=== PATIENT | female | born 1945 | race Caucasian/White ===

== ENCOUNTER 2017-09-16 22:04 | Emergency (ER) | payer MEDICARE, SELFPAY ==
[2017-09-16 22:18] VITALS: BP 175/99; PULSE 86; RESP 18; TEMP 36.1; O2SAT 94; BMI 21.5
[2017-09-16 22:30] LABS: Bacteria Urine None Seen; RBC Urine None Seen (0-5/HPF)
[2017-09-16 23:03] LABS: Bilirubin Urine UA 1+ (NEGATIVE); WBC Urine 1-5/HPF (0-5/HPF)
--- NOTE | 2017-09-16 23:03 | PC.NURSE ---
2199: Pictures sent to HV of fox on face ears hand arms and neck. Pt still ventilating on her own. c/o pain and medicated with 0.5mg dilaudid per Dr Solorzano (please see trauma flow sheet for this documentation). Pt reports feeling improvement. IVF infusing at maintenance. Airway continues to be patent and 98% on 2L O2 2229: HV requesting additional pictures s/p wound debridement. Wounds debrided to best ability and additional pictures sent for HV consult. 2246: pt medicated with 0.5mg dilaudid as seen in APR. Pt blister'd hands and arms dressed with xeroform and bandage wrap per Dr Solorzano's instructions. Pt coughing and expectorating black soot sputum. Lungs assessed and sound clear to ausc. at this time. Pt allowed to swish and spit to expectorate soot more efficiently. NPO per HV until they are able to assess. Airway continues to remain patent at this time and pt is in good spirits and talkative.
[2017-09-16 23:04] LABS: Appearance Urine UA Clear; Color Urine UA ORANGE; Culture Indicated Urine Cult Not Indicated
[2017-09-16 23:06] LABS: Ictotest Urine Negative (Negative)
[2017-09-16 23:20] VITALS: BP 160/92; PULSE 71; RESP 18; TEMP 36.3; O2SAT 96
--- NOTE | 2017-09-16 23:42 | DI.RAD.S_ITS ---
PROCEDURE: XR ABDOMEN MIN 2V INDICATIONS: constipated TECHNIQUE: 2 views of the abdomen were acquired. COMPARISON: Outside Film, CT, CT ABDOMEN PELVIS WITH CONTRAST, 04/01/2017, 13:59. [facility], CR, ABDOMEN 1 VIEW, 07/29/2009, 13:11. [facility], , XR ACUTE ABDOMEN SERIES, 06/14/2017, 15:58. FINDINGS: Surgical changes and devices: There are post surgical changes in the lower lumbar spine. Bowel: No pneumoperitoneum. The bowel gas pattern is normal. Soft tissues: No masses; visualized solid organ contours appear normal in size. No suspicious abdominal calcifications. Bones: No suspicious bony abnormalities. IMPRESSION: Normal bowel gas pattern. Dictated by: Rene Mattson M.D. on 09/17/2017 at 8:05 Approved by: Rene Mattson M.D. on 09/17/2017 at 8:07
[2017-09-16 23:53] LABS: Add Manual Diff / Slide Review NO; Eosinophils Percent Auto 1.1 % (2-4); Hematocrit 40.1 % (36-46); Hemoglobin 13.1 g/dL (12.0-16.0); Lymphocytes Percent Auto 25.5 % (25-40); Mean Corpuscular HGB Conc 32.7 % (30-36); Mean Corpuscular Volume 94.8 fL (80-100); Monocytes Percent Auto 6.6 % (3-14); Neutrophils Absolute Auto 4400 /uL (3000-5900); Neutrophils Percent Auto 65.8 % (50-75); Platelet Count 233 X10^3/uL (150-400); Red Blood Cell Count 4.23 X10^6/uL (4.0-5.2); Red Cell Distribution Width 14.2 % (11.6-14.8); White Blood Cell Count 6.6 X10^3/uL (4.5-11.0)
[2017-09-16 23:57] LABS: Alanine Aminotransferase 15 IU/L (9-52); Albumin 3.9 g/dL (3.5-5.0); Albumin Globulin Ratio 1.2 (1.0-2.8); Alkaline Phosphatase 37 U/L (38-126); Aspartate Aminotransferase 30 IU/L (14-36); BUN Creatinine Ratio 28.9 (6-22); Bilirubin Total 0.5 mg/dL (0.2-1.3); Blood Urea Nitrogen 26 mg/dL (7-17); Calcium 9.1 mg/dL (8.4-10.2); Carbon Dioxide 30 mmol/L (22-32); Chloride 104 mmol/L (98-107); Estimated Glomerular Filt Rate > 60.0 mL/min (>60); Globulin 3.3 g/dL (1.7-4.1); Glucose 97 mg/dL (80-110); HEMOLYSIS < 15 (0-50); Lipase 38 U/L (23-300); Potassium 4.1 mmol/L (3.4-5.1); Sodium 140 mmol/L (137-145); Total Protein 7.2 g/dL (6.3-8.2)
--- NOTE | 2017-09-17 00:24 | ED_ITS ---
HPI - Abdominal Pain General Chief Complaint: Abdominal Pain Stated Complaint: BLADDER PAIN BOWEL OBSTRUCTION Time Seen by Provider: 09/16/17 23:16 Source: patient Mode of arrival: ambulatory Limitations: no limitations History of Present Illness HPI narrative: Patient is a 71-year-old female who presents with abdominal pain and rectal pain. She is chronically on pain medications for back. Which she had a bowel movement 5 days ago but nothing since. She has pain in the rectum. She has had pain in the rectum ongoing for some time. Tonight she says it is worse. She feels like she does need to have a bowel movement. No nausea or vomiting. No fevers. She actually was supposed to have a colonoscopy today but she said she felt too bad and was unable to come over to have a colonoscopy. She is now here in the emergency department for evaluation. Related Data Home Medications Medication Instructions Recorded Confirmed fentanyl 1 patch TOPICAL EVERY OTHER DAY #0 03/01/17 gabapentin [Neurontin] 600 mg PO TID #0 03/01/17 belladonna alkaloids-opium 1 supp IL Q8HP PRN #0 04/07/17 cephalexin 500 mg PO TID #0 04/07/17 morphine 15 mg PO Q6HP PRN #0 04/07/17 oxycodone 10 mg PO Q3HP PRN #0 04/07/17 Previous Rx's Medication Instructions Recorded dicyclomine 10 mg PO Q6HP PRN #60 cap 03/05/17 polyethylene glycol 3350 17 gm PO HS #30 dose 03/05/17 sennosides [senna] 2 tab PO BID #30 03/05/17 warfarin [Coumadin] 5 mg PO HS #30 tab 03/05/17 phenazopyridine [Pyridium] 200 mg PO TID #10 tab 04/20/17 Allergies Allergy/AdvReac Type Severity Reaction Status Date / Time No Known Allergies Allergy Uncoded 05/25/17 13:02 Review of Systems Review of Systems GENERAL: Denies chills, fatigue, malaise, fever, sweats, travel HEENT: Denies sinus pain, ear pain, sore throat, difficulty swallowing, neck pain RESPIRATORY: Denies dyspnea, cough, wheezing, hemoptysis, sputum. CARDIOVASCULAR: Denies chest pain, palpitations, orthopnea, edema GASTROINTESTINAL: See HPI : Denies dysuria, frequency, incontinence, hematuria, urinary retention, flank pain. MUSCULOSKELETAL: Denies weakness, joint pain, or bony pain SKIN: No rash, no erythema, no pruritus NEUROLOGIC: Denies weakness, dizziness, headache, numbness, change in speech, confusion PSYCHIATRIC: No concerning psychosocial issues. 12 point review of systems is negative except for those stated above and HPI [facility] Medical History History of hysterectomy (Acute) Surgical History History of lumbar laminectomy (Acute) Social History Smoking Status: Current every day smoker Exam Initial Vital Signs Initial Vital Signs: Vital Signs Temperature 97 F L 09/16/17 22:18 Pulse Rate 86 09/16/17 22:18 Respiratory Rate 18 09/16/17 22:18 Blood Pressure 175/99 H 09/16/17 22:18 Pulse Oximetry 94 09/16/17 22:18 GENERAL: Well-appearing, well-nourished and in no acute distress. HEENT: Head atraumatic,EOMI, pupils reactive, face symmetric, moist mucous membranes CARDIOVASCULAR: Regular rate and rhythm without murmurs, rubs or gallops. RESPIRATORY: Breath sounds equal bilaterally, no wheezes rales or rhonchi. ABDOMEN: Soft mild lower abdominal tenderness without guarding or rebound no distension normal bowel sounds no masses or pulsations EXTREMITIES: Normal range of motion, no clubbing or edema. Neurovascularly intact NEUROLOGICAL: Alert and oriented x4.Normal gait and speech. Cranial nerves II through XII grossly intact. SKIN: Warm, dry, no laceration, no petechiae, no rashes or lesions. Course Orders Ordered: ED Orders 09/16/17 22:16 Ictotest Urine Stat UA Complete [Urinalysis and Microscopic] Stat 09/16/17 23:00 Complete Blood Count AUTO DIFF Stat Comprehensive Metabolic Panel Stat Lipase Stat 09/16/17 23:42 XR abdomen min 2V Stat 09/17/17 02:20 CT abdomen pelvis w con Stat Discontinued Medications Ketorolac Tromethamine (Toradol) 30 mg IV NOW ONE Stop: 09/17/17 02:54 Last Admin: 09/17/17 03:06 Dose: 30 mg Mineral Oil (Mineral Oil Enema) 1 each IL NOW ONE Stop: 09/16/17 23:43 Last Admin: 09/17/17 00:49 Dose: 1 each Morphine Sulfate (Morphine Sulfate) 4 mg IV NOW ONE Stop: 08/04/18 00:22 Last Admin: 09/17/17 00:26 Dose: 4 mg Sodium Biphosphate/Sodium Phosphate (Fleet Enema) 1 each IL NOW ONE Stop: 09/17/17 01:49 Last Admin: 09/17/17 02:10 Dose: 1 each Vital Signs - 8 hr 09/16/17 22:18 09/16/17 23:20 09/17/17 02:08 Temperature 97 F L 97.3 F L Pulse Rate 86 71 80 Respiratory Rate 18 18 18 Blood Pressure 175/99 H Blood Pressure [Left Arm] 160/92 H 159/88 H Pulse Oximetry 94 96 09/17/17 03:25 Temperature 98 F Pulse Rate 88 Respiratory Rate 18 Blood Pressure 150/90 H Blood Pressure [Left Arm] Pulse Oximetry 98 MDM - Abdominal Pain Lab Data Attestation: I reviewed the patient's lab results. Result diagrams: 09/16/17 23:00 09/16/17 23:00 Lab Results 09/16/17 09/16/17 09/16/17 Range/Units 22:16 22:16 23:00 WBC 6.6 (4.5-11.0) X10^3/uL RBC 4.23 (4.0-5.2) X10^6/uL Hgb 13.1 (12.0-16.0) g/dL Hct 40.1 (36-46) % MCV 94.8 (80-100) fL MCH 31.0 (26-34) PG MCHC 32.7 (30-36) % RDW 14.2 (11.6-14.8) % Plt Count 233 (150-400) X10^3/uL Neut % (Auto) 65.8 (50-75) % Lymph % (Auto) 25.5 (25-40) % [place] % (Auto) 6.6 (3-14) % Eos % (Auto) 1.1 L (2-4) % Baso % (Auto) 1.0 (0-2) % Neut # (Auto) 4400 (9503-3991) /uL Sodium (137-145) mmol/L Potassium (3.4-5.1) mmol/L Chloride (98-107) mmol/L Carbon Dioxide (22-32) mmol/L BUN (7-17) mg/dL Creatinine (0.52-1.04) mg/dL Estimated GFR (>60) mL/min BUN/Creatinine Ratio (6-22) Glucose (80-110) mg/dL Calcium (8.4-10.2) mg/dL Total Bilirubin (0.2-1.3) mg/dL AST (14-36) IU/L ALT (9-52) IU/L Alkaline Phosphatase (38-126) U/L Total Protein (6.3-8.2) g/dL Albumin (3.5-5.0) g/dL Globulin (1.7-4.1) g/dL Albumin/Globulin Ratio (1.0-2.8) Lipase (23-300) U/L Urine Color [place] Urine Appearance Clear Urine pH TNP Ur Specific [place] TNP Urine Protein TNP Urine Glucose (UA) TNP Urine Ketones TNP Urine Occult Blood TNP Urine Nitrate TNP Urine Bilirubin 1+ H (NEGATIVE) Urine Ictotest Negative (Negative) Urine Urobilinogen TNP Ur Leukocyte Esterase TNP Urine RBC None seen (0-5/HPF) Urine WBC 1-5/hpf (0-5/HPF) Urine Bacteria None seen (None) Ur Culture Indicated? Cult not indicated Micro UA Comment . 09/16/17 Range/Units 23:00 WBC (4.5-11.0) X10^3/uL RBC (4.0-5.2) X10^6/uL Hgb (12.0-16.0) g/dL Hct (36-46) % MCV (80-100) fL MCH (26-34) PG MCHC (30-36) % RDW (11.6-14.8) % Plt Count (150-400) X10^3/uL Neut % (Auto) (50-75) % Lymph % (Auto) (25-40) % [place] % (Auto) (3-14) % Eos % (Auto) (2-4) % Baso % (Auto) (0-2) % Neut # (Auto) (8987-8643) /uL Sodium 140 (137-145) mmol/L Potassium 4.1 (3.4-5.1) mmol/L Chloride 104 (98-107) mmol/L Carbon Dioxide 30 (22-32) mmol/L BUN 26 H (7-17) mg/dL Creatinine 0.90 (0.52-1.04) mg/dL Estimated GFR > 60.0 (>60) mL/min BUN/Creatinine Ratio 28.9 H (6-22) Glucose 97 (80-110) mg/dL Calcium 9.1 (8.4-10.2) mg/dL Total Bilirubin 0.5 (0.2-1.3) mg/dL AST 30 (14-36) IU/L ALT 15 (9-52) IU/L Alkaline Phosphatase 37 L (38-126) U/L Total Protein 7.2 (6.3-8.2) g/dL Albumin 3.9 (3.5-5.0) g/dL Globulin 3.3 (1.7-4.1) g/dL Albumin/Globulin Ratio 1.2 (1.0-2.8) Lipase 38 (23-300) U/L Urine Color Urine Appearance Urine pH Ur Specific [place] Urine Protein Urine Glucose (UA) Urine Ketones Urine Occult Blood Urine Nitrate Urine Bilirubin (NEGATIVE) Urine Ictotest (Negative) Urine Urobilinogen Ur Leukocyte Esterase Urine RBC (0-5/HPF) Urine WBC (0-5/HPF) Urine Bacteria (None) Ur Culture Indicated? 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 No obstruction. No fluid collection and perineum no free air no free fluid no lymph nodes. Abdominal x-ray: Attestation: I personally reviewed and interpreted this imaging study as follows: My impression: Increased stool. no free air no air fluid collections MDM Narrative Medical decision making narrative: Patient's x-ray had increased stool and she had pain in her rectum clinically constipated without a bowel movement in 5 days and on chronic opiate medication. She was given 2 enemas which she was unable to hold and for any longer than 5 min. She did not have a bowel movement with the enemas and was having increasing rectal pain. CT confirms rectal inflammation. This is likely part of why she was having a colonoscopy today. Rectal pain has been ongoing. It was slightly worse today. Toradol does seem to help. She is afebrile no leukocytosis appears nontoxic she has been ambulatory to the restroom many times. Discharge Plan Departure Patient Disposition: Home, Self-Care Clinical Impression: Inflammation of the rectum Discharge Date/Time: 09/17/17 03:37 Interventions: ED Discharge Assessment Last Done: 09/17/17 03:25 Instructions: Inflammatory Bowel Disease Activity Restrictions/Additional Instructions: *You have been diagnosed with rectal inflammation *What to do: You will need a colonoscopy and likely a biopsy so call surgery to reschedule. All narcotics can cause constipation be sure your are on a bowel regimen *Continue to take medications as directed -recommend [id number] Anusol (hemorrhoid) suppositories to help with local inflammation he will need to hold suppository in for 30 min or more *Follow up with your primary care provider in 2-3 days *Return to ER if you should have increasing abdominal pain vomiting, or any new , worsening or concerning symptoms Prescriptions: No Action fentanyl 100 MCG/HR patch 72 hour 1 patch Topical EVERY OTHER DAY Qty: 0 RF: 0 gabapentin [Neurontin] 600 MG tablet 600 mg PO TID Qty: 0 RF: 0 sennosides [senna] 8.6 MG tablet 2 tab PO BID Qty: 30 RF: 0 polyethylene glycol 3350 17 GM powder in packet 17 gm PO HS Qty: 30 RF: 0 warfarin [Coumadin] 5 MG tablet 5 mg PO HS Qty: 30 RF: 0 dicyclomine 10 MG capsule 10 mg PO Q6HP PRNQty: 60 RF: 0 belladonna alkaloids-opium 16.2 MG/60 MG suppository 1 supp IL Q8HP PRNQty: 0 RF: 0 cephalexin 500 MG capsule 500 mg PO TID Qty: 0 RF: 0 morphine 15 MG tablet 15 mg PO Q6HP PRNQty: 0 RF: 0 oxycodone 10 MG tablet 10 mg PO Q3HP PRNQty: 0 RF: 0 phenazopyridine [Pyridium] 200 MG tablet 200 mg PO TID Qty: 10 RF: 0 Referrals: Zackary Tellez MD [Physician] - Chucky Velazquez MD [Primary Care Provider] -
[2017-09-17] MEDS: MORPHINE 5 MG/ML INJ 4 MG IV (00:26)
[2017-09-17] MEDS: MINERAL OIL 1 EACH ENEMA PR (00:49)
[2017-09-17 02:08] VITALS: BP 159/88; PULSE 80; RESP 18
[2017-09-17] MEDS: FLEETS ENEMA 1 EACH PR (02:10)
--- NOTE | 2017-09-17 02:20 | DI.CT.S_ITS ---
PROCEDURE: CT ABDOMEN PELVIS W CON INDICATIONS: lower abdominal pain TECHNIQUE: After the administration of intravenous contrast, 5 mm thick sections acquired from the diaphragm to the symphysis. 5 mm coronal and sagittal reformats were acquired. For radiation dose reduction, the following was used: automated exposure control, adjustment of mA and/or kV according to patient size. COMPARISON: [facility], MR, ABDOMEN W/O CONTRAST, 08/06/2009, 17:08. [facility], CT, ABDOMEN WITH CONTRAST, 07/29/2010, 10:58. Outside Film, US, US ABDOMEN LIMITED, 08/04/2009, 11:06. Outside Film, CT, CT ABDOMEN PELVIS WITH CONTRAST, 04/01/2017, 13:59. [facility], CT, ABDOMEN/PELVIS WITH CONTRAST, 03/03/2017, 6:46. [facility], CT, PE STUDY (CTA CHEST), 04/07/2017, 13:19. FINDINGS: Image quality: Excellent. ABDOMEN: Lung bases: Bibasilar atelectasis. Lung bases are clear. Heart size is normal. Solid organs: Liver is normal in size and enhancement. Gallbladder is normal without gallstones. Biliary system is dilated. There is intrahepatic biliary dilation. Common bile duct measures up to 10 mm. No common bile duct stones. Pancreas enhances normally. Spleen is normal in size and enhancement. No adrenal nodules. Kidneys demonstrate normal size and enhancement, without hydronephrosis. Peritoneum and bowel: Descending and sigmoid colon are significant and demonstrate increased mucosal enhancement suggesting colitis. Bowel loops demonstrate normal caliber. No free fluid or air. Nodes and vessels: No retroperitoneal or mesenteric adenopathy by size criteria. Aorta and inferior vena cava are normal in size. Miscellaneous: No ventral hernias. PELVIS: Genitourinary: Bladder wall thickness is normal. Miscellaneous: No inguinal hernias or adenopathy. Bones: No suspicious bony lesions. No vertebral body compression fractures. IMPRESSION: 1. Colonic wall thickening involving the descending and sigmoid colon with increased mucosal enhancement consistent with colitis. Differential diagnoses include inflammatory bowel disease versus infectious etiology. 2. There is intrahepatic and intrahepatic biliary dilation of uncertain etiology. The finding has been present on multiple prior CT and MRI examinations and appears minimally changed. No gallstones or common bile duct stones. No significant discrepancy with the cook night radiology preliminary report. Dictated by: Rene Mattson M.D. on 09/17/2017 at 7:35 Approved by: Rene Mattson M.D. on 09/17/2017 at 7:45
[2017-09-17] MEDS: KETOROLAC 60 MG/2 ML VIAL 30 MG IV (03:06)
[2017-09-17 03:25] VITALS: BP 150/90; PULSE 88; RESP 18; TEMP 36.6; O2SAT 98
== END 2017-09-17 03:37 | disposition home or self-care (01) ==
PROVIDERS: Emergency Provider Emergency Medicine; Family Provider Family Medicine; PCP Family Medicine
DX: K62.89 Other specified diseases of anus and rectum (principal)
CPT/HCPCS: 36591; 74019; 74177; 80053; 81001; 83690; 85025; 96374; 96375; 99283; 99285; J1885; J2270; Q9967

== ENCOUNTER 2018-01-17 10:35 | Day surgery (SDC) | payer MEDICARE, SELFPAY ==
[2018-01-17] VITALS (7 sets, daily range): BP systolic 117–161; BP diastolic 70–93; PULSE 58–92; RESP 9–19; TEMP 36–36.2; O2SAT 92–94; BMI 49.4
[2018-01-17] MEDS: SODIUM CHLORIDE 0.9% 1,000 ML 200 ML IV (11:14)
--- NOTE | 2018-01-17 11:31 | PM.PREOP ---
Pre-operative Note Interval Note Pre-op Check: Yes History & Physical Reviewed by Physician and Yes Exam Performed Changes: No ASA Class (for procedural sedation): II
[2018-01-17] MEDS: MIDAZOLAM 5 MG/5 ML VIAL IV (12:18)
[2018-01-17] MEDS: fentaNYL 250 MCG/5 ML INJ IV (12:19)
--- NOTE | 2018-01-17 12:47 | P.OP.ENDO_ITS ---
Operative Date/Time/Diagnoses Date of procedure: 01/17/18 Time of procedure: 12:42 Pre-op diagnosis: Constipation rectal pain Post-op diagnosis: same (Occasional diverticulosis. Elongated tortuous colon.) Procedure & Clinicians Study performed: Colonoscopy Same procedure as scheduled: Yes Indications: Change in bowel habits Surgeon: Zackary Tellez Procedure Notes SCOAP/Timeout: Performed Procedure in detail: The patient was placed in the left lateral decubitus position and underwent IV sedation directed by the surgeon consisting of fentanyl and Versed. Digital exam was unremarkable. The scope was inserted and advanced through the rectum into the sigmoid, descending, transverse, and ascending colon. Progress was slow and difficult. The patient was repositioned , had pressure applied and a stiffener inserted. Ultimately we made our way around what appeared to be the hepatic flexure and reach the region of the cecum identified by palpation of the abdominal wall. Unfortunately there was stool in it which I could not irrigate away. Site did not get a good examination of the cecum. The scope was gradually brought out. No Polyps were found . The scope ultimately was retroflexed in the rectum. The appearance was normal.. The scope was removed and the patient tolerated the procedure well Given how difficult it was to do a bowel prep for this patient, it is unlikely she would tolerate a barium enema to evaluate her cecum. Scope withdrawal time: Uncertain Sedation minutes: 26 Findings: diverticulosis and other findings (Elongated tortuous colon) Plan for aftercare: Probably does not need a repeat colonoscopy for screening purposes due to her age. Follow up: as needed Disposition: PACU
--- NOTE | 2018-01-17 13:24 | SUR.PHASEI ---
sleeping, arouses easily, asked questions about outcome of procedure, voiced disappointment in not finding cause of pain. Sip water given, returned to sleep. Did not maintain O2 sat on RA. VSS, Preparing to transfer to [facility].
--- NOTE | 2018-01-17 13:34 | SUR.PHASEII ---
TO [facility], bed down and locked, call light within reach . Report given to Jenifer Jones RN
== END 2018-01-17 13:45 | disposition home or self-care (01) ==
PROVIDERS: PCP Family Medicine; Visit Provider Specialist
PROC: 0DJD8ZZ Inspection of Lower Intestinal Tract, Via Natural or Artificial Opening Endoscopic (ICD-10-PCS; CPT 45378; principal; 2018-01-17 11:45)
DX: K59.00 Constipation, unspecified (principal); K62.89 Other specified diseases of anus and rectum; K57.30 Diverticulosis of large intestine without perforation or abscess without bleeding; F17.210 Nicotine dependence, cigarettes, uncomplicated; Q43.8 Other specified congenital malformations of intestine
CPT/HCPCS: 45378; 99152; 99153; J2250; J3010

== ENCOUNTER 2018-03-13 17:58 | Emergency (ER) | payer MEDICARE, SELFPAY ==
[2018-03-13] VITALS (11 sets, daily range): BP systolic 128–155; BP diastolic 70–106; PULSE 82–97; RESP 14–21; TEMP 36.6; O2SAT 90–98
--- NOTE | 2018-03-13 | DI.RAD.S_ITS ---
PROCEDURE: XR SHOULDER RT MIN 2V INDICATIONS: POST REDUCTION TECHNIQUE: 2 views of the shoulder were acquired. COMPARISON: [facility], CR, XR SHOULDER RT MIN 2V, 03/13/2018, 18:24. FINDINGS: Bones: Previous inferior subluxation/borderline dislocation demonstrates improved alignment. There has been mild interval diastases of comminuted fracture fragments compared to prior exam. Very minimal angulation at the humeral head is now present. Soft tissues: No suspicious soft tissue calcifications. IMPRESSION: Improved anatomic alignment with slight humeral head angulation and diastases of fracture fragments. Dictated by: Laura Valle M.D. on 03/13/2018 at 20:16 Approved by: Laura Valle M.D. on 03/13/2018 at 20:17
--- NOTE | 2018-03-13 18:20 | DI.RAD.S_ITS ---
PROCEDURE: XR SHOULDER RT MIN 2V INDICATIONS: fall poss dislocation TECHNIQUE: 2 views of the shoulder were acquired. COMPARISON: [facility], , CHEST 2 VIEW, 04/19/2017, 20:15. FINDINGS: Bones: There is a comminuted minimally displaced humeral head fracture extending to the neck. There is slight inferior subluxation without gross dislocation. Severe glenohumeral narrowing. Soft tissues: No suspicious soft tissue calcifications. IMPRESSION: Comminuted humeral head and neck fracture as above with intra-subluxation. Dictated by: Laura Valle M.D. on 03/13/2018 at 18:46 Approved by: Laura Valle M.D. on 03/13/2018 at 18:46
[2018-03-13] MEDS: PROPOFOL 200 MG/20 ML VIAL 100 MG IV (19:50)
--- NOTE | 2018-03-13 20:21 | ED_ITS ---
HPI - Extremity Injury (Upper) General Chief Complaint: Extremity Injury, Upper Stated Complaint: DISLOCATION OF RT SHOULDER Time Seen by Provider: 03/13/18 18:00 Source: patient and family Mode of arrival: ambulatory Limitations: no limitations History of Present Illness HPI narrative: 72F daily smoker with history of lobectomy and former PE presents with R shoulder pain from PCP office on [facility]. She fell last night and injured her R shoulder. She had Xray noting dislocation in the office and patient was given Demerol and Phenergan and attempt to reduce was unsuccessful. 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 She denies numbness or tingling. She denies other injury. She's got worsening pain with ROM and improvement with rest. MD complaint: injury to: right Onset (ago): day(s) Other injuries: none Handedness: right Place: home Severity: moderate Relieving factors: immobilization Exacerbating factors: movement of extremity Context: direct blow Associated symptoms: denies other symptoms Related Data Home Medications Medication Instructions Recorded Confirmed fentanyl 1 patch TOPICAL EVERY OTHER DAY #0 03/01/17 01/17/18 gabapentin [Neurontin] 600 mg PO TID #0 03/01/17 01/17/18 Previous Rx's Medication Instructions Recorded hydrocodone-acetaminophen 1 tab PO Q4-6H PRN #20 tab 03/13/18 Allergies Allergy/AdvReac Type Severity Reaction Status Date / Time morphine AdvReac Difficulty Verified 01/17/18 11:13 Breathing Review of Systems Constitutional Denies chills, Denies fever(s), Denies lethargy and Denies weakness Eyes Denies change in vision, Denies eye discharge, Denies irritation and Denies loss of vision ENT Ears, Nose, Mouth, and Throat: Denies change in voice, Denies neck pain and Denies sore throat Cardiovascular Denies chest pain, Denies irregular heart rhythm, Denies lightheadedness, Denies palpitations, Denies dyspnea, Denies dyspnea on exertion and Denies orthopnea Respiratory Denies cough, Denies dyspnea, Denies dyspnea on exertion and Denies wheezing Gastrointestinal Gastrointestinal: Denies abdominal pain, Denies change in bowel habits, Denies diarrhea, Denies nausea and Denies vomiting Genitourinary Denies hematuria, Denies flank pain, Denies urinary incontinence and Denies urinary urgency Musculoskeletal Reports joint swelling, Reports limited range of motion and Denies neck pain Integumentary/Breasts Denies pruritus, Denies erythema, Denies rash and Denies wounds Neurologic Denies confusion, Denies loss of vision and Denies weakness Psychiatric Denies anxiety, Denies confusion, Denies depression, Denies homicidal ideation and Denies suicidal ideation Endocrine Denies palpitations Hematologic/Lymphatic Denies easy bruising Allergic/Immunologic Denies wheezing [facility] Medical History History of hysterectomy (Acute) Surgical History History of lumbar laminectomy (Acute) Social History household members: none Smoking Status: Current every day smoker Exam Narrative Exam Narrative: GEN: AOx3 and in mild distress EYES: Pupils are equal, round, and reactive to light and accommodation. Extraoccular muscles are intact bilaterally. There is no subconjunctival hemorrhage or exudate. CHEST: Lungs are clear to auscultation bilaterally and free of wheezes, rales, or rhonchi. Heart rate is regular rhythm, there are no murmurs, clicks, rubs, or gallops. There is no chest wall tenderness. ABD: Abdomen is soft and nontender. There is no guarding or rebound. Bowel sounds are normal in all 4 quadrants. There is no mass or organomegaly. EXT: Pain, swelling, ecchymosis R shoulder SKIN: Warm, pink, and dry. No erythema or rash Initial Vital Signs Initial Vital Signs: Vital Signs Temperature 97.8 F 03/13/18 18:17 Pulse Rate 97 H 03/13/18 18:17 Respiratory Rate 14 03/13/18 18:17 Blood Pressure 154/86 H 03/13/18 18:17 Pulse Oximetry 98 03/13/18 18:17 Procedures Orthopedic Joint Reduction Joint #1: Time Out Performed: Yes Side: right Joint Reduction Location: shoulder Analgesia: procedural sedation Shoulder Technique Used (if applicable): traction/counter-traction and external rotation Technique used: traction/counter-traction Post-reduction neuro exam: intact Post-reduction vascular: intact Post Reduction X-Ray Obtained: Yes Post Reduction X-Ray Results: reduced Splint Applied: Yes Orthopedic Splinting/Casting Injury #1: Side: right Upper Extremity Injury Location: shoulder Upper Extremity Immobilizer: sling/shoulder immobilizer Procedural Sedation Patient Age: Patient is 5yrs or older Indication: fracture/dislocation reduction ASA Class: III Mallampati Airway Classification: Class II Preparation: clinical lab clerk applied, pulse oximeter, capnometry used, supplemental O2 applied, suction/airway equipment at bedside and IV secured IV Propofol dose (mg): 100 ED Sedation Level: Moderate (Concious) Patient Tolerated Procedure: Well Complications: hypoxia Course Orders Ordered: Discontinued Medications Hydrocodone Bitart/Acetaminophen (Vicodin Prepack) 1 bottle MISC SEEINSTR ONE Stop: 03/13/18 21:04 Last Admin: 03/13/18 21:28 Dose: 1 bottle Gabapentin (Neurontin) 600 mg PO NOW ONE Stop: 03/13/18 21:11 Last Admin: 03/13/18 21:28 Dose: 600 mg Propofol (Diprivan) 100 mg IV NOW ONE Stop: 03/13/18 20:41 Last Admin: 03/13/18 19:50 Dose: 100 mg Reevaluation(s) Reevaluation #1: Patient requires low dose oxygen at home and will not have access tonight. Her resting pulse ox is between 87 and 89 room air. Patient demanded to leave, stating she would be completely fine over the course of the night without her oxygen. Attempts were made to further discuss quickly sat down, patient has full capacity to make decisions and leaves in the care 2 family members Reevaluation #2: Patient was urged for well over 1 hr. She is alert and oriented, demonstrating full capacity. She is speaking clearly, without slurring and able to get around at her baseline Consultations Consultation #1: call to orthopedics (Dr. Franks) whom is able to view images and shares opinion that she is reduced. Recommends sling and pain meds with follow up. Vital Signs - 8 hr 03/13/18 18:17 03/13/18 18:24 03/13/18 19:30 Temperature 97.8 F Pulse Rate 97 H 84 Pulse Rate [Right Radial] 95 H Respiratory Rate 14 18 Blood Pressure 154/86 H Blood Pressure [Left Arm] Pulse Oximetry 98 03/13/18 19:49 03/13/18 19:55 03/13/18 20:00 Temperature Pulse Rate 82 84 84 Pulse Rate [Right Radial] Respiratory Rate 16 16 18 Blood Pressure Blood Pressure [Left Arm] 146/93 H 143/106 H 128/70 Pulse Oximetry 98 92 97 03/13/18 20:10 03/13/18 20:21 03/13/18 20:31 Temperature Pulse Rate 88 88 84 Pulse Rate [Right Radial] Respiratory Rate 18 17 16 Blood Pressure Blood Pressure [Left Arm] 155/84 H 132/78 146/78 H Pulse Oximetry 90 L 91 92 03/13/18 20:49 Temperature Pulse Rate 85 Pulse Rate [Right Radial] Respiratory Rate 16 Blood Pressure Blood Pressure [Left Arm] 152/78 H Pulse Oximetry 93 MDM - Extremity Injury (Upper) MDM Narrative Medical decision making narrative: Multiple etiologies for patient's symptoms considered including: [Comminuted proximal humerus fracture, chronic hypoxia] Patient's symptoms improved or duration of stay with above-stated therapies. Findings and discharge diagnosis discussed with patient/family followed by verbalization of understanding Return precautions discussed with patient/family whom verbalize understanding. Discharge Plan Departure Patient Disposition: Home Clinical Impression: Fracture of proximal end of humerus Discharge Date/Time: 03/13/18 21:54 Interventions: ED Discharge Assessment Last Done: 03/13/18 21:54 Instructions: DI for Shoulder Fracture Activity Restrictions/Additional Instructions: *You have been diagnosed with [ proximal humerus fracture] *What to do: *Take medications as directed *Follow up with your primary care provider in 2-3 days, call for an appointment. Let them know you were seen in the Emergency Department and that we ask that you be seen in follow up *Return to ER if you should have any new, worsening or concerning symptoms , such as [ ] Prescriptions: New hydrocodone-acetaminophen 5-325 mg tablet 1 tab PO Q4-6H PRN (Reason: pain) Qty: 20 RF: 0 No Action fentanyl 100 MCG/HR patch 72 hour 1 patch Topical EVERY OTHER DAY Qty: 0 RF: 0 gabapentin [Neurontin] 600 MG tablet 600 mg PO TID Qty: 0 RF: 0 Referrals: Yordan Franks MD [Physician] - Chucky Velazquez MD [Primary Care Provider] -
--- NOTE | 2018-03-13 20:23 | PC.NURSE ---
Procedural Sedation note 40 mg Propofol given IVP by Dr Gonzalez at 1949, with additional doses of 30mg given at 1952 and 30 mg at 1954 to achieve apropriate sedation. Right arm reduction attempted by provider, pt's ventilations were not adequate and Sp02 dropped to 85%. RT at head of bed assisting respirations with BVM; sats improved to 97%. At 1957 pt was breathing independently and maintaining SpO2 at preprocedural levels: 97% on 3 liters O2 via NC. Portable chest XR done at bedside at 2003; pt's Sp02 dropped to 88% after lying flat for procedure. Pt awake and alert, able to cough and deep breathe on command. Dr Gonzalez aware. O2 increased to 4liters via NC, pt now resting, Vital signs stable. Sling applied to right arm. Pt tolerated procedure well.
[2018-03-13] MEDS: GABAPENTIN 600 MG TABLET PO (21:28)
[2018-03-13] MEDS: HYDROCODONE/ACET 5/325 PREPACK 1 BOTTLE MISC (21:28)
== END 2018-03-13 21:54 | disposition home or self-care (01) ==
PROVIDERS: Emergency Provider Emergency Medicine; PCP Family Medicine
DX: S42.201A Unspecified fracture of upper end of right humerus, initial encounter for closed fracture (principal); S43.004A Unspecified dislocation of right shoulder joint, initial encounter
CPT/HCPCS: 23650; 29240; 73030; 94770; 99152; 99284; 99285; J2704

== ENCOUNTER 2018-06-15 14:11 | Inpatient (IN) | payer MEDICARE, SELFPAY ==
[2018-06-15] VITALS (10 sets, daily range): BP systolic 148–182; BP diastolic 85–101; PULSE 87–96; RESP 11–20; TEMP 36.8–36.9; O2SAT 94–98; BMI 20.1
--- NOTE | 2018-06-15 14:53 | DI.RAD.S_ITS ---
PROCEDURE: XR CHEST 1V INDICATIONS: confusion TECHNIQUE: One view of the chest was acquired. COMPARISON: [facility], , CHEST 2 VIEW, 04/19/2017, 20:15. FINDINGS: Surgical changes and devices: None. Lungs and pleura: Lungs are clear. No pleural effusions or pneumothorax. Mediastinum: Mediastinal contours appear normal. Heart size is normal. Bones and chest wall: No suspicious bony lesions. Overlying soft tissues appear unremarkable. IMPRESSION: No acute process. Dictated by: Norma Aviles M.D. on 06/15/2018 at 15:26 Approved by: Norma Aviles M.D. on 06/15/2018 at 15:27
[2018-06-15] MEDS: HYDROMORPHONE 1 MG INJ 0.5 MG IV ×2 (15:33→17:12)
[2018-06-15] MEDS: SODIUM CHLORIDE 0.9% 1,000 ML 200 ML IV (15:33)
--- NOTE | 2018-06-15 15:39 | ED.NEUROSD ---
HPI - Neuro Symptoms/Deficit General Chief Complaint: Neuro Symptoms/Deficit Stated Complaint: Alt. Mental Status Time Seen by Provider: 06/15/18 14:22 Source: patient, family and EMS Mode of arrival: EMS Limitations: altered mental status History of Present Illness HPI Narrative: Patient is a 72-year-old female who presents with altered mental status started about 8 hours today. She comes from [facility] with EMS today. They are very familiar with her she has a definite decrease in mental status. She has had history of UTI sepsis and pulmonary embolisms. She is with her brother at bedside stating that she has been moaning and in pain from a bed sore for about the last week. She was put on methadone over the weekend to help with her pain however it decreased her mental status significantly so he adopted by Tuesday it has been 4 day as she really has not changed much. No fever. Overall weakness and no focal deficits. She is able to answer some questions. Onset (ago): hour(s) (8) Related Data Home Medications Medication Instructions Recorded Confirmed fentanyl 1 patch TOPICAL EVERY OTHER DAY #0 03/01/17 06/15/18 gabapentin [Neurontin] 600 mg PO TID #0 03/01/17 06/15/18 Allergies Allergy/AdvReac Type Severity Reaction Status Date / Time morphine AdvReac Difficulty Verified 01/17/18 11:13 Breathing Review of Systems Review of Systems ROS Unobtainable: All systems reviewed & are unremarkable except as noted in HPI and below Constitutional Denies headache(s), Reports lethargy and Reports weakness Eyes Denies change in vision, Denies eye discharge, Denies irritation and Denies loss of vision ENT Ears, Nose, Mouth, and Throat: Denies change in voice, Denies headache(s), Denies neck pain and Denies sore throat Cardiovascular Denies chest pain, Denies irregular heart rhythm, Denies lightheadedness, Denies palpitations, Denies dyspnea, Denies dyspnea on exertion and Denies orthopnea Respiratory Denies cough, Denies dyspnea, Denies dyspnea on exertion and Denies wheezing Gastrointestinal Gastrointestinal: Denies abdominal pain, Denies change in bowel habits, Denies diarrhea, Denies nausea and Denies vomiting Musculoskeletal Denies neck pain Integumentary/Breasts Reports as per HPI Neurologic Denies abnormal speech, Denies headache(s), Denies loss of vision and Reports weakness Endocrine Denies palpitations Allergic/Immunologic Denies wheezing [facility] Medical History Pulmonary embolism (Acute) History of hysterectomy (Acute) Surgical History History of lumbar laminectomy (Acute) Social History household members: none Smoking Status: Current every day smoker Social History household members: none Smoking Status: Current every day smoker Exam Initial Vital Signs Initial Vital Signs: Vital Signs Temperature 98.3 F 06/15/18 14:27 Pulse Rate 93 H 06/15/18 14:27 Respiratory Rate 20 06/15/18 14:27 Blood Pressure 171/101 H 06/15/18 14:27 Pulse Oximetry 95 06/15/18 14:27 GENERAL: Alert female moaning able to follow some commands answers some questions HEENT: Head atraumatic,EOMI, pupils reactive, face symmetric, neck is supple CARDIOVASCULAR: Regular rate and rhythm without murmurs, rubs or gallops. RESPIRATORY: Breath sounds equal bilaterally, no wheezes rales or rhonchi. ABDOMEN: Soft, diffuse tenderness no localization EXTREMITIES: Normal range of motion, no clubbing or edema. Neurovascularly intact NEUROLOGICAL: Alert and oriented x3. 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 Moving toes. SKIN: Right buttock sacral pressure ulcer, no gross discharge Scores GCS Mike coma scale eye opening: Spontaneous [place] coma scale verbal response: Confused [place] coma scale motor response: Localising [place] coma scale total score: 13 Course Orders Ordered: ED Orders 06/15/18 14:53 XR chest 1V Stat 06/15/18 15:26 Complete Blood Count AUTO DIFF Stat Comprehensive Metabolic Panel Stat Lactate (Lactic Acid) Stat Partial Thromboplastin Time Stat Procalcitonin Stat Prothrombin Time INR Stat 06/15/18 15:34 Blood Culture Stat 06/15/18 16:30 Urinalysis and Microscopic Stat Urine Culture Stat 06/15/18 17:02 CT head/brain wo con Stat 06/15/18 17:49 CT abdomen pelvis w con Stat Sodium Chloride (Normal Saline 0.9%) 1,000 mls @ 200 mls/hr IV CONT [place] Last Infusion: 06/15/18 17:53 Dose: 0 mls/hr Admin: 06/15/18 15:33 Dose: 200 mls/hr Discontinued Medications Hydromorphone HCl (Dilaudid) 0.5 mg IV NOW ONE Stop: 06/15/18 15:27 Last Admin: 06/15/18 15:33 Dose: 0.5 mg Hydromorphone HCl (Dilaudid) 0.5 mg IV NOW ONE Stop: 06/15/18 17:03 Last Admin: 06/15/18 17:12 Dose: 0.5 mg Hydromorphone HCl (Dilaudid) 0.5 mg IV NOW ONE Stop: 06/15/18 17:03 Last Admin: 06/15/18 18:07 Dose: Not Given Consultations Consultation #1: Dr. Schroeder, updated on patient's symptoms test results. At this time no real source of pain but patient is currently not at her baseline. She recommends patient have abdominal CT, to help find source of pain. Time: 17:55 Vital Signs - 8 hr 06/15/18 14:27 06/15/18 15:00 06/15/18 15:30 Temperature 98.3 F Pulse Rate 93 H 90 90 Respiratory Rate 20 14 15 Blood Pressure 171/101 H Blood Pressure [Right Arm] 148/88 H 165/86 H Pulse Oximetry 95 97 98 06/15/18 16:00 06/15/18 16:30 06/15/18 17:00 Temperature Pulse Rate 94 H 87 88 Respiratory Rate 16 14 14 Blood Pressure Blood Pressure [Right Arm] 169/92 H 165/90 H 169/85 H Pulse Oximetry 98 96 06/15/18 17:30 06/15/18 18:30 Temperature Pulse Rate 87 90 Respiratory Rate 12 13 Blood Pressure Blood Pressure [Right Arm] 162/89 H 164/87 H Pulse Oximetry 94 94 MDM - Neuro Symptoms/Deficit Lab Data Attestation: I reviewed the patient's lab results. Result diagrams: 06/15/18 15:26 06/15/18 15:26 Lab Results 06/15/18 06/15/18 06/15/18 Range/Units 15:26 15:26 15:26 WBC 5.6 (4.5-11.0) X10^3/uL RBC 3.65 L (4.0-5.2) X10^6/uL Hgb 11.5 L (12.0-16.0) g/dL Hct 35.2 L (36-46) % MCV 96.2 (80-100) fL MCH 31.4 (26-34) PG MCHC 32.7 (30-36) % RDW 15.4 H (11.6-14.8) % Plt Count 178 (150-400) X10^3/uL Neut % (Auto) 69.8 (50-75) % Lymph % (Auto) 18.3 L (25-40) % [place] % (Auto) 8.8 (3-14) % Eos % (Auto) 2.3 (2-4) % Baso % (Auto) 0.8 (0-2) % Neut # (Auto) 3900 (3638-6000) /uL Lymph # (Auto) 1000 L (7653-0304) /uL [place] # (Auto) 500 (0-900) /uL Eos # (Auto) 100 (0-450) /uL Baso # (Auto) 0 (0-100) /uL PT 12.6 (10.1-12.7) SECONDS INR 1.1 (0.9-1.3) APTT 27 (26.4-36.2) SECONDS Sodium (137-145) mmol/L Potassium (3.4-5.1) mmol/L Chloride (98-107) mmol/L Carbon Dioxide (22-32) mmol/L BUN (7-17) mg/dL Creatinine (0.52-1.04) mg/dL Estimated GFR (>60) mL/min BUN/Creatinine Ratio (6-22) Glucose (80-110) mg/dL Lactate (0.7-2.1) mmol/L Calcium (8.4-10.2) mg/dL Total Bilirubin (0.2-1.3) mg/dL AST (14-36) IU/L ALT (9-52) IU/L Alkaline Phosphatase (38-126) U/L Total Protein (6.3-8.2) g/dL Albumin (3.5-5.0) g/dL Globulin (1.7-4.1) g/dL Albumin/Globulin Ratio (1.0-2.8) Lipase (23-300) U/L Procalcitonin < 0.05 (<0.5) ng/mL Urine Color Urine Appearance Urine pH (4.5-8.0) Ur Specific [place] (1.000-1.035) Urine Protein (Negative) Urine Glucose (UA) (Negative) g/dL Urine Ketones (NEGATIVE) Urine Occult Blood (Negative) Urine Nitrate (Negative) Urine Bilirubin (NEGATIVE) Urine Urobilinogen (0.2) E.U./dL Ur Leukocyte Esterase (NEGATIVE) Urine RBC (0-5/HPF) Urine WBC (0-5/HPF) Urine Bacteria (None) Ur Culture Indicated? 06/15/18 06/15/18 06/15/18 Range/Units 15:26 15:26 16:30 WBC (4.5-11.0) X10^3/uL RBC (4.0-5.2) X10^6/uL Hgb (12.0-16.0) g/dL Hct (36-46) % MCV (80-100) fL MCH (26-34) PG MCHC (30-36) % RDW (11.6-14.8) % Plt Count (150-400) X10^3/uL Neut % (Auto) (50-75) % Lymph % (Auto) (25-40) % [place] % (Auto) (3-14) % Eos % (Auto) (2-4) % Baso % (Auto) (0-2) % Neut # (Auto) (3345-5390) /uL Lymph # (Auto) (8289-9562) /uL [place] # (Auto) (0-900) /uL Eos # (Auto) (0-450) /uL Baso # (Auto) (0-100) /uL PT (10.1-12.7) SECONDS INR (0.9-1.3) APTT (26.4-36.2) SECONDS Sodium 140 (137-145) mmol/L Potassium 4.4 (3.4-5.1) mmol/L Chloride 103 (98-107) mmol/L Carbon Dioxide 28 (22-32) mmol/L BUN 31 H (7-17) mg/dL Creatinine 0.70 (0.52-1.04) mg/dL Estimated GFR > 60.0 (>60) mL/min BUN/Creatinine Ratio 44.3 H (6-22) Glucose 95 (80-110) mg/dL Lactate 0.8 (0.7-2.1) mmol/L Calcium 9.2 (8.4-10.2) mg/dL Total Bilirubin 0.7 (0.2-1.3) mg/dL AST 17 (14-36) IU/L ALT 10 (9-52) IU/L Alkaline Phosphatase 49 (38-126) U/L Total Protein 7.6 (6.3-8.2) g/dL Albumin 4.2 (3.5-5.0) g/dL Globulin 3.4 (1.7-4.1) g/dL Albumin/Globulin Ratio 1.2 (1.0-2.8) Lipase (23-300) U/L Procalcitonin (<0.5) ng/mL Urine Color [place] Urine Appearance Clear Urine pH 5.5 (4.5-8.0) Ur Specific [place] 1.020 (1.000-1.035) Urine Protein Negative (Negative) Urine Glucose (UA) Negative (Negative) g/dL Urine Ketones Trace H (NEGATIVE) Urine Occult Blood 1+ H (Negative) Urine Nitrate Negative (Negative) Urine Bilirubin Negative (NEGATIVE) Urine Urobilinogen 0.2 (0.2) E.U./dL Ur Leukocyte Esterase Negative (NEGATIVE) Urine RBC 0-1/hpf (0-5/HPF) Urine WBC 0-1/hpf (0-5/HPF) Urine Bacteria Few (2-10) H (None) Ur Culture Indicated? Specimen cultured 06/15/18 Range/Units Unknown WBC (4.5-11.0) X10^3/uL RBC (4.0-5.2) X10^6/uL Hgb (12.0-16.0) g/dL Hct (36-46) % MCV (80-100) fL MCH (26-34) PG MCHC (30-36) % RDW (11.6-14.8) % Plt Count (150-400) X10^3/uL Neut % (Auto) (50-75) % Lymph % (Auto) (25-40) % [place] % (Auto) (3-14) % Eos % (Auto) (2-4) % Baso % (Auto) (0-2) % Neut # (Auto) (7169-9281) /uL Lymph # (Auto) (3603-0458) /uL [place] # (Auto) (0-900) /uL Eos # (Auto) (0-450) /uL Baso # (Auto) (0-100) /uL PT (10.1-12.7) SECONDS INR (0.9-1.3) APTT (26.4-36.2) SECONDS Sodium (137-145) mmol/L Potassium (3.4-5.1) mmol/L Chloride (98-107) mmol/L Carbon Dioxide (22-32) mmol/L BUN (7-17) mg/dL Creatinine (0.52-1.04) mg/dL Estimated GFR (>60) mL/min BUN/Creatinine Ratio (6-22) Glucose (80-110) mg/dL Lactate (0.7-2.1) mmol/L Calcium (8.4-10.2) mg/dL Total Bilirubin (0.2-1.3) mg/dL AST (14-36) IU/L ALT (9-52) IU/L Alkaline Phosphatase (38-126) U/L Total Protein (6.3-8.2) g/dL Albumin (3.5-5.0) g/dL Globulin (1.7-4.1) g/dL Albumin/Globulin Ratio (1.0-2.8) Lipase 40 (23-300) U/L Procalcitonin (<0.5) ng/mL Urine Color Urine Appearance Urine pH (4.5-8.0) Ur Specific [place] (1.000-1.035) Urine Protein (Negative) Urine Glucose (UA) (Negative) g/dL Urine Ketones (NEGATIVE) Urine Occult Blood (Negative) Urine Nitrate (Negative) Urine Bilirubin (NEGATIVE) Urine Urobilinogen (0.2) E.U./dL Ur Leukocyte Esterase (NEGATIVE) Urine RBC (0-5/HPF) Urine WBC (0-5/HPF) Urine Bacteria (None) Ur Culture Indicated? Imaging Data Chest x-ray: Radiologist's impression: PROCEDURE: XR CHEST 1V INDICATIONS: confusion TECHNIQUE: One view of the chest was acquired. COMPARISON: [facility], CR, CHEST 2 VIEW, 04/19/2017, 20:15. FINDINGS: Surgical changes and devices: None. Lungs and pleura: Lungs are clear. No pleural effusions or pneumothorax. Mediastinum: Mediastinal contours appear normal. Heart size is normal. Bones and chest wall: No suspicious bony lesions. Overlying soft tissues appear unremarkable. IMPRESSION: No acute process. Dictated by: Norma Aviles M.D. on 06/15/2018 at 15:26 CT scan - head: Radiologist's impression: PROCEDURE: CT HEAD/BRAIN WO CON INDICATIONS: decreased mental status TECHNIQUE: Noncontrast 4.5 mm thick angled axial sections acquired from the foramen magnum to the vertex, with coronal and sagittal reformats. For radiation dose reduction, the following was used: automated exposure control, adjustment of mA and/or kV according to patient size. COMPARISON: None. FINDINGS: Image quality: Excellent. CSF spaces: Basal cisterns are patent. No extra-axial fluid collections. The ventricles are symmetric in size and shape. Brain: No intracranial bleeds or masses. There is cerebral volume loss for age, with resultant ventricular and sulcal prominence. There are periventricular and deep white matter chronic small vessel ischemic changes. There is intracranial internal carotid artery atherosclerosis. Skull and face: Calvarium and visualized facial bones appear intact, without suspicious lesions. Sinuses: Visualized sinuses and mastoids are clear. IMPRESSION: No acute intracranial process Dictated by: Silas Brennan M.D. on 06/15/2018 at 17:37 CT scan - abdomen: Radiologist's impression: PROCEDURE: CT ABDOMEN PELVIS W CON INDICATIONS: abdominal pain TECHNIQUE: After the administration of intravenous contrast, 5 mm thick sections acquired from the diaphragm to the symphysis. 5 mm coronal and sagittal reformats were acquired. For radiation dose reduction, the following was used: automated exposure control, adjustment of mA and/or kV according to patient size. COMPARISON: [facility], CT, CT ABDOMEN PELVIS W CON, 09/17/2017, 2:22. FINDINGS: Image quality: Excellent. ABDOMEN: Lung bases: Bibasilar dependent atelectasis/scarring. Heart size is normal. Solid organs: Liver is normal in size and there is a unchanged presumed hepatic cyst in the right lobe. Possible gallbladder wall thickening although age indeterminate finding. No pericholecystic fluid is seen. No radiopaque gallstones identified. There is mild intrahepatic biliary prominence was unchanged to slightly decreased. The extrahepatic biliary system is non dilated. Pancreas enhances normally. Spleen is normal in size and enhancement. No adrenal nodules. Kidneys demonstrate normal size and enhancement, without hydronephrosis. Simple appearing right renal cyst. Presumed left renal cysts which are too small to characterize definitively. Peritoneum and bowel: Bowel loops demonstrate normal wall thickness and caliber. No free fluid or air. Appendix is not clearly identified however no suspicious pericecal inflammatory changes are identified Nodes and vessels: No retroperitoneal or mesenteric adenopathy by size criteria. Aorta and inferior vena cava are normal in size. Miscellaneous: No ventral hernias. PELVIS: Genitourinary: Bladder wall thickness is normal. Miscellaneous: No inguinal hernias or adenopathy. Bones: No suspicious bony lesions. Posterior spinal fixation hardware. Diffuse spondylosis No vertebral body compression fractures. IMPRESSION: Possible gallbladder wall thickening however mild and technically age-indeterminate. Recommend clinical correlation with LFTs. This could be further assessed with dedicated ultrasound if high clinical suspicion . Elsewhere, no acute process. Hepatic and renal cysts. Dictated by: Silas Brennan M.D. on 06/15/2018 at 18:46 MDM Narrative Medical decision making narrative: Patient has no right upper quadrant pain specifically normal LFTs normal bilirubin normal lipase. She again is in pain she is unable to verbalize where her pain is. Again her brother at bedside since this is not normal. 2 weeks ago she was able to do her daily living activities now not able to. At this time needs to be at least placed in observation for pain control and metabolic encephalopathy. Justine accepts Discharge Plan Departure Patient Disposition: Admitted as Observation Clinical Impression: Acute metabolic encephalopathy Interventions: ED Discharge Assessment Last Done: 06/15/18 19:23
--- NOTE | 2018-06-15 15:44 | ED_ITS ---
HPI - Neuro Symptoms/Deficit General Chief Complaint: Neuro Symptoms/Deficit Stated Complaint: Alt. Mental Status Time Seen by Provider: 06/15/18 14:22 Source: patient, family and EMS Mode of arrival: EMS Limitations: altered mental status History of Present Illness HPI Narrative: Patient is a 72-year-old female who presents with altered mental status started about 8 hours today. She comes from [facility] with EMS today. They are very familiar with her she has a definite decrease in mental status. She has had history of UTI sepsis and pulmonary embolisms. She is with her brother at bedside stating that she has been moaning and in pain from a bed sore for about the last week. She was put on methadone over the weekend to help with her pain however it decreased her mental status significantly so he adopted by Tuesday it has been 4 day as she really has not changed much. No fever. Overall weakness and no focal deficits. She is able to answer some questions. Onset (ago): hour(s) (8) Related Data Home Medications Medication Instructions Recorded Confirmed fentanyl 1 patch TOPICAL EVERY OTHER DAY #0 03/01/17 06/15/18 gabapentin [Neurontin] 600 mg PO TID #0 03/01/17 06/15/18 Allergies Allergy/AdvReac Type Severity Reaction Status Date / Time morphine AdvReac Difficulty Verified 01/17/18 11:13 Breathing Review of Systems Review of Systems ROS Unobtainable: All systems reviewed & are unremarkable except as noted in HPI and below Constitutional Denies headache(s), Reports lethargy and Reports weakness Eyes Denies change in vision, Denies eye discharge, Denies irritation and Denies loss of vision ENT Ears, Nose, Mouth, and Throat: Denies change in voice, Denies headache(s), Denies neck pain and Denies sore throat Cardiovascular Denies chest pain, Denies irregular heart rhythm, Denies lightheadedness, Denies palpitations, Denies dyspnea, Denies dyspnea on exertion and Denies orthopnea Respiratory Denies cough, Denies dyspnea, Denies dyspnea on exertion and Denies wheezing Gastrointestinal Gastrointestinal: Denies abdominal pain, Denies change in bowel habits, Denies diarrhea, Denies nausea and Denies vomiting Musculoskeletal Denies neck pain Integumentary/Breasts Reports as per HPI Neurologic Denies abnormal speech, Denies headache(s), Denies loss of vision and Reports weakness Endocrine Denies palpitations Allergic/Immunologic Denies wheezing [facility] Medical History Pulmonary embolism (Acute) History of hysterectomy (Acute) Surgical History History of lumbar laminectomy (Acute) Social History household members: none Smoking Status: Current every day smoker Social History household members: none Smoking Status: Current every day smoker Exam Initial Vital Signs Initial Vital Signs: Vital Signs Temperature 98.3 F 06/15/18 14:27 Pulse Rate 93 H 06/15/18 14:27 Respiratory Rate 20 06/15/18 14:27 Blood Pressure 171/101 H 06/15/18 14:27 Pulse Oximetry 95 06/15/18 14:27 GENERAL: Alert female moaning able to follow some commands answers some questions HEENT: Head atraumatic,EOMI, pupils reactive, face symmetric, neck is supple CARDIOVASCULAR: Regular rate and rhythm without murmurs, rubs or gallops. RESPIRATORY: Breath sounds equal bilaterally, no wheezes rales or rhonchi. ABDOMEN: Soft, diffuse tenderness no localization EXTREMITIES: Normal range of motion, no clubbing or edema. Neurovascularly intact NEUROLOGICAL: Alert and oriented x3. 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 Moving toes. SKIN: Right buttock sacral pressure ulcer, no gross discharge Scores GCS Mike coma scale eye opening: Spontaneous [place] coma scale verbal response: Confused [place] coma scale motor response: Localising [place] coma scale total score: 13 Course Orders Ordered: ED Orders 06/15/18 14:53 XR chest 1V Stat 06/15/18 15:26 Complete Blood Count AUTO DIFF Stat Comprehensive Metabolic Panel Stat Lactate (Lactic Acid) Stat Partial Thromboplastin Time Stat Procalcitonin Stat Prothrombin Time INR Stat 06/15/18 15:34 Blood Culture Stat 06/15/18 16:30 Urinalysis and Microscopic Stat Urine Culture Stat 06/15/18 17:02 CT head/brain wo con Stat 06/15/18 17:49 CT abdomen pelvis w con Stat Sodium Chloride (Normal Saline 0.9%) 1,000 mls @ 200 mls/hr IV CONT [place] Last Infusion: 06/15/18 17:53 Dose: 0 mls/hr Admin: 06/15/18 15:33 Dose: 200 mls/hr Discontinued Medications Hydromorphone HCl (Dilaudid) 0.5 mg IV NOW ONE Stop: 06/15/18 15:27 Last Admin: 06/15/18 15:33 Dose: 0.5 mg Hydromorphone HCl (Dilaudid) 0.5 mg IV NOW ONE Stop: 06/15/18 17:03 Last Admin: 06/15/18 17:12 Dose: 0.5 mg Hydromorphone HCl (Dilaudid) 0.5 mg IV NOW ONE Stop: 06/15/18 17:03 Last Admin: 06/15/18 18:07 Dose: Not Given Consultations Consultation #1: Dr. Schroeder, updated on patient's symptoms test results. At this time no real source of pain but patient is currently not at her baseline. She recommends patient have abdominal CT, to help find source of pain. Time: 17:55 Vital Signs - 8 hr 06/15/18 14:27 06/15/18 15:00 06/15/18 15:30 Temperature 98.3 F Pulse Rate 93 H 90 90 Respiratory Rate 20 14 15 Blood Pressure 171/101 H Blood Pressure [Right Arm] 148/88 H 165/86 H Pulse Oximetry 95 97 98 06/15/18 16:00 06/15/18 16:30 06/15/18 17:00 Temperature Pulse Rate 94 H 87 88 Respiratory Rate 16 14 14 Blood Pressure Blood Pressure [Right Arm] 169/92 H 165/90 H 169/85 H Pulse Oximetry 98 96 06/15/18 17:30 06/15/18 18:30 Temperature Pulse Rate 87 90 Respiratory Rate 12 13 Blood Pressure Blood Pressure [Right Arm] 162/89 H 164/87 H Pulse Oximetry 94 94 MDM - Neuro Symptoms/Deficit Lab Data Attestation: I reviewed the patient's lab results. Result diagrams: 06/15/18 15:26 06/15/18 15:26 Lab Results 06/15/18 06/15/18 06/15/18 Range/Units 15:26 15:26 15:26 WBC 5.6 (4.5-11.0) X10^3/uL RBC 3.65 L (4.0-5.2) X10^6/uL Hgb 11.5 L (12.0-16.0) g/dL Hct 35.2 L (36-46) % MCV 96.2 (80-100) fL MCH 31.4 (26-34) PG MCHC 32.7 (30-36) % RDW 15.4 H (11.6-14.8) % Plt Count 178 (150-400) X10^3/uL Neut % (Auto) 69.8 (50-75) % Lymph % (Auto) 18.3 L (25-40) % [place] % (Auto) 8.8 (3-14) % Eos % (Auto) 2.3 (2-4) % Baso % (Auto) 0.8 (0-2) % Neut # (Auto) 3900 (0022-8556) /uL Lymph # (Auto) 1000 L (2613-4194) /uL [place] # (Auto) 500 (0-900) /uL Eos # (Auto) 100 (0-450) /uL Baso # (Auto) 0 (0-100) /uL PT 12.6 (10.1-12.7) SECONDS INR 1.1 (0.9-1.3) APTT 27 (26.4-36.2) SECONDS Sodium (137-145) mmol/L Potassium (3.4-5.1) mmol/L Chloride (98-107) mmol/L Carbon Dioxide (22-32) mmol/L BUN (7-17) mg/dL Creatinine (0.52-1.04) mg/dL Estimated GFR (>60) mL/min BUN/Creatinine Ratio (6-22) Glucose (80-110) mg/dL Lactate (0.7-2.1) mmol/L Calcium (8.4-10.2) mg/dL Total Bilirubin (0.2-1.3) mg/dL AST (14-36) IU/L ALT (9-52) IU/L Alkaline Phosphatase (38-126) U/L Total Protein (6.3-8.2) g/dL Albumin (3.5-5.0) g/dL Globulin (1.7-4.1) g/dL Albumin/Globulin Ratio (1.0-2.8) Lipase (23-300) U/L Procalcitonin < 0.05 (<0.5) ng/mL Urine Color Urine Appearance Urine pH (4.5-8.0) Ur Specific [place] (1.000-1.035) Urine Protein (Negative) Urine Glucose (UA) (Negative) g/dL Urine Ketones (NEGATIVE) Urine Occult Blood (Negative) Urine Nitrate (Negative) Urine Bilirubin (NEGATIVE) Urine Urobilinogen (0.2) E.U./dL Ur Leukocyte Esterase (NEGATIVE) Urine RBC (0-5/HPF) Urine WBC (0-5/HPF) Urine Bacteria (None) Ur Culture Indicated? 06/15/18 06/15/18 06/15/18 Range/Units 15:26 15:26 16:30 WBC (4.5-11.0) X10^3/uL RBC (4.0-5.2) X10^6/uL Hgb (12.0-16.0) g/dL Hct (36-46) % MCV (80-100) fL MCH (26-34) PG MCHC (30-36) % RDW (11.6-14.8) % Plt Count (150-400) X10^3/uL Neut % (Auto) (50-75) % Lymph % (Auto) (25-40) % [place] % (Auto) (3-14) % Eos % (Auto) (2-4) % Baso % (Auto) (0-2) % Neut # (Auto) (5746-7505) /uL Lymph # (Auto) (4635-1069) /uL Blaine # (Auto) (0-900) /uL Eos # (Auto) (0-450) /uL Baso # (Auto) (0-100) /uL PT (10.1-12.7) SECONDS INR (0.9-1.3) APTT (26.4-36.2) SECONDS Sodium 140 (137-145) mmol/L Potassium 4.4 (3.4-5.1) mmol/L Chloride 103 (98-107) mmol/L Carbon Dioxide 28 (22-32) mmol/L BUN 31 H (7-17) mg/dL Creatinine 0.70 (0.52-1.04) mg/dL Estimated GFR > 60.0 (>60) mL/min BUN/Creatinine Ratio 44.3 H (6-22) Glucose 95 (80-110) mg/dL Lactate 0.8 (0.7-2.1) mmol/L Calcium 9.2 (8.4-10.2) mg/dL Total Bilirubin 0.7 (0.2-1.3) mg/dL AST 17 (14-36) IU/L ALT 10 (9-52) IU/L Alkaline Phosphatase 49 (38-126) U/L Total Protein 7.6 (6.3-8.2) g/dL Albumin 4.2 (3.5-5.0) g/dL Globulin 3.4 (1.7-4.1) g/dL Albumin/Globulin Ratio 1.2 (1.0-2.8) Lipase (23-300) U/L Procalcitonin (<0.5) ng/mL Urine Color [place] Urine Appearance Clear Urine pH 5.5 (4.5-8.0) Ur Specific [place] 1.020 (1.000-1.035) Urine Protein Negative (Negative) Urine Glucose (UA) Negative (Negative) g/dL Urine Ketones Trace H (NEGATIVE) Urine Occult Blood 1+ H (Negative) Urine Nitrate Negative (Negative) Urine Bilirubin Negative (NEGATIVE) Urine Urobilinogen 0.2 (0.2) E.U./dL Ur Leukocyte Esterase Negative (NEGATIVE) Urine RBC 0-1/hpf (0-5/HPF) Urine WBC 0-1/hpf (0-5/HPF) Urine Bacteria Few (2-10) H (None) Ur Culture Indicated? Specimen cultured 06/15/18 Range/Units Unknown WBC (4.5-11.0) X10^3/uL RBC (4.0-5.2) X10^6/uL Hgb (12.0-16.0) g/dL Hct (36-46) % MCV (80-100) fL MCH (26-34) PG MCHC (30-36) % RDW (11.6-14.8) % Plt Count (150-400) X10^3/uL Neut % (Auto) (50-75) % Lymph % (Auto) (25-40) % [place] % (Auto) (3-14) % Eos % (Auto) (2-4) % Baso % (Auto) (0-2) % Neut # (Auto) (1054-8116) /uL Lymph # (Auto) (6530-0807) /uL [place] # (Auto) (0-900) /uL Eos # (Auto) (0-450) /uL Baso # (Auto) (0-100) /uL PT (10.1-12.7) SECONDS INR (0.9-1.3) APTT (26.4-36.2) SECONDS Sodium (137-145) mmol/L Potassium (3.4-5.1) mmol/L Chloride (98-107) mmol/L Carbon Dioxide (22-32) mmol/L BUN (7-17) mg/dL Creatinine (0.52-1.04) mg/dL Estimated GFR (>60) mL/min BUN/Creatinine Ratio (6-22) Glucose (80-110) mg/dL Lactate (0.7-2.1) mmol/L Calcium (8.4-10.2) mg/dL Total Bilirubin (0.2-1.3) mg/dL AST (14-36) IU/L ALT (9-52) IU/L Alkaline Phosphatase (38-126) U/L Total Protein (6.3-8.2) g/dL Albumin (3.5-5.0) g/dL Globulin (1.7-4.1) g/dL Albumin/Globulin Ratio (1.0-2.8) Lipase 40 (23-300) U/L Procalcitonin (<0.5) ng/mL Urine Color Urine Appearance Urine pH (4.5-8.0) Ur Specific [place] (1.000-1.035) Urine Protein (Negative) Urine Glucose (UA) (Negative) g/dL Urine Ketones (NEGATIVE) Urine Occult Blood (Negative) Urine Nitrate (Negative) Urine Bilirubin (NEGATIVE) Urine Urobilinogen (0.2) E.U./dL Ur Leukocyte Esterase (NEGATIVE) Urine RBC (0-5/HPF) Urine WBC (0-5/HPF) Urine Bacteria (None) Ur Culture Indicated? Imaging Data Chest x-ray: Radiologist's impression: PROCEDURE: XR CHEST 1V INDICATIONS: confusion TECHNIQUE: One view of the chest was acquired. COMPARISON: [facility], CR, CHEST 2 VIEW, 04/19/2017, 20:15. FINDINGS: Surgical changes and devices: None. Lungs and pleura: Lungs are clear. No pleural effusions or pneumothorax. Mediastinum: Mediastinal contours appear normal. Heart size is normal. Bones and chest wall: No suspicious bony lesions. Overlying soft tissues appear unremarkable. IMPRESSION: No acute process. Dictated by: Norma Aviles M.D. on 06/15/2018 at 15:26 CT scan - head: Radiologist's impression: PROCEDURE: CT HEAD/BRAIN WO CON INDICATIONS: decreased mental status TECHNIQUE: Noncontrast 4.5 mm thick angled axial sections acquired from the foramen magnum to the vertex, with coronal and sagittal reformats. For radiation dose reduction, the following was used: automated exposure control, adjustment of mA and/or kV according to patient size. COMPARISON: None. FINDINGS: Image quality: Excellent. CSF spaces: Basal cisterns are patent. No extra-axial fluid collections. The ventricles are symmetric in size and shape. Brain: No intracranial bleeds or masses. There is cerebral volume loss for age, with resultant ventricular and sulcal prominence. There are periventricular and deep white matter chronic small vessel ischemic changes. There is intracranial internal carotid artery atherosclerosis. Skull and face: Calvarium and visualized facial bones appear intact, without suspicious lesions. Sinuses: Visualized sinuses and mastoids are clear. IMPRESSION: No acute intracranial process Dictated by: Silas Brennan M.D. on 06/15/2018 at 17:37 CT scan - abdomen: Radiologist's impression: PROCEDURE: CT ABDOMEN PELVIS W CON INDICATIONS: abdominal pain TECHNIQUE: After the administration of intravenous contrast, 5 mm thick sections acquired from the diaphragm to the symphysis. 5 mm coronal and sagittal reformats were acquired. For radiation dose reduction, the following was used: automated exposure control, adjustment of mA and/or kV according to patient size. COMPARISON: [facility], CT, CT ABDOMEN PELVIS W CON, 09/17/2017, 2:22. FINDINGS: Image quality: Excellent. ABDOMEN: Lung bases: Bibasilar dependent atelectasis/scarring. Heart size is normal. Solid organs: Liver is normal in size and there is a unchanged presumed hepatic cyst in the right lobe. Possible gallbladder wall thickening although age indeterminate finding. No pericholecystic fluid is seen. No radiopaque gallstones identified. There is mild intrahepatic biliary prominence was unchanged to slightly decreased. The extrahepatic biliary system is non dilated. Pancreas enhances normally. Spleen is normal in size and enhancement. No adrenal nodules. Kidneys demonstrate normal size and enhancement, without hydronephrosis. Simple appearing right renal cyst. Presumed left renal cysts which are too small to characterize definitively. Peritoneum and bowel: Bowel loops demonstrate normal wall thickness and caliber. No free fluid or air. Appendix is not clearly identified however no suspicious pericecal inflammatory changes are identified Nodes and vessels: No retroperitoneal or mesenteric adenopathy by size criteria. Aorta and inferior vena cava are normal in size. Miscellaneous: No ventral hernias. PELVIS: Genitourinary: Bladder wall thickness is normal. Miscellaneous: No inguinal hernias or adenopathy. Bones: No suspicious bony lesions. Posterior spinal fixation hardware. Diffuse spondylosis No vertebral body compression fractures. IMPRESSION: Possible gallbladder wall thickening however mild and technically age- indeterminate. Recommend clinical correlation with LFTs. This could be further assessed with dedicated ultrasound if high clinical suspicion . Elsewhere, no acute process. Hepatic and renal cysts. Dictated by: Silas Brennan M.D. on 06/15/2018 at 18:46 MDM Narrative Medical decision making narrative: Patient has no right upper quadrant pain specifically normal LFTs normal bilirubin normal lipase. She again is in pain she is unable to verbalize where her pain is. Again her brother at bedside since this is not normal. 2 weeks ago she was able to do her daily living activities now not able to. At this time needs to be at least placed in observation for pain control and metabolic encephalopathy. Justine accepts Discharge Plan Departure Patient Disposition: Admitted as Observation Clinical Impression: Acute metabolic encephalopathy Interventions: ED Discharge Assessment Last Done: 06/15/18 19:23
[2018-06-15 15:45] LABS: Add Manual Diff / Slide Review NO; Basophils Absolute Auto 0 /uL (0-100); Basophils Percent Auto 0.8 % (0-2); Eosinophils Absolute Auto 100 /uL (0-450); Eosinophils Percent Auto 2.3 % (2-4); Hematocrit 35.2 % (36-46); Hemoglobin 11.5 g/dL (12.0-16.0); Lymphocytes Absolute Auto 1000 /uL (1100-4500); Lymphocytes Percent Auto 18.3 % (25-40); Mean Corpuscular HGB Conc 32.7 % (30-36); Mean Corpuscular Hemoglobin 31.4 PG (26-34); Mean Corpuscular Volume 96.2 fL (80-100); Monocytes Absolute Auto 500 /uL (0-900); Monocytes Percent Auto 8.8 % (3-14); Neutrophils Absolute Auto 3900 /uL (1500-7000); Neutrophils Percent Auto 69.8 % (50-75); Platelet Count 178 X10^3/uL (150-400); Red Blood Cell Count 3.65 X10^6/uL (4.0-5.2); Red Cell Distribution Width 15.4 % (11.6-14.8); White Blood Cell Count 5.6 X10^3/uL (4.5-11.0)
[2018-06-15 15:49] LABS: INR 1.1 (0.9-1.3); Prothrombin Time 12.6 SECONDS (10.1-12.7)
[2018-06-15 15:52] LABS: PTT Partial Thromboplastin Tim 27 SECONDS (26.4-36.2)
[2018-06-15 15:58] LABS: Alanine Aminotransferase 10 IU/L (9-52); Albumin 4.2 g/dL (3.5-5.0); Albumin Globulin Ratio 1.2 (1.0-2.8); Alkaline Phosphatase 49 U/L (38-126); Aspartate Aminotransferase 17 IU/L (14-36); BUN Creatinine Ratio 44.3 (6-22); Bilirubin Total 0.7 mg/dL (0.2-1.3); Blood Urea Nitrogen 31 mg/dL (7-17); Calcium 9.2 mg/dL (8.4-10.2); Carbon Dioxide 28 mmol/L (22-32); Chloride 103 mmol/L (98-107); Estimated Glomerular Filt Rate > 60.0 mL/min (>60); Globulin 3.4 g/dL (1.7-4.1); Glucose 95 mg/dL (80-110); HEMOLYSIS < 15 (0-50); Lactate (Lactic Acid) 0.8 mmol/L (0.7-2.1); Potassium 4.4 mmol/L (3.4-5.1); Sodium 140 mmol/L (137-145); Total Protein 7.6 g/dL (6.3-8.2)
[2018-06-15 16:12] LABS: Lipase 40 U/L (23-300)
[2018-06-15 16:15] LABS: Procalcitonin < 0.05 ng/mL (<0.5)
[2018-06-15 16:35] LABS: Appearance Urine UA CLEAR; Bilirubin Urine UA NEGATIVE (NEGATIVE); Color Urine UA ORANGE; Glucose Urine UA NEGATIVE (Negative); Ketones Urine UA TRACE (NEGATIVE); Leukocyte Esterase Urine UA NEGATIVE (NEGATIVE); Nitrite Urine UA NEGATIVE (Negative); Occult Blood Urine UA 1+ (Negative); Protein Urine UA NEGATIVE (Negative); Urobilinogen Urine UA 0.2 E.U./dL (0.2); pH Urine UA 5.5 (4.5-8.0)
--- NOTE | 2018-06-15 17:02 | DI.CT.S_ITS ---
PROCEDURE: CT HEAD/BRAIN WO CON INDICATIONS: decreased mental status TECHNIQUE: Noncontrast 4.5 mm thick angled axial sections acquired from the foramen magnum to the vertex, with coronal and sagittal reformats. For radiation dose reduction, the following was used: automated exposure control, adjustment of mA and/or kV according to patient size. COMPARISON: None. FINDINGS: Image quality: Excellent. CSF spaces: Basal cisterns are patent. No extra-axial fluid collections. The ventricles are symmetric in size and shape. Brain: No intracranial bleeds or masses. There is cerebral volume loss for age, with resultant ventricular and sulcal prominence. There are periventricular and deep white matter chronic small vessel ischemic changes. There is intracranial internal carotid artery atherosclerosis. Skull and face: Calvarium and visualized facial bones appear intact, without suspicious lesions. Sinuses: Visualized sinuses and mastoids are clear. IMPRESSION: No acute intracranial process Dictated by: Silas Brennan M.D. on 06/15/2018 at 17:37 Approved by: Silas Brennan M.D. on 06/15/2018 at 17:39
[2018-06-15 17:23] LABS: Bacteria Urine Few (2-10); RBC Urine 0-1/HPF (0-5/HPF); WBC Urine 0-1/HPF (0-5/HPF)
[2018-06-15 17:24] LABS: Culture Indicated Urine Specimen Cultured
--- NOTE | 2018-06-15 17:49 | DI.CT.S_ITS ---
PROCEDURE: CT ABDOMEN PELVIS W CON INDICATIONS: abdominal pain TECHNIQUE: After the administration of intravenous contrast, 5 mm thick sections acquired from the diaphragm to the symphysis. 5 mm coronal and sagittal reformats were acquired. For radiation dose reduction, the following was used: automated exposure control, adjustment of mA and/or kV according to patient size. COMPARISON: [facility], CT, CT ABDOMEN PELVIS W CON, 09/17/2017, 2:22. FINDINGS: Image quality: Excellent. ABDOMEN: Lung bases: Bibasilar dependent atelectasis/scarring. Heart size is normal. Solid organs: Liver is normal in size and there is a unchanged presumed hepatic cyst in the right lobe. Possible gallbladder wall thickening although age indeterminate finding. No pericholecystic fluid is seen. No radiopaque gallstones identified. There is mild intrahepatic biliary prominence was unchanged to slightly decreased. The extrahepatic biliary system is non dilated. Pancreas enhances normally. Spleen is normal in size and enhancement. No adrenal nodules. Kidneys demonstrate normal size and enhancement, without hydronephrosis. Simple appearing right renal cyst. Presumed left renal cysts which are too small to characterize definitively. Peritoneum and bowel: Bowel loops demonstrate normal wall thickness and caliber. No free fluid or air. Appendix is not clearly identified however no suspicious pericecal inflammatory changes are identified Nodes and vessels: No retroperitoneal or mesenteric adenopathy by size criteria. Aorta and inferior vena cava are normal in size. Miscellaneous: No ventral hernias. PELVIS: Genitourinary: Bladder wall thickness is normal. Miscellaneous: No inguinal hernias or adenopathy. Bones: No suspicious bony lesions. Posterior spinal fixation hardware. Diffuse spondylosis No vertebral body compression fractures. IMPRESSION: Possible gallbladder wall thickening however mild and technically age-indeterminate. Recommend clinical correlation with LFTs. This could be further assessed with dedicated ultrasound if high clinical suspicion . Elsewhere, no acute process. Hepatic and renal cysts. Dictated by: Silas Brennan M.D. on 06/15/2018 at 18:46 Approved by: Silas Brennan M.D. on 06/15/2018 at 18:50
[2018-06-15] MEDS: HYDROMORPHONE 0.5 MG INJ IV (19:58)
[2018-06-15] MEDS: BISACODYL 10 MG SUPP PR (22:45)
[2018-06-15] MEDS: SODIUM CHLORIDE 0.9% 1,000 ML 100 ML IV (22:45)
--- NOTE | 2018-06-15 22:52 | PM.HP.1 ---
History of Present Illness Date Patient Seen: 06/15/18 Time Patient Seen: 21:21 Chief complaint: Alt. Mental Status Narrative: HPI is obtained via direct interview of the patient and her brother Bill, as well as review of contents of the medical record. At time of evaluation patient is NOT at her baseline mentation. Patient's brother is also an unreliable historian. The patient is a 72-year-old female who was brought via EMS from [facility] for altered mental status. Patient's PMH is not entirely clear, specific details outlined below. ER triage notes onset of symptoms 8 hours prior to ED presentation (i.e. 6:30 am on 06/15/2018, respectively). However, patient's brother reports onset of symptoms on 06/10/2018. Patient's brother communicates specifically that the patient has been struggling with rectal pain for at least 1-2 months, progressively worsening. For the past week there has been alteration in patient's mentation. She is described as confused and less alert. Speech impairment is noted. Patient is not noted to exhibit features of psychosis, such as agitation, irritability, delirium, or hallucinations. According to patient's brother change in patient's cognitive state is of abrupt onset, initially noted on 06/10/2018. They appear to have manifested shortly after patient started to take methadone. At some point, the patient herself, noted to the brother that she has experienced similar symptoms with prior, trial of methadone. The patient herself is not able to comment on her current or prior symptoms specifically related to methadone use. However, recently she has been experiencing nausea and abdominal pain. the patient states that she has been vomiting, however brother does not endorse the symptom. Appetite has been decreased. Reports unintentional weight loss of 35 lb in the past 6 months. Patient reports presence of pain, but is unable to localize the pain. Describes pain is severe and burning. At times reports presence of pain in the abdominal cavity and other times in the rectal vault. Presented with an unstageable pressure ulcer vs. developing abscess / cellulitis. Newly developed over the past week. There is a degree of induration, edema, and erythema (right buttock). Patient denies rectal pain or bleeding with defecation. Denies melena and hematochezia. Denies abdominal distention. No new rash or bruises. Patient is known to have chronic, opioid induced constipation. However, she herself does not feel the constipation. Unable to recall last BM. However, can go as long as a week without a BM. Denies dysuria, urinary frequency, and hematuria. Denies joint pain. A notation of diverticulosis noted on prior imaging; however, patient and family do not endorse a history of diverticulitis or any other inflammatory bowel disease. Patient has had a weight loss of at least 35 lb in the past 6 months. No prior history of malignancy. However, family history is significant for malignancy in multiple siblings, prostate cancer (brother), uterine cancer (sister) and pancreatic cancer. There is a family history of inflammatory bowel disease, diverticulitis (mother). complete, s/p GI distress. Patient was diagnosed with pulmonary embolism, treated w/ coumadin, now no longer on anticoagulation. PMH: chronic lumbar pain (2/2 a fall related injury), opioid dependence, chronic constipation, pulmonary embolism w/ prior warfaring anticoagulation, and chronic respiratory failure w/ hypoxia and O2 dependence (seince 01/2018), chronic liver cyst, PSH: appendectomy, laminectomy, left iliac bone graft harvesting (10/2009), sphincterotomy (10/2009) Patient History Medical History Pulmonary embolism (Acute) Right shoulder injury (Acute) History of hysterectomy (Acute) Surgical History History of lumbar laminectomy (Acute) Social History household members: none Smoking Status: Current every day smoker alcohol intake: never Family & Social History Social History: household members none Prior Living Arrangements House Safety & Behavioral: Feels Safe in Current Yes Environment Been Physically Hurt or No Threatened By a Person Suicidal Ideation Description None Suicide Plan Description No Plan Tobacco & Substance use: Tobacco type cigarettes Smoking Status Current every day smoker alcohol intake never Substance Use Type does not use Meds Home Medications Medication Instructions Recorded Confirmed Type fentanyl 1 patch TOPICAL EVERY OTHER DAY #0 03/01/17 06/15/18 History gabapentin [Neurontin] 600 mg PO TID #0 03/01/17 06/15/18 History Allergies Allergy/AdvReac Type Severity Reaction Status Date / Time morphine AdvReac Difficulty Verified 01/17/18 11:13 Breathing Review of Systems Review of Systems All systems reviewed & are unremarkable except as noted in HPI and below Exam Vital Signs (past 8 hours): - 06/15/18 15:00 06/15/18 15:30 06/15/18 16:00 Temperature Pulse Rate 90 90 94 H Respiratory Rate 14 15 16 Blood Pressure Blood Pressure [Right Arm] 148/88 H 165/86 H 169/92 H Pulse Oximetry 97 98 98 06/15/18 16:30 06/15/18 17:00 06/15/18 17:30 Temperature Pulse Rate 87 88 87 Respiratory Rate 14 14 12 Blood Pressure Blood Pressure [Right Arm] 165/90 H 169/85 H 162/89 H Pulse Oximetry 96 94 06/15/18 18:30 06/15/18 20:08 06/15/18 20:50 Temperature 98.4 F Pulse Rate 90 96 H 93 H Respiratory Rate 13 11 L 18 Blood Pressure 168/95 H Blood Pressure [Right Arm] 164/87 H 182/97 H Pulse Oximetry 94 95 94 Oxygen Delivery Method Room Air Oxygen Flow Rate 2 Narrative Exam Narrative: Patient is seen at bedside. Her brother is present. Overall appearance is of a frail elderly woman. Patient is somnolent. Periods on intermittent confusion. She is oriented to self only and place. She is aware that she is not in her own home, however unable to describe where she is at. There is a degree of forgetfulness and poor short-term recall of history and symptoms. Overall she is an unreliable historian. Attention span is impaired. Difficulty understanding complex questions. There appears to be impairment in regard to info processing content processing. She is able to follow simple commands. NIHSS 7. No overt dysarthia, but has repetitive speech and inattention. Head is normocephalic and atraumatic. Gaze is conjugate. Appears to have minor deficit in tracking. Pupils equal and reactive. No scleral icterus External ears and nose normal. Mucous membranes are dry with fissuring of the tongue. There appears to be no edema of the tongue. Neck with intact rotation. Patient notes discomfort with palpation of the anterior aspect, at the left cervical node line. Extremely hypersensitive, no overt lymphadenopathy noted; however, unable to properly complete the palpation of the lymph nodes due to discomfort. On supplemental oxygen. No acute respiratory distress. No dyspnea or tachypnea at rest. No palpable chest tenderness. S1-S2, distant tones Unilateral edema Abdomen is scaphoid, non-distended, bowel sounds present and hyperactive, LLQ and LUQ tenderness. no rigidity, guarding, or rebound tenderness No suprapubic discomfort. Kee catheter is present in to dependent drainage, b/l CVA tenderness (left > R) Patient appears to have a degree of hypersensitivity to touch. There is not specific joint pain. Generalized weakness. No overt bruising, but does have a pressure ulcer on buttock --> potentially an abscess Objective Labs Result Diagrams: 06/15/18 15:26 06/15/18 15:26 Labs: Laboratory Results - last 24 hr 06/15/18 06/15/18 06/15/18 15: 15: 15:26 WBC 5.6 RBC 3.65 L Hgb 11.5 L Hct 35.2 L MCV 96.2 MCH 31.4 MCHC 32.7 RDW 15.4 H Plt Count 178 Neut % (Auto) 69.8 Lymph % (Auto) 18.3 L [place] % (Auto) 8.8 Eos % (Auto) 2.3 Baso % (Auto) 0.8 Neut # (Auto) 3900 Lymph # (Auto) 1000 L [place] # (Auto) 500 Eos # (Auto) 100 Baso # (Auto) 0 PT 12.6 INR 1.1 APTT 27 Sodium Potassium Chloride Carbon Dioxide BUN Creatinine Estimated GFR BUN/Creatinine Ratio Glucose Lactate Calcium Total Bilirubin AST ALT Alkaline Phosphatase Total Protein Albumin Globulin Albumin/Globulin Ratio Lipase Procalcitonin < 0.05 Urine Color Urine Appearance Urine pH Ur Specific [place] Urine Protein Urine Glucose (UA) Urine Ketones Urine Occult Blood Urine Nitrate Urine Bilirubin Urine Urobilinogen Ur Leukocyte Esterase Urine RBC Urine WBC Urine Bacteria Ur Culture Indicated? 06/15/18 06/15/18 06/15/18 15: 15:26 16:30 WBC RBC Hgb Hct MCV MCH MCHC RDW Plt Count Neut % (Auto) Lymph % (Auto) [place] % (Auto) Eos % (Auto) Baso % (Auto) Neut # (Auto) Lymph # (Auto) [place] # (Auto) Eos # (Auto) Baso # (Auto) PT INR APTT Sodium 140 Potassium 4.4 Chloride 103 Carbon Dioxide 28 BUN 31 H Creatinine 0.70 Estimated GFR > 60.0 BUN/Creatinine Ratio 44.3 H Glucose 95 Lactate 0.8 Calcium 9.2 Total Bilirubin 0.7 AST 17 ALT 10 Alkaline Phosphatase 49 Total Protein 7.6 Albumin 4.2 Globulin 3.4 Albumin/Globulin Ratio 1.2 Lipase Procalcitonin Urine Color [place] Urine Appearance Clear Urine pH 5.5 Ur Specific [place] 1.020 Urine Protein Negative Urine Glucose (UA) Negative Urine Ketones Trace H Urine Occult Blood 1+ H Urine Nitrate Negative Urine Bilirubin Negative Urine Urobilinogen 0.2 Ur Leukocyte Esterase Negative Urine RBC 0-1/hpf Urine WBC 0-1/hpf Urine Bacteria Few (2-10) H Ur Culture Indicated? Specimen cultured 06/15/18 Unknown WBC RBC Hgb Hct MCV MCH MCHC RDW Plt Count Neut % (Auto) Lymph % (Auto) [place] % (Auto) Eos % (Auto) Baso % (Auto) Neut # (Auto) Lymph # (Auto) [place] # (Auto) Eos # (Auto) Baso # (Auto) PT INR APTT Sodium Potassium Chloride Carbon Dioxide BUN Creatinine Estimated GFR BUN/Creatinine Ratio Glucose Lactate Calcium Total Bilirubin AST ALT Alkaline Phosphatase Total Protein Albumin Globulin Albumin/Globulin Ratio Lipase 40 Procalcitonin Urine Color Urine Appearance Urine pH Ur Specific [place] Urine Protein Urine Glucose (UA) Urine Ketones Urine Occult Blood Urine Nitrate Urine Bilirubin Urine Urobilinogen Ur Leukocyte Esterase Urine RBC Urine WBC Urine Bacteria Ur Culture Indicated? Assessment & Plan Assessment & Plan narrative: Patient is being admitted for acute metabolic encephalopathy and abdominal discomfort Acute metabolic encephalopathy Reason for the metabolic encephalopathy is not entirely clear DDx: dehydration vs infection vs medication vs CVA - neuro checks q4h - blood cx and urine cx pending, on empiric therapy UA with potential for underlying UTI, patient is asymptomatic. No overt presentation of sepsis. Recently taken methadone, however number of days ago, would expect to improve No overt symptoms of opioid withdrawal In the past 6 months has been diagnosed with a bilateral PE, at present time not on Coumadin, there is concern for potential CVA. Appears to may have had ports urines with Coumadin therapy NIHSS 7 (LOC 1, month / age (2), partial gaze palsy (1), ataxia in one limb (1), mild-moderate aphasia (1) - CT of Head unremarkable for an acute intracranial process - Neuro checks every 4 hours - MR Stroke in am. She is outside of the therapeutic window for an intervention Abdominal pain, acute on chronic, present on admission, active Ongoing abdominal pain... Recently treated for UTI x3 since february and diverticulitis in april. Family history significant for pancreatic, uterine, and prostate cancer. Weight loss of at least 35 lb in the past 6 months DDx to consider biliary spasm, interstitial cystitis /bladder pain syndrome, rectal malignancy, inflammatory bowel disease, biliary dyskinesia - STAT RUQ Abd U/S - Patient would benefit from an outpatient GI evaluation. Consider a HIDA scan - Patient would benefit from an outpatient urology and / or nephrology evaluation - Tobacco cessation highly encouraged Current everyday smoker, chronic, present on admission, active - Nicotine patch - Smoking cessation education History of pulmonary embolism, currently not on anticoagulation Patient's brother states that the anticoagulation was discontinued, would need to verify - Records from PCP Chucky Velazquez Normocytic anemia, Hgb 11.5, chronic, present on admission, stable No active signs/symptoms of acute blood loss Code status discussed with patient and her brother. Patient does not have a formal health directive. Wishes to be a full code. Designated DPOA is her brother Bill. Home medications reviewed and reconciled accordingly. Quality VTE Deep Vein Thrombosis/Pulmonary Embolism Present on Admission: No
[2018-06-15 23:42] LABS: Amylase 49 U/L (30-110)
[2018-06-15 23:54] LABS: C-Reactive Protein Quant 2.6 mg/dL (<1.0)
[2018-06-16] VITALS (12 sets, daily range): BP systolic 140–179; BP diastolic 78–99; PULSE 78–85; RESP 14–16; TEMP 36.6–37.1; O2SAT 92–98; BMI 19.4
--- NOTE | 2018-06-16 | DI.MRI.S_ITS ---
PROCEDURE: MR ABDOME PELVIS [facility] INDICATIONS: unexplained abdominal pain TECHNIQUE: Coronal HASTE, axial 2D FLASH in- and [id number]; axial breath-hold T2 FSE; dynamic axial VIBE during IV gadolinium administration; postgadolinium coronal VIBE or 2D FLASH with fat saturation from the hepatic dome to the iliac crests. COMPARISON: [facility], CT, CT ABDOMEN PELVIS W CON, 09/17/2017, 2:22. [facility], US, US ABDOMEN LIMITED, 06/16/2018, 9:11. [facility], CT, CT ABDOMEN PELVIS W CON, 06/15/2018, 18:21. FINDINGS: Image quality: There is motion artifact and magnetic susceptibility artifact associated with patient's surgical hardware in the lower lumbar spine. Lung bases: There is mild dependent atelectasis bilaterally. Heart is within normal size limits. Solid organs: There are small cysts within the liver measuring up to 2.1 cm adjacent to the gallbladder fossa. There is a small peripheral region of linear hypervascular enhancement in the lateral right hepatic lobe which demonstrates isointense signal on the portal venous and delayed phases. The findings are compatible with a small region of transient hepatic intensity difference due to vascular shunting. The spleen is normal in size. The pancreas appears within normal limits without pancreatic duct dilatation. No peripancreatic fat stranding, edema, or fluid collections. No adrenal nodules. Kidneys demonstrate no hydronephrosis. There are bilateral renal cysts. No gallstones are demonstrated in the gallbladder. No gallbladder wall thickening or pericholecystic fluid. There is mild biliary duct dilatation, with the common duct measuring up to approximately 1.1 cm. A small filling defect is demonstrated in the distal common bile duct at the ampulla. Nodes and vessels: No mesenteric or retroperitoneal lymphadenopathy by size criteria. The aorta is normal in caliber. Bowel and peritoneum: There is mild segmental wall thickening and enhancement of the distal sigmoid colon and rectum. Associated air-fluid levels are demonstrated in the rectum or colon. The remainder of the small and large bowel demonstrate normal caliber and wall thickness. Pelvis: There is a Kee catheter within a partially distended urinary bladder. Intraluminal gas within the bladder is demonstrated likely related to catheter placement. Bones and soft tissues: Postsurgical changes are demonstrated status post posterior fixation in the lower lumbar spine at L4-S1. No definite suspicious osseous lesions. IMPRESSION: 1. Mild biliary ductal dilatation with a small filling defect in the distal common bile duct at the ampulla. The findings likely represent small gallstones versus a possible small mass lesion. Further evaluation may be obtained with ERCP if clinically indicated. 2. Mild segmental wall thickening and enhancement of the distal sigmoid colon and rectum consistent with a nonspecific colitis, likely infectious or inflammatory. 3. Kee catheter within a partially distended urinary bladder. 4. Small region of hypervascular enhancement in the lateral right hepatic lobe compatible with a transient hepatic intensity difference secondary to vascular shunting. Dictated by: Yordan Sanches M.D. on 06/16/2018 at 11:24 Approved by: Yordan Sanches M.D. on 06/16/2018 at 12:11
--- NOTE | 2018-06-16 | DI.US.S_ITS ---
PROCEDURE: US ABDOMEN LIMITED INDICATIONS: EMPHASIS GALLBLADDER WALL THICKNESS, HISTORY BILE DUCT STENT. Previous CT from earlier on the same date demonstrate questionable gallbladder wall thickening of the dilated ducts. TECHNIQUE: Real-time focused scanning was performed of the abdomen, with image documentation. COMPARISON: [facility], CT, CT ABDOMEN PELVIS W CON, 06/15/2018, 18:21. FINDINGS: Liver has a normal echo pattern. Corresponding to abnormality on CT is a 2.2 cm cyst in the right lobe of the liver. The common bile duct is dilated, measuring 1.1 cm, tapering to 0.7 cm at the level of the common hepatic duct. No gallbladder wall thickening. No stones. Small gallbladder wall polyp. IMPRESSION: 1. Bile ducts are dilated as described above. 2. Unremarkable gallbladder. Dictated by: Marcel Raymundo M.D. on 06/16/2018 at 10:14 Approved by: Marcel Raymundo M.D. on 06/16/2018 at 10:19
--- NOTE | 2018-06-16 05:25 | PC.NURSE ---
Pt continues to be confused and unable to make needs known. Brother was able to determine that patient needed to have a BM and pt was successful using a bedpan, large, soft, normal. Pt was then able to sleep. She struggled to answer yes or no questions. VSS, hypertensive at times. NSR on telemetry.
[2018-06-16] MEDS: KETOROLAC 30 MG/ML VIAL IV (08:30)
[2018-06-16] MEDS: SODIUM CHLORIDE 0.9% 1,000 ML 100 ML IV ×3 (08:56→21:25)
[2018-06-16] MEDS: PHENAZOPYRIDINE 100 MG TABLET 200 MG PO ×3 (08:57→21:03)
[2018-06-16 09:00] LABS: Add Manual Diff / Slide Review NO; Basophils Absolute Auto 100 /uL (0-100); Basophils Percent Auto 1.3 % (0-2); Eosinophils Absolute Auto 200 /uL (0-450); Eosinophils Percent Auto 3.3 % (2-4); Hematocrit 34.1 % (36-46); Hemoglobin 11.1 g/dL (12.0-16.0); Lymphocytes Absolute Auto 1200 /uL (1100-4500); Lymphocytes Percent Auto 24.3 % (25-40); Mean Corpuscular HGB Conc 32.5 % (30-36); Mean Corpuscular Hemoglobin 31.5 PG (26-34); Mean Corpuscular Volume 96.7 fL (80-100); Monocytes Absolute Auto 400 /uL (0-900); Monocytes Percent Auto 8.9 % (3-14); Neutrophils Absolute Auto 3100 /uL (1500-7000); Neutrophils Percent Auto 62.2 % (50-75); Platelet Count 174 X10^3/uL (150-400); Red Blood Cell Count 3.53 X10^6/uL (4.0-5.2); Red Cell Distribution Width 15.3 % (11.6-14.8)
[2018-06-16 09:05] LABS: BUN Creatinine Ratio 31.4 (6-22); Blood Urea Nitrogen 22 mg/dL (7-17); Calcium 8.7 mg/dL (8.4-10.2); Carbon Dioxide 28 mmol/L (22-32); Chloride 103 mmol/L (98-107); Estimated Glomerular Filt Rate > 60.0 mL/min (>60); Glucose 87 mg/dL (80-110); HEMOLYSIS < 15 (0-50); Potassium 4.1 mmol/L (3.4-5.1); Sodium 140 mmol/L (137-145)
--- NOTE | 2018-06-16 10:55 | CM.DANOTE ---
Discharge Planning/Care Management DCP: assessment: case received, EMR reviewed. Discussed case in Team Rounds with Dr. Schroeder. Went to room and spoke with pt's brother Anson Caputo: [phone]. (pt was out of room for for testing). Introduced self and role. Anson was dozing in chair but was able to have a brief conversation with him. Pt is a 72 year old female who admitted last night to care of the hospitalist team. Payer: Medicare PCP: Dr. Velazquez Admission status: confirmed INPT: UR RN Yordan Pt does live alone on [address]. Her brother is speaking as a family practice physician assistant. He says no one has POA, his is not the only sibling. He says pt's son Valentin Artis is on his way to the hospital now (from out of state? is unclear at this point). OF NOTE: Family at this point are focused on a diagnosis and ? of treatment plan. Will need to discuss d/c issues at a more appropriate time. Dr. Schroeder noted in rounds that the source of pt's ongoing pain is unclear. MRI of abdomen and Pelvis as well as Head are in process. Pt has hx chronic pain: on fentanyl patch for many years, per Dr. Schroeder and with recent addition of Methadone. hx chronic opioid induced constipation Pt is also on Gabapentin. Pt is a daily smoker. Will be following. CM Discharge Assessment Start: 06/16/18 10:54 Freq: Status: Active Protocol: Document 06/16/18 10:54 ITV (Rec: 06/16/18 10:55 ITV [id number]) Discharge Planning Assessment Advance Directives? No History Provided By Family Member Medical Record Has Patient been admitted in last 30 No days? Prior Living Arrangements House Household Members none Whiteboard Updated in Patient Room with Yes name and ext. # of Advice Line Rn Review Status In Process Next Review Type Continued Stay Review
--- NOTE | 2018-06-16 11:29 | P.PN_ITS ---
Subjective Date Patient Seen: 06/16/18 Time Patient Seen: 11:28 Interval history: Follow-up on acute encephalopathy with abdominal pain. Patient seen at bedside. She is moaning and lying still. She continues to complain of abdominal pain which she states is 7/10 severity, generalized, and dull. When I palpate patient all over, she notes the most pain in all 4 quadrants of the abdomen, as well as right lower extremity. She is only oriented to herself and her birthday. Patient's brother is at bedside who gave me a brief run down of the story. Per brother, patient has been having abdominal pain on and off for a few years now. She has been worked up extensively for the reason, yet no specific etiology has been recognized. Patient had colonoscopy in January 2018, however due to poor bowel prep, the scope was unable to be passed through sigmoid colon. Off what was seen, there were no acute abnormalities on colonoscopy. Patient was to follow up with [facility] on June 12, 2018. However, June 09 2018 patient developed severe pain all over again. Her brother called the paramedics, who on arrival, told the patient to try to better control her pain and follow up with the [facility] on the . Patient then took 2 extra methadone doses on top of her already fentanyl patch on June 09. Her pain has improved, however patient became somnolent and minimally responsive over the course of the day and into June 10. No methadone has been given since. Patient mentation slightly improved initially however pain also came back and gradually worsened up until this admission. However during this time patient became increasingly altered. She stopped eating, she stopped getting out of bed, she kept moaning and refused to talk. Because of all this, her brother brought her to emergency department for further evaluation. Exam Vital Signs (past 8 hours): - 06/16/18 04:56 06/16/18 08:30 Temperature 98.6 F 98.3 F Pulse Rate 78 80 Respiratory Rate 16 16 Blood Pressure 147/92 H 140/78 Pulse Oximetry 97 94 Oxygen Delivery Method Nasal Cannula Oxygen Flow Rate 2 Narrative Exam Narrative: General. Mild distress, AAO x1. Moaning. Minimal correspondence as patient does not want to talk. HEENT: PERRLA bilaterally, moist mucous membranes Neck: Supple, no LAD or JVD CV: Regular rate rhythm, no murmurs or gallops Respiratory: CTA bilaterally, no wheezes or crackles appreciated next line GI: Tenderness to palpation in all 4 quadrants, with mild guarding. Positive bowel sounds in all 4 quadrants. No organomegaly observed Extremities: Tenderness to palpation in right lower extremity in the willard region. No edema observed Musculoskeletal: Seems to move all extremities bilaterally Neuro: No focal deficits observed however patient is AO x1 Psych: Patient is tearful and moaning. Unable to make her own decisions at this time Objective Labs Result Diagrams: 06/16/18 08:26 06/16/18 08:26 Labs: Laboratory Results - last 24 hr 06/15/18 06/15/18 06/15/18 15:26 15:26 15:26 WBC 5.6 RBC 3.65 L Hgb 11.5 L Hct 35.2 L MCV 96.2 MCH 31.4 MCHC 32.7 RDW 15.4 H Plt Count 178 Neut % (Auto) 69.8 Lymph % (Auto) 18.3 L [place] % (Auto) 8.8 Eos % (Auto) 2.3 Baso % (Auto) 0.8 Neut # (Auto) 3900 Lymph # (Auto) 1000 L [place] # (Auto) 500 Eos # (Auto) 100 Baso # (Auto) 0 PT 12.6 INR 1.1 APTT 27 Sodium Potassium Chloride Carbon Dioxide BUN Creatinine Estimated GFR BUN/Creatinine Ratio Glucose Lactate Calcium Total Bilirubin AST ALT Alkaline Phosphatase C-Reactive Protein Total Protein Albumin Globulin Albumin/Globulin Ratio Amylase Lipase Procalcitonin < 0.05 Urine Color Urine Appearance Urine pH Ur Specific [place] Urine Protein Urine Glucose (UA) Urine Ketones Urine Occult Blood Urine Nitrate Urine Bilirubin Urine Urobilinogen Ur Leukocyte Esterase Urine RBC Urine WBC Urine Bacteria Ur Culture Indicated? 06/15/18 06/15/18 06/15/18 15:26 15:26 15:26 WBC RBC Hgb Hct MCV MCH MCHC RDW Plt Count Neut % (Auto) Lymph % (Auto) [place] % (Auto) Eos % (Auto) Baso % (Auto) Neut # (Auto) Lymph # (Auto) [place] # (Auto) Eos # (Auto) Baso # (Auto) PT INR APTT Sodium 140 Potassium 4.4 Chloride 103 Carbon Dioxide 28 BUN 31 H Creatinine 0.70 Estimated GFR > 60.0 BUN/Creatinine Ratio 44.3 H Glucose 95 Lactate 0.8 Calcium 9.2 Total Bilirubin 0.7 AST 17 ALT 10 Alkaline Phosphatase 49 C-Reactive Protein Total Protein 7.6 Albumin 4.2 Globulin 3.4 Albumin/Globulin Ratio 1.2 Amylase 49 Lipase Procalcitonin Urine Color Urine Appearance Urine pH Ur Specific [place] Urine Protein Urine Glucose (UA) Urine Ketones Urine Occult Blood Urine Nitrate Urine Bilirubin Urine Urobilinogen Ur Leukocyte Esterase Urine RBC Urine WBC Urine Bacteria Ur Culture Indicated? 06/15/18 06/15/18 06/15/18 15:26 16:30 Unknown WBC RBC Hgb Hct MCV MCH MCHC RDW Plt Count Neut % (Auto) Lymph % (Auto) [place] % (Auto) Eos % (Auto) Baso % (Auto) Neut # (Auto) Lymph # (Auto) [place] # (Auto) Eos # (Auto) Baso # (Auto) PT INR APTT Sodium Potassium Chloride Carbon Dioxide BUN Creatinine Estimated GFR BUN/Creatinine Ratio Glucose Lactate Calcium Total Bilirubin AST ALT Alkaline Phosphatase C-Reactive Protein 2.6 H Total Protein Albumin Globulin Albumin/Globulin Ratio Amylase Lipase 40 Procalcitonin Urine Color Price Urine Appearance Clear Urine pH 5.5 Ur Specific [place] 1.020 Urine Protein Negative Urine Glucose (UA) Negative Urine Ketones Trace H Urine Occult Blood 1+ H Urine Nitrate Negative Urine Bilirubin Negative Urine Urobilinogen 0.2 Ur Leukocyte Esterase Negative Urine RBC 0-1/hpf Urine WBC 0-1/hpf Urine Bacteria Few (2-10) H Ur Culture Indicated? Specimen cultured 06/16/18 06/16/18 08:26 08:26 WBC 5.0 RBC 3.53 L Hgb 11.1 L Hct 34.1 L MCV 96.7 MCH 31.5 MCHC 32.5 RDW 15.3 H Plt Count 174 Neut % (Auto) 62.2 Lymph % (Auto) 24.3 L [place] % (Auto) 8.9 Eos % (Auto) 3.3 Baso % (Auto) 1.3 Neut # (Auto) 3100 Lymph # (Auto) 1200 [place] # (Auto) 400 Eos # (Auto) 200 Baso # (Auto) 100 PT INR APTT Sodium 140 Potassium 4.1 Chloride 103 Carbon Dioxide 28 BUN 22 H Creatinine 0.70 Estimated GFR > 60.0 BUN/Creatinine Ratio 31.4 H Glucose 87 Lactate Calcium 8.7 Total Bilirubin AST ALT Alkaline Phosphatase C-Reactive Protein Total Protein Albumin Globulin Albumin/Globulin Ratio Amylase Lipase Procalcitonin Urine Color Urine Appearance Urine pH Ur Specific [place] Urine Protein Urine Glucose (UA) Urine Ketones Urine Occult Blood Urine Nitrate Urine Bilirubin Urine Urobilinogen Ur Leukocyte Esterase Urine RBC Urine WBC Urine Bacteria Ur Culture Indicated? Assessment & Plan Assessment & Plan narrative: 72-year-old female with past medical history of PE status post treatment completion, lumbar laminectomy on current fentanyl patches for 20 years, and recurrent abdominal pain of unclear etiology/constipation presented to emergency department with altered mental status and abdominal pain. Admitted for further workup. 1. Acute encephalopathy, active -uncertain of etiology at this time, however possibly narcotic induced (given fentanyl and methadone administration) -patient is hemodynamically stable with no metabolic abnormalities on labs -CT head and neck was negative for any acute -MRI head ordered to rule out CVA -neuro checks q.4 hours 2. Abdominal pain, acute on chronic, present on admission, active -unclear etiology at this time -lab work is negative for pancreatitis or any biliary/hepatic source -patient is hemodynamically stable with no signs of acute infection -there is a history of colonoscopy in the past, however bowel prep was poor therefore not much was visualized -will get MRI abdomen pelvis with sacrum to rule out any tumors, abscesses, or other abnormalities that could suggest patient's pain -surgical consult for possible repeat colonoscopy if appropriate -resume fentanyl patch as it was taken off yesterday by patient's brother -pending right upper quadrant ultrasound 3. Chronic back pain, present on admission, active -status post laminectomy -resume fentanyl patch and home gabapentin for neuropathic residual extremity pain 4. Tobacco dependence -resume nicotine patch 5. History of PE -per family, patient completed anticoagulation therapy 6. Normocytic anemia, present on admission, stable -continue to monitor H&H Dispo: Working out the causes of abdominal pain with MRI and ultrasound. Working up acute encephalopathy with MRI of brain. Quality VTE Deep Vein Thrombosis/Pulmonary Embolism Present on Admission: No
[2018-06-16] MEDS: ENOXAPARIN 40 MG/0.4 ML SYRINGE SUBCUT (12:54)
--- NOTE | 2018-06-16 14:39 | PC.NURSE ---
Zeny started the morning only able to moan and say I don't want to live, Nooooo, and Please. She was pale and diaphoretic, restless, and not able to follow commands. Toradol given for pain. She was then able to quiet down and sleep. Post MRI and US, new Fentanyl patch placed. Zeny will now wake to verbal stim and answer simple questions. She is still only oriented to name. Her brother, Anson, has been supportive at the bedside. NPO. IV infusing. Bed alarm turned on. Awaiting surgical consult. Zeny has been turned Q 2 hr. as she has non-stagable decubs antoinette upper gluteal fold. Barrier cream applied. Photo documentation complete.
[2018-06-16] MEDS: GABAPENTIN 600 MG TABLET PO ×2 (16:07→21:03)
[2018-06-16] MEDS: DOCUSATE 100 MG CAPSULE PO (21:03)
[2018-06-16] MEDS: SENNOSIDES 8.6 MG TABLET PO (21:06)
--- NOTE | 2018-06-16 21:11 | P.CONS_ITS ---
History of Present Illness Date Patient Seen: 06/16/18 Time Patient Seen: 21:00 Chief complaint: Alt. Mental Status Reason for consult: abdominal complaints Narrative: The patient is a woman who was admitted with mental status changes. Evaluation of that is underway. I was asked to see her because of abdominal complaints. The patient really cannot give me an adequate history. When asked if she has abdominal pain she says she feels just fine. When asked again she says she hurts terribly and when asked where she points to her left upper abdomen. she she is unable to tell me any details about her pain or anything else for that matter. There is also question raised about rectal pain. she can't tell me any details of this either. She is not sure how she is long she has had added a what its source might be. [facility] Medical History Pulmonary embolism (Acute) Right shoulder injury (Acute) History of hysterectomy (Acute) Surgical History History of lumbar laminectomy (Acute) Social History household members: none Smoking Status: Current every day smoker alcohol intake: never Social History household members: none Smoking Status: Current every day smoker alcohol intake: never Meds Home Medications Medication Instructions Recorded Confirmed Type fentanyl 1 patch TOPICAL EVERY OTHER DAY #0 03/01/17 06/15/18 History gabapentin [Neurontin] 600 mg PO TID #0 03/01/17 06/15/18 History Allergies Allergy/AdvReac Type Severity Reaction Status Date / Time morphine AdvReac Difficulty Verified 01/17/18 11:13 Breathing Review of Systems Review of Systems unobtainable due to mental status Exam Vital Signs (past 8 hours): - 06/16/18 14:00 06/16/18 16:00 06/16/18 16:09 Temperature 97.9 F 98.7 F Pulse Rate 85 80 Respiratory Rate 14 15 Blood Pressure 145/83 H 146/89 H Pulse Oximetry 94 92 95 06/16/18 20:00 06/16/18 20:19 Temperature 98.7 F Pulse Rate 84 Respiratory Rate 16 Blood Pressure 165/97 H Pulse Oximetry 93 94 Oxygen Delivery Method Room Air Oxygen Flow Rate 2 Narrative Exam Narrative: Two much upper respiratory system nor oil is from humming when asked to take a deep breath to evaluate her lungs. Heart regular rate and rhythm. abdomen is scaphoid and with distraction is soft nontender without mass. There is no guarding. There are no hernias. She has very little palpable abdominal wall. on examination of her rectum she appears to be draining pus through skin wounds on both buttock cheeks. I do not appreciate any induration at the anus or anal verge area. Objective Labs Result Diagrams: 06/16/18 08:26 06/16/18 08:26 Labs: Laboratory Results - last 24 hr 06/15/18 06/15/18 06/16/18 15:26 15:26 08:26 WBC 5.0 RBC 3.53 L Hgb 11.1 L Hct 34.1 L MCV 96.7 MCH 31.5 MCHC 32.5 RDW 15.3 H Plt Count 174 Neut % (Auto) 62.2 Lymph % (Auto) 24.3 L [place] % (Auto) 8.9 Eos % (Auto) 3.3 Baso % (Auto) 1.3 Neut # (Auto) 3100 Lymph # (Auto) 1200 [place] # (Auto) 400 Eos # (Auto) 200 Baso # (Auto) 100 Sodium Potassium Chloride Carbon Dioxide BUN Creatinine Estimated GFR BUN/Creatinine Ratio Glucose Calcium C-Reactive Protein 2.6 H Amylase 49 06/16/18 08:26 WBC RBC Hgb Hct MCV MCH MCHC RDW Plt Count Neut % (Auto) Lymph % (Auto) [place] % (Auto) Eos % (Auto) Baso % (Auto) Neut # (Auto) Lymph # (Auto) [place] # (Auto) Eos # (Auto) Baso # (Auto) Sodium 140 Potassium 4.1 Chloride 103 Carbon Dioxide 28 BUN 22 H Creatinine 0.70 Estimated GFR > 60.0 BUN/Creatinine Ratio 31.4 H Glucose 87 Calcium 8.7 C-Reactive Protein Amylase Assessment & Plan Assessment & Plan narrative: I reviewed numerous x-ray studies including CT MRI and ultrasound. She appears to have a dilated common bile duct and may have small stones the or tumor in the distal duct. however some more of the report mentions that she has had a stent which is a bit unusual. There are no stones in her gallbladder and no wall thickening. Ultrasound shows an enlarged biliary ductal system but no other abnormalities. there is suggested in on MRI of the abdomen that there may be inflammation at the rectosigmoid junction. I believe she has buttock abscesses. Recommend that I take her to the OR in the morning. I can do a flex sig to evaluate her rectosigmoid for colitis as thought to be present on MRI. I can drain any buttock abscesses or evaluated for any other perirectal pathology. as to her biliary tree at this time she would be high risk of any evaluation of it. she has a normal white blood cell count differential and normal liver function tests. This makes findings of a possible stone in her distal duct unlikely to be of clinical significance at this time. We will plan to take her to the OR to do with her buttock and colon issues in the morning. As an aside, the patient did have a recent colonoscopy that reached just above the cecum in the right abdomen. Other than diverticulosis there were no apparent significant findings.
--- NOTE | 2018-06-16 22:42 | PC.NURSE ---
PATIENT SHAWN.ENEMA WELL UNDERSTANDS SHE NEEDS TO STAY ON LEFT SIDE TO ALLOW TO WORK. ALARM ON.IV FLUIDS INFUSING.SNOW IS PATENT
[2018-06-16] MEDS: FLEETS ENEMA 1 EACH PR (22:45)
[2018-06-17] VITALS (22 sets, daily range): BP systolic 119–173; BP diastolic 72–103; PULSE 71–86; RESP 10–22; TEMP 36.6–37.4; O2SAT 91–97
--- NOTE | 2018-06-17 02:35 | PC.NURSE ---
Notified provider of patient's last two BPs: 06/16/18 2300 = 179/99 and 06/17/18 0230 = 173/94.
[2018-06-17] MEDS: HYDRALAZINE 20 MG/ML VIAL 10 MG IV (03:01)
[2018-06-17] MEDS: KETOROLAC 15 MG/ML VIAL IV (04:38)
--- NOTE | 2018-06-17 05:53 | PC.NURSE ---
Pt BP responded to 10 mg IVP hydralazine; 160/90 and was given 15 mg IVP ketorolac for restlessness and distress, calling out, and appearing to be in pain, with good results.
[2018-06-17] MEDS: SODIUM CHLORIDE 0.9% 1,000 ML 100 ML IV (07:05)
[2018-06-17 07:42] LABS: Add Manual Diff / Slide Review NO; Basophils Absolute Auto 100 /uL (0-100); Basophils Percent Auto 1.3 % (0-2); Eosinophils Absolute Auto 200 /uL (0-450); Hematocrit 33.7 % (36-46); Hemoglobin 10.9 g/dL (12.0-16.0); Lymphocytes Absolute Auto 1300 /uL (1100-4500); Lymphocytes Percent Auto 23.3 % (25-40); Mean Corpuscular HGB Conc 32.3 % (30-36); Mean Corpuscular Hemoglobin 31.1 PG (26-34); Mean Corpuscular Volume 96.1 fL (80-100); Monocytes Absolute Auto 400 /uL (0-900); Monocytes Percent Auto 6.7 % (3-14); Neutrophils Absolute Auto 3600 /uL (1500-7000); Neutrophils Percent Auto 65.7 % (50-75); Platelet Count 153 X10^3/uL (150-400); Red Blood Cell Count 3.51 X10^6/uL (4.0-5.2); Red Cell Distribution Width 15.5 % (11.6-14.8); White Blood Cell Count 5.6 X10^3/uL (4.5-11.0)
--- NOTE | 2018-06-17 07:53 | PM.PN.1 ---
Subjective Date Patient Seen: 06/17/18 Time Patient Seen: 07:53 Interval history: Follow-up on acute encephalopathy and abdominal pain Patient seen at bedside. She continues use to moan. However, when I asked her if she is in pain, she states no, she feels fine. When I palpated her abdomen patient does not flinch or guard. No acute overnight events. Patient remains AAO x1, oriented to only herself in birthday. Dr. Tellez has seen the patient yesterday and he decided to take patient to OR for flex sig and exploration of possible buttock abscess. Exam Vital Signs (past 8 hours): - 06/17/18 00:06 06/17/18 02:29 06/17/18 03:36 Temperature 98.4 F Pulse Rate 75 Respiratory Rate 16 Blood Pressure 173/94 H 161/90 H Pulse Oximetry 94 95 06/17/18 04:00 06/17/18 04:16 Temperature Pulse Rate 72 Respiratory Rate Blood Pressure 160/90 H Pulse Oximetry 93 Oxygen Delivery Method Room Air Oxygen Flow Rate 2 Narrative Exam Narrative: General. No acute distress but Moaning. Minimal correspondence HEENT: PERRLA bilaterally, moist mucous membranes Neck: Supple, no LAD or JVD CV: Regular rate rhythm, no murmurs or gallops Respiratory: CTA bilaterally, no wheezes or crackles appreciated next line GI: Positive bowel sounds in all 4 quadrants, nontender, nondistended. No organomegaly observed. No guarding observed today Extremities: Tenderness to palpation in right lower extremity in the willard region. No edema observed Musculoskeletal: Seems to move all extremities bilaterally Neuro: No focal deficits observed however patient is AO x1 Psych: Patient is moaning. Unable to make her own decisions at this time Objective Labs Result Diagrams: 06/17/18 07:16 06/16/18 08:26 Labs: Laboratory Results - last 24 hr 06/16/18 06/16/18 06/17/18 08:26 08:26 07:16 WBC 5.0 5.6 RBC 3.53 L 3.51 L Hgb 11.1 L 10.9 L Hct 34.1 L 33.7 L MCV 96.7 96.1 MCH 31.5 31.1 MCHC 32.5 32.3 RDW 15.3 H 15.5 H Plt Count 174 153 Neut % (Auto) 62.2 65.7 Lymph % (Auto) 24.3 L 23.3 L [place] % (Auto) 8.9 6.7 Eos % (Auto) 3.3 3.0 Baso % (Auto) 1.3 1.3 Neut # (Auto) 3100 3600 Lymph # (Auto) 1200 1300 [place] # (Auto) 400 400 Eos # (Auto) 200 200 Baso # (Auto) 100 100 Sodium 140 Potassium 4.1 Chloride 103 Carbon Dioxide 28 BUN 22 H Creatinine 0.70 Estimated GFR > 60.0 BUN/Creatinine Ratio 31.4 H Glucose 87 Calcium 8.7 Assessment & Plan Assessment & Plan narrative: 72-year-old female with past medical history of PE status post treatment completion, lumbar laminectomy on current fentanyl patches for 20 years, and recurrent abdominal pain of unclear etiology/constipation presented to emergency department with altered mental status and abdominal pain. Admitted for further workup. 1. Acute encephalopathy, active -uncertain of etiology at this time, however possibly narcotic induced (given fentanyl and methadone administration) -patient is hemodynamically stable with no metabolic abnormalities on labs -CT head and neck was negative for any acute -MRI head to rule out CVA is still pending as unable to be done yesterday -neuro checks q.4 hours 2. Abdominal pain, acute on chronic, present on admission, active -unclear etiology at this time -lab work is negative for pancreatitis or any biliary/hepatic source -patient is hemodynamically stable with no signs of acute infection -there is a history of colonoscopy in the past, however bowel prep was poor therefore not much was visualized -MRI abd/pelvis concerning for inflammation around sigmoid colon, and CBD dilation. Also question of buttock abcess -US GB/Liver showed dilated CBD and common hepatic duct, as well as R lobe cyst in liver -surgery consulted, will take patient to OR today for flex sig and possible drainage of abscesses if present. No plans to further explore CBD at this time as patient is currently high risk -continue fentanyl patch home regimen 3. Chronic back pain, present on admission, active -status post laminectomy -continue fentanyl patch and home regimen gabapentin for neuropathic residual extremity pain 4. Tobacco dependence -continue nicotine patch 5. History of PE -Diagnosed Feb 2017 -per family, patient completed anticoagulation therapy 6. Normocytic anemia, present on admission, stable -continue to monitor H&H Dispo: Pending OR for further diagnostics of abd pain etiology Quality VTE Deep Vein Thrombosis/Pulmonary Embolism Present on Admission: No
[2018-06-17 07:58] LABS: BUN Creatinine Ratio 36.7 (6-22); Blood Urea Nitrogen 22 mg/dL (7-17); Calcium 8.4 mg/dL (8.4-10.2); Carbon Dioxide 24 mmol/L (22-32); Chloride 104 mmol/L (98-107); Estimated Glomerular Filt Rate > 60.0 mL/min (>60); Glucose 70 mg/dL (80-110); HEMOLYSIS < 15 (0-50); Potassium 3.7 mmol/L (3.4-5.1); Sodium 139 mmol/L (137-145)
--- NOTE | 2018-06-17 09:08 | SUR.OPER ---
Lateral on padded pt. bed, head on pillow, gel axillary roll in place, bottom leg bent with gel pad under knee to foot, upper leg straight and supported with pillows. Upper arm supported by pillows and secured over bottom arm to padded arm board. Safety belt at hip, tape over blanket lower legs.
[2018-06-17] MEDS: LACTATED RINGERS 1,000 ML 42 ML IV (09:35)
--- NOTE | 2018-06-17 09:41 | PM.PREOP ---
Pre-operative Note Interval Note History & Physical reviewed/Exam performed by Physician: Yes Changes to H&P: No
[2018-06-17] MEDS: BUPIVACAINE 0.5% (PF) VIAL 30 ML INJ (09:55)
[2018-06-17] MEDS: fentaNYL 100 MCG/2 ML INJ 50 MCG IV (10:15)
--- NOTE | 2018-06-17 10:21 | PM.OP.1 ---
Operative Date/Time/Diagnoses Date of procedure: 06/17/18 Time of procedure: 10:10 Pre-op diagnosis: Abnormal CT scan with possible colitis of the rectosigmoid and pressure sore on the buttock present at admission with possible abscess. Rule out perirectal abscess Post-op diagnosis: other (No colitis found. No abscess found. appears to be a pure decubitus ulcer) Procedure & Clinicians Procedure: Flexible sigmoidoscopy to 60 cm. Opening of indurated area of the buttock. Same procedure as scheduled: Yes Indications: Abnormal CT scan. Abnormal findings on physical exam. Surgeon: Zackary Tellez Click Yes if Unassisted: Yes Anesthesia Type: MAC +/- Operative Notes Findings: No evidence of perirectal abscess. No evidence of abscess in the area of the pressure sores. No evidence of inflammation of the colon. If anything the mucosa was a bit pale. Closure Type: not applicable Specimen(s): none sent Estimated Blood Loss (mL): 5 Procedure in detail: The patient was placed in left lateral decubitus position on her bed. digital exam of the rectum was remarkable for external hemorrhoidal tags. There were no palpable masses. No induration. It was clear that the sores on her buttock were no where near her anus. I could feel nothing that suggested the presence of a perirectal abscess. The scope was inserted and passed to a depth of 60 cm. This to should be well beyond the rectosigmoid junction by at least 35 cm. The mucosa was somewhat pale. There was absolutely no inflammation. Diverticulosis was seen in the sigmoid colon. No other lesions were seen. The scope was gradually brought out. There was no inflammation in the rectum. The scope was removed. The patient was then prepped and draped in the will fashion her bed in the left lateral decubitus position. the area of possible fluctuance in the midst of what appeared to be a pressure ulcer was incised and probed with a hemostat. There was no abscess. Because of bleeding TWO 4 0 chromic simple sutures were placed to stop it. the area was gently wiped Telfa applied and gauze applied over that. She was taken recovery room in essentially the same condition that she arrived in the OR. Complications: none Condition: stable Disposition: PACU
[2018-06-17] MEDS: ONDANSETRON 4 MG/2 ML INJ IV (10:25)
--- NOTE | 2018-06-17 11:16 | SUR.PHASEI ---
Pt placed on nasal cannula 02 on arrival to PACU, oriented to self and place. Medicated for pain with fentanyl and order obtained from Dr Tellez for ondansetron for nausea. Pain and nausea resolved with treatment. Report called and pt brought back to room and left in stable condition under Eda's care. Telfa dressing remained c/d/i.
--- NOTE | 2018-06-17 13:00 | DI.MRI.S_ITS ---
PROCEDURE: MR STROKE Pre- and post-contrast brain MRI, non-contrast brain MR angiogram, pre- and postcontrast neck MR angiogram INDICATIONS: MS change, confusion TECHNIQUE: Brain: Noncontrast axial T1 spin echo, axial T2 fast spin echo, sagittal and axial FLAIR, coronal T2 fast spin echo, axial gradient echo, axial diffusion and ADC through the brain. After the administration of contrast, axial 3D VIBE of the cranial vasculature and brain. Brain MRA: Non-contrast 3-D time of flight MR angiogram, with multiple axmusav-pyoasrgno-iuewwimdgr (MIP) reformats performed. Neck MRA: Axial and sagittal TruFISP through the neck. Coronal dynamic MR angiogram during administration of contrast in the arterial and venous phases, with 3-dimenstional pyxhxxv-nvcnlpapo-rzzrcgzfgb (MIP) reformats constructed from subtraction images. COMPARISON: None. FINDINGS: Image quality: Excellent. BRAIN: CSF spaces: Ventricles are normal in size and shape. Basal cisterns are patent. No extra-axial fluid collections. Brain: No intracranial bleeds or mass effects. Oneill-white matter interface is normal. Diffusion weighted images show no acute ischemic insults. A few scattered T2/flair hyperintensities in the bilateral periventricular white matter without associated diffusion restriction abnormalities or enhancement compatible with sequela of chronic small vessel ischemic disease. Brainstem appears normal. Normal intravascular flow voids are present. No abnormal intracranial enhancement. Skull and face: Calvarial marrow signal is normal. Orbits appear normal. Sinuses: Sinuses and mastoids are clear. BRAIN MR ANGIOGRAM: Anterior circulation: Intracranial internal carotid arteries are normal in size and enhancement. The flow within the paired anterior cerebral arteries is normal and symmetric. The flow within the middle cerebral arteries is normal and symmetric. The anterior communicating artery is seen. No stenoses, occlusions, or aneurysms. Posterior circulation: The visualized portions of the vertebral arteries demonstrate normal caliber, and join to form a normal appearing basilar artery. The flow within the posterior cerebral arteries is normal and symmetric. No stenoses, occlusions, or aneurysms. NECK MR ANGIOGRAM: Carotids: Great vessels demonstrate a conventional anatomy as they arise from the aortic arch. The origins of the common carotid arteries appear patent. The calibers and courses of both common carotid arteries are normal. The bifurcation regions appear normal bilaterally. The internal carotid arteries demonstrate normal course and caliber. Posterior circulation: The origins of the vertebral arteries appear patent. More superior portions of both vertebral arteries demonstrate normal course and caliber, and join to form a normal appearing basilar artery. Miscellaneous: Subclavian arteries appear patent. Pre-contrast images through the neck show no soft tissue abnormalities. IMPRESSION: BRAIN MRI: Negative brain MRI for acute ischemic infarction. BRAIN MR ANGIOGRAM: Negative MR angiogram of the intracranial arterial vasculature. NECK MR ANGIOGRAM: Negative MR angiogram of the neck. Dictated by: Servando Avilez M.D. on 06/18/2018 at 9:47 Approved by: Servando Avilez M.D. on 06/18/2018 at 9:48
[2018-06-17] MEDS: PHENAZOPYRIDINE 100 MG TABLET 200 MG PO ×2 (15:51→21:25)
[2018-06-17] MEDS: GABAPENTIN 600 MG TABLET PO ×2 (15:51→21:25)
[2018-06-17] MEDS: DEXTROSE 5%-0.9% NS 1,000 ML 120 ML IV (16:00)
[2018-06-17] MEDS: MAG HYDROX/ALUM/SIMETH 30 ML UDC PO (18:46)
[2018-06-17] MEDS: SENNOSIDES 8.6 MG TABLET PO (21:25)
[2018-06-17] MEDS: DOCUSATE 100 MG CAPSULE PO (21:25)
[2018-06-17] MEDS: HALOPERIDOL 5 MG/ML VIAL 1 MG IV (22:15)
[2018-06-17] MEDS: BISACODYL 10 MG SUPP PR (22:16)
--- NOTE | 2018-06-17 22:21 | PC.NURSE ---
2200- Patient appears in distress with motion and with taking po. Patient has nausea and dry heaves when taking po or turning. Patient will hyperventalate but can be talked through breathing slower and calming down. Patient is labile but attempts to cooperate as much as she can
[2018-06-18] VITALS (11 sets, daily range): BP systolic 132–168; BP diastolic 72–90; PULSE 71–88; RESP 11–20; TEMP 36.3–37.3; O2SAT 91–97
[2018-06-18] MEDS: DEXTROSE 5%-0.9% NS 1,000 ML 120 ML IV (00:12)
--- NOTE | 2018-06-18 06:30 | PC.NURSE ---
Pt knew her son and brother and that she lives on [address] and her brother lives 2 miles away. She knew it was the month of June but said the year was 4. She was able to sleep and she ate two jello cups and 1/2 clear Ensure. Dressing on buttocks wound is C/D/I.
[2018-06-18] MEDS: ENOXAPARIN 40 MG/0.4 ML SYRINGE SUBCUT (10:07)
[2018-06-18] MEDS: GABAPENTIN 600 MG TABLET PO ×3 (10:07→20:14)
[2018-06-18] MEDS: PHENAZOPYRIDINE 100 MG TABLET 200 MG PO (10:07)
[2018-06-18] MEDS: SENNOSIDES 8.6 MG TABLET PO ×2 (10:07→20:14)
[2018-06-18] MEDS: DOCUSATE 100 MG CAPSULE PO ×2 (10:07→20:14)
--- NOTE | 2018-06-18 12:01 | PT.IIE ---
Current Diagnoses Metabolic encephalopathy (06/15/18) Surgery Performed Operation Date: 06/17/18 08:45 Actual Procedures p WOUND EXPLORATION BUTTOCKS - Zackary Tellez MD s Colonoscopy Flexible Sigmoidoscopy - Zackary Tellez MD Surgical History (Last Reviewed 06/16/18 @ 21:07 by Zackary Tellez MD) History of lumbar laminectomy (Acute) Medical History (Last Reviewed 06/16/18 @ 21:07 by Zackary Tellez MD) Pulmonary embolism (Acute) Right shoulder injury (Acute) History of hysterectomy (Acute) Physical Therapy Inpatient Evaluation/Re-Eval M1 PT/OT-IP Prior Functional Status Start: 06/18/18 13:06 Freq: NEEDED Status: Active Protocol: Document 06/18/18 12:01 [facility] (Rec: 06/18/18 13:18 [facility] [id number]) Medical Review Prior Functional Status Medical History Reviewed Yes Mobility and Gait mod. indep. gait without an AD , does have a cane using in L hand Activities of Daily Living and IADL's indep. I/ADLs including driving; cares for multiple animals at home indep. Social History Household Members none Living Arrangements House Number of Floors (Floors) One Floor Number of Stairs To Enter/Railing? no steps to enter/exit Home Environment Standard Height Toilet Home Equipment Straight Cane Additional Social History Comment Pt with onset of abdominal pain and confusion starting , c/o weakness and fatigue. Brain MRI was negative for acute findings. Sigmoidoscopy found diverticulosis. She was buttock ulcer reportedly likely due to immobility. M2 PT-IP Current Condition Start: 06/18/18 13:06 Freq: NEEDED Status: Active Protocol: Document 06/18/18 12:01 [facility] (Rec: 06/18/18 13:18 [facility] [id number]) Physical Therapy Current Condition Current Condition Evaluation Date 06/18/18 Treatment Diagnosis AMS, abdominal pain, impaired activity tolerance Precautions Other Precautions waffle cusion d/t buttock sore M3 PT-IP Subjective Start: 06/18/18 13:06 Freq: NEEDED Status: Active Protocol: Document 06/18/18 12:01 [facility] (Rec: 06/18/18 13:18 [facility] [email or web address]) Subjective Physical Therapy Visit Type Type Initial Evaluation Visit Start Time 12:01 Visit Stop Time 12:28 Total Visit Minutes 27 Number of WATERSHED PROGRAM MANAGER Visits 0 Physical Therapy Visit Comments Patient Comments pt states that she does feel weak, denies pain Patient Goals wants to get stronger Therapy Pain Assessment Pain Present Pain Present Denied Pain M4 PT-IP Mobility and Gait Start: 06/18/18 13:06 Freq: NEEDED Status: Active Protocol: Document 06/18/18 12:01 [facility] (Rec: 06/18/18 13:18 [facility] [id number]) PT-Transfer Assessment Sit to and From Stand Sit to and from Stand Contact Guard Assistance Equipment Transfer Assistive Device Gait Belt Front Wheeled Walker Transfers Transfer Destination Chair Transfer Technique Stand Step Pivot Transfer Ability Level of Assist Contact Guard Assistance Gait Assessment Gait Gait Assistance Required: Contact Guard Assist Minimum Assistance Distance (Feet) 75 Assistive Devices Assistive Device Gait Belt Front Wheeled Walker Gait Deviations General Gait Pattern Ataxic Decreased Feet Clearance Narrow Based Gait Factors Limiting Gait Function Factors Limiting Gait Function Decreased Activity Tolerance Decreased Strength Poor Balance Comments Gait Comments 75 ft with FWW and CGA, 50 ft with no AD and Min A with loss of balance x2 and ataxic gait PT-Balance Assessment Sitting Balance and Reactions Static Sitting Balance Ability Good Dynamic Sitting Balance Ability Good Standing Balance and Reactions Static Standing Balance Ability Fair Dynamic Standing Balance Ability Poor Device Used FWW Balance Tests Single Limb Standing uanble Tandem Standing 3 sec R posterior, 5 sec L posterior Comments Other Balance Tests/Deviations/Treatment feet together, eyes closed 5 : sec with posterior loss of balance M5 PT-IP Objective Assessments Start: 06/18/18 13:06 Freq: NEEDED Status: Active Protocol: Document 06/18/18 12:01 [facility] (Rec: 06/18/18 13:18 [facility] [id number]) Strength Lower Extremity Strength Assessment Bilaterally Impaired Hip flexion 4/5 B Knee flexion 4/5 R and 5/5 L, extension 4/5 B Ankle DF 5/5 B Coordination Assessment Assessment Heel on Fernandez Test Normal Performance Sensation Assessment Sensation Gross Sensation WNL Muscle Tone Muscle Tone WNL Yes M6 PT-IP Treatment Start: 06/18/18 13:06 Freq: NEEDED Status: Active Protocol: Document 06/18/18 12:01 [facility] (Rec: 06/18/18 13:18 [facility] [id number]) Physical Therapy Treatment Education Education Provided Safety M7 PT-IP Assessment and Plan Start: 06/18/18 13:06 Freq: NEEDED Status: Active Protocol: Document 06/18/18 12:01 [facility] (Rec: 06/18/18 13:18 [facility] [id number]) PT Summary Assessment and Plan Potential Rehabilitation Potential Good Status of Condition at Evaluation Evolving Summary Impairments Strength Balance Gait Activity Tolerance Assessment Summary Pt able to ambulate using a FWW x75 ft with CGA, but had loss of balance x2 with gait without an assistive device. She is at risk for falls, and demonstrates bilateral LE weakness and impaired static standing balance. Pt is not safe to return home independently at this time, as she requires physical assistance to maintain her balance with gait. Pt would greatly benefit from SNF rehabilitation to progress her overall activity tolerance, strength, balance, and to promote a safe d/c and progression toward independence with functional mobility. Goals Bed Mobility Goal Independent Transfer Goal Independent Gait Goal Standby Assistance Gait Distance 200 Days to Meet Goals 5 Frequency of Treatment Frequency Of Treatment Once a Day Treatment Plan Physical Therapy Treatment Plan Bed Mobility Training Transfer Training Gait Training Therapeutic Exercise Balance Retraining Discharge Planning Neuromuscular Re-ed Other Recommendations and Next Treatment progress gait, standing Focus balance Recommendations To Nursing Amount of Assist Needed 1 Person Assist Discharge Recommendations PT Discharge Recommendations SNF Rehab
--- NOTE | 2018-06-18 12:51 | CM.DPC ---
Addendum entered by Kristi Hartley LPN 06/18/18 16:17: Met with pt and Valentin again when he returned to hospital about 1530. Valentin confirms that he and Heather toured [facility] and including the rehab room and are fine with this plan. Pt confirms she is glad this is settled. Again again all assured that it will be up to the physician as to when pt is ready for d/c but [facility] will hold a place for her Tuesday 5/6 and >. Confirmed same with Deidra/[facility]. DCP team will be following tomorrow. Introduced developmental services worker Xochitl to both and she met with them accordingly. See her note. P: [facility] when stable for same. Due to lateness of hour PASRR is not completed. Addendum entered by Kristi Hartley LPN 06/18/18 13:37: Met again with pt to provide the [facility] brochure. She said Valentin has not yet returned. He was going to go to lunch with pt's sister in law: Heather Clancy who lives in [place]: [phone]. She reports that she and Heather are very close and that Heather was to her brother for 25 years until he 2 years ago of cancer. He was at [facility] during part of his illness. She states that Valentin is here from [place] and she is grateful to have his help at this time. She says she is eager to hear if all is going to be set up for [facility]. Original Note: DCP: continued: Met briefly with pt and her son Valentin Bunt: [phone] before team rounds. Valentin reports he is very interested in getting his mother set up for rehab before she returns home. He is most concerned re the ulcers on her buttocks as well has giving his mother time to regain her strength and functional mobility. Dr. Tellez did take pt to surgery yesterday and his op note has specifics re findings. Agreed to come back after rounds for a more in depth discussion and with hope that more would be known from Dr. Peña, taking over as hospitalist today. Discussed case in Team Rounds and Dr. Peña stated that pt would likely be ready for d/c today but that she needed to see pt first. Asked about PT/OT orders and she agreed to same. Met about noon with Valentin and his mother shortly after Dr. Peña met with them. (her note is not yet available.) Pt had just completed a session with PT Maximus. Maximus discussed the recommendation for snf rehab from a therapy standpoint and also noted that the PT session only shows part of the need. OT is needed/no OT available here this Tuesday but pt would certainly need both therapies at the snf level. Pt and Valentin with multiple questions re the rehab process. Went over the financial considerations as well as the SNF Medicare guidelines and typical processes. SNF list: discussed Pt does say she has visited [facility] in past as her brother, now , was there. Valentin agreed to go over and tour. (confirmed with Deidra that she will have beds Tuesday> and can meet with Valentin this afternoon.) Asked about a backup snf: at this point both are hopeful that [facility] will accept pt and that all will be well on the tour. Valentin with update this dc inventory planner when he returns. Encouraged pt and Valentin to consider a plan for more support at home or in a lesser care facility going forward but at this point they are both focused on rehab process. P: at this point: [facility]....pending results of tour....PASRR: needed. OF NOTE: CM social welfare clerk Xochitl says that Dr. Peña has asked her to consult on case. She plans to check in this afternoon with pt and Valentin and follow accordingly. Will await her input.
--- NOTE | 2018-06-18 14:50 | CM.SWNOTE ---
Addendum entered by JUDITH Field 06/18/18 16:00: ADD: SW met bedside with pt and son and explained role and provided the listed resources from below and [facility] Resource Guidebook and discussed in-home support after d/c from [facility] including [facility] team to help set up any needed resources prior to return home like HH. Pt was aware of some of the [facility] resources already and stated she had just set up home delivered meals from [facility] and had an appointment she had to cancel from [facility] for an assessment to determine help needed around the home like housekeeping and yard work. Discussed the need for planning now for future needs and being aware of resources like in-home caregivers for when the need arises. Pt and son confirm that pt has a lot of support from family and friends on the [place]. Pt and son very appreciative and no further SW needs identified. Pt seems to have insight and awareness in her need to function more independently but also with supportive services in place as things will only get medically harder to bounce back from as she gets older. SW updated RN d/c kit planner who will continue working on the d/c plan of [facility] when medically stable. BF Original Note: Per MD, pt and son could possibly benefit from a SW Consult since pt's son seems somewhat overwhelmed and pt herself is fairly adamant that she can remain Independent in her home safely without any assist. Per RN d/c kit planner, pt and son agreeable to SNF rehab at d/c prior to return home to [facility] alone. Son has been following through on touring [facility] and making himself available for d/c coordination. SW attempted to meet bedside to further discuss any SW needs or termite renewal inspector care resources but pt sleeping soundly and son not bedside as he is going across the street to [facility] and then to late lunch. Plan: SW to follow for possible SW Consult to determine if pt and son identify any further SW needs prior to d/c to SNF. SW printed off [facility] Resources for Seniors on [facility] including in-home support through the [facility], [facility], and [facility] for additional assist with Junior Web Developer Care Planning. JUDITH Field
--- NOTE | 2018-06-18 17:21 | PM.PN.1 ---
Subjective Date Patient Seen: 06/18/18 Interval history: Zeny Artis is a 72-year-old female with a past medical history significant for PE status post treatment completion, lumbar laminectomy currently on fentanyl patches for 20 years, and recurrent abdominal pain of unclear etiology but probably secondary to opiate induced constipation who presented to emergency department with altered mental status and abdominal pain. Patient is resting in bedside chair comfortably. Her son is present at bedside. She reports she feels much better today. Her confusion has resolved. She is very fixated on her fentanyl patch and has asked staff several times if it has been placed. Discussed opiate use and opiate induced constipation and gastroparesis in detail. Implemented a bowel regimen today. Recommended in future that her opiate dose be slightly increased rather than time interval changed per medication guidelines. Also discussed MR stroke protocol which did not demonstrate any acute intracranial abnormalities or stroke. Patient currently denies headache, chest pain, shortness of breath, abdominal pain, nausea, vomiting, fever, chills, dysuria, diarrhea or constipation. She reports she has a bowel movement daily. She reports she is voiding and eliminating without difficulty. She is up ambulating with assistance. Exam Vital Signs (past 8 hours): - 06/18/18 10:00 06/18/18 12:41 06/18/18 16:00 Temperature 99.1 F Pulse Rate 86 88 Respiratory Rate 11 L 18 Blood Pressure 149/90 H 168/86 H Pulse Oximetry 92 97 93 Oxygen Delivery Method Room Air Oxygen Flow Rate 0 Narrative Exam Narrative: General: Elderly thin female sitting in bedside chair and in no acute distress, appears chronically ill, appropriately interactive. HEENT: Normocephalic, atraumatic. External ears without defect. Pupils equal, round, and reactive to light. Anicteric sclerae, moist conjunctivae, and no lid lag. Oropharynx free of erythema and cobble stoning with moist mucosa. Neck: Supple with full range of motion. No lymphadenopathy or thyromegaly. Cardiovascular: Regular rate and rhythm without murmurs, rubs, or gallops appreciated. Pulmonary: Clear to auscultation bilaterally without crackles, wheezes, or rhonchi. Normal respiratory effort with no use of accessory muscles. Abdomen: Soft, bowel sounds present, nontender, nondistended. No hepatosplenomegaly or masses appreciated. Extremities: No clubbing, cyanosis, or edema. Genitourinary: Buttock with U shape superficial skin breakdown that appear to be pressure induced. Skin: Normal temperature, turgor, and texture; no rash, ulcers, or subcutaneous nodules appreciated. Neurological: Cranial nerves grossly intact. Psychiatric: Depressed mood and flat affect. Alert and oriented to person, place, and time. Objective Labs Result Diagrams: 06/17/18 07:16 06/17/18 07:16 Assessment & Plan Assessment & Plan narrative: Zeny Artis is a 72-year-old female with a past medical history significant for PE status post treatment completion, lumbar laminectomy currently on fentanyl patches for 20 years, and recurrent abdominal pain of unclear etiology but probably secondary to opiate induced constipation who presented to emergency department with altered mental status and abdominal pain. 1. Acute metabolic encephalopathy, present on admission. Resolved. -Etiology unclear but likely secondary to opiates (given concomitant fentanyl and methadone administration). -Patient is hemodynamically stable with no metabolic abnormalities. -CT head and neck was negative for any acute intracranial abnormalities. -MRI stroke ruled out CVA. No significant stenoses or intracranial abnormalities. -Continue to reorient often. 2. Abdominal pain, acute on chronic, present on admission. Resolved. -Etiology unclear. Possibly secondary to gastroparesis from opiate induced constipation (given fentanyl and methadone administration with chronic constipation). -Pancreatitis ruled out. -Patient is hemodynamically stable with no signs of acute infection. -History of colonoscopy in the past but bowel prep was poor, therefore, not much was visualized. -CT abdomen and pelvis with contrast demonstrated possible gallbladder wall thickening. Also of note patient has significant stool burden. -MRI abdomen and pelvis with contrast concerning for inflammation around sigmoid colon and CBD dilation with questionable buttock abscess. -US liver demonstrated dilated CBD and common hepatic duct, as well as, right lobe liver cyst. -Consulted general surgery who performed a flex sigmoidoscopy which did not demonstrate any rectosigmoid abscesses or abnormalities other than slightly pale appearing colonic mucosa. No plans to further explore CBD at this time as patient is currently high surgical risk. Will order HIDA scan for tomorrow and the patient shoudl consider an ERCP outpatient to further delineate biliary anatomy per surgeries recs. -Continue fentanyl patch 100 mcg at regular every 3 day dosing. If patient develops tolerance may need to go up on her dose rather than decrease the time interval or switch to a different analgesic all together. -Implemented bowel regimen with MiraLax 17 g daily, Colace 100 mg twice daily and senna 8.6 twice daily. 3. Chronic pressure ulcerations of buttock, present on admission. Stable. -Patient is aware of skin breakdown which is chronic but she is unable to turn frequently due to back pain. -Ordered offloading cushion and reiterated importance of turning as much as tolerated. Continue foam dressings. -Ordered wound care consult, pending. 4. Chronic back pain, present on admission. Stable. -Patient is status post laminectomy in remote past. -Continue fentanyl patch and gabapentin for chronic back pain and residual neuropathic extremity pain, respectively. 5. Tobacco dependence, chronic, present on admission. Stable. -Continue nicotine patch as needed for nicotine withdrawal. 6. History of PE. -Diagnosed Feb 2017. Per family, patient completed anticoagulation therapy. 7. Normocytic anemia, unclear acuity but appears acute, present on admission. Stable. -No overt signs of bleeding and H&H stable. Continue to monitor H&H. Disposition: Patient likely to discharge in 1-2 days to [facility] for rehabilitation and gluteal pressure ulcerations. Quality VTE Deep Vein Thrombosis/Pulmonary Embolism Present on Admission: No
[2018-06-18] MEDS: POLYETHYLENE GLYCOL 3350 17 GM POWD.PACK PO (20:14)
[2018-06-19] VITALS: O2SAT 95
[2018-06-19 04:00] VITALS: O2SAT 94
--- NOTE | 2018-06-19 05:32 | PC.NURSE ---
Pt is A and O x 4, ambulates to BR, is continent. +BTs, LBM 06/16/18. LS clear, HR reg S1, S2. Son Valentin rooming in.
[2018-06-19 06:00] VITALS: BP 144/82; PULSE 69; RESP 16; TEMP 36.3; O2SAT 92
[2018-06-19 07:30] VITALS: BP 149/99; PULSE 79; RESP 15; TEMP 36.8; O2SAT 94
--- NOTE | 2018-06-19 09:11 | DIET.PN ---
Started PO diet yesterday. Adding Ensure BID per nutrition intervention plan. Will f/u to check acceptance
[2018-06-19 09:20] VITALS: O2SAT 94
[2018-06-19] MEDS: ENOXAPARIN 40 MG/0.4 ML SYRINGE SUBCUT (09:28)
[2018-06-19] MEDS: POLYETHYLENE GLYCOL 3350 17 GM POWD.PACK PO (09:28)
[2018-06-19] MEDS: GABAPENTIN 600 MG TABLET PO (09:28)
[2018-06-19] MEDS: DOCUSATE 100 MG CAPSULE PO (09:28)
[2018-06-19] MEDS: SENNOSIDES 8.6 MG TABLET 17.2 MG PO (09:29)
--- NOTE | 2018-06-19 10:34 | PT.IPTN ---
Current Diagnoses Metabolic encephalopathy (06/15/18) Surgery Performed Operation Date: 06/17/18 08:45 Actual Procedures p WOUND EXPLORATION BUTTOCKS - Zackary Tellez MD s Colonoscopy Flexible Sigmoidoscopy - Zackary Tellez MD Physical Therapy Treatment Note Notes Pt is discharging to SNF [facility], acute PT will sign off.
--- NOTE | 2018-06-19 10:47 | PM.DS.1 ---
History of Present Illness Date Patient Seen: 06/15/18 Chief complaint: Alt. Mental Status Narrative: Written by Ricky TALBOT: HPI is obtained via direct interview of the patient and her brother Anson, as well as review of contents of the medical record. At time of evaluation patient is NOT at her baseline mentation. Patient's brother is also an unreliable historian. The patient is a 72-year-old female who was brought via EMS from [facility] for altered mental status. Patient's PMH is not entirely clear, specific details outlined below. ER triage notes onset of symptoms 8 hours prior to ED presentation (i.e. 6:30 am on 06/15/2018, respectively). However, patient's brother reports onset of symptoms on 06/10/2018. Patient's brother communicates specifically that the patient has been struggling with rectal pain for at least 1-2 months, progressively worsening. For the past week there has been alteration in patient's mentation. She is described as confused and less alert. Speech impairment is noted. Patient is not noted to exhibit features of psychosis, such as agitation, irritability, delirium, or hallucinations. According to patient's brother change in patient's cognitive state is of abrupt onset, initially noted on 06/10/2018. They appear to have manifested shortly after patient started to take methadone. At some point, the patient herself, noted to the brother that she has experienced similar symptoms with prior, trial of methadone. The patient herself is not able to comment on her current or prior symptoms specifically related to methadone use. However, recently she has been experiencing nausea and abdominal pain. the patient states that she has been vomiting, however brother does not endorse the symptom. Appetite has been decreased. Reports unintentional weight loss of 35 lb in the past 6 months. Patient reports presence of pain, but is unable to localize the pain. Describes pain is severe and burning. At times reports presence of pain in the abdominal cavity and other times in the rectal vault. Presented with an unstageable pressure ulcer vs. developing abscess / cellulitis. Newly developed over the past week. There is a degree of induration, edema, and erythema (right buttock). Patient denies rectal pain or bleeding with defecation. Denies melena and hematochezia. Denies abdominal distention. No new rash or bruises. Patient is known to have chronic, opioid induced constipation. However, she herself does not feel the constipation. Unable to recall last BM. However, can go as long as a week without a BM. Denies dysuria, urinary frequency, and hematuria. Denies joint pain. A notation of diverticulosis noted on prior imaging; however, patient and family do not endorse a history of diverticulitis or any other inflammatory bowel disease. Patient has had a weight loss of at least 35 lb in the past 6 months. No prior history of malignancy. However, family history is significant for malignancy in multiple siblings, prostate cancer (brother), uterine cancer (sister) and pancreatic cancer. There is a family history of inflammatory bowel disease, diverticulitis (mother). complete, s/p GI distress. Patient was diagnosed with pulmonary embolism, treated w/ coumadin, now no longer on anticoagulation. PMH: chronic lumbar pain (2/2 a fall related injury), opioid dependence, chronic constipation, pulmonary embolism w/ prior warfaring anticoagulation, and chronic respiratory failure w/ hypoxia and O2 dependence (ince 01/2018), chronic liver cyst, PSH: appendectomy, laminectomy, left iliac bone graft harvesting (10/2009), sphincterotomy (10/2009) Discharge Providers Date of admission: 06/15/18 19:37 Discharge Date: 06/19/18 Primary care physician: Chucky Velazquez MD Consults: 06/15/18 20:46 Consult to Dietitian, Adult Routine Comment: Reason For Exam: decreased nutrition and wt loss 06/18/18 09:57 Consult to Wound Care Routine Comment: Consulting Provider: [facility] 06/18/18 09:58 Consult to Air Support Control Officer Routine Comment: [facility] living arrangements 06/18/18 10:14 Consult to Occupational Therapy Evaluate & Treat Comment: Physician Instructions: Evaluate and treat Consult to Physical Therapy Evaluate & Treat Comment: Physician Instructions: Evaluate and Treat Discharge provider: Jael Peña DO Summary Discharge Diagnosis: 1. Abdominal pain, acute on chronic, present on admission. Resolved. 2. Acute metabolic encephalopathy, present on admission. Resolved. 3. Chronic pressure ulcerations of buttock, present on admission. Stable. 4. Chronic back pain, present on admission. Stable. 5. Tobacco dependence, chronic, present on admission. Stable. 6. History of PE. 7. Normocytic anemia, unclear acuity but appears acute, present on admission. Stable. Hospital Course: Zeny Artis is a 72-year-old female with a past medical history significant for PE status post treatment completion, lumbar laminectomy currently on fentanyl patches for 20 years, and recurrent abdominal pain of unclear etiology but probably secondary to opiate induced constipation who presented to emergency department with altered mental status and abdominal pain. 1. Abdominal pain, acute on chronic, present on admission. Resolved. -Etiology unclear. Possibly secondary to gastroparesis from opiate induced constipation (given fentanyl and methadone administration with chronic constipation). -Pancreatitis ruled out. -Patient is hemodynamically stable with no signs of acute infection. -History of colonoscopy in the past but bowel prep was poor, therefore, not much was visualized. -CT abdomen and pelvis with contrast demonstrated possible gallbladder wall thickening. Also of note patient has significant stool burden. -MRI abdomen and pelvis with contrast concerning for inflammation around sigmoid colon and CBD dilation with questionable buttock abscess. -US liver demonstrated dilated CBD and common hepatic duct, as well as, right lobe liver cyst. -Consulted general surgery, Dr. Tellez, who performed a flex sigmoidoscopy which did not demonstrate any rectosigmoid abscesses or abnormalities other than slightly pale appearing colonic mucosa. No plans to further explore CBD at this time as patient is currently high surgical risk. Surgery recommends GI consult outpatient for ERCP and HIDA scan to further delineate biliary anatomy and gallbladder function. HIDA not performed inpatient due to scheduling conflict. -Continued fentanyl patch 100 mcg every 3 days per dosing guidelines (previously prescribed as every 2 days). If patient develops tolerance she may need to go up on her fentanyl dose rather than decrease the time interval or switch to a different analgesic all together. Do NOT recommend methadone in addition or used as means to titrate off. -Implemented bowel regimen with MiraLax 17 g daily, Colace 100 mg twice daily and senna 17.2 mg daily as needed for constipation. 2. Acute metabolic encephalopathy, present on admission. Resolved. -Etiology unclear but likely secondary to opiates (given concomitant fentanyl and methadone administration). -Patient is hemodynamically stable with no metabolic abnormalities. -CT head and neck was negative for any acute intracranial abnormalities. -MRI stroke ruled out CVA. No significant stenoses or intracranial abnormalities. -Continued to reorient often. 3. Chronic pressure ulcerations of buttock, present on admission. Stable. -Patient is aware of skin breakdown which is chronic but she is unable to turn frequently due to back pain. Appears to be stage I to II decubitus pressure ulcerations in U shape on buttocks. -Continued offloading cushion and reiterated importance of turning as much as tolerated. Continue foam dressings. -Ordered wound care consult but not obtained due as it was ordered on the weekend and not here. 4. Chronic back pain, present on admission. Stable. -Patient is status post laminectomy in remote past. -Continued fentanyl patch 100 mcg every 3 days (previously every 2 days) and gabapentin 600 mg three times daily for chronic back pain and residual neuropathic extremity pain, respectively. 5. Tobacco dependence, chronic, present on admission. Stable. -Continued nicotine patch as needed for nicotine withdrawal. 6. History of PE. -Diagnosed Feb 2017. Per family, patient completed anticoagulation therapy. 7. Normocytic anemia, unclear acuity but appears acute, present on admission. Stable. -No overt signs of bleeding and H&H stable. Continued to monitor H&H. Status at Discharge Functional status at discharge: uses cane/walker Overall status at discharge: patient is progressing back to baseline Exam Vital Signs (past 8 hours): - 06/19/18 04:00 06/19/18 06:00 06/19/18 07:30 Temperature 97.4 F L 98.2 F Pulse Rate 69 79 Respiratory Rate 16 15 Blood Pressure 144/82 H 149/99 H Pulse Oximetry 94 92 94 06/19/18 09:20 Temperature Pulse Rate Respiratory Rate Blood Pressure Pulse Oximetry 94 Oxygen Delivery Method Room Air Oxygen Flow Rate 0 Narrative Exam Narrative: General: Elderly thin female sitting at bedside and in no acute distress, appears chronically ill, appropriately interactive. HEENT: Normocephalic, atraumatic. External ears without defect. Pupils equal, round, and reactive to light. Anicteric sclerae, moist conjunctivae, and no lid lag. Neck: Supple with full range of motion. No lymphadenopathy or thyromegaly. Cardiovascular: Regular rate and rhythm without murmurs, rubs, or gallops appreciated. Pulmonary: Clear to auscultation bilaterally without crackles, wheezes, or rhonchi. Normal respiratory effort with no use of accessory muscles. Abdomen: Soft, bowel sounds present, non-tender, non-distended. No hepatosplenomegaly or masses appreciated. Extremities: No clubbing, cyanosis, or edema. Genitourinary: Buttock with U shape superficial skin breakdown that appear to be pressure induced stage I in some areas and stage II in other. Skin: Normal temperature, turgor, and texture; no rash, ulcers, or subcutaneous nodules appreciated. Neurological: Cranial nerves grossly intact. Psychiatric: Tangential thinking. Depressed mood and flat affect. Alert and oriented to person, place, and time. Forgeful likely due to narcotics. Objective Labs Result Diagrams: 06/17/18 07:16 06/17/18 07:16 Discharge Plan Discharge Plan Patient Disposition: SNF Transfer to: [facility] Under care of provider: Dr. Ibrahim Transportation: Facility vehicle I certify the postop hospital residential care is medically necessary on a continuing basis for any conditions for which he/ she received care during this hospitalization.: Yes The receiving facility has agreed to accept transfer and provide medical treatment.: Yes Discharge Med Rec/Prescriptions Prescriptions: New sennosides [senna] 8.6 mg Tablet 17.2 mg PO DAILY PRN (Reason: Constipation) Qty: 30 RF: 0 polyethylene glycol 3350 17 gram Powder In Packet 17 gm PO DAILY Qty: 30 RF: 0 bisacodyl 10 mg Suppository 10 mg WI DAILY PRN (Reason: Constipation) Qty: 30 RF: 0 nicotine 21 mg/24 hr Patch 24 Hour 21 mg topical DAILY Qty: 30 RF: 0 docusate sodium 100 mg Capsule 100 mg PO BID Qty: 60 RF: 0 Continued gabapentin [Neurontin] 600 MG tablet 600 mg PO TID Qty: 0 RF: 0 Changed fentanyl 100 MCG/HR patch 72 hour 1 patch Topical Q3D Qty: 0 RF: 0 Follow up/Referrals: Chucky Velazquez MD [Primary Care Provider] - Discharge Health Status Multidrug resistant organism: No MDRO Precautions: [place] Provider Discharge Instructions Diet: Diet as Tolerated, Low-fat, Low-sodium and Low-cholesterol Activity: Activity as tolerated with FWW and PT/OT Skin/Wound/Dressing Care Other wound treatment: Keep good perineal care with buttocks dry. Offload buttocks with waffle pillow and apply foam dressing as needed to pressure ulcerations. [facility] Rehab type: Physical therapy and Occupational therapy Discharge Data Primary Care Provider: Chucky Velazquez Attending Provider: Ricky Amaya Admit Date/Time: 06/15/18 19:37 Quality VTE Deep Vein Thrombosis/Pulmonary Embolism Present on Admission: No
--- NOTE | 2018-06-19 10:52 | OT.IP.EVAL ---
Current Diagnoses Metabolic encephalopathy (06/15/18) Surgery Performed Operation Date: 06/17/18 08:45 Actual Procedures p WOUND EXPLORATION BUTTOCKS - Zackary Tellez MD s Colonoscopy Flexible Sigmoidoscopy - Zackary Tellez MD Past Medical History (Last Reviewed 06/16/18 @ 21:07 by Zackary Tellez MD) Pulmonary embolism (Acute) Right shoulder injury (Acute) History of hysterectomy (Acute) Surgical History (Last Reviewed 06/16/18 @ 21:07 by Zackary Tellez MD) History of lumbar laminectomy (Acute) Occupational Therapy Inpatient Evaluation/Re-Eval M1 PT/OT-IP Prior Functional Status Start: 06/18/18 13:06 Freq: NEEDED Status: Active Protocol: Document 06/19/18 10:30 [facility] (Rec: 06/19/18 10:52 [facility] [id number]) Medical Review Prior Functional Status Medical History Reviewed Yes Mobility and Gait mod. indep. gait without an AD , does have a cane using in L hand Activities of Daily Living and IADL's indep. I/ADLs including driving; cares for multiple animals at home indep. Pt states independent for medications and finances as well. Social History Household Members none Living Arrangements House Number of Floors (Floors) One Floor Number of Stairs To Enter/Railing? no steps to enter/exit Home Environment Standard Height Toilet Home Equipment Straight Cane Additional Social History Comment Pt with onset of abdominal pain and confusion starting , c/o weakness and fatigue. Brain MRI was negative for acute findings. Sigmoidoscopy found diverticulosis. She was buttock ulcer reportedly likely due to immobility. Pt states takes bathes at home. M2 OT-IP Current Condition Start: 06/19/18 10:29 Freq: Status: Active Protocol: Document 06/19/18 10:30 [facility] (Rec: 06/19/18 10:52 [facility] [id number]) Occupational Therapy Current Condition Current Condition Evaluation Date 06/19/18 Treatment Diagnosis Altered Mental status, gluteal pressure ulceration Diagnosis Onset Date 06/15/18 M3 OT- IP Subjective and Pain Start: 06/19/18 10:29 Freq: Status: Active Protocol: Document 06/19/18 10:30 [facility] (Rec: 06/19/18 10:52 [facility] [id number]) OT- Subjective Occupational Therapy Visit Type Type Initial Evaluation Visit Start Time 09:45 Visit Stop Time 10:25 Total Visit Minutes 40 Occupational Therapy Visit Comments Patient Comments Pt requesting to shower prior to going to skilled rehab. OT Pain Assessment Pain When Pain Assessed At Rest Pain Present Pain Present Denied Pain M4 OT- IP ADL's Start: 06/19/18 10:29 Freq: Status: Active Protocol: Document 06/19/18 10:30 [facility] (Rec: 06/19/18 10:52 [facility] [id number]) OT ADL-Dressing General Eval Lower Body Dressing Ability Minimal Assistance Areas Needing Assistance Socks Comments OT Dressing Comments Initailly pt able to stand while holding to grab bars or BSSC to take off socks and brief. Pt needing to sit to delvin brief and needing assist to help with left socks. Educated to delvin left LE first as weaker than left at this time. OT ADL-Toileting General Evaluation Toileting Ability Standby Assistance OT ADL-Bathing Bathing Type Bathing Type Shower General Evaluation Bathing Ability Standby Assistance Devices Bathing Equipment Shower Chair with Arms Comments OT Bathing Comments Pt ableto stand for most of shower and use of grab bar to assist for balance, SBA for safety. M5 OT- IP IADL's Start: 06/19/18 10:29 Freq: Status: Active Protocol: Document 06/19/18 10:30 [facility] (Rec: 06/19/18 10:52 [facility] [id number]) OT-Instrumental Activities of Daily Living Home Safety Awareness Ability to Problem Solve Emergency Able to Problem Solve Situations Home Safety Comments Pt slow to answer home safety questions, but able to do with 95% accuracy. Money Management Money Management Comments Pt having diffculty with math calculations and at this time would benefit from assist. M6 OT- IP Functional Cognition Start: 06/19/18 10:29 Freq: Status: Active Protocol: Document 06/19/18 10:30 [facility] (Rec: 06/19/18 10:52 [facility] [id number]) Cognitive Factors Limiting Selfcare Function Cognitive Ability Level of Alertness Alert Patient Orientation Name Place Situation Attention Span Ability Capable of Focused Attention Capable of Sustained Attention Ability to Follow Commands Able to Follow One Step Commands Safety Awareness Underestimates Need for Assistance Problem Solving Ability Needs Assist to Identify Solutions Cognitive Comments Cognitive Assessment Comments Pt needing concrete commands, and needing increased time to follow directions, increased time to answer questions. When having pt identify body parts for light touch, pt needing time to recall body part. Pt not able to figure out how to turn on the shower or how the soap comes out of the dispenser. Pt however feels very stressed at this time and feel like that is affecting her ability to think at this time. Pt is a bit impulsive. OT- Vision and Hearing OT- Hearing Assessment OT- Hearing Assessment WFL M7 OT- IP Mobility and Balance Start: 06/19/18 10:29 Freq: Status: Active Protocol: Document 06/19/18 10:30 [facility] (Rec: 06/19/18 10:52 [facility] [id number]) OT- Bed Mobility Assessment Supine to Sit Supine to Sit Assist Independent Sit to Supine Sit to Supine Assist Independent OT-Transfer Assessment Sit to and From Stand Sit to and from Stand Standby Assistance Transfers Transfer Ability Standby Assistance Technique Transfer Destination Bed Shower Stall Toilet Transfer Technique Stand Step Pivot Devices Transfer Assistive Devices None Front Wheeled Walker Comments Mobility Comments Pt not using FWW and mainly just carrying it, therefore assessed to see pt's safety without device. Pt is SBA without a device. OT- Gait Assessment Comments Gait Ability Comments Pt able to move with in the room with SBA and no device at this time. OT- Balance Assessment Sitting Balance and Reactions Static Sitting Balance Ability Normal Dynamic Sitting Balance Ability Normal Standing Balance and Reactions Static Standing Balance Ability Good Dynamic Standing Balance Ability Fair M8 OT- IP Objective Assessments Start: 06/19/18 10:29 Freq: Status: Active Protocol: Document 06/19/18 10:30 [facility] (Rec: 06/19/18 10:52 [facility] [id number]) OT Gross Range of Motion Upper Extremity Range of Motion Assessment Right Impaired ROM Impairments LUE 0-60 shoulder flexion, WFL from elbow to distal. RUE 0-100 shoulder flexion, WFL for elbow to distal. OT Strength Comments Strength Comments LUE 4-/5 to 4/5 RUE 4/5 M9 OT- IP Assessment and Plan Start: 06/19/18 10:29 Freq: Status: Active Protocol: Document 06/19/18 10:30 [facility] (Rec: 06/19/18 10:52 [facility] [id number]) OT Summary Assessment and Plan Potential Rehabilitation Potential Good Analytic Complexity at Evaluation Low Summary OT Impairments Range of Motion Strength Balance Functional Cognition Functional Mobility Dressing Toileting Bathing Toilet Transfers Shower Transfers Progress Towards Goals Progressing Toward Goals Assessment Summary Pt low complexity and main barriers are decreased functional cognition, dynamic balance, endurance, and needing increased time to answer questions, needing assist for problem solving . Pt will benefit form skilled rehab as not at baseline as prior completely independent. Goals Dressing Goal Independent Toileting Goal Independent Bathing Goal Independent Toilet Transfer Goal Independent Shower Transfer Goal Independent Patient/Caregiver Education Goal Demonstrate Energy Conservation and Pacing Days to Meet Goals 5 Frequency of Treatment Frequency Of Treatment Once a Day Treatment Plan OT Treatment Plan ADL Training Functional Cognition Training Functional Mobility Patient/Family Education Discharge Planning Discharge Recommendations OT Discharge Recommendations SNF Rehab Home Equipment Needs defer to SNF
--- NOTE | 2018-06-19 13:02 | PC.NURSE ---
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 D/c instructions provided to RN at [facility] (debbie). son and brother present for transfer. Pt states she had all belonings with her and family took over to [facility].
== END 2018-06-19 11:00 | DRG 92 ==
LOC: ED 19:21 → AC 06-16 08:59
PROVIDERS: Internal Medicine; Specialist; Admitting Provider Nurse Practitioner Gerontology; Emergency Provider Emergency Medicine; PCP Family Medicine; Visit Provider Nurse Practitioner Gerontology
PROC: 0H98XZZ Drainage of Buttock Skin, External Approach (ICD-10-PCS; principal; 2018-06-17 08:45)
PROC: 0DJD8ZZ Inspection of Lower Intestinal Tract, Via Natural or Artificial Opening Endoscopic (ICD-10-PCS; CPT 45378; 2018-06-17 08:45)
DX: G92 Toxic encephalopathy (principal); J96.10 Chronic respiratory failure, unspecified whether with hypoxia or hypercapnia; F11.20 Opioid dependence, uncomplicated; K59.03 Drug induced constipation; K31.84 Gastroparesis; L89.320 Pressure ulcer of left buttock, unstageable; L89.310 Pressure ulcer of right buttock, unstageable; Z99.81 Dependence on supplemental oxygen; T40.4X5A Adverse effect of other synthetic narcotics, initial encounter; T40.3X5A Adverse effect of methadone, initial encounter; G89.29 Other chronic pain; F17.210 Nicotine dependence, cigarettes, uncomplicated; R10.9 Unspecified abdominal pain; Z86.711 Personal history of pulmonary embolism
CPT/HCPCS: 36415; 51701; 51798; 70450; 70548; 70553; 71045; 72197; 74177; 76705; 80048; 80053; 81001; 82150; 83605; 83690; 84145; 85025; 85610; 85730; 86140; 87040; 87086; 94762; 96361; 96374; 96376; 97162; 97165; 97535; 99284; 99285; 99291; 99406; A9579; J0360; J1170; J1630; J1650; J1885; J2405; J2704; J3010

== ENCOUNTER 2018-07-07 21:57 | Emergency (ER) | payer MEDICARE, SELFPAY ==
[2018-06-15 20:11] VITALS: BMI 20.1
[2018-07-07 22:23] VITALS: BP 105/68; PULSE 94; RESP 16; TEMP 37.2; O2SAT 94; BMI 18.6
[2018-07-08] MEDS: DOXYCYCLINE HYCLATE 100 MG TABLET PO (00:29)
[2018-07-08 00:45] VITALS: BP 110/66; BP 116/68; PULSE 89; RESP 16; TEMP 37.3; O2SAT 96
--- NOTE | 2018-07-08 02:24 | ED_ITS ---
HPI - Skin/Abscess/Foreign Bdy General Chief complaint: Skin/Abscess/Foreign Body Stated complaint: WOUNDS BUTTOCKS AREA Time Seen by Provider: 07/07/18 22:35 Source: patient and family Mode of arrival: ambulatory Limitations: no limitations History of Present Illness HPI narrative: 72-year-old female with history of opioid dependence, chronic constipation, pulmonary embolism and chronic respiratory failure presents with her daughter and a chief complaint of a painful decubitus ulcer. She has been under the care of wound care for these known decubitus ulcers, patient was recently admitted into the hospital for altered mental status and was referred to wound care on disposition. She states they are healing quite nicely but she has new, worsening pain for the decubitus ulcer overlying her coccyx. MD complaint: lesion Onset (ago): week(s) Tetanus up to date: yes Location: buttocks Severity: mild Quality: burning and aching Pain Consistency: constant Relieving factors: none Exacerbating factors: movement Context: none Associated symptoms: denies other symptoms Treatments prior to arrival: bandages Related Data Home Medications Medication Instructions Recorded Confirmed gabapentin [Neurontin] 600 mg PO TID #0 03/01/17 06/15/18 Previous Rx's Medication Instructions Recorded bisacodyl 10 mg [place] DAILY PRN #30 ea 06/19/18 docusate sodium 100 mg PO BID #60 cap 06/19/18 fentanyl 1 patch TOPICAL Q3D #0 ea 06/19/18 nicotine 21 mg TOPICAL DAILY #30 ea 06/19/18 polyethylene glycol 3350 17 gm PO DAILY #30 ea 06/19/18 sennosides [senna] 17.2 mg PO DAILY PRN #30 tab 06/19/18 doxycycline monohydrate 100 mg PO BID 10 Days #20 cap 07/08/18 Allergies Allergy/AdvReac Type Severity Reaction Status Date / Time morphine AdvReac Difficulty Verified 01/17/18 11:13 Breathing Review of Systems Constitutional Denies chills, Denies fever(s), Denies lethargy and Denies weakness Eyes Denies change in vision, Denies eye discharge, Denies irritation and Denies loss of vision ENT Ears, Nose, Mouth, and Throat: Denies change in voice, Denies neck pain and Denies sore throat Cardiovascular Denies chest pain, Denies irregular heart rhythm, Denies lightheadedness, Denies palpitations, Denies dyspnea, Denies dyspnea on exertion and Denies orthopnea Respiratory Denies cough, Denies dyspnea, Denies dyspnea on exertion and Denies wheezing Gastrointestinal Gastrointestinal: Denies abdominal pain, Denies change in bowel habits, Denies diarrhea, Denies nausea and Denies vomiting Genitourinary Denies hematuria, Denies flank pain, Denies urinary incontinence and Denies urinary urgency Musculoskeletal Denies neck pain Integumentary/Breasts Denies pruritus, Reports erythema, Denies rash, Reports skin pain and Reports wounds Neurologic Denies confusion, Denies loss of vision and Denies weakness Psychiatric Denies anxiety, Denies confusion, Denies depression, Denies homicidal ideation and Denies suicidal ideation Endocrine Denies palpitations Hematologic/Lymphatic Denies easy bruising Allergic/Immunologic Denies wheezing [facility] Medical History History of hysterectomy (Acute) Pulmonary embolism (Acute) Right shoulder injury (Acute) Surgical History History of lumbar laminectomy (Acute) Social History household members: none Smoking Status: Current every day smoker alcohol intake: never Social History household members: none Smoking Status: Current every day smoker alcohol intake: never Exam Narrative Exam Narrative: GEN: AOx3 and in mild distress EYES: Pupils are equal, round, and reactive to light and accommodation. Extraoccular muscles are intact bilaterally. There is no subconjunctival hemorrhage or exudate. CHEST: Lungs are clear to auscultation bilaterally and free of wheezes, rales, or rhonchi. Heart rate is regular rhythm, there are no murmurs, clicks, rubs, or gallops. There is no chest wall tenderness. ABD: Abdomen is soft and nontender. There is no guarding or rebound. Bowel sounds are normal in all 4 quadrants. There is no mass or organomegaly. EXT: Full painless ROM of all extremities with no loss of sensation or strength. SKIN: Multiple decubitus ulcers on buttocks noted, majority are stage I and healing very well, however a small stage II overlying her coccyx as a small amount of clear drainage. There is no surrounding induration or fluctuance. Wound culture obtained Initial Vital Signs Initial Vital Signs: Vital Signs Temperature 99 F 07/07/18 22:23 Pulse Rate 94 H 07/07/18 22:23 Respiratory Rate 16 07/07/18 22:23 Blood Pressure 105/68 07/07/18 22:23 Pulse Oximetry 94 07/07/18 22:23 Course Orders Ordered: Discontinued Medications Doxycycline Hyclate (Vibramycin) 100 mg PO NOW ONE Stop: 07/08/18 00:21 Last Admin: 07/08/18 00:29 Dose: 100 mg Vital Signs - 8 hr 07/07/18 22:23 07/08/18 00:45 Temperature 99 F 99.1 F Pulse Rate 94 H 89 Respiratory Rate 16 16 Blood Pressure 105/68 116/68 Blood Pressure [Right Arm] 110/66 Pulse Oximetry 94 96 Discharge Plan Departure Patient Disposition: Home Clinical Impression: Decubitus skin ulcer Qualifiers: Pressure injury location: buttock Pressure injury stage: stage 2 Laterality: unspecified laterality Qualified Code(s): L89.302 - Pressure ulcer of unspecified buttock, stage 2 Discharge Date/Time: 07/08/18 00:45 Interventions: ED Discharge Assessment Last Done: 07/08/18 00:45 Instructions: DI for Pressure Sores Activity Restrictions/Additional Instructions: *You have been diagnosed with [decubitus ulcers possible early infection] *What to do: *Take medications as directed *Follow up with wound Care on July 11 as previously planned. Let them know you were seen in the Emergency Department and that we ask that you be seen in follow up *Return to ER if you should have any new, worsening or concerning symptoms Prescriptions: New doxycycline monohydrate 100 mg capsule 100 mg PO BID 10 Days Qty: 20 RF: 0 No Action gabapentin [Neurontin] 600 MG tablet 600 mg PO TID Qty: 0 RF: 0 sennosides [senna] 8.6 mg Tablet 17.2 mg PO DAILY PRN (Reason: Constipation) Qty: 30 RF: 0 polyethylene glycol 3350 17 gram Powder In Packet 17 gm PO DAILY Qty: 30 RF: 0 bisacodyl 10 mg Suppository 10 mg [place] DAILY PRN (Reason: Constipation) Qty: 30 RF: 0 nicotine 21 mg/24 hr Patch 24 Hour 21 mg topical DAILY Qty: 30 RF: 0 docusate sodium 100 mg Capsule 100 mg PO BID Qty: 60 RF: 0 fentanyl 100 MCG/HR patch 72 hour 1 patch Topical Q3D Qty: 0 RF: 0 Referrals: Chucky Velazquez MD [Primary Care Provider] -
== END 2018-07-08 00:45 | disposition home or self-care (01) ==
PROVIDERS: Emergency Provider Emergency Medicine; PCP Family Medicine
DX: L89.302 Pressure ulcer of unspecified buttock, stage 2 (principal)
CPT/HCPCS: 99283

== ENCOUNTER 2018-07-09 18:39 | Emergency (ER) | payer MEDICARE, SELFPAY ==
[2018-06-15 20:11] VITALS: BMI 20.1
[2018-07-09 18:51] VITALS: BP 150/102; PULSE 87; RESP 16; TEMP 37; O2SAT 93
--- NOTE | 2018-07-09 19:01 | DI.CT.S_ITS ---
PROCEDURE: CT ABDOMEN PELVIS W CON INDICATIONS: severe lower abdomen, pelvic, rectal pain TECHNIQUE: After the administration of intravenous contrast, 5 mm thick sections acquired from the diaphragm to the symphysis. 5 mm coronal and sagittal reformats were acquired. For radiation dose reduction, the following was used: automated exposure control, adjustment of mA and/or kV according to patient size. COMPARISON: [facility], CT, CT ABDOMEN PELVIS W CON, 06/15/2018, 18:21. FINDINGS: Image quality: Excellent. ABDOMEN: Lung bases: Mild dependent bibasilar scarring. Heart size is normal. Solid organs: Liver is normal in size. 14 mm enhancing focus within the right hepatic lobe inferolaterally. Gallbladder is within normal limits. Biliary system is non dilated. Pancreas enhances normally. Spleen is normal in size and enhancement. No adrenal nodules. Kidneys demonstrate normal size and enhancement, without hydronephrosis. Peritoneum and bowel: Bowel loops demonstrate normal wall thickness and caliber. There is moderate diffuse colonic stool. Appendix is not seen. No evidence of appendicitis. No free fluid or air. Nodes and vessels: No retroperitoneal or mesenteric adenopathy by size criteria. Aorta and inferior vena cava are normal in size. Miscellaneous: No ventral hernias. PELVIS: Genitourinary: Bladder wall thickness is normal. Miscellaneous: No inguinal hernias or adenopathy. Bones: No suspicious bony lesions. Lumbosacral fusion has been performed. No vertebral body compression fractures. IMPRESSION: 1. No acute process. 2. Moderate diffuse colonic stool. 3. Appendix not seen. No evidence of appendicitis. 4. Enhancing focus within the right hepatic lobe, possibly indicating a hemangioma. This could be further assessed with nonemergent outpatient liver protocol MRI, if clinically indicated. Dictated by: Norma Aviles M.D. on 07/09/2018 at 20:23 Approved by: Norma Aviles M.D. on 07/09/2018 at 20:26
[2018-07-09 19:18] LABS: Add Manual Diff / Slide Review NO; Basophils Absolute Auto 100 /uL (0-100); Basophils Percent Auto 1.1 % (0-2); Eosinophils Absolute Auto 300 /uL (0-450); Eosinophils Percent Auto 4.2 % (2-4); Hematocrit 35.1 % (36-46); Hemoglobin 11.3 g/dL (12.0-16.0); Lymphocytes Absolute Auto 1400 /uL (1100-4500); Lymphocytes Percent Auto 22.6 % (25-40); Mean Corpuscular HGB Conc 32.3 % (30-36); Mean Corpuscular Hemoglobin 31.8 PG (26-34); Mean Corpuscular Volume 98.4 fL (80-100); Monocytes Absolute Auto 400 /uL (0-900); Neutrophils Absolute Auto 4200 /uL (1500-7000); Neutrophils Percent Auto 66.1 % (50-75); Platelet Count 191 X10^3/uL (150-400); Red Blood Cell Count 3.57 X10^6/uL (4.0-5.2); Red Cell Distribution Width 18.5 % (11.6-14.8); White Blood Cell Count 6.4 X10^3/uL (4.5-11.0)
[2018-07-09] MEDS: SODIUM CHLORIDE 0.9% 1,000 ML 1000 ML IV (19:22)
[2018-07-09] MEDS: KETOROLAC 60 MG/2 ML VIAL 15 MG IV (19:22)
[2018-07-09] MEDS: HYDROMORPHONE 1 MG INJ 0.5 MG IV ×2 (19:22→21:47)
[2018-07-09 19:29] LABS: BUN Creatinine Ratio 38.6 (6-22); Blood Urea Nitrogen 27 mg/dL (7-17); Calcium 9.4 mg/dL (8.4-10.2); Carbon Dioxide 27 mmol/L (22-32); Chloride 106 mmol/L (98-107); Estimated Glomerular Filt Rate > 60.0 mL/min (>60); Glucose 85 mg/dL (80-110); HEMOLYSIS < 15 (0-50); Lactate (Lactic Acid) 0.7 mmol/L (0.7-2.1); Potassium 4.3 mmol/L (3.4-5.1); Sodium 139 mmol/L (137-145)
[2018-07-09 19:42] VITALS: BP 134/86; PULSE 78; O2SAT 90
[2018-07-09 19:45] LABS: Procalcitonin 0.24 ng/mL (<0.5)
--- NOTE | 2018-07-09 19:48 | ED.WOUNDLAC ---
HPI - Wound/Laceration General Chief Complaint: Wound/Laceration Stated Complaint: pain while sitting down Time Seen by Provider: 07/09/18 18:44 Source: patient and family Mode of arrival: ambulatory Limitations: no limitations History of Present Illness HPI narrative: 72-year-old female with known decubitus ulcers returns with family for evaluation of ongoing sacral in rectal discomfort. She states she feels better with lying on her side and has intense pain when lying flat or standing. She denies any fever, chills nor nausea or vomiting. She was seen a few days ago and had her decubitus ulcers evaluated and was recently started on doxycycline. She has stage I on bilateral buttocks and a stage II overlying her coccyx which is very small and had some clear drainage which was obtained and sent for culture. She denies nausea, vomiting or abdominal pain. She is using Tylenol, Motrin and occasional fentanyl patch to control her pain which is not working at this point time. She was evaluated by the medics on [facility] and sent here for evaluation She states her pain is worse when upright. Onset (ago): day(s) 1. Place: home Patient tetanus UTD: Yes Associated symptoms: pain Treatments prior to arrival: NSAIDS Related Data Home Medications Medication Instructions Recorded Confirmed gabapentin [Neurontin] 600 mg PO TID #0 03/01/17 06/15/18 Previous Rx's Medication Instructions Recorded bisacodyl 10 mg [place] DAILY PRN #30 ea 06/19/18 docusate sodium 100 mg PO BID #60 cap 06/19/18 fentanyl 1 patch TOPICAL Q3D #0 ea 06/19/18 nicotine 21 mg TOPICAL DAILY #30 ea 06/19/18 polyethylene glycol 3350 17 gm PO DAILY #30 ea 06/19/18 sennosides [senna] 17.2 mg PO DAILY PRN #30 tab 06/19/18 doxycycline monohydrate 100 mg PO BID 10 Days #20 cap 07/08/18 hydrocodone-acetaminophen 1 tab PO Q4-6H PRN #10 tab 07/09/18 Allergies Allergy/AdvReac Type Severity Reaction Status Date / Time morphine AdvReac Difficulty Verified 01/17/18 11:13 Breathing Review of Systems Constitutional Denies chills, Denies fever(s), Denies lethargy and Denies weakness Eyes Denies change in vision, Denies eye discharge, Denies irritation and Denies loss of vision ENT Ears, Nose, Mouth, and Throat: Denies change in voice, Denies neck pain and Denies sore throat Cardiovascular Denies chest pain, Denies irregular heart rhythm, Denies lightheadedness, Denies palpitations, Denies dyspnea, Denies dyspnea on exertion and Denies orthopnea Respiratory Denies cough, Denies dyspnea, Denies dyspnea on exertion and Denies wheezing Gastrointestinal Gastrointestinal: Denies abdominal pain, Denies change in bowel habits, Denies diarrhea, Denies nausea and Denies vomiting Genitourinary Denies hematuria, Denies flank pain, Denies urinary incontinence and Denies urinary urgency Musculoskeletal Reports back pain and Denies neck pain Integumentary/Breasts Denies pruritus, Denies erythema, Denies rash, Reports skin pain, Reports skin swelling, Reports sores and Denies wounds Neurologic Denies confusion, Denies loss of vision and Denies weakness Psychiatric Denies anxiety, Denies confusion, Denies depression, Denies homicidal ideation and Denies suicidal ideation Endocrine Denies palpitations Hematologic/Lymphatic Denies easy bruising Allergic/Immunologic Denies wheezing [facility] Medical History History of hysterectomy (Acute) Pulmonary embolism (Acute) Right shoulder injury (Acute) Surgical History History of lumbar laminectomy (Acute) Social History household members: none Smoking Status: Current every day smoker alcohol intake: never Social History household members: none Smoking Status: Current every day smoker alcohol intake: never Exam Narrative Exam Narrative: GENERAL: 72F appears stated age, obviously uncomfortable, HEAD: Atraumatic. Normocephalic. No temporal or scalp tenderness. EYES: Pupils equal round and reactive. Extraocular motions intact. No scleral icterus. No injection or drainage. ENT: Nose without bleeding, purulent drainage or septal hematoma. Throat without erythema, tonsillar hypertrophy or exudate. Uvula midline. Airway patent. NECK: Trachea midline. No JVD or lymphadenopathy. Supple, nontender, no meningeal signs. CARDIOVASCULAR: Regular rate and rhythm without murmurs, gallops, or rubs. RESPIRATORY: Clear to auscultation. Breath sounds equal bilaterally. No wheezes, rales, or rhonchi. GASTROINTESTINAL: Abdomen soft, non-tender, nondistended. No hepato-splenomegaly, or palpable masses. No guarding. EXTREMITIES: No clubbing, cyanosis, or edema. No joint tenderness, effusion, or edema noted. BACK: Coccygeal decubitis ulcer, stage 2. Minimal surrounding erythema, tender to palp. Minimal clear drainage. NEURO: AOx3. SKIN: Stage 1 decubs on B/L buttocks. Stage 2 with minimal drainage overlying coccyx. Initial Vital Signs Initial Vital Signs: Vital Signs Temperature 98.6 F 07/09/18 18:51 Pulse Rate 87 07/09/18 18:51 Respiratory Rate 16 07/09/18 18:51 Blood Pressure 150/102 H 07/09/18 18:51 Pulse Oximetry 93 07/09/18 18:51 Course Orders Ordered: ED Orders 07/09/18 19:01 CT abdomen pelvis w con Stat 07/09/18 19:07 Basic Metabolic Panel Stat Complete Blood Count AUTO DIFF Stat Lactate (Lactic Acid) Stat Procalcitonin Stat 07/09/18 19:20 Blood Culture Stat Discontinued Medications Hydrocodone Bitart/Acetaminophen (Vicodin Prepack) 1 bottle MISC SEEINSTR ONE Stop: 07/09/18 21:12 Last Admin: 07/09/18 21:47 Dose: 1 bottle Gabapentin (Neurontin) 600 mg PO NOW ONE Stop: 07/09/18 21:34 Last Admin: 07/09/18 21:48 Dose: 600 mg Hydromorphone HCl (Dilaudid) 0.5 mg IV NOW ONE Stop: 07/09/18 19:18 Last Admin: 07/09/18 19:22 Dose: 0.5 mg Hydromorphone HCl (Dilaudid) 0.5 mg IV NOW ONE Stop: 07/09/18 21:12 Last Admin: 07/09/18 21:47 Dose: 0.5 mg Sodium Chloride (Normal Saline 0.9%) 1,000 mls @ 1,000 mls/hr IV BOLUS ONE Stop: 07/09/18 19:57 Last Infusion: 07/09/18 20:52 Dose: 0 mls/hr Admin: 07/09/18 19:22 Dose: 1,000 mls/hr Ketorolac Tromethamine (Toradol) 15 mg IV NOW ONE Stop: 07/09/18 19:18 Last Admin: 07/09/18 19:22 Dose: 15 mg Vital Signs - 8 hr 07/09/18 18:51 07/09/18 19:42 07/09/18 20:58 Temperature 98.6 F 99.0 F Pulse Rate 87 78 75 Respiratory Rate 16 16 Blood Pressure 150/102 H Blood Pressure [Left Arm] 134/86 144/77 H Pulse Oximetry 93 90 L 94 07/09/18 21:59 Temperature 97.9 F Pulse Rate 79 Respiratory Rate 16 Blood Pressure 165/97 H Blood Pressure [Left Arm] Pulse Oximetry 93 MDM - Wound/Laceration Lab Data Result diagrams: 07/09/18 19:07 07/09/18 19:07 Lab Results 07/09/18 07/09/18 07/09/18 Range/Units 19:07 19:07 19:07 WBC 6.4 (4.5-11.0) X10^3/uL RBC 3.57 L (4.0-5.2) X10^6/uL Hgb 11.3 L (12.0-16.0) g/dL Hct 35.1 L (36-46) % MCV 98.4 (80-100) fL MCH 31.8 (26-34) PG MCHC 32.3 (30-36) % RDW 18.5 H (11.6-14.8) % Plt Count 191 (150-400) X10^3/uL Neut % (Auto) 66.1 (50-75) % Lymph % (Auto) 22.6 L (25-40) % Hendricks % (Auto) 6.0 (3-14) % Eos % (Auto) 4.2 H (2-4) % Baso % (Auto) 1.1 (0-2) % Neut # (Auto) 4200 (5859-6093) /uL Lymph # (Auto) 1400 (5133-9413) /uL Hendricks # (Auto) 400 (0-900) /uL Eos # (Auto) 300 (0-450) /uL Baso # (Auto) 100 (0-100) /uL Sodium 139 (137-145) mmol/L Potassium 4.3 (3.4-5.1) mmol/L Chloride 106 (98-107) mmol/L Carbon Dioxide 27 (22-32) mmol/L BUN 27 H (7-17) mg/dL Creatinine 0.70 (0.52-1.04) mg/dL Estimated GFR > 60.0 (>60) mL/min BUN/Creatinine Ratio 38.6 H (6-22) Glucose 85 (80-110) mg/dL Lactate (0.7-2.1) mmol/L Calcium 9.4 (8.4-10.2) mg/dL Procalcitonin 0.24 (<0.5) ng/mL 07/09/18 Range/Units 19:07 WBC (4.5-11.0) X10^3/uL RBC (4.0-5.2) X10^6/uL Hgb (12.0-16.0) g/dL Hct (36-46) % MCV (80-100) fL MCH (26-34) PG MCHC (30-36) % RDW (11.6-14.8) % Plt Count (150-400) X10^3/uL Neut % (Auto) (50-75) % Lymph % (Auto) (25-40) % Hendricks % (Auto) (3-14) % Eos % (Auto) (2-4) % Baso % (Auto) (0-2) % Neut # (Auto) (7751-8125) /uL Lymph # (Auto) (7976-5843) /uL Hendricks # (Auto) (0-900) /uL Eos # (Auto) (0-450) /uL Baso # (Auto) (0-100) /uL Sodium (137-145) mmol/L Potassium (3.4-5.1) mmol/L Chloride (98-107) mmol/L Carbon Dioxide (22-32) mmol/L BUN (7-17) mg/dL Creatinine (0.52-1.04) mg/dL Estimated GFR (>60) mL/min BUN/Creatinine Ratio (6-22) Glucose (80-110) mg/dL Lactate 0.7 (0.7-2.1) mmol/L Calcium (8.4-10.2) mg/dL Procalcitonin (<0.5) ng/mL MDM Narrative Medical decision making narrative: 72F with known decubitus ulcers returns complaining of worsening coccyx pain. She denies systemic symptoms. She is ambulatory in the department. She states her fentanyl patches are not helping the pain, that they are for back pain only and that she needs something else. She has very reassuring labs, exam, and imaging. Patient is ambulatory without assistance in the department. No abscess or suggestion of serious underlying pathology which would require immediate intervention. She and her sister are nervous to be discharged because she didn't sleep last night. They are here from the [facility] and did not bring other medications or anything to get them through the night. The sister is nervous about her own medications. Discharge Plan Departure Patient Disposition: Home Clinical Impression: Decubital ulcer Qualifiers: Pressure injury location: buttock Pressure injury stage: stage 2 Laterality: unspecified laterality Qualified Code(s): L89.302 - Pressure ulcer of unspecified buttock, stage 2 Discharge Date/Time: 07/09/18 21:59 Interventions: ED Discharge Assessment Last Done: 07/09/18 21:59 Instructions: DI for Pressure Sores Activity Restrictions/Additional Instructions: *You have been diagnosed with [ decubitis ulcer with increased pain, likely early infection ] *What to do: *Take medications as directed *Follow up withwound care on Tuesday as planned *Return to ER if you should have any new, worsening or concerning symptoms Prescriptions: New hydrocodone-acetaminophen 5-325 mg tablet 1 tab PO Q4-6H PRN (Reason: pain) Qty: 10 RF: 0 No Action gabapentin [Neurontin] 600 MG tablet 600 mg PO TID Qty: 0 RF: 0 doxycycline monohydrate 100 mg capsule 100 mg PO BID 10 Days Qty: 20 RF: 0 sennosides [senna] 8.6 mg Tablet 17.2 mg PO DAILY PRN (Reason: Constipation) Qty: 30 RF: 0 polyethylene glycol 3350 17 gram Powder In Packet 17 gm PO DAILY Qty: 30 RF: 0 bisacodyl 10 mg Suppository 10 mg [place] DAILY PRN (Reason: Constipation) Qty: 30 RF: 0 nicotine 21 mg/24 hr Patch 24 Hour 21 mg topical DAILY Qty: 30 RF: 0 docusate sodium 100 mg Capsule 100 mg PO BID Qty: 60 RF: 0 fentanyl 100 MCG/HR patch 72 hour 1 patch Topical Q3D Qty: 0 RF: 0 Referrals: Chucky Velazquez MD [Primary Care Provider] -
--- NOTE | 2018-07-09 19:52 | ED_ITS ---
HPI - Wound/Laceration General Chief Complaint: Wound/Laceration Stated Complaint: pain while sitting down Time Seen by Provider: 07/09/18 18:44 Source: patient and family Mode of arrival: ambulatory Limitations: no limitations History of Present Illness HPI narrative: 72-year-old female with known decubitus ulcers returns with family for evaluation of ongoing sacral in rectal discomfort. She states she feels better with lying on her side and has intense pain when lying flat or standing. She denies any fever, chills nor nausea or vomiting. She was seen a few days ago and had her decubitus ulcers evaluated and was recently started on doxycycline. She has stage I on bilateral buttocks and a stage II overlying her coccyx which is very small and had some clear drainage which was obtained and sent for culture. She denies nausea, vomiting or abdominal pain. She is using Tylenol, Motrin and occasional fentanyl patch to control her pain which is not working at this point time. She was evaluated by the medics on [facility] and sent here for evaluation She states her pain is worse when upright. Onset (ago): day(s) 1. Place: home Patient tetanus UTD: Yes Associated symptoms: pain Treatments prior to arrival: NSAIDS Related Data Home Medications Medication Instructions Recorded Confirmed gabapentin [Neurontin] 600 mg PO TID #0 03/01/17 06/15/18 Previous Rx's Medication Instructions Recorded bisacodyl 10 mg TX DAILY PRN #30 ea 06/19/18 docusate sodium 100 mg PO BID #60 cap 06/19/18 fentanyl 1 patch TOPICAL Q3D #0 ea 06/19/18 nicotine 21 mg TOPICAL DAILY #30 ea 06/19/18 polyethylene glycol 3350 17 gm PO DAILY #30 ea 06/19/18 sennosides [senna] 17.2 mg PO DAILY PRN #30 tab 06/19/18 doxycycline monohydrate 100 mg PO BID 10 Days #20 cap 07/08/18 hydrocodone-acetaminophen 1 tab PO Q4-6H PRN #10 tab 07/09/18 Allergies Allergy/AdvReac Type Severity Reaction Status Date / Time morphine AdvReac Difficulty Verified 01/17/18 11:13 Breathing Review of Systems Constitutional Denies chills, Denies fever(s), Denies lethargy and Denies weakness Eyes Denies change in vision, Denies eye discharge, Denies irritation and Denies loss of vision ENT Ears, Nose, Mouth, and Throat: Denies change in voice, Denies neck pain and Denies sore throat Cardiovascular Denies chest pain, Denies irregular heart rhythm, Denies lightheadedness, Denies palpitations, Denies dyspnea, Denies dyspnea on exertion and Denies orthopnea Respiratory Denies cough, Denies dyspnea, Denies dyspnea on exertion and Denies wheezing Gastrointestinal Gastrointestinal: Denies abdominal pain, Denies change in bowel habits, Denies diarrhea, Denies nausea and Denies vomiting Genitourinary Denies hematuria, Denies flank pain, Denies urinary incontinence and Denies urinary urgency Musculoskeletal Reports back pain and Denies neck pain Integumentary/Breasts Denies pruritus, Denies erythema, Denies rash, Reports skin pain, Reports skin swelling, Reports sores and Denies wounds Neurologic Denies confusion, Denies loss of vision and Denies weakness Psychiatric Denies anxiety, Denies confusion, Denies depression, Denies homicidal ideation and Denies suicidal ideation Endocrine Denies palpitations Hematologic/Lymphatic Denies easy bruising Allergic/Immunologic Denies wheezing [facility] Medical History History of hysterectomy (Acute) Pulmonary embolism (Acute) Right shoulder injury (Acute) Surgical History History of lumbar laminectomy (Acute) Social History household members: none Smoking Status: Current every day smoker alcohol intake: never Social History household members: none Smoking Status: Current every day smoker alcohol intake: never Exam Narrative Exam Narrative: GENERAL: 72F appears stated age, obviously uncomfortable, HEAD: Atraumatic. Normocephalic. No temporal or scalp tenderness. EYES: Pupils equal round and reactive. Extraocular motions intact. No scleral icterus. No injection or drainage. ENT: Nose without bleeding, purulent drainage or septal hematoma. Throat without erythema, tonsillar hypertrophy or exudate. Uvula midline. Airway patent. NECK: Trachea midline. No JVD or lymphadenopathy. Supple, nontender, no meningeal signs. CARDIOVASCULAR: Regular rate and rhythm without murmurs, gallops, or rubs. RESPIRATORY: Clear to auscultation. Breath sounds equal bilaterally. No wheezes, rales, or rhonchi. GASTROINTESTINAL: Abdomen soft, non-tender, nondistended. No hepato- splenomegaly, or palpable masses. No guarding. EXTREMITIES: No clubbing, cyanosis, or edema. No joint tenderness, effusion, or edema noted. BACK: Coccygeal decubitis ulcer, stage 2. Minimal surrounding erythema, tender to palp. Minimal clear drainage. NEURO: AOx3. SKIN: Stage 1 decubs on B/L buttocks. Stage 2 with minimal drainage overlying coccyx. Initial Vital Signs Initial Vital Signs: Vital Signs Temperature 98.6 F 07/09/18 18:51 Pulse Rate 87 07/09/18 18:51 Respiratory Rate 16 07/09/18 18:51 Blood Pressure 150/102 H 07/09/18 18:51 Pulse Oximetry 93 07/09/18 18:51 Course Orders Ordered: ED Orders 07/09/18 19:01 CT abdomen pelvis w con Stat 07/09/18 19:07 Basic Metabolic Panel Stat Complete Blood Count AUTO DIFF Stat Lactate (Lactic Acid) Stat Procalcitonin Stat 07/09/18 19:20 Blood Culture Stat Discontinued Medications Hydrocodone Bitart/Acetaminophen (Vicodin Prepack) 1 bottle MISC SEEINSTR ONE Stop: 07/09/18 21:12 Last Admin: 07/09/18 21:47 Dose: 1 bottle Gabapentin (Neurontin) 600 mg PO NOW ONE Stop: 07/09/18 21:34 Last Admin: 07/09/18 21:48 Dose: 600 mg Hydromorphone HCl (Dilaudid) 0.5 mg IV NOW ONE Stop: 07/09/18 19:18 Last Admin: 07/09/18 19:22 Dose: 0.5 mg Hydromorphone HCl (Dilaudid) 0.5 mg IV NOW ONE Stop: 07/09/18 21:12 Last Admin: 07/09/18 21:47 Dose: 0.5 mg Sodium Chloride (Normal Saline 0.9%) 1,000 mls @ 1,000 mls/hr IV BOLUS ONE Stop: 07/09/18 19:57 Last Infusion: 07/09/18 20:52 Dose: 0 mls/hr Admin: 07/09/18 19:22 Dose: 1,000 mls/hr Ketorolac Tromethamine (Toradol) 15 mg IV NOW ONE Stop: 07/09/18 19:18 Last Admin: 07/09/18 19:22 Dose: 15 mg Vital Signs - 8 hr 07/09/18 18:51 07/09/18 19:42 07/09/18 20:58 Temperature 98.6 F 99.0 F Pulse Rate 87 78 75 Respiratory Rate 16 16 Blood Pressure 150/102 H Blood Pressure [Left Arm] 134/86 144/77 H Pulse Oximetry 93 90 L 94 07/09/18 21:59 Temperature 97.9 F Pulse Rate 79 Respiratory Rate 16 Blood Pressure 165/97 H Blood Pressure [Left Arm] Pulse Oximetry 93 MDM - Wound/Laceration Lab Data Result diagrams: 07/09/18 19:07 07/09/18 19:07 Lab Results 07/09/18 07/09/18 07/09/18 Range/Units 19:07 19:07 19:07 WBC 6.4 (4.5-11.0) X10^3/uL RBC 3.57 L (4.0-5.2) X10^6/uL Hgb 11.3 L (12.0-16.0) g/dL Hct 35.1 L (36-46) % MCV 98.4 (80-100) fL MCH 31.8 (26-34) PG MCHC 32.3 (30-36) % RDW 18.5 H (11.6-14.8) % Plt Count 191 (150-400) X10^3/uL Neut % (Auto) 66.1 (50-75) % Lymph % (Auto) 22.6 L (25-40) % [place] % (Auto) 6.0 (3-14) % Eos % (Auto) 4.2 H (2-4) % Baso % (Auto) 1.1 (0-2) % Neut # (Auto) 4200 (1810-8259) /uL Lymph # (Auto) 1400 (6172-9388) /uL [place] # (Auto) 400 (0-900) /uL Eos # (Auto) 300 (0-450) /uL Baso # (Auto) 100 (0-100) /uL Sodium 139 (137-145) mmol/L Potassium 4.3 (3.4-5.1) mmol/L Chloride 106 (98-107) mmol/L Carbon Dioxide 27 (22-32) mmol/L BUN 27 H (7-17) mg/dL Creatinine 0.70 (0.52-1.04) mg/dL Estimated GFR > 60.0 (>60) mL/min BUN/Creatinine Ratio 38.6 H (6-22) Glucose 85 (80-110) mg/dL Lactate (0.7-2.1) mmol/L Calcium 9.4 (8.4-10.2) mg/dL Procalcitonin 0.24 (<0.5) ng/mL 07/09/18 Range/Units 19:07 WBC (4.5-11.0) X10^3/uL RBC (4.0-5.2) X10^6/uL Hgb (12.0-16.0) g/dL Hct (36-46) % MCV (80-100) fL MCH (26-34) PG MCHC (30-36) % RDW (11.6-14.8) % Plt Count (150-400) X10^3/uL Neut % (Auto) (50-75) % Lymph % (Auto) (25-40) % [place] % (Auto) (3-14) % Eos % (Auto) (2-4) % Baso % (Auto) (0-2) % Neut # (Auto) (7835-7699) /uL Lymph # (Auto) (2935-8614) /uL [place] # (Auto) (0-900) /uL Eos # (Auto) (0-450) /uL Baso # (Auto) (0-100) /uL Sodium (137-145) mmol/L Potassium (3.4-5.1) mmol/L Chloride (98-107) mmol/L Carbon Dioxide (22-32) mmol/L BUN (7-17) mg/dL Creatinine (0.52-1.04) mg/dL Estimated GFR (>60) mL/min BUN/Creatinine Ratio (6-22) Glucose (80-110) mg/dL Lactate 0.7 (0.7-2.1) mmol/L Calcium (8.4-10.2) mg/dL Procalcitonin (<0.5) ng/mL MDM Narrative Medical decision making narrative: 72F with known decubitus ulcers returns complaining of worsening coccyx pain. She denies systemic symptoms. She is ambulatory in the department. She states her fentanyl patches are not helping the pain, that they are for back pain only and that she needs something else. She has very reassuring labs, exam, and imaging. Patient is ambulatory without assistance in the department. No abscess or suggestion of serious underlying pathology which would require immediate intervention. She and her sister are nervous to be discharged because she didn't sleep last night. They are here from the [facility] and did not bring other medications or anything to get them through the night. The sister is nervous about her own medications. Discharge Plan Departure Patient Disposition: Home Clinical Impression: Decubital ulcer Qualifiers: Pressure injury location: buttock Pressure injury stage: stage 2 Laterality: unspecified laterality Qualified Code(s): L89.302 - Pressure ulcer of unspecified buttock, stage 2 Discharge Date/Time: 07/09/18 21:59 Interventions: ED Discharge Assessment Last Done: 07/09/18 21:59 Instructions: DI for Pressure Sores Activity Restrictions/Additional Instructions: *You have been diagnosed with [ decubitis ulcer with increased pain, likely early infection ] *What to do: *Take medications as directed *Follow up withwound care on Tuesday as planned *Return to ER if you should have any new, worsening or concerning symptoms Prescriptions: New hydrocodone-acetaminophen 5-325 mg tablet 1 tab PO Q4-6H PRN (Reason: pain) Qty: 10 RF: 0 No Action gabapentin [Neurontin] 600 MG tablet 600 mg PO TID Qty: 0 RF: 0 doxycycline monohydrate 100 mg capsule 100 mg PO BID 10 Days Qty: 20 RF: 0 sennosides [senna] 8.6 mg Tablet 17.2 mg PO DAILY PRN (Reason: Constipation) Qty: 30 RF: 0 polyethylene glycol 3350 17 gram Powder In Packet 17 gm PO DAILY Qty: 30 RF: 0 bisacodyl 10 mg Suppository 10 mg TX DAILY PRN (Reason: Constipation) Qty: 30 RF: 0 nicotine 21 mg/24 hr Patch 24 Hour 21 mg topical DAILY Qty: 30 RF: 0 docusate sodium 100 mg Capsule 100 mg PO BID Qty: 60 RF: 0 fentanyl 100 MCG/HR patch 72 hour 1 patch Topical Q3D Qty: 0 RF: 0 Referrals: Chucky Velazquez MD [Primary Care Provider] -
[2018-07-09 20:58] VITALS: BP 144/77; PULSE 75; RESP 16; TEMP 37.2; O2SAT 94
[2018-07-09] MEDS: HYDROCODONE/ACET 5/325 PREPACK 1 BOTTLE MISC (21:47)
[2018-07-09] MEDS: GABAPENTIN 600 MG TABLET PO (21:48)
[2018-07-09 21:59] VITALS: BP 165/97; PULSE 79; RESP 16; TEMP 36.6; O2SAT 93
== END 2018-07-09 21:59 | disposition home or self-care (01) ==
PROVIDERS: Emergency Provider Emergency Medicine; PCP Family Medicine
DX: L89.322 Pressure ulcer of left buttock, stage 2 (principal); L89.312 Pressure ulcer of right buttock, stage 2
CPT/HCPCS: 36415; 36591; 74177; 80048; 83605; 84145; 85025; 87040; 96361; 96374; 96375; 96376; 99283; 99284; J1170; J1885; Q9967

== ENCOUNTER → 2018-07-11 14:58 | Outpatient (CLI) | payer MEDICARE, SELFPAY ==
[2018-06-15 20:11] VITALS: BMI 20.1
== END ==
PROVIDERS: PCP Family Medicine; Visit Provider Family Medicine
DX: L89.323 Pressure ulcer of left buttock, stage 3 (principal); R63.4 Abnormal weight loss
CPT/HCPCS: 11042; 87070; 87075; 87077; 87186; 87205; 99203; 99212

== ENCOUNTER → 2018-07-25 13:20 | Outpatient (CLI) | payer MEDICARE, SELFPAY ==
[2018-06-15 20:11] VITALS: BMI 20.1
== END ==
LOC: WC 13:21
PROVIDERS: PCP Family Medicine; Visit Provider Family Medicine
DX: L89.323 Pressure ulcer of left buttock, stage 3 (principal); R63.4 Abnormal weight loss; K62.89 Other specified diseases of anus and rectum
CPT/HCPCS: 97597

== ENCOUNTER 2018-08-14 11:15 | Inpatient (IN) | payer MEDICARE, SELFPAY ==
[2018-06-15 20:11] VITALS: BMI 20.1
[2018-08-14] VITALS (32 sets, daily range): BP systolic 73–128; BP diastolic 46–105; PULSE 77–125; RESP 9–19; TEMP 36.5–37.3; O2SAT 86–98; BMI 19.8
--- NOTE | 2018-08-14 11:33 | PC.NURSE ---
Pt is a smoker, arrived today with sister in law for shortness of breath and also c/o blacking out all the time. Found 2-100mcg Fentanyl patches on pt's body after sister in law told us that she just got 4 from the pharmacy and 2 were missing already. pt somnolent and drowsy, answers to her name and will follow commands but doesn't know time or place. Has been cooperative. Oxygen 86% on room air when arrived. up to 93% on 4LNC.
[2018-08-14] MEDS: SODIUM CHLORIDE 0.9% 1,000 ML 1000 ML IV ×3 (12:18→16:18)
--- NOTE | 2018-08-14 12:27 | ED_ITS ---
HPI - SOB/Dyspnea General Chief Complaint: Shortness of Breath/Dyspnea Stated Complaint: Difficulty breathing,not able to stand Time Seen by Provider: 08/14/18 11:35 Source: patient and family Mode of arrival: ambulatory Limitations: no limitations History of Present Illness Patient comes to the emergency department from [facility] after being found by family to be using too many of her fentanyl patches. Patient is supposed to be wearing 1 patch of the time, but has been wearing to. Family has been trying to ration the patches, but whenever patient is put back in charge of her medications, she begins over using the fentanyl. Family states that she has been taking falls recently and hitting her head. Patient does not drink alc ohol, but does smoke. Patient denies current pain. No nausea or vomiting. She states she feels tired. No chest pain or shortness of breath. Patient is not known to have a diagnosis of COPD, though she does note that she has been smoking since she was 19 years old. Family states they are concerned about the patient's well-being at home. Related Data Home Medications Medication Instructions Recorded Confirmed gabapentin [Neurontin] 600 mg PO TID #0 03/01/17 08/14/18 hyoscyamine sulfate 0.125 mg PO Q6H PRN 08/14/18 08/14/18 lidocaine [Lidoderm] 1 patch TOPICAL DAILY 08/14/18 08/14/18 Previous Rx's Medication Instructions Recorded bisacodyl 10 mg [place] DAILY PRN #30 ea 06/19/18 docusate sodium 100 mg PO BID #60 cap 06/19/18 fentanyl 1 patch TOPICAL Q3D #0 ea 06/19/18 nicotine 21 mg TOPICAL DAILY #30 ea 06/19/18 polyethylene glycol 3350 17 gm PO DAILY #30 ea 06/19/18 sennosides [senna] 17.2 mg PO DAILY PRN #30 tab 06/19/18 Allergies Allergy/AdvReac Type Severity Reaction Status Date / Time oxybutynin Allergy Severe Difficulty Verified 08/14/18 13:40 Breathing acetaminophen [From [place]] Allergy Unknown Verified 08/14/18 13:40 hydrocodone [From [place]] Allergy Unknown Verified 08/14/18 13:40 hydromorphone Allergy Difficulty Verified 08/14/18 13:41 Breathing meloxicam AdvReac Intermediate Nausea Verified 08/14/18 13:40 tramadol AdvReac Intermediate Vomiting Verified 08/14/18 13:40 fentanyl [From [facility]ages[facility]] AdvReac Mild Rash Verified 08/14/18 13:40 ciprofloxacin [From Cipro] AdvReac Unknown Verified 08/14/18 13:40 morphine AdvReac Fainting Verified 08/14/18 13:40 Review of Systems Review of Systems ROS Unobtainable: All systems reviewed & are unremarkable except as noted in HPI and below Constitutional Denies chills, Denies fever(s), Denies lethargy and Denies weakness Eyes Denies change in vision, Denies eye discharge, Denies irritation and Denies loss of vision ENT Ears, Nose, Mouth, and Throat: Denies change in voice, Denies neck pain and Denies sore throat Cardiovascular Denies chest pain, Denies irregular heart rhythm, Denies lightheadedness, Denies palpitations, Denies dyspnea, Denies dyspnea on exertion and Denies orthopnea Respiratory Denies cough, Denies dyspnea, Denies dyspnea on exertion and Denies wheezing Gastrointestinal Gastrointestinal: Denies abdominal pain, Denies change in bowel habits, Denies diarrhea, Denies nausea and Denies vomiting Genitourinary Denies hematuria, Denies flank pain, Denies urinary incontinence and Denies urinary urgency Musculoskeletal Denies neck pain Integumentary/Breasts Denies pruritus, Denies erythema, Denies rash and Denies wounds Neurologic Denies confusion, Denies loss of vision and Denies weakness Psychiatric Denies anxiety, Denies confusion, Denies depression, Denies homicidal ideation and Denies suicidal ideation Endocrine Denies palpitations Hematologic/Lymphatic Denies easy bruising Allergic/Immunologic Denies wheezing [facility] Medical History History of hysterectomy (Acute) Pulmonary embolism (Acute) Right shoulder injury (Acute) Surgical History History of lumbar laminectomy (Acute) Social History household members: none Smoking Status: Current every day smoker alcohol intake: never Social History household members: none Smoking Status: Current every day smoker alcohol intake: never Exam Initial Vital Signs Initial Vital Signs: Vital Signs Temperature 98.0 F 08/14/18 11:20 Pulse Rate 125 H 08/14/18 11:20 Respiratory Rate 15 08/14/18 11:20 Blood Pressure 128/71 08/14/18 11:20 Pulse Oximetry 86 L 08/14/18 11:20 Const General: cooperative and well developed Nutritional Appearance: well nourished Orientation: awake, confused and other (Patient is drowsy and altered. She is agitated.) [facility] Head: normocephalic and atraumatic Ears: external ears normal and TM's normal bilaterally Nose: external nose normal and No nasal discharge Face and sinus: sinuses nontender, face symmetric, no sinus tenderness and No dry mucous membranes Mouth: oral mucosae normal and moist mucous membranes Teeth and gingiva: dentition normal Throat: tonsils normal and uvula midline Eyes General: appearance normal, both eyes and all related structures Eyelids: eyelids normal Conjunctivae: conjunctivae normal Sclera: sclerae normal Pupils: PERRL EOM: EOM intact bilaterally Neck Neck: normal visual inspection, trachea midline, No lymphadenopathy, No midline deformity and No JVD Lymphatic: No lymphedema Chest Chest: normal inspection of the chest Resp Effort & Inspection: normal respiratory effort, able to speak in complete sentences, no respiratory distress and no use of accessory muscles Auscultation: clear to auscultation bilaterally, no rales, no rhonchi and no wheezes Cardio Rate: regular rate Rhythm: regular rhythm Heart Sounds: no click, no gallops, no murmurs and no rubs Pulses: normal peripheral pulses GI Inspection: non-distended Palpation: soft, no hepatosplenomegaly, No guarding, No pulsatile mass and No tender Auscultation: normal bowel sounds Back/Spine/Pelvis Back: No CVA tenderness Cervical Spine: cervical ROM normal and No pain with cervical ROM Thoracic/Lumbar Spine: thoracic and lumbar spine normal to inspection Skin General: no rashes or lesions noted, No jaundice and No petechiae Other: Skin is pale. Neuro General: awake and no focal motor deficits Cranial Nerves: CN's II-XI intact bilaterally Cognition: abnormal cognition (Patient is drowsy and mumbling.) Speech: speech normal Extrem General: full ROM, no clubbing, cyanosis or edema, no pedal edema and no calf tenderness Psych Appearance: well kempt Mental Status: mental status grossly normal Attitude: cooperative Thought Content: normal and suicidality Judgment: judgment good Course Course Narrative: Patient was evaluated upon arrival in the emergency department by myself. Her fentanyl patches were removed, and she was worked up for her altered mental status, the most likely reason for this was her overuse of her opioids. Patient was found to be quite anemic, with hemoglobin of 6.7. She was started on blood transfusions for this after receiving 3 L of IV fluids, and repeat H&H showed a hemoglobin of 6.8. Patient's head CT was unremarkable. The patient was found to have a normal lactate, but was noted to be mildly hypotensive in the emergency department with a systolic blood pressure in the 90s. Patient did have several readings in the 70s and 80s systolic, before drifting back up to the 90s. I had spoke with Dr. Peña, who agreed to admit the patient to her service, but with the hypotension, I did re-contact Dr. Peña to discuss this patient going to the intensive care unit instead of the floor. At her suggestion the patient was given a dose of Narcan, which did actually bring the patient's blood pressure up into the 1 teens. The plan was still made for the patient go to the intensive care unit. Orders Ordered: Discontinued Medications Acetaminophen (Tylenol) 650 mg PO Q6HR PRN PRN Reason: As Needed for Fever/Mild Pain Dextrose (D50w) 25 gm IV NOW ONE Stop: 08/15/18 05:26 Last Admin: 08/15/18 06:45 Dose: 25 gm Gabapentin (Neurontin) 600 mg PO TID [facility] Last Admin: 08/14/18 22:00 Dose: Not Given Sodium Chloride (Normal Saline 0.9%) 1,000 mls @ 1,000 mls/hr IV BOLUS ONE Stop: 08/14/18 13:11 Last Infusion: 08/14/18 13:28 Dose: 0 mls/hr Admin: 08/14/18 12:18 Dose: 1,000 mls/hr Sodium Chloride (Normal Saline 0.9%) 1,000 mls @ 1,000 mls/hr IV BOLUS ONE Stop: 08/14/18 14:27 Last Infusion: 08/14/18 14:24 Dose: 0 mls/hr Admin: 08/14/18 13:29 Dose: 1,000 mls/hr Sodium Chloride (Normal Saline 0.9%) 1,000 mls @ 1,000 mls/hr IV BOLUS ONE Stop: 08/14/18 17:09 Last Infusion: 08/14/18 17:08 Dose: 0 mls/hr Admin: 08/14/18 16:18 Dose: 1,000 mls/hr Dopamine HCl/Dextrose (Dopamine 400 Mg-D5w 250 Ml) 400 mg in 250 mls @ 11.306 mls/hr IV TITRATE [place]; Protocol Last Admin: 08/14/18 20:14 Dose: Not Given Sodium Chloride (Normal Saline 0.9%) 1,000 mls @ 100 mls/hr IV BOLUS ONE Stop: 08/15/18 04:18 Last Infusion: 08/14/18 21:39 Dose: 0 mls/hr Admin: 08/14/18 20:32 Dose: 100 mls/hr Sodium Chloride (Normal Saline 0.9%) 1,000 mls @ 250 mls/hr IV CONT [place] Last Admin: 08/15/18 10:26 Dose: 150 mls/hr Infusion: 08/15/18 10:26 Dose: 250 mls/hr Admin: 08/15/18 06:48 Dose: 250 mls/hr Infusion: 08/15/18 06:23 Dose: 250 mls/hr Admin: 08/15/18 02:23 Dose: 250 mls/hr Infusion: 08/15/18 02:23 Dose: 100 mls/hr Admin: 08/14/18 21:40 Dose: 100 mls/hr Calcium Gluconate 9.3 meq/ (Sodium Chloride) 70 mls @ 140 mls/hr IV NOW ONE Stop: 08/15/18 05:21 Last Infusion: 08/15/18 06:55 Dose: 140 mls/hr Admin: 08/15/18 05:56 Dose: 140 mls/hr Influenza Virus Vaccine (Flu Vaccine) 0.5 ml IM .ONCE ONE Stop: 08/15/18 09:01 Last Admin: 08/15/18 09:25 Dose: Not Given Insulin Human Regular (Humulin R) 10 unit IV NOW ONE Stop: 08/15/18 05:26 Last Admin: 08/15/18 06:45 Dose: 10 unit Lidocaine (Lidoderm) 1 each TOP DAILY [place] Last Admin: 08/15/18 09:25 Dose: Not Given Lidocaine (Lidoderm (Remove Patch)) 1 each TOP BEDTIME [place] Naloxone HCl (Narcan) 0.4 mg IV NOW ONE Stop: 08/14/18 18:24 Last Admin: 08/14/18 18:30 Dose: 0.4 mg Naloxone HCl (Narcan) 2 mg IV NOW ONE Stop: 08/14/18 18:25 Last Admin: 08/14/18 18:30 Dose: Not Given Nicotine (Nicoderm) 14 mg TOP DAILY [place] Last Admin: 08/15/18 09:25 Dose: Not Given Admin: 08/14/18 21:57 Dose: Not Given Stored In Pharmacy 0 each PO . [facility] Pantoprazole Sodium (Protonix) 40 mg IV BID [facility] Vital Signs - 8 hr 08/14/18 11:20 08/14/18 11:30 08/14/18 12:00 Temperature 98.0 F 98.0 F Pulse Rate 125 H 122 H 114 H Respiratory Rate 15 11 L 9 L Blood Pressure 128/71 Blood Pressure [Right Arm] 128/64 91/53 L Pulse Oximetry 86 L 92 94 MDM - SOB/Dyspnea Medical Records Attestation: I reviewed the patient's medical records. Lab Data Attestation: I reviewed the patient's lab results. Result diagrams: 08/15/18 07:44 08/15/18 07:44 Lab Results 08/14/18 08/14/18 08/14/18 Range/Units 07:28 07:28 07:28 WBC (4.5-11.0) X10^3/uL RBC (4.0-5.2) X10^6/uL Hgb (12.0-16.0) g/dL Hct (36-46) % MCV (80-100) fL MCH (26-34) PG MCHC (30-36) % RDW (11.6-14.8) % Plt Count (150-400) X10^3/uL Neut % (Auto) (50-75) % Lymph % (Auto) (25-40) % Woodruff % (Auto) (3-14) % Eos % (Auto) (2-4) % Baso % (Auto) (0-2) % Neut # (Auto) (5840-6730) /uL Lymph # (Auto) (4101-6727) /uL Woodruff # (Auto) (0-900) /uL Eos # (Auto) (0-450) /uL Baso # (Auto) (0-100) /uL RBC Morphology Polychromasia Hypochromasia Anisocytosis Macrocytosis PT (10.1-12.7) SECONDS INR (0.9-1.3) ABG pH (7.35-7.45) ABG pCO2 (35-45) mmHg ABG pO2 (80-100) mmHg ABG HCO3 (22-26) mmol/L ABG Total CO2 (21-31) mmol/L ABG O2 Saturation (95-100) % ABG Base Excess (-2-2) mmol/L FiO2 Sodium (137-145) mmol/L Potassium (3.4-5.1) mmol/L Chloride (98-107) mmol/L Carbon Dioxide (22-32) mmol/L BUN (7-17) mg/dL Creatinine (0.52-1.04) mg/dL Estimated GFR (>60) mL/min BUN/Creatinine Ratio (6-22) Glucose (80-110) mg/dL Lactate (0.7-2.1) mmol/L Calcium (8.4-10.2) mg/dL Magnesium (1.6-2.3) mg/dL Total Bilirubin (0.2-1.3) mg/dL Conjugated Bilirubin (0.0-0.3) md/dL Unconjugated Bilirubin (0.0-1.1) mg/dL AST (14-36) IU/L ALT (9-52) IU/L Alkaline Phosphatase (38-126) U/L Ammonia (9-30) umol/L Lactate Dehydrogenase (313-618) U/L Total Creatine Kinase (30-135) U/L CK-MB (CK-2) CK-MB (CK-2) Rel Index Troponin I (0.01-0.034) ng/mL B-Natriuretic Peptide (<100) Total Protein (6.3-8.2) g/dL Albumin (3.5-5.0) g/dL Globulin (1.7-4.1) g/dL Albumin/Globulin Ratio (1.0-2.8) Amylase (30-110) U/L Lipase (23-300) U/L Urine Color Urine Appearance Urine pH (4.5-8.0) Ur Specific Eldred Urine Protein Urine Glucose (UA) (Negative) g/dL Urine Ketones (NEGATIVE) Urine Occult Blood Urine Nitrate Urine Bilirubin Urine Ictotest (Negative) Urine Urobilinogen Ur Leukocyte Esterase Urine RBC (0-5/HPF) Urine WBC (0-5/HPF) Ur Squamous Epith Cells (0-5/HPF) Amorphous Sediment Urine Bacteria (None) Ur Culture Indicated? Micro UA Comment Ur Random Sodium 40 (30-90) mmol/L Ur Random Potassium 35.3 mmol/L Ur Random Calcium Urine Creatinine 102.2 mg/dL Nasal Screen MRSA (PCR) (Negative) Salicylates (<20) mg/dL Urine Opiates Screen (Negative) Ur Oxycodone Screen (Negative) Urine Methadone Screen (Negative) Acetaminophen (10-30) ug/mL Ur Barbiturates Screen (Negative) U Tricyclic Antidepress (Negative) Ur Phencyclidine Scrn (Negative) Ur Amphetamines Screen (Negative) U Methamphetamines Scrn (Negative) Ur MDMA Scrn (Ecstasy) (Negative) U Benzodiazepines Scrn (Negative) Urine Cocaine Screen (Negative) U Marijuana (THC) Screen Ethyl Alcohol mg/dL Blood Type Antibody Screen Crossmatch 08/14/18 08/14/18 08/14/18 Range/Units 07:28 11:39 11:39 WBC 10.8 (4.5-11.0) X10^3/uL RBC 1.87 L (4.0-5.2) X10^6/uL Hgb 6.7 L* (12.0-16.0) g/dL Hct 21.8 L (36-46) % MCV 116.4 H (80-100) fL MCH 35.5 H (26-34) PG MCHC 30.5 (30-36) % RDW 20.4 H (11.6-14.8) % Plt Count 232 (150-400) X10^3/uL Neut % (Auto) 78.2 H (50-75) % Lymph % (Auto) 13.8 L (25-40) % Woodruff % (Auto) 5.7 (3-14) % Eos % (Auto) 1.4 L (2-4) % Baso % (Auto) 0.9 (0-2) % Neut # (Auto) 8400 H (5332-6089) /uL Lymph # (Auto) 1500 (9452-0218) /uL Woodruff # (Auto) 600 (0-900) /uL Eos # (Auto) 200 (0-450) /uL Baso # (Auto) 100 (0-100) /uL RBC Morphology See below Polychromasia 2+ H Hypochromasia 1+ H Anisocytosis 2+ H Macrocytosis PT (10.1-12.7) SECONDS INR (0.9-1.3) ABG pH (7.35-7.45) ABG pCO2 (35-45) mmHg ABG pO2 (80-100) mmHg ABG HCO3 (22-26) mmol/L ABG Total CO2 (21-31) mmol/L ABG O2 Saturation (95-100) % ABG Base Excess (-2-2) mmol/L FiO2 Sodium 139 (137-145) mmol/L Potassium 5.2 H (3.4-5.1) mmol/L Chloride 109 H (98-107) mmol/L Carbon Dioxide 20 L (22-32) mmol/L BUN 44 H (7-17) mg/dL Creatinine 2.00 H (0.52-1.04) mg/dL Estimated GFR 24.6 L (>60) mL/min BUN/Creatinine Ratio 22.0 (6-22) Glucose 133 H (80-110) mg/dL Lactate (0.7-2.1) mmol/L Calcium 8.8 (8.4-10.2) mg/dL Magnesium (1.6-2.3) mg/dL Total Bilirubin 1.7 H (0.2-1.3) mg/dL Conjugated Bilirubin (0.0-0.3) md/dL Unconjugated Bilirubin (0.0-1.1) mg/dL AST 34 (14-36) IU/L ALT 13 (9-52) IU/L Alkaline Phosphatase 47 (38-126) U/L Ammonia (9-30) umol/L Lactate Dehydrogenase (313-618) U/L Total Creatine Kinase (30-135) U/L CK-MB (CK-2) CK-MB (CK-2) Rel Index Troponin I (0.01-0.034) ng/mL B-Natriuretic Peptide (<100) Total Protein 7.4 (6.3-8.2) g/dL Albumin 4.1 (3.5-5.0) g/dL Globulin 3.3 (1.7-4.1) g/dL Albumin/Globulin Ratio 1.2 (1.0-2.8) Amylase 98 (30-110) U/L Lipase 93 (23-300) U/L Urine Color Urine Appearance Urine pH (4.5-8.0) Ur Specific Eldred Urine Protein Urine Glucose (UA) (Negative) g/dL Urine Ketones (NEGATIVE) Urine Occult Blood Urine Nitrate Urine Bilirubin Urine Ictotest (Negative) Urine Urobilinogen Ur Leukocyte Esterase Urine RBC (0-5/HPF) Urine WBC (0-5/HPF) Ur Squamous Epith Cells (0-5/HPF) Amorphous Sediment Urine Bacteria (None) Ur Culture Indicated? Micro UA Comment Ur Random Sodium (30-90) mmol/L Ur Random Potassium mmol/L Ur Random Calcium 1.3 Urine Creatinine mg/dL Nasal Screen MRSA (PCR) (Negative) Salicylates (<20) mg/dL Urine Opiates Screen (Negative) Ur Oxycodone Screen (Negative) Urine Methadone Screen (Negative) Acetaminophen (10-30) ug/mL Ur Barbiturates Screen (Negative) U Tricyclic Antidepress (Negative) Ur Phencyclidine Scrn (Negative) Ur Amphetamines Screen (Negative) U Methamphetamines Scrn (Negative) Ur MDMA Scrn (Ecstasy) (Negative) U Benzodiazepines Scrn (Negative) Urine Cocaine Screen (Negative) U Marijuana (THC) Screen Ethyl Alcohol mg/dL Blood Type Antibody Screen Crossmatch 08/14/18 08/14/18 08/14/18 Range/Units 11:39 11:39 11:39 WBC (4.5-11.0) X10^3/uL RBC (4.0-5.2) X10^6/uL Hgb (12.0-16.0) g/dL Hct (36-46) % MCV (80-100) fL MCH (26-34) PG MCHC (30-36) % RDW (11.6-14.8) % Plt Count (150-400) X10^3/uL Neut % (Auto) (50-75) % Lymph % (Auto) (25-40) % Woodruff % (Auto) (3-14) % Eos % (Auto) (2-4) % Baso % (Auto) (0-2) % Neut # (Auto) (8906-6388) /uL Lymph # (Auto) (4327-3731) /uL Woodruff # (Auto) (0-900) /uL Eos # (Auto) (0-450) /uL Baso # (Auto) (0-100) /uL RBC Morphology Polychromasia Hypochromasia Anisocytosis Macrocytosis PT 12.4 (10.1-12.7) SECONDS INR 1.1 (0.9-1.3) ABG pH (7.35-7.45) ABG pCO2 (35-45) mmHg ABG pO2 (80-100) mmHg ABG HCO3 (22-26) mmol/L ABG Total CO2 (21-31) mmol/L ABG O2 Saturation (95-100) % ABG Base Excess (-2-2) mmol/L FiO2 Sodium (137-145) mmol/L Potassium (3.4-5.1) mmol/L Chloride (98-107) mmol/L Carbon Dioxide (22-32) mmol/L BUN (7-17) mg/dL Creatinine (0.52-1.04) mg/dL Estimated GFR (>60) mL/min BUN/Creatinine Ratio (6-22) Glucose (80-110) mg/dL Lactate (0.7-2.1) mmol/L Calcium (8.4-10.2) mg/dL Magnesium (1.6-2.3) mg/dL Total Bilirubin (0.2-1.3) mg/dL Conjugated Bilirubin (0.0-0.3) md/dL Unconjugated Bilirubin (0.0-1.1) mg/dL AST (14-36) IU/L ALT (9-52) IU/L Alkaline Phosphatase (38-126) U/L Ammonia (9-30) umol/L Lactate Dehydrogenase (313-618) U/L Total Creatine Kinase 53 (30-135) U/L CK-MB (CK-2) TNP CK-MB (CK-2) Rel Index TNP Troponin I < 0.012 (0.01-0.034) ng/mL B-Natriuretic Peptide (<100) Total Protein (6.3-8.2) g/dL Albumin (3.5-5.0) g/dL Globulin (1.7-4.1) g/dL Albumin/Globulin Ratio (1.0-2.8) Amylase (30-110) U/L Lipase (23-300) U/L Urine Color Urine Appearance Urine pH (4.5-8.0) Ur Specific Eldred Urine Protein Urine Glucose (UA) (Negative) g/dL Urine Ketones (NEGATIVE) Urine Occult Blood Urine Nitrate Urine Bilirubin Urine Ictotest (Negative) Urine Urobilinogen Ur Leukocyte Esterase Urine RBC (0-5/HPF) Urine WBC (0-5/HPF) Ur Squamous Epith Cells (0-5/HPF) Amorphous Sediment Urine Bacteria (None) Ur Culture Indicated? Micro UA Comment Ur Random Sodium (30-90) mmol/L Ur Random Potassium mmol/L Ur Random Calcium Urine Creatinine mg/dL Nasal Screen MRSA (PCR) (Negative) Salicylates (<20) mg/dL Urine Opiates Screen (Negative) Ur Oxycodone Screen (Negative) Urine Methadone Screen (Negative) Acetaminophen (10-30) ug/mL Ur Barbiturates Screen (Negative) U Tricyclic Antidepress (Negative) Ur Phencyclidine Scrn (Negative) Ur Amphetamines Screen (Negative) U Methamphetamines Scrn (Negative) Ur MDMA Scrn (Ecstasy) (Negative) U Benzodiazepines Scrn (Negative) Urine Cocaine Screen (Negative) U Marijuana (THC) Screen Ethyl Alcohol mg/dL Blood Type B Positive Antibody Screen Negative Crossmatch See Detail 08/14/18 08/14/18 08/14/18 Range/Units 11:39 11:39 12:50 WBC (4.5-11.0) X10^3/uL RBC (4.0-5.2) X10^6/uL Hgb (12.0-16.0) g/dL Hct (36-46) % MCV (80-100) fL MCH (26-34) PG MCHC (30-36) % RDW (11.6-14.8) % Plt Count (150-400) X10^3/uL Neut % (Auto) (50-75) % Lymph % (Auto) (25-40) % Woodruff % (Auto) (3-14) % Eos % (Auto) (2-4) % Baso % (Auto) (0-2) % Neut # (Auto) (1763-9652) /uL Lymph # (Auto) (9490-0480) /uL Woodruff # (Auto) (0-900) /uL Eos # (Auto) (0-450) /uL Baso # (Auto) (0-100) /uL RBC Morphology Polychromasia Hypochromasia Anisocytosis Macrocytosis PT (10.1-12.7) SECONDS INR (0.9-1.3) ABG pH (7.35-7.45) ABG pCO2 (35-45) mmHg ABG pO2 (80-100) mmHg ABG HCO3 (22-26) mmol/L ABG Total CO2 (21-31) mmol/L ABG O2 Saturation (95-100) % ABG Base Excess (-2-2) mmol/L FiO2 Sodium (137-145) mmol/L Potassium (3.4-5.1) mmol/L Chloride (98-107) mmol/L Carbon Dioxide (22-32) mmol/L BUN (7-17) mg/dL Creatinine (0.52-1.04) mg/dL Estimated GFR (>60) mL/min BUN/Creatinine Ratio (6-22) Glucose (80-110) mg/dL Lactate 0.9 (0.7-2.1) mmol/L Calcium (8.4-10.2) mg/dL Magnesium (1.6-2.3) mg/dL Total Bilirubin (0.2-1.3) mg/dL Conjugated Bilirubin (0.0-0.3) md/dL Unconjugated Bilirubin (0.0-1.1) mg/dL AST (14-36) IU/L ALT (9-52) IU/L Alkaline Phosphatase (38-126) U/L Ammonia (9-30) umol/L Lactate Dehydrogenase (313-618) U/L Total Creatine Kinase (30-135) U/L CK-MB (CK-2) CK-MB (CK-2) Rel Index Troponin I (0.01-0.034) ng/mL B-Natriuretic Peptide 108 H (<100) Total Protein (6.3-8.2) g/dL Albumin (3.5-5.0) g/dL Globulin (1.7-4.1) g/dL Albumin/Globulin Ratio (1.0-2.8) Amylase (30-110) U/L Lipase (23-300) U/L Urine Color Urine Appearance Urine pH (4.5-8.0) Ur Specific Eldred Urine Protein Urine Glucose (UA) (Negative) g/dL Urine Ketones (NEGATIVE) Urine Occult Blood Urine Nitrate Urine Bilirubin Urine Ictotest (Negative) Urine Urobilinogen Ur Leukocyte Esterase Urine RBC (0-5/HPF) Urine WBC (0-5/HPF) Ur Squamous Epith Cells (0-5/HPF) Amorphous Sediment Urine Bacteria (None) Ur Culture Indicated? Micro UA Comment Ur Random Sodium (30-90) mmol/L Ur Random Potassium mmol/L Ur Random Calcium Urine Creatinine mg/dL Nasal Screen MRSA (PCR) (Negative) Salicylates < 1.0 (<20) mg/dL Urine Opiates Screen (Negative) Ur Oxycodone Screen (Negative) Urine Methadone Screen (Negative) Acetaminophen < 10 L (10-30) ug/mL Ur Barbiturates Screen (Negative) U Tricyclic Antidepress (Negative) Ur Phencyclidine Scrn (Negative) Ur Amphetamines Screen (Negative) U Methamphetamines Scrn (Negative) Ur MDMA Scrn (Ecstasy) (Negative) U Benzodiazepines Scrn (Negative) Urine Cocaine Screen (Negative) U Marijuana (THC) Screen Ethyl Alcohol < 10 mg/dL Blood Type Antibody Screen Crossmatch 08/14/18 08/14/18 08/14/18 Range/Units 12:50 13:10 14:41 WBC (4.5-11.0) X10^3/uL RBC (4.0-5.2) X10^6/uL Hgb (12.0-16.0) g/dL Hct (36-46) % MCV (80-100) fL MCH (26-34) PG MCHC (30-36) % RDW (11.6-14.8) % Plt Count (150-400) X10^3/uL Neut % (Auto) (50-75) % Lymph % (Auto) (25-40) % Woodruff % (Auto) (3-14) % Eos % (Auto) (2-4) % Baso % (Auto) (0-2) % Neut # (Auto) (7605-1528) /uL Lymph # (Auto) (3152-4554) /uL Woodruff # (Auto) (0-900) /uL Eos # (Auto) (0-450) /uL Baso # (Auto) (0-100) /uL RBC Morphology Polychromasia Hypochromasia Anisocytosis Macrocytosis PT (10.1-12.7) SECONDS INR (0.9-1.3) ABG pH (7.35-7.45) ABG pCO2 (35-45) mmHg ABG pO2 (80-100) mmHg ABG HCO3 (22-26) mmol/L ABG Total CO2 (21-31) mmol/L ABG O2 Saturation (95-100) % ABG Base Excess (-2-2) mmol/L FiO2 Sodium (137-145) mmol/L Potassium (3.4-5.1) mmol/L Chloride (98-107) mmol/L Carbon Dioxide (22-32) mmol/L BUN (7-17) mg/dL Creatinine (0.52-1.04) mg/dL Estimated GFR (>60) mL/min BUN/Creatinine Ratio (6-22) Glucose (80-110) mg/dL Lactate (0.7-2.1) mmol/L Calcium (8.4-10.2) mg/dL Magnesium (1.6-2.3) mg/dL Total Bilirubin (0.2-1.3) mg/dL Conjugated Bilirubin (0.0-0.3) md/dL Unconjugated Bilirubin (0.0-1.1) mg/dL AST (14-36) IU/L ALT (9-52) IU/L Alkaline Phosphatase (38-126) U/L Ammonia < 9.0 L (9-30) umol/L Lactate Dehydrogenase (313-618) U/L Total Creatine Kinase (30-135) U/L CK-MB (CK-2) CK-MB (CK-2) Rel Index Troponin I (0.01-0.034) ng/mL B-Natriuretic Peptide (<100) Total Protein (6.3-8.2) g/dL Albumin (3.5-5.0) g/dL Globulin (1.7-4.1) g/dL Albumin/Globulin Ratio (1.0-2.8) Amylase (30-110) U/L Lipase (23-300) U/L Urine Color Hemlock Urine Appearance Cloudy Urine pH (4.5-8.0) Ur Specific Eldred Not Reportable Urine Protein Not Reportable Urine Glucose (UA) Negative (Negative) g/dL Urine Ketones Negative (NEGATIVE) Urine Occult Blood Not Reportable Urine Nitrate Not Reportable Urine Bilirubin Not Reportable Urine Ictotest (Negative) Urine Urobilinogen Not Reportable Ur Leukocyte Esterase Not Reportable Urine RBC None seen (0-5/HPF) Urine WBC None seen (0-5/HPF) Ur Squamous Epith Cells 1-5 /hpf (0-5/HPF) Amorphous Sediment 3+ Urine Bacteria Few (2-10) H (None) Ur Culture Indicated? Cult not indicated Micro UA Comment Ur Random Sodium (30-90) mmol/L Ur Random Potassium mmol/L Ur Random Calcium Urine Creatinine mg/dL Nasal Screen MRSA (PCR) (Negative) Salicylates (<20) mg/dL Urine Opiates Screen Negative (Negative) Ur Oxycodone Screen Negative (Negative) Urine Methadone Screen Negative (Negative) Acetaminophen (10-30) ug/mL Ur Barbiturates Screen Negative (Negative) U Tricyclic Antidepress Negative (Negative) Ur Phencyclidine Scrn Negative (Negative) Ur Amphetamines Screen Negative (Negative) U Methamphetamines Scrn Negative (Negative) Ur MDMA Scrn (Ecstasy) Negative (Negative) U Benzodiazepines Scrn Negative (Negative) Urine Cocaine Screen Negative (Negative) U Marijuana (THC) Screen TNP Ethyl Alcohol mg/dL Blood Type Antibody Screen Crossmatch 08/14/18 08/14/18 08/14/18 Range/Units 15:36 18:17 18:17 WBC (4.5-11.0) X10^3/uL RBC (4.0-5.2) X10^6/uL Hgb 6.8 L* (12.0-16.0) g/dL Hct 21.8 L (36-46) % MCV (80-100) fL MCH (26-34) PG MCHC (30-36) % RDW (11.6-14.8) % Plt Count (150-400) X10^3/uL Neut % (Auto) (50-75) % Lymph % (Auto) (25-40) % Woodruff % (Auto) (3-14) % Eos % (Auto) (2-4) % Baso % (Auto) (0-2) % Neut # (Auto) (1588-5205) /uL Lymph # (Auto) (5802-5715) /uL Woodruff # (Auto) (0-900) /uL Eos # (Auto) (0-450) /uL Baso # (Auto) (0-100) /uL RBC Morphology Polychromasia Hypochromasia Anisocytosis Macrocytosis PT (10.1-12.7) SECONDS INR (0.9-1.3) ABG pH 7.28 L* (7.35-7.45) ABG pCO2 43.7 (35-45) mmHg ABG pO2 121 H (80-100) mmHg ABG HCO3 20 L (22-26) mmol/L ABG Total CO2 22 (21-31) mmol/L ABG O2 Saturation 98 (95-100) % ABG Base Excess -6.0 L (-2-2) mmol/L FiO2 0.32 Sodium 139 (137-145) mmol/L Potassium 5.1 (3.4-5.1) mmol/L Chloride 115 H (98-107) mmol/L Carbon Dioxide 20 L (22-32) mmol/L BUN 42 H (7-17) mg/dL Creatinine 2.00 H (0.52-1.04) mg/dL Estimated GFR 24.6 L (>60) mL/min BUN/Creatinine Ratio 21.0 (6-22) Glucose 87 (80-110) mg/dL Lactate (0.7-2.1) mmol/L Calcium 7.2 L (8.4-10.2) mg/dL Magnesium (1.6-2.3) mg/dL Total Bilirubin (0.2-1.3) mg/dL Conjugated Bilirubin (0.0-0.3) md/dL Unconjugated Bilirubin (0.0-1.1) mg/dL AST (14-36) IU/L ALT (9-52) IU/L Alkaline Phosphatase (38-126) U/L Ammonia (9-30) umol/L Lactate Dehydrogenase (313-618) U/L Total Creatine Kinase (30-135) U/L CK-MB (CK-2) CK-MB (CK-2) Rel Index Troponin I < 0.012 (0.01-0.034) ng/mL B-Natriuretic Peptide (<100) Total Protein (6.3-8.2) g/dL Albumin (3.5-5.0) g/dL Globulin (1.7-4.1) g/dL Albumin/Globulin Ratio (1.0-2.8) Amylase (30-110) U/L Lipase (23-300) U/L Urine Color Urine Appearance Urine pH (4.5-8.0) Ur Specific Eldred Urine Protein Urine Glucose (UA) (Negative) g/dL Urine Ketones (NEGATIVE) Urine Occult Blood Urine Nitrate Urine Bilirubin Urine Ictotest (Negative) Urine Urobilinogen Ur Leukocyte Esterase Urine RBC (0-5/HPF) Urine WBC (0-5/HPF) Ur Squamous Epith Cells (0-5/HPF) Amorphous Sediment Urine Bacteria (None) Ur Culture Indicated? Micro UA Comment Ur Random Sodium (30-90) mmol/L Ur Random Potassium mmol/L Ur Random Calcium Urine Creatinine mg/dL Nasal Screen MRSA (PCR) (Negative) Salicylates (<20) mg/dL Urine Opiates Screen (Negative) Ur Oxycodone Screen (Negative) Urine Methadone Screen (Negative) Acetaminophen (10-30) ug/mL Ur Barbiturates Screen (Negative) U Tricyclic Antidepress (Negative) Ur Phencyclidine Scrn (Negative) Ur Amphetamines Screen (Negative) U Methamphetamines Scrn (Negative) Ur MDMA Scrn (Ecstasy) (Negative) U Benzodiazepines Scrn (Negative) Urine Cocaine Screen (Negative) U Marijuana (THC) Screen Ethyl Alcohol mg/dL Blood Type Antibody Screen Crossmatch 08/14/18 08/14/18 08/14/18 Range/Units 20:05 21:00 21:00 WBC (4.5-11.0) X10^3/uL RBC (4.0-5.2) X10^6/uL Hgb (12.0-16.0) g/dL Hct (36-46) % MCV (80-100) fL MCH (26-34) PG MCHC (30-36) % RDW (11.6-14.8) % Plt Count (150-400) X10^3/uL Neut % (Auto) (50-75) % Lymph % (Auto) (25-40) % Woodruff % (Auto) (3-14) % Eos % (Auto) (2-4) % Baso % (Auto) (0-2) % Neut # (Auto) (0536-7969) /uL Lymph # (Auto) (9505-7007) /uL Woodruff # (Auto) (0-900) /uL Eos # (Auto) (0-450) /uL Baso # (Auto) (0-100) /uL RBC Morphology Polychromasia Hypochromasia Anisocytosis Macrocytosis PT (10.1-12.7) SECONDS INR (0.9-1.3) ABG pH (7.35-7.45) ABG pCO2 (35-45) mmHg ABG pO2 (80-100) mmHg ABG HCO3 (22-26) mmol/L ABG Total CO2 (21-31) mmol/L ABG O2 Saturation (95-100) % ABG Base Excess (-2-2) mmol/L FiO2 Sodium (137-145) mmol/L Potassium (3.4-5.1) mmol/L Chloride (98-107) mmol/L Carbon Dioxide (22-32) mmol/L BUN (7-17) mg/dL Creatinine (0.52-1.04) mg/dL Estimated GFR (>60) mL/min BUN/Creatinine Ratio (6-22) Glucose (80-110) mg/dL Lactate (0.7-2.1) mmol/L Calcium (8.4-10.2) mg/dL Magnesium (1.6-2.3) mg/dL Total Bilirubin (0.2-1.3) mg/dL Conjugated Bilirubin (0.0-0.3) md/dL Unconjugated Bilirubin (0.0-1.1) mg/dL AST (14-36) IU/L ALT (9-52) IU/L Alkaline Phosphatase (38-126) U/L Ammonia (9-30) umol/L Lactate Dehydrogenase (313-618) U/L Total Creatine Kinase (30-135) U/L CK-MB (CK-2) CK-MB (CK-2) Rel Index Troponin I (0.01-0.034) ng/mL B-Natriuretic Peptide (<100) Total Protein (6.3-8.2) g/dL Albumin (3.5-5.0) g/dL Globulin (1.7-4.1) g/dL Albumin/Globulin Ratio (1.0-2.8) Amylase (30-110) U/L Lipase (23-300) U/L Urine Color Hemlock Urine Appearance Sl cloudy Urine pH TNP (4.5-8.0) Ur Specific Eldred TNP Urine Protein TNP Urine Glucose (UA) TNP (Negative) g/dL Urine Ketones TNP (NEGATIVE) Urine Occult Blood TNP Urine Nitrate TNP Urine Bilirubin TNP Urine Ictotest Positive H (Negative) Urine Urobilinogen TNP Ur Leukocyte Esterase TNP Urine RBC 0-1/hpf (0-5/HPF) Urine WBC 5-10/hpf H (0-5/HPF) Ur Squamous Epith Cells 0-1 /hpf (0-5/HPF) Amorphous Sediment Urine Bacteria Occasional (0-1) (None) Ur Culture Indicated? Specimen cultured Micro UA Comment Note: Ur Random Sodium (30-90) mmol/L Ur Random Potassium mmol/L Ur Random Calcium Urine Creatinine mg/dL Nasal Screen MRSA (PCR) Negative for mrsa (Negative) Salicylates (<20) mg/dL Urine Opiates Screen (Negative) Ur Oxycodone Screen (Negative) Urine Methadone Screen (Negative) Acetaminophen (10-30) ug/mL Ur Barbiturates Screen (Negative) U Tricyclic Antidepress (Negative) Ur Phencyclidine Scrn (Negative) Ur Amphetamines Screen (Negative) U Methamphetamines Scrn (Negative) Ur MDMA Scrn (Ecstasy) (Negative) U Benzodiazepines Scrn (Negative) Urine Cocaine Screen (Negative) U Marijuana (THC) Screen Ethyl Alcohol mg/dL Blood Type Antibody Screen Crossmatch 08/14/18 08/14/18 08/14/18 Range/Units 21:24 21:24 21:24 WBC (4.5-11.0) X10^3/uL RBC (4.0-5.2) X10^6/uL Hgb 8.0 L (12.0-16.0) g/dL Hct (36-46) % MCV (80-100) fL MCH (26-34) PG MCHC (30-36) % RDW (11.6-14.8) % Plt Count (150-400) X10^3/uL Neut % (Auto) (50-75) % Lymph % (Auto) (25-40) % Woodruff % (Auto) (3-14) % Eos % (Auto) (2-4) % Baso % (Auto) (0-2) % Neut # (Auto) (4088-1560) /uL Lymph # (Auto) (3132-1124) /uL Woodruff # (Auto) (0-900) /uL Eos # (Auto) (0-450) /uL Baso # (Auto) (0-100) /uL RBC Morphology Polychromasia Hypochromasia Anisocytosis Macrocytosis PT (10.1-12.7) SECONDS INR (0.9-1.3) ABG pH (7.35-7.45) ABG pCO2 (35-45) mmHg ABG pO2 (80-100) mmHg ABG HCO3 (22-26) mmol/L ABG Total CO2 (21-31) mmol/L ABG O2 Saturation (95-100) % ABG Base Excess (-2-2) mmol/L FiO2 Sodium 140 (137-145) mmol/L Potassium 5.1 (3.4-5.1) mmol/L Chloride 115 H (98-107) mmol/L Carbon Dioxide 17 L (22-32) mmol/L BUN 43 H (7-17) mg/dL Creatinine 2.20 H (0.52-1.04) mg/dL Estimated GFR 22.0 L (>60) mL/min BUN/Creatinine Ratio 19.5 (6-22) Glucose 93 (80-110) mg/dL Lactate (0.7-2.1) mmol/L Calcium 7.7 L (8.4-10.2) mg/dL Magnesium 1.7 (1.6-2.3) mg/dL Total Bilirubin (0.2-1.3) mg/dL Conjugated Bilirubin (0.0-0.3) md/dL Unconjugated Bilirubin (0.0-1.1) mg/dL AST (14-36) IU/L ALT (9-52) IU/L Alkaline Phosphatase (38-126) U/L Ammonia (9-30) umol/L Lactate Dehydrogenase (313-618) U/L Total Creatine Kinase (30-135) U/L CK-MB (CK-2) CK-MB (CK-2) Rel Index Troponin I (0.01-0.034) ng/mL B-Natriuretic Peptide (<100) Total Protein (6.3-8.2) g/dL Albumin (3.5-5.0) g/dL Globulin (1.7-4.1) g/dL Albumin/Globulin Ratio (1.0-2.8) Amylase (30-110) U/L Lipase (23-300) U/L Urine Color Urine Appearance Urine pH (4.5-8.0) Ur Specific Eldred Urine Protein Urine Glucose (UA) (Negative) g/dL Urine Ketones (NEGATIVE) Urine Occult Blood Urine Nitrate Urine Bilirubin Urine Ictotest (Negative) Urine Urobilinogen Ur Leukocyte Esterase Urine RBC (0-5/HPF) Urine WBC (0-5/HPF) Ur Squamous Epith Cells (0-5/HPF) Amorphous Sediment Urine Bacteria (None) Ur Culture Indicated? Micro UA Comment Ur Random Sodium (30-90) mmol/L Ur Random Potassium mmol/L Ur Random Calcium Urine Creatinine mg/dL Nasal Screen MRSA (PCR) (Negative) Salicylates (<20) mg/dL Urine Opiates Screen (Negative) Ur Oxycodone Screen (Negative) Urine Methadone Screen (Negative) Acetaminophen (10-30) ug/mL Ur Barbiturates Screen (Negative) U Tricyclic Antidepress (Negative) Ur Phencyclidine Scrn (Negative) Ur Amphetamines Screen (Negative) U Methamphetamines Scrn (Negative) Ur MDMA Scrn (Ecstasy) (Negative) U Benzodiazepines Scrn (Negative) Urine Cocaine Screen (Negative) U Marijuana (THC) Screen Ethyl Alcohol mg/dL Blood Type Antibody Screen Crossmatch 08/15/18 08/15/18 08/15/18 Range/Units 02:52 02:52 02:52 WBC 8.4 (4.5-11.0) X10^3/uL RBC 2.36 L (4.0-5.2) X10^6/uL Hgb 7.5 L (12.0-16.0) g/dL Hct 24.0 L (36-46) % MCV 101.9 H D (80-100) fL MCH 31.8 (26-34) PG MCHC 31.2 (30-36) % RDW 29.5 H (11.6-14.8) % Plt Count 164 (150-400) X10^3/uL Neut % (Auto) 73.4 (50-75) % Lymph % (Auto) 17.2 L (25-40) % Woodruff % (Auto) 6.6 (3-14) % Eos % (Auto) 1.8 L (2-4) % Baso % (Auto) 1.0 (0-2) % Neut # (Auto) 6200 (7891-0639) /uL Lymph # (Auto) 1400 (8457-1131) /uL Woodruff # (Auto) 600 (0-900) /uL Eos # (Auto) 200 (0-450) /uL Baso # (Auto) 100 (0-100) /uL RBC Morphology See below Polychromasia Hypochromasia Anisocytosis 3+ H Macrocytosis 2+ H PT (10.1-12.7) SECONDS INR (0.9-1.3) ABG pH (7.35-7.45) ABG pCO2 (35-45) mmHg ABG pO2 (80-100) mmHg ABG HCO3 (22-26) mmol/L ABG Total CO2 (21-31) mmol/L ABG O2 Saturation (95-100) % ABG Base Excess (-2-2) mmol/L FiO2 Sodium 139 (137-145) mmol/L Potassium 5.5 H (3.4-5.1) mmol/L Chloride 117 H (98-107) mmol/L Carbon Dioxide 18 L (22-32) mmol/L BUN 45 H (7-17) mg/dL Creatinine 2.50 H (0.52-1.04) mg/dL Estimated GFR 19.0 L (>60) mL/min BUN/Creatinine Ratio 18.0 (6-22) Glucose 88 (80-110) mg/dL Lactate (0.7-2.1) mmol/L Calcium 7.4 L (8.4-10.2) mg/dL Magnesium (1.6-2.3) mg/dL Total Bilirubin 1.1 (0.2-1.3) mg/dL Conjugated Bilirubin 0.1 (0.0-0.3) md/dL Unconjugated Bilirubin 1.5 H (0.0-1.1) mg/dL AST 22 (14-36) IU/L ALT 17 (9-52) IU/L Alkaline Phosphatase 27 L (38-126) U/L Ammonia (9-30) umol/L Lactate Dehydrogenase (313-618) U/L Total Creatine Kinase (30-135) U/L CK-MB (CK-2) CK-MB (CK-2) Rel Index Troponin I (0.01-0.034) ng/mL B-Natriuretic Peptide (<100) Total Protein 5.5 L (6.3-8.2) g/dL Albumin 2.8 L (3.5-5.0) g/dL Globulin 2.7 (1.7-4.1) g/dL Albumin/Globulin Ratio 1.0 (1.0-2.8) Amylase (30-110) U/L Lipase (23-300) U/L Urine Color Urine Appearance Urine pH (4.5-8.0) Ur Specific Eldred Urine Protein Urine Glucose (UA) (Negative) g/dL Urine Ketones (NEGATIVE) Urine Occult Blood Urine Nitrate Urine Bilirubin Urine Ictotest (Negative) Urine Urobilinogen Ur Leukocyte Esterase Urine RBC (0-5/HPF) Urine WBC (0-5/HPF) Ur Squamous Epith Cells (0-5/HPF) Amorphous Sediment Urine Bacteria (None) Ur Culture Indicated? Micro UA Comment Ur Random Sodium (30-90) mmol/L Ur Random Potassium mmol/L Ur Random Calcium Urine Creatinine mg/dL Nasal Screen MRSA (PCR) (Negative) Salicylates (<20) mg/dL Urine Opiates Screen (Negative) Ur Oxycodone Screen (Negative) Urine Methadone Screen (Negative) Acetaminophen (10-30) ug/mL Ur Barbiturates Screen (Negative) U Tricyclic Antidepress (Negative) Ur Phencyclidine Scrn (Negative) Ur Amphetamines Screen (Negative) U Methamphetamines Scrn (Negative) Ur MDMA Scrn (Ecstasy) (Negative) U Benzodiazepines Scrn (Negative) Urine Cocaine Screen (Negative) U Marijuana (THC) Screen Ethyl Alcohol mg/dL Blood Type Antibody Screen Crossmatch 08/15/18 08/15/18 08/15/18 Range/Units 04:39 07:44 07:44 WBC 8.5 (4.5-11.0) X10^3/uL RBC 2.34 L (4.0-5.2) X10^6/uL Hgb 7.6 L (12.0-16.0) g/dL Hct 24.1 L (36-46) % MCV 102.6 H (80-100) fL MCH 32.3 (26-34) PG MCHC 31.4 (30-36) % RDW 29.2 H (11.6-14.8) % Plt Count 163 (150-400) X10^3/uL Neut % (Auto) 70.7 (50-75) % Lymph % (Auto) 19.0 L (25-40) % Woodruff % (Auto) 7.4 (3-14) % Eos % (Auto) 2.1 (2-4) % Baso % (Auto) 0.8 (0-2) % Neut # (Auto) 6000 (9520-9902) /uL Lymph # (Auto) 1600 (5173-2896) /uL Woodruff # (Auto) 600 (0-900) /uL Eos # (Auto) 200 (0-450) /uL Baso # (Auto) 100 (0-100) /uL RBC Morphology See below Polychromasia 1+ H Hypochromasia Anisocytosis 3+ H Macrocytosis 1+ H PT (10.1-12.7) SECONDS INR (0.9-1.3) ABG pH 7.23 L* (7.35-7.45) ABG pCO2 41.6 (35-45) mmHg ABG pO2 155 H (80-100) mmHg ABG HCO3 17 L (22-26) mmol/L ABG Total CO2 19 L (21-31) mmol/L ABG O2 Saturation 99 (95-100) % ABG Base Excess -10.0 L (-2-2) mmol/L FiO2 36 Sodium 140 (137-145) mmol/L Potassium 5.0 (3.4-5.1) mmol/L Chloride 117 H (98-107) mmol/L Carbon Dioxide 17 L (22-32) mmol/L BUN 46 H (7-17) mg/dL Creatinine 2.70 H (0.52-1.04) mg/dL Estimated GFR 17.4 L (>60) mL/min BUN/Creatinine Ratio 17.0 (6-22) Glucose 128 H (80-110) mg/dL Lactate (0.7-2.1) mmol/L Calcium 8.1 L (8.4-10.2) mg/dL Magnesium (1.6-2.3) mg/dL Total Bilirubin (0.2-1.3) mg/dL Conjugated Bilirubin (0.0-0.3) md/dL Unconjugated Bilirubin (0.0-1.1) mg/dL AST (14-36) IU/L ALT (9-52) IU/L Alkaline Phosphatase (38-126) U/L Ammonia (9-30) umol/L Lactate Dehydrogenase (313-618) U/L Total Creatine Kinase (30-135) U/L CK-MB (CK-2) CK-MB (CK-2) Rel Index Troponin I (0.01-0.034) ng/mL B-Natriuretic Peptide (<100) Total Protein (6.3-8.2) g/dL Albumin (3.5-5.0) g/dL Globulin (1.7-4.1) g/dL Albumin/Globulin Ratio (1.0-2.8) Amylase (30-110) U/L Lipase (23-300) U/L Urine Color Urine Appearance Urine pH (4.5-8.0) Ur Specific Eldred Urine Protein Urine Glucose (UA) (Negative) g/dL Urine Ketones (NEGATIVE) Urine Occult Blood Urine Nitrate Urine Bilirubin Urine Ictotest (Negative) Urine Urobilinogen Ur Leukocyte Esterase Urine RBC (0-5/HPF) Urine WBC (0-5/HPF) Ur Squamous Epith Cells (0-5/HPF) Amorphous Sediment Urine Bacteria (None) Ur Culture Indicated? Micro UA Comment Ur Random Sodium (30-90) mmol/L Ur Random Potassium mmol/L Ur Random Calcium Urine Creatinine mg/dL Nasal Screen MRSA (PCR) (Negative) Salicylates (<20) mg/dL Urine Opiates Screen (Negative) Ur Oxycodone Screen (Negative) Urine Methadone Screen (Negative) Acetaminophen (10-30) ug/mL Ur Barbiturates Screen (Negative) U Tricyclic Antidepress (Negative) Ur Phencyclidine Scrn (Negative) Ur Amphetamines Screen (Negative) U Methamphetamines Scrn (Negative) Ur MDMA Scrn (Ecstasy) (Negative) U Benzodiazepines Scrn (Negative) Urine Cocaine Screen (Negative) U Marijuana (THC) Screen Ethyl Alcohol mg/dL Blood Type Antibody Screen Crossmatch 08/15/18 Range/Units 07:44 WBC (4.5-11.0) X10^3/uL RBC (4.0-5.2) X10^6/uL Hgb (12.0-16.0) g/dL Hct (36-46) % MCV (80-100) fL MCH (26-34) PG MCHC (30-36) % RDW (11.6-14.8) % Plt Count (150-400) X10^3/uL Neut % (Auto) (50-75) % Lymph % (Auto) (25-40) % Woodruff % (Auto) (3-14) % Eos % (Auto) (2-4) % Baso % (Auto) (0-2) % Neut # (Auto) (6888-9523) /uL Lymph # (Auto) (9726-6951) /uL Woodruff # (Auto) (0-900) /uL Eos # (Auto) (0-450) /uL Baso # (Auto) (0-100) /uL RBC Morphology Polychromasia Hypochromasia Anisocytosis Macrocytosis PT (10.1-12.7) SECONDS INR (0.9-1.3) ABG pH (7.35-7.45) ABG pCO2 (35-45) mmHg ABG pO2 (80-100) mmHg ABG HCO3 (22-26) mmol/L ABG Total CO2 (21-31) mmol/L ABG O2 Saturation (95-100) % ABG Base Excess (-2-2) mmol/L FiO2 Sodium (137-145) mmol/L Potassium (3.4-5.1) mmol/L Chloride (98-107) mmol/L Carbon Dioxide (22-32) mmol/L BUN (7-17) mg/dL Creatinine (0.52-1.04) mg/dL Estimated GFR (>60) mL/min BUN/Creatinine Ratio (6-22) Glucose (80-110) mg/dL Lactate (0.7-2.1) mmol/L Calcium (8.4-10.2) mg/dL Magnesium (1.6-2.3) mg/dL Total Bilirubin (0.2-1.3) mg/dL Conjugated Bilirubin (0.0-0.3) md/dL Unconjugated Bilirubin (0.0-1.1) mg/dL AST (14-36) IU/L ALT (9-52) IU/L Alkaline Phosphatase (38-126) U/L Ammonia (9-30) umol/L Lactate Dehydrogenase 637 H (313-618) U/L Total Creatine Kinase (30-135) U/L CK-MB (CK-2) CK-MB (CK-2) Rel Index Troponin I (0.01-0.034) ng/mL B-Natriuretic Peptide (<100) Total Protein (6.3-8.2) g/dL Albumin (3.5-5.0) g/dL Globulin (1.7-4.1) g/dL Albumin/Globulin Ratio (1.0-2.8) Amylase (30-110) U/L Lipase (23-300) U/L Urine Color Urine Appearance Urine pH (4.5-8.0) Ur Specific Eldred Urine Protein Urine Glucose (UA) (Negative) g/dL Urine Ketones (NEGATIVE) Urine Occult Blood Urine Nitrate Urine Bilirubin Urine Ictotest (Negative) Urine Urobilinogen Ur Leukocyte Esterase Urine RBC (0-5/HPF) Urine WBC (0-5/HPF) Ur Squamous Epith Cells (0-5/HPF) Amorphous Sediment Urine Bacteria (None) Ur Culture Indicated? Micro UA Comment Ur Random Sodium (30-90) mmol/L Ur Random Potassium mmol/L Ur Random Calcium Urine Creatinine mg/dL Nasal Screen MRSA (PCR) (Negative) Salicylates (<20) mg/dL Urine Opiates Screen (Negative) Ur Oxycodone Screen (Negative) Urine Methadone Screen (Negative) Acetaminophen (10-30) ug/mL Ur Barbiturates Screen (Negative) U Tricyclic Antidepress (Negative) Ur Phencyclidine Scrn (Negative) Ur Amphetamines Screen (Negative) U Methamphetamines Scrn (Negative) Ur MDMA Scrn (Ecstasy) (Negative) U Benzodiazepines Scrn (Negative) Urine Cocaine Screen (Negative) U Marijuana (THC) Screen Ethyl Alcohol mg/dL Blood Type Antibody Screen Crossmatch Point of Care Testing Stool Occult Blood Negative Imaging Data CT scan - head: Radiologist's impression: PROCEDURE: CT HEAD/BRAIN WO CON INDICATIONS: head injury TECHNIQUE: Noncontrast 4.5 mm thick angled axial sections acquired from the foramen magnum to the vertex, with coronal and sagittal reformats. For radiation dose reduction, the following was used: automated exposure control, adjustment of mA and/or kV according to patient size. COMPARISON: [facility], CT, CT HEAD/BRAIN WO CON, 06/15/2018, 17:13. FINDINGS: Image quality: Diagnostic. CSF spaces: Basal cisterns are patent. No extra-axial fluid collections. Ventricles are normal in size and shape. Brain: No midline shift. No intracranial masses or hemorrhage. Oneill-white mat ter interface is normal. Skull and face: Calvarium and visualized facial bones are intact, without suspicious lesions. Sinuses: Visualized sinuses and mastoids are clear. IMPRESSION: Negative CT. No acute intracranial hemorrhage. Dictated by: Toy Gracia M.D. on 08/14/2018 at 11:43 Approved by: Toy Gracia M.D. on 08/14/2018 at 11:45 Chest x-ray: Radiologist's impression: PROCEDURE: XR CHEST 1V INDICATIONS: short of breath TECHNIQUE: One view of the chest was acquired. COMPARISON: [facility], CR, XR CHEST 1V, 06/15/2018, 15:11. FINDINGS: Surgical changes and devices: None. Lungs and pleura: Lungs are clear. No pleural effusions or pneumothorax. Mediastinum: Mediastinal contours appear normal. Heart size is normal. Bones and chest wall: No suspicious bony lesions. Overlying soft tissues appear unremarkable. IMPRESSION: No evidence acute pulmonary process. Dictated by: Marcel Raymundo M.D. on 08/14/2018 at 15:28 Approved by: Marcel Raymundo M.D. on 08/14/2018 at 15:29 ECG Data Attestation: I personally reviewed and interpreted this ECG as follows: (See below) Interpretation: Twelve lead EKG performed August 14, 2018 at 1:37 p.m., as follows: Regular ventricular rhythm with a rate of 133 beats per minute [place] interval is 197 millisecond QRS duration 84 millisecond QTC interval [address] T wave changes Occasional ectopy Interpretation: Sinus tachycardia with occasional PVCs; no signs of acute ischemia; abnormal EKG as interpreted by ED MD. Critical Care Time Critical Care Time: Yes Total Critical Care Time: 60 Attestation: Critical care time was necessary, due to high probability of imminent decline and . Critical care time is exclusive of separately billable procedures. Critical care time included: Interviewing and examining the patient, ordering and reviewing laboratory studies, ordering and reviewing imaging studies, evaluating cardiac output, [evaluating oxygen saturation], discussion with consultants, discussion with family, re-examining the patient, and documentation. Discharge Plan Departure Patient Disposition: Admitted As Inpatient Clinical Impression: Anemia, Acute metabolic encephalopathy Discharge Date/Time: 08/14/18 20:00 Interventions: ED Discharge Assessment Last Done: 08/14/18 19:55 Admit Date/Time: 08/14/18 17:24 Admit Provider: Jael Peña
[2018-08-14 12:39] LABS: Add Manual Diff / Slide Review NO; Basophils Absolute Auto 100 /uL (0-100); Basophils Percent Auto 0.9 % (0-2); Eosinophils Absolute Auto 200 /uL (0-450); Eosinophils Percent Auto 1.4 % (2-4); Hematocrit 21.8 % (36-46); Lymphocytes Absolute Auto 1500 /uL (1100-4500); Lymphocytes Percent Auto 13.8 % (25-40); Mean Corpuscular HGB Conc 30.5 % (30-36); Mean Corpuscular Hemoglobin 35.5 PG (26-34); Mean Corpuscular Volume 116.4 fL (80-100); Monocytes Absolute Auto 600 /uL (0-900); Monocytes Percent Auto 5.7 % (3-14); Neutrophils Absolute Auto 8400 /uL (1500-7000); Neutrophils Percent Auto 78.2 % (50-75); Platelet Count 232 X10^3/uL (150-400); Red Blood Cell Count 1.87 X10^6/uL (4.0-5.2); Red Cell Distribution Width 20.4 % (11.6-14.8); White Blood Cell Count 10.8 X10^3/uL (4.5-11.0)
--- NOTE | 2018-08-14 12:40 | DI.CT.S_ITS ---
PROCEDURE: CT HEAD/BRAIN WO CON INDICATIONS: head injury TECHNIQUE: Noncontrast 4.5 mm thick angled axial sections acquired from the foramen magnum to the vertex, with coronal and sagittal reformats. For radiation dose reduction, the following was used: automated exposure control, adjustment of mA and/or kV according to patient size. COMPARISON: [facility], CT, CT HEAD/BRAIN WO CON, 06/15/2018, 17:13. FINDINGS: Image quality: Diagnostic. CSF spaces: Basal cisterns are patent. No extra-axial fluid collections. Ventricles are normal in size and shape. Brain: No midline shift. No intracranial masses or hemorrhage. Oneill-white matter interface is normal. Skull and face: Calvarium and visualized facial bones are intact, without suspicious lesions. Sinuses: Visualized sinuses and mastoids are clear. IMPRESSION: Negative CT. No acute intracranial hemorrhage. Dictated by: Toy Gracia M.D. on 08/14/2018 at 11:43 Approved by: Toy Gracia M.D. on 08/14/2018 at 11:45
[2018-08-14 12:42] LABS: Hemoglobin 6.7 g/dL (12.0-16.0)
[2018-08-14 12:44] LABS: Alanine Aminotransferase 13 IU/L (9-52); Albumin 4.1 g/dL (3.5-5.0); Albumin Globulin Ratio 1.2 (1.0-2.8); Alkaline Phosphatase 47 U/L (38-126); Amylase 98 U/L (30-110); Aspartate Aminotransferase 34 IU/L (14-36); Bilirubin Total 1.7 mg/dL (0.2-1.3); Blood Urea Nitrogen 44 mg/dL (7-17); Calcium 8.8 mg/dL (8.4-10.2); Carbon Dioxide 20 mmol/L (22-32); Chloride 109 mmol/L (98-107); Estimated Glomerular Filt Rate 24.6 mL/min (>60); Globulin 3.3 g/dL (1.7-4.1); Glucose 133 mg/dL (80-110); HEMOLYSIS < 15 (0-50); Lipase 93 U/L (23-300); Potassium 5.2 mmol/L (3.4-5.1); Sodium 139 mmol/L (137-145); Total Protein 7.4 g/dL (6.3-8.2)
[2018-08-14 12:53] LABS: INR 1.1 (0.9-1.3); Prothrombin Time 12.4 SECONDS (10.1-12.7)
[2018-08-14 13:05] LABS: Polychromasia 2+
[2018-08-14 13:06] LABS: Anisocytosis 2+
[2018-08-14 13:07] LABS: Hypochromasia 1+
[2018-08-14 13:25] LABS: RBC Urine None Seen (0-5/HPF); WBC Urine None Seen (0-5/HPF)
[2018-08-14 13:42] LABS: Lactate (Lactic Acid) 0.9 mmol/L (0.7-2.1)
[2018-08-14 13:42] LABS: Appearance Urine UA CLOUDY; Color Urine UA Orange
[2018-08-14 13:43] LABS: Amorphous Sediment Urine 3+; Bacteria Urine Few (2-10); Culture Indicated Urine Cult Not Indicated; Glucose Urine UA NEGATIVE (Negative); Ketones Urine UA NEGATIVE (NEGATIVE); Squamous Epithelial Cell Urine 1-5 /HPF (0-5/HPF)
[2018-08-14 13:52] LABS: Ammonia (NH3) < 9.0 umol/L (9-30)
[2018-08-14 13:54] LABS: Acetaminophen < 10 ug/mL (10-30); Creatine Kinase 53 U/L (30-135); Ethanol (ETOH) < 10 mg/dL; Salicylate < 1.0 mg/dL (<20)
[2018-08-14 14:06] LABS: Troponin I < 0.012 ng/mL (0.01-0.034)
[2018-08-14 14:09] LABS: B Type Natriuretic Peptide 108 (<100)
--- NOTE | 2018-08-14 14:37 | PC.NURSE ---
Blood Transfusion, as pt was unable to consent I called sister in Law May and she reports Zeny would not object to a blood transfusion. Pt has been sleeping and denies complaints. Stable on 4LO2 NC. Stable so far with removal of Fentanyl patches off.
--- NOTE | 2018-08-14 14:59 | DI.RAD.S_ITS ---
PROCEDURE: XR CHEST 1V INDICATIONS: short of breath TECHNIQUE: One view of the chest was acquired. COMPARISON: [facility], CR, XR CHEST 1V, 06/15/2018, 15:11. FINDINGS: Surgical changes and devices: None. Lungs and pleura: Lungs are clear. No pleural effusions or pneumothorax. Mediastinum: Mediastinal contours appear normal. Heart size is normal. Bones and chest wall: No suspicious bony lesions. Overlying soft tissues appear unremarkable. IMPRESSION: No evidence acute pulmonary process. Dictated by: Marcel Raymundo M.D. on 08/14/2018 at 15:28 Approved by: Marcel Raymundo M.D. on 08/14/2018 at 15:29
[2018-08-14 15:08] LABS: Urine Amphetamines Negative (Negative); Urine Barbiturates Negative (Negative); Urine Benzodiazepines Negative (Negative); Urine Cocaine Negative (Negative); Urine MDMA Negative (Negative); Urine Methadone Negative (Negative); Urine Methamphetamines Negative (Negative); Urine Morphine/Opi cutoff 2000 Negative (Negative); Urine Oxycodone Negative (Negative); Urine Phencyclidine Negative (Negative); Urine Tricyclic Antidepressant Negative (Negative)
[2018-08-14 16:10] LABS: PCO2 ABG 43.7 mmHg (35-45); PO2 ABG 121 mmHg (80-100); pH ABG 7.28 (7.35-7.45)
[2018-08-14 16:11] LABS: HCO3 ABG 20 mmol/L (22-26); Oxygen Saturation ABG 98 % (95-100); TCO2 ABG 22 mmol/L (21-31)
[2018-08-14 16:12] LABS: Fractionated Inspired Oxygen 0.32
--- NOTE | 2018-08-14 17:48 | PC.NURSE ---
Pt with heartrate changes, asked for a repeat ECG, looks like atrial fibrillation, let Dr. Zavala know. Pt asked to get up to have a bowel movement. She was unable to go but her mentation is clearer now. She knows where she is and is more conversant. Still sleepy but responding appropriately.
[2018-08-14] MEDS: NALOXONE 0.4 MG/ML VIAL IV (18:30)
[2018-08-14 18:37] LABS: Blood Urea Nitrogen 42 mg/dL (7-17); Calcium 7.2 mg/dL (8.4-10.2); Carbon Dioxide 20 mmol/L (22-32); Chloride 115 mmol/L (98-107); Estimated Glomerular Filt Rate 24.6 mL/min (>60); Glucose 87 mg/dL (80-110); HEMOLYSIS < 15 (0-50); Potassium 5.1 mmol/L (3.4-5.1); Sodium 139 mmol/L (137-145)
[2018-08-14 18:38] LABS: Hematocrit 21.8 % (36-46); Hemoglobin 6.8 g/dL (12.0-16.0)
[2018-08-14 18:49] LABS: Troponin I < 0.012 ng/mL (0.01-0.034)
--- NOTE | 2018-08-14 19:05 | PC.NURSE ---
Called Report to Elodia WYMAN in ICU and gave report on patient. Someone will call us when pt is ready to be transferred.
--- NOTE | 2018-08-14 20:14 | PC.NURSE ---
Addendum entered by Carolina Garner R.N. 08/14/18 21:50: 2150 - Home medications given to coordinator to be locked up, including 2x fentanyl patches. Original Note: 2004 - Patient admitted to room 101. Brought over on stretcher by nursing staff. Transferred to bed using slider board. Alert and responsive with pleasant affect. Denies pain or discomfort at this time. Able to move all extremities. Oriented patient to room and call light, call light within reach and bed alarm on.
--- NOTE | 2018-08-14 20:21 | P.HP_ITS ---
History of Present Illness Date Patient Seen: 08/14/18 Time Patient Seen: 20:21 Chief complaint: Difficulty breathing,not able to stand Narrative: HPI is obtained via direct interview with the patient. Patient is a fair historian. It is questionable if she is a reliable historian. The patient is a 72 year old female who presented to the ED who is being brought into the ED via wheelchair by her [id number] out of concern for altered mental status. Associated symptoms include difficulty breathing. There is a concern that patient may have overmedicated self with fentanyl patches. She is supposed to be wearing one (100 mcg patch); however, was found to be wearing two patches. At time of triage (08/14/2018 @ 1120) T 98.0F BP 128/71 mmHg HR 125 RR 15 SpO2 86% on room air. GCS 15. Presenting labs WBC 10.8 Hgb 6.7 (repeat 6.8) Plt 232 Lactate 0.9 Ammonia < 9.0 Na 139 K 5.2 Cl 109 Ca 8.8 Alb 4.1 Glu 133 CO2 20 BUN 44 Cr 2.0 GFR 24.6 BUN/Cr 22 T. Bili 1.7 AST 34 ALT 13 Alk Phos 47 CK 53 Amylase 93 Lipase 93 Trop < 0.012 BNP 108 Tylenol, Salicylate, and Alcohol levels are NEGATIVE Initial lab work revealed anemia and GORDON. In the ED patient was noted to be hypotensive; however, BP improved w/ a dose of narcan. Patient herself reports chronic O2 dependence at 4L. Recalls falling few days ago. Unable to recall if she has had multiple falls. Unable to comment or recall if events were preceded by dizziness or lightheadedness; however, does note feeling dizzy and lightheaded with position change. Denies head injury, loss of consciousness, or syncopal events. States this has been going on for a month. Reports generalized weakness. Reports having diarrhea for the past 3 days, loose stools (not watery). Notes 4 episodes daily. At baseline known to have constipation. Denies fever and chills. Denies melena, hematochezia, hemoptysis, hematmesis and hematuria. Reports having chronic back pain and multiple back surgeries. Describes back pain as severe, sharp and non- radiating. In addition, notes suffering from a severe UTI in the past month for which she has been taking OTC AZO (day). Reports presence of pelvic discomfor t. Admits to taking Tylenol Extra Strength (2 tabs) daily. Reports unintentional weight loss of 20 lbs over the past 45 days. Admits to smoking 1/2 pack per day or less. Denies EtOH, marijuana and recreational drug use. Denies use of ASA or other NSAIDs. In the ED received 2 units of PRBCs. Also received a dose of Narcan, is being reported that she appeared lethargic and hypotensive. She did respond to the Narcan with a more wakeful state and improved BP is. Patient History Medical History History of hysterectomy (Acute) Pulmonary embolism (Acute) Right shoulder injury (Acute) Surgical History History of lumbar laminectomy (Acute) Social History household members: none Smoking Status: Current every day smoker alcohol intake: never Family & Social History Social History: household members none Safety & Behavioral: Feels Safe in Current Yes Environment Been Physically Hurt or No Threatened By a Person Tobacco & Substance use: Tobacco type cigarettes Smoking Status Current every day smoker alcohol intake never alcohol intake frequency 0-2 drinks per day Substance Use Type does not use Meds Home Medications Medication Instructions Recorded Confirmed Type gabapentin [Neurontin] 600 mg PO TID #0 03/01/17 08/14/18 History bisacodyl 10 mg MN DAILY PRN #30 ea 06/19/18 08/14/18 Rx docusate sodium 100 mg PO BID #60 cap 06/19/18 08/14/18 Rx fentanyl 1 patch TOPICAL Q3D #0 ea 06/19/18 08/14/18 Rx nicotine 21 mg TOPICAL DAILY #30 ea 06/19/18 08/14/18 Rx polyethylene glycol 3350 17 gm PO DAILY #30 ea 06/19/18 08/14/18 Rx sennosides [senna] 17.2 mg PO DAILY PRN #30 tab 06/19/18 08/14/18 Rx ciprofloxacin HCl [Cipro] 500 mg PO BID 08/14/18 08/14/18 History hyoscyamine sulfate 0.125 mg PO Q6H PRN 08/14/18 08/14/18 History lidocaine [Lidoderm] 1 patch TOPICAL DAILY 08/14/18 08/14/18 History Allergies Allergy/AdvReac Type Severity Reaction Status Date / Time oxybutynin Allergy Severe Difficulty Verified 08/14/18 13:40 Breathing acetaminophen [From [place]] Allergy Unknown Verified 08/14/18 13:40 hydrocodone [From [place]] Allergy Unknown Verified 08/14/18 13:40 hydromorphone Allergy Difficulty Verified 08/14/18 13:41 Breathing meloxicam AdvReac Intermediate Nausea Verified 08/14/18 13:40 tramadol AdvReac Intermediate Vomiting Verified 08/14/18 13:40 fentanyl [From Duragesic] AdvReac Mild Rash Verified 08/14/18 13:40 ciprofloxacin [From Cipro] AdvReac Unknown Verified 08/14/18 13:40 morphine AdvReac Fainting Verified 08/14/18 13:40 Review of Systems Review of Systems All systems reviewed & are unremarkable except as noted in HPI and below Exam Vital Signs (past 8 hours): - 08/14/18 12:44 08/14/18 13:00 08/14/18 13:05 Temperature Pulse Rate 110 H 114 H 113 H Respiratory Rate 11 L 10 L 10 L Blood Pressure Blood Pressure [Right Arm] 104/62 96/65 96/65 Pulse Oximetry 94 92 93 08/14/18 13:30 08/14/18 14:09 08/14/18 14:25 Temperature 97.7 F 97.9 F Pulse Rate 83 110 H 117 H Respiratory Rate 13 16 11 L Blood Pressure 89/74 L 95/53 L Blood Pressure [Right Arm] 94/46 L Pulse Oximetry 92 08/14/18 15:00 08/14/18 15:40 08/14/18 16:30 Temperature Pulse Rate 104 H 106 H 85 Respiratory Rate 17 13 15 Blood Pressure Blood Pressure [Right Arm] 88/53 L 127/105 H 85/50 L Pulse Oximetry 94 94 92 08/14/18 16:31 08/14/18 16:45 08/14/18 16:49 Temperature 98.0 F 98.1 F Pulse Rate 88 85 88 Respiratory Rate 12 13 14 Blood Pressure 85/50 L 98/52 L Blood Pressure [Right Arm] 98/52 L Pulse Oximetry 93 08/14/18 17:06 08/14/18 17:30 08/14/18 17:35 Temperature 98.0 F Pulse Rate 110 H 95 H 103 H Respiratory Rate 17 19 19 Blood Pressure 91/59 L Blood Pressure [Right Arm] 73/46 L 107/59 L Pulse Oximetry 92 95 08/14/18 18:00 08/14/18 18:05 08/14/18 18:15 Temperature Pulse Rate 77 83 101 H Respiratory Rate 12 13 14 Blood Pressure Blood Pressure [Right Arm] 82/49 L 78/50 L 95/59 L Pulse Oximetry 95 95 95 08/14/18 18:20 08/14/18 18:33 08/14/18 19:26 Temperature 99.1 F Pulse Rate 101 H 112 H 94 H Respiratory Rate 14 18 15 Blood Pressure 127/63 Blood Pressure [Right Arm] 95/57 L 116/68 Pulse Oximetry 95 96 08/14/18 19:43 08/14/18 19:45 Temperature 98.7 F 98.7 F Pulse Rate 86 86 Respiratory Rate 13 15 Blood Pressure 113/68 Blood Pressure [Right Arm] 113/68 Pulse Oximetry 98 Oxygen Delivery Method Room Air Oxygen Flow Rate 4 Narrative Exam Narrative: Constitutional: NAD Neurologic: Somnolent. Easily arousable. oriented to person, place, year. Not really sure why she is in the hospital. No focal neurological deficits. No facial asymmetry or unilateral weakness. Head: NC, AT Eyes: Pupils equal and reactive, EOMI, no scleral icterus Ears: external ears normal, no otorrhea Nose: external nose normal, no rhinorrhea or epistaxis Throat: DRY MM, oropharynx w/o exudate Neck: no masses, lymphadenopathy, or JVD Chest / Respiratory: equal chest rise, unlabored respiratory effort, no dyspnea or tachypnea, diminished Tenderness over chest, at site of abrasion Heart / CV: S1S2 Abdomen / GI: round, NT, ND, + BS, no organomegaly : Suprapubic tenderness; Kee catheter present draining orange contents Peripheral / Vascular: warm to touch, DP and PT pulses palpable, no edema Right foot with marked bruising and tenderness Musc: full ROM of upper and lower extremities, generalized weakness of upper and lower extremities Skin: Abrasions, and areas of ecchymoses over chest and right lower extremity, dry skin Objective Labs Result Diagrams: 08/15/18 02:52 08/15/18 02:52 Labs: Laboratory Results - last 24 hr 08/14/18 08/14/18 08/14/18 11:39 11:39 11:39 WBC 10.8 RBC 1.87 L Hgb 6.7 L* Hct 21.8 L MCV 116.4 H MCH 35.5 H MCHC 30.5 RDW 20.4 H Plt Count 232 Neut % (Auto) 78.2 H Lymph % (Auto) 13.8 L [place] % (Auto) 5.7 Eos % (Auto) 1.4 L Baso % (Auto) 0.9 Neut # (Auto) 8400 H Lymph # (Auto) 1500 [place] # (Auto) 600 Eos # (Auto) 200 Baso # (Auto) 100 RBC Morphology See below Polychromasia 2+ H Hypochromasia 1+ H Anisocytosis 2+ H PT INR ABG pH ABG pCO2 ABG pO2 ABG HCO3 ABG Total CO2 ABG O2 Saturation ABG Base Excess FiO2 Sodium 139 Potassium 5.2 H Chloride 109 H Carbon Dioxide 20 L BUN 44 H Creatinine 2.00 H Estimated GFR 24.6 L BUN/Creatinine Ratio 22.0 Glucose 133 H Lactate Calcium 8.8 Total Bilirubin 1.7 H AST 34 ALT 13 Alkaline Phosphatase 47 Ammonia Total Creatine Kinase CK-MB (CK-2) CK-MB (CK-2) Rel Index Troponin I B-Natriuretic Peptide Total Protein 7.4 Albumin 4.1 Globulin 3.3 Albumin/Globulin Ratio 1.2 Amylase 98 Lipase 93 Urine Color Urine Appearance Urine pH Ur Specific [place] Urine Protein Urine Glucose (UA) Urine Ketones Urine Occult Blood Urine Nitrate Urine Bilirubin Urine Urobilinogen Ur Leukocyte Esterase Urine RBC Urine WBC Ur Squamous Epith Cells Amorphous Sediment Urine Bacteria Ur Culture Indicated? Salicylates Urine Opiates Screen Ur Oxycodone Screen Urine Methadone Screen Acetaminophen Ur Barbiturates Screen U Tricyclic Antidepress Ur Phencyclidine Scrn Ur Amphetamines Screen U Methamphetamines Scrn Ur MDMA Scrn (Ecstasy) U Benzodiazepines Scrn Urine Cocaine Screen U Marijuana (THC) Screen Ethyl Alcohol Blood Type B Positive Antibody Screen Negative Crossmatch See Detail 08/14/18 08/14/18 08/14/18 11:39 11:39 11:39 WBC RBC Hgb Hct MCV MCH MCHC RDW Plt Count Neut % (Auto) Lymph % (Auto) [place] % (Auto) Eos % (Auto) Baso % (Auto) Neut # (Auto) Lymph # (Auto) [place] # (Auto) Eos # (Auto) Baso # (Auto) RBC Morphology Polychromasia Hypochromasia Anisocytosis PT 12.4 INR 1.1 ABG pH ABG pCO2 ABG pO2 ABG HCO3 ABG Total CO2 ABG O2 Saturation ABG Base Excess FiO2 Sodium Potassium Chloride Carbon Dioxide BUN Creatinine Estimated GFR BUN/Creatinine Ratio Glucose Lactate Calcium Total Bilirubin AST ALT Alkaline Phosphatase Ammonia Total Creatine Kinase 53 CK-MB (CK-2) TNP CK-MB (CK-2) Rel Index TNP Troponin I < 0.012 B-Natriuretic Peptide 108 H Total Protein Albumin Globulin Albumin/Globulin Ratio Amylase Lipase Urine Color Urine Appearance Urine pH Ur Specific [place] Urine Protein Urine Glucose (UA) Urine Ketones Urine Occult Blood Urine Nitrate Urine Bilirubin Urine Urobilinogen Ur Leukocyte Esterase Urine RBC Urine WBC Ur Squamous Epith Cells Amorphous Sediment Urine Bacteria Ur Culture Indicated? Salicylates Urine Opiates Screen Ur Oxycodone Screen Urine Methadone Screen Acetaminophen Ur Barbiturates Screen U Tricyclic Antidepress Ur Phencyclidine Scrn Ur Amphetamines Screen U Methamphetamines Scrn Ur MDMA Scrn (Ecstasy) U Benzodiazepines Scrn Urine Cocaine Screen U Marijuana (THC) Screen Ethyl Alcohol Blood Type Antibody Screen Crossmatch 08/14/18 08/14/18 08/14/18 11:39 12:50 12:50 WBC RBC Hgb Hct MCV MCH MCHC RDW Plt Count Neut % (Auto) Lymph % (Auto) [place] % (Auto) Eos % (Auto) Baso % (Auto) Neut # (Auto) Lymph # (Auto) [place] # (Auto) Eos # (Auto) Baso # (Auto) RBC Morphology Polychromasia Hypochromasia Anisocytosis PT INR ABG pH ABG pCO2 ABG pO2 ABG HCO3 ABG Total CO2 ABG O2 Saturation ABG Base Excess FiO2 Sodium Potassium Chloride Carbon Dioxide BUN Creatinine Estimated GFR BUN/Creatinine Ratio Glucose Lactate 0.9 Calcium Total Bilirubin AST ALT Alkaline Phosphatase Ammonia < 9.0 L Total Creatine Kinase CK-MB (CK-2) CK-MB (CK-2) Rel Index Troponin I B-Natriuretic Peptide Total Protein Albumin Globulin Albumin/Globulin Ratio Amylase Lipase Urine Color Urine Appearance Urine pH Ur Specific [place] Urine Protein Urine Glucose (UA) Urine Ketones Urine Occult Blood Urine Nitrate Urine Bilirubin Urine Urobilinogen Ur Leukocyte Esterase Urine RBC Urine WBC Ur Squamous Epith Cells Amorphous Sediment Urine Bacteria Ur Culture Indicated? Salicylates < 1.0 Urine Opiates Screen Ur Oxycodone Screen Urine Methadone Screen Acetaminophen < 10 L Ur Barbiturates Screen U Tricyclic Antidepress Ur Phencyclidine Scrn Ur Amphetamines Screen U Methamphetamines Scrn Ur MDMA Scrn (Ecstasy) U Benzodiazepines Scrn Urine Cocaine Screen U Marijuana (THC) Screen Ethyl Alcohol < 10 Blood Type Antibody Screen Crossmatch 08/14/18 08/14/18 08/14/18 13:10 14:41 15:36 WBC RBC Hgb Hct MCV MCH MCHC RDW Plt Count Neut % (Auto) Lymph % (Auto) [place] % (Auto) Eos % (Auto) Baso % (Auto) Neut # (Auto) Lymph # (Auto) [place] # (Auto) Eos # (Auto) Baso # (Auto) RBC Morphology Polychromasia Hypochromasia Anisocytosis PT INR ABG pH 7.28 L* ABG pCO2 43.7 ABG pO2 121 H ABG HCO3 20 L ABG Total CO2 22 ABG O2 Saturation 98 ABG Base Excess -6.0 L FiO2 0.32 Sodium Potassium Chloride Carbon Dioxide BUN Creatinine Estimated GFR BUN/Creatinine Ratio Glucose Lactate Calcium Total Bilirubin AST ALT Alkaline Phosphatase Ammonia Total Creatine Kinase CK-MB (CK-2) CK-MB (CK-2) Rel Index Troponin I B-Natriuretic Peptide Total Protein Albumin Globulin Albumin/Globulin Ratio Amylase Lipase Urine Color [place] Urine Appearance Cloudy Urine pH Ur Specific [place] Not Reportable Urine Protein Not Reportable Urine Glucose (UA) Negative Urine Ketones Negative Urine Occult Blood Not Reportable Urine Nitrate Not Reportable Urine Bilirubin Not Reportable Urine Urobilinogen Not Reportable Ur Leukocyte Esterase Not Reportable Urine RBC None seen Urine WBC None seen Ur Squamous Epith Cells 1-5 /hpf Amorphous Sediment 3+ Urine Bacteria Few (2-10) H Ur Culture Indicated? Cult not indicated Salicylates Urine Opiates Screen Negative Ur Oxycodone Screen Negative Urine Methadone Screen Negative Acetaminophen Ur Barbiturates Screen Negative U Tricyclic Antidepress Negative Ur Phencyclidine Scrn Negative Ur Amphetamines Screen Negative U Methamphetamines Scrn Negative Ur MDMA Scrn (Ecstasy) Negative U Benzodiazepines Scrn Negative Urine Cocaine Screen Negative U Marijuana (THC) Screen TNP Ethyl Alcohol Blood Type Antibody Screen Crossmatch 08/14/18 08/14/18 18:17 18:17 WBC RBC Hgb 6.8 L* Hct 21.8 L MCV MCH MCHC RDW Plt Count Neut % (Auto) Lymph % (Auto) [place] % (Auto) Eos % (Auto) Baso % (Auto) Neut # (Auto) Lymph # (Auto) [place] # (Auto) Eos # (Auto) Baso # (Auto) RBC Morphology Polychromasia Hypochromasia Anisocytosis PT INR ABG pH ABG pCO2 ABG pO2 ABG HCO3 ABG Total CO2 ABG O2 Saturation ABG Base Excess FiO2 Sodium 139 Potassium 5.1 Chloride 115 H Carbon Dioxide 20 L BUN 42 H Creatinine 2.00 H Estimated GFR 24.6 L BUN/Creatinine Ratio 21.0 Glucose 87 Lactate Calcium 7.2 L Total Bilirubin AST ALT Alkaline Phosphatase Ammonia Total Creatine Kinase CK-MB (CK-2) CK-MB (CK-2) Rel Index Troponin I < 0.012 B-Natriuretic Peptide Total Protein Albumin Globulin Albumin/Globulin Ratio Amylase Lipase Urine Color Urine Appearance Urine pH Ur Specific [place] Urine Protein Urine Glucose (UA) Urine Ketones Urine Occult Blood Urine Nitrate Urine Bilirubin Urine Urobilinogen Ur Leukocyte Esterase Urine RBC Urine WBC Ur Squamous Epith Cells Amorphous Sediment Urine Bacteria Ur Culture Indicated? Salicylates Urine Opiates Screen Ur Oxycodone Screen Urine Methadone Screen Acetaminophen Ur Barbiturates Screen U Tricyclic Antidepress Ur Phencyclidine Scrn Ur Amphetamines Screen U Methamphetamines Scrn Ur MDMA Scrn (Ecstasy) U Benzodiazepines Scrn Urine Cocaine Screen U Marijuana (THC) Screen Ethyl Alcohol Blood Type Antibody Screen Crossmatch Assessment & Plan Assessment & Plan narrative: Acute Kidney Injury, present on admission, active - sCR 2.0 (baseline 0.6-0.8), diminished urine output anuria vs oliguria (not clear) - ATN vs AIN ? potentially multi-factorial, 2/2 extended pyridium use, prolonged ciprofloxacin course, hypotension, hypovolemia (diarrhea), and profound anemia - BNP Q4H, urine electrolytes, urinalysis - IVF @ 250 ml/hr - I/O monitoring - D/C nephrotoxin (ie cipro, pyridium, NSAIDs, gabapentin) agents. Maintain adequate renal perfusion. - Trend electrolytes Metabolic acidosis w/ normal AG and bicarb depletion, acute, present on admission, active - suspected to be in the setting of GORDON - correct GORDON Macrocytic anemia, acute, present on admission, active - HGB 6.8 on presentation, FOBT negative. 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 Designates her surrogate decision maker as Lola Andrade. Home medications reviewed and reconciled accordingly. SCDs for VTE prophylaxis. No heparin, on hold in lieu of acute anemia.
[2018-08-14] MEDS: SODIUM CHLORIDE 0.9% 1,000 ML 100 ML IV ×2 (20:32→21:40)
[2018-08-14 21:55] LABS: Magnesium 1.7 mg/dL (1.6-2.3)
[2018-08-14 21:55] LABS: Appearance Urine UA SL CLOUDY; Bacteria Urine Occasional (0-1); Color Urine UA ORANGE; RBC Urine 0-1/HPF (0-5/HPF); Squamous Epithelial Cell Urine 0-1 /HPF (0-5/HPF); Urine Comments NOTE:; WBC Urine 5-10/HPF (0-5/HPF)
[2018-08-14 21:56] LABS: Culture Indicated Urine Specimen Cultured
[2018-08-14 21:57] LABS: Ictotest Urine Positive (Negative)
[2018-08-14 21:57] LABS: BUN Creatinine Ratio 19.5 (6-22); Blood Urea Nitrogen 43 mg/dL (7-17); Calcium 7.7 mg/dL (8.4-10.2); Carbon Dioxide 17 mmol/L (22-32); Chloride 115 mmol/L (98-107); Glucose 93 mg/dL (80-110); HEMOLYSIS < 15 (0-50); Potassium 5.1 mmol/L (3.4-5.1); Sodium 140 mmol/L (137-145)
[2018-08-15] VITALS (14 sets, daily range): BP systolic 84–109; BP diastolic 48–67; PULSE 76–87; RESP 12–22; TEMP 36.5–36.6; O2SAT 92–94
[2018-08-15] MEDS: SODIUM CHLORIDE 0.9% 1,000 ML 250 ML IV ×2 (02:23→06:48)
--- NOTE | 2018-08-15 02:40 | PC.NURSE ---
0100-Patient is lethargic, but rouses to voice and aware she is at [facility] but does not know why or how she got here. Remains hypotensive 80s/40s with MAP >60, UOP low, EX CHEF aware and ordered NS @ 250ml/hr X4 hrs. SR, PACs, occasional brief episodes tachycardia x3, see vital trends. SpO2 >92% on 4L NC.
[2018-08-15 03:04] LABS: Add Manual Diff / Slide Review NO; Basophils Absolute Auto 100 /uL (0-100); Eosinophils Absolute Auto 200 /uL (0-450); Eosinophils Percent Auto 1.8 % (2-4); Hemoglobin 7.5 g/dL (12.0-16.0); Lymphocytes Absolute Auto 1400 /uL (1100-4500); Lymphocytes Percent Auto 17.2 % (25-40); Mean Corpuscular HGB Conc 31.2 % (30-36); Mean Corpuscular Hemoglobin 31.8 PG (26-34); Mean Corpuscular Volume 101.9 fL (80-100); Monocytes Absolute Auto 600 /uL (0-900); Monocytes Percent Auto 6.6 % (3-14); Neutrophils Absolute Auto 6200 /uL (1500-7000); Neutrophils Percent Auto 73.4 % (50-75); Platelet Count 164 X10^3/uL (150-400); Red Blood Cell Count 2.36 X10^6/uL (4.0-5.2); Red Cell Distribution Width 29.5 % (11.6-14.8); White Blood Cell Count 8.4 X10^3/uL (4.5-11.0)
[2018-08-15 03:26] LABS: Blood Urea Nitrogen 45 mg/dL (7-17); Calcium 7.4 mg/dL (8.4-10.2); Carbon Dioxide 18 mmol/L (22-32); Chloride 117 mmol/L (98-107); Glucose 88 mg/dL (80-110); HEMOLYSIS < 15 (0-50); Sodium 139 mmol/L (137-145)
[2018-08-15 03:27] LABS: Potassium 5.5 mmol/L (3.4-5.1)
[2018-08-15 03:54] LABS: Anisocytosis 3+; Macrocytosis 2+
[2018-08-15 04:26] LABS: Alanine Aminotransferase 17 IU/L (9-52); Albumin 2.8 g/dL (3.5-5.0); Alkaline Phosphatase 27 U/L (38-126); Aspartate Aminotransferase 22 IU/L (14-36); Bilirubin Conjugated 0.1 md/dL (0.0-0.3); Bilirubin Total 1.1 mg/dL (0.2-1.3); Bilirubin Unconjugated 1.5 mg/dL (0.0-1.1); Globulin 2.7 g/dL (1.7-4.1); HEMOLYSIS < 15 (0-50); Total Protein 5.5 g/dL (6.3-8.2)
[2018-08-15 04:55] LABS: HCO3 ABG 17 mmol/L (22-26); Oxygen Saturation ABG 99 % (95-100); PCO2 ABG 41.6 mmHg (35-45); PO2 ABG 155 mmHg (80-100); TCO2 ABG 19 mmol/L (21-31); pH ABG 7.23 (7.35-7.45)
[2018-08-15 04:56] LABS: Fractionated Inspired Oxygen 36
[2018-08-15] MEDS: CALCIUM GLUCONATE 9.3 MEQ in SODIUM CHLORIDE 0.9% 50 ML 140 ML IV (05:56)
[2018-08-15] MEDS: INSULIN REGULAR 100 UNIT/ML 3 ML VIAL 10 UNIT IV (06:45)
[2018-08-15] MEDS: DEXTROSE 50 % IN WATER 25 GM/50 ML SYRINGE IV (06:45)
--- NOTE | 2018-08-15 07:01 | DI.CT.S_ITS ---
PROCEDURE: CT ABDOMEN PELVIS WO CON INDICATIONS: abdominal, pelvic pain TECHNIQUE: Noncontrast 5 mm thick sections acquired from the diaphragms to the symphysis. 5 mm coronal and sagittal reformats were then performed. For radiation dose reduction, the following was used: automated exposure control, adjustment of mA and/or kV according to patient size. COMPARISON: Merged With [facility], US, US ABDOMEN LIMITED, 06/16/2018, 9:11. Merged With [facility], CT, CT ABDOMEN PELVIS W CON, 07/09/2018, 20:07. FINDINGS: Image quality: Excellent. ABDOMEN: Lung bases: Minimal bibasilar atelectasis. Heart size is normal. Solid organs: Liver is normal in size. A previously none right lobe liver cyst is noted. The gallbladder wall is thickened and edematous.. Pancreas is normal in contours. Mild splenomegaly. No adrenal nodules. The kidneys are both edematous in appearance. This can be seen by comparing previous image 36/2 and current image 39/2. On this image the right kidney in axial dimensions previously measured 3.8 x 4.9 cm and currently measures 4.3 x 5.6 cm. In the left kidney is also edematous. On the coronal reformats, on previous image 33/4 it measured 5.2 x 10.3 cm. On current image 30/4 it measures 6.1 x 11.0 cm. No renal stones or hydronephrosis. Peritoneum and bowel: Unenhanced bowel loops demonstrate normal wall thickness and caliber. Minimal ascites. No free air or abscess cavity. Nodes and vessels: No retroperitoneal or mesenteric adenopathy by size criteria. Aorta and inferior vena cava are normal in caliber. Miscellaneous: No ventral hernias. PELVIS: Genitourinary: A Kee catheter is present in the bladder. Miscellaneous: No inguinal hernias or adenopathy. Remote hysterectomy. Bones: No suspicious bony lesions. No vertebral body compression fractures. Remote L4-S1 posterior lateral suri and pedicle screw fixation. IMPRESSION: 1. Bilateral kidneys are edematous and enlarged. There are no renal stones. There is no hydronephrosis. 2. Gallbladder wall is thickened and edematous. 3. Minimal bibasilar atelectasis. Comment: Consider ultrasound or HIDA to further evaluate the gallbladder. Dictated by: Marcel Raymundo M.D. on 08/15/2018 at 7:40 Approved by: Marcel Raymundo M.D. on 08/15/2018 at 7:53
--- NOTE | 2018-08-15 07:54 | PM.CN ---
History of Present Illness Date Patient Seen: 08/15/18 Time Patient Seen: 07:40 Chief complaint: Difficulty breathing,not able to stand Reason for consult: anemia Requesting provider: Jael Peña Narrative: 72yo F brought to ED by family for confusion and lightheadedness. Found to be anemic to 6.7 from 11 in June of this year. Pt is a poor historian and is able to answer some questions but remains confused and uncertain of details and timeline. She is not able to verbalize when she started to feel bad or what feels bad. She says she has mostly been fine and in good health, eating well, bowels moving like normal, no noted blood losses. Says she started a new med recently, an antibiotic, and is not sure for what. On questioning, she then says she has had balance and lightheadedness issues for some time. She says she had a colonoscopy recently and thinks she 'had something in her colon.' She is tired and 'just doesn't feel right' but is unable to qualify that further. Per hospital records, pt was seen about 6 months ago for constipation and underwent a colonoscopy noting diverticulosis and a long, tortuous colon. She was then admitted in early June for confusion and lightheadedness. She c/o abd pain so a CT was done which was concerning for colitis. She underwent a flex-sig that showed no inflammation or bleeding and noted only pale mucosa. She also had a pressure sore on her buttock which was opened. FORMERLY [facility] Medical History History of hysterectomy (Acute) Pulmonary embolism (Acute) Right shoulder injury (Acute) Surgical History History of lumbar laminectomy (Acute) Social History household members: none Smoking Status: Current every day smoker alcohol intake: never Social History household members: none Smoking Status: Current every day smoker alcohol intake: never Meds Home Medications Medication Instructions Recorded Confirmed Type gabapentin [Neurontin] 600 mg PO TID #0 03/01/17 08/14/18 History bisacodyl 10 mg OH DAILY PRN #30 ea 06/19/18 08/14/18 Rx docusate sodium 100 mg PO BID #60 cap 06/19/18 08/14/18 Rx fentanyl 1 patch TOPICAL Q3D #0 ea 06/19/18 08/14/18 Rx nicotine 21 mg TOPICAL DAILY #30 ea 06/19/18 08/14/18 Rx polyethylene glycol 3350 17 gm PO DAILY #30 ea 06/19/18 08/14/18 Rx sennosides [senna] 17.2 mg PO DAILY PRN #30 tab 06/19/18 08/14/18 Rx ciprofloxacin HCl [Cipro] 500 mg PO BID 08/14/18 08/14/18 History hyoscyamine sulfate 0.125 mg PO Q6H PRN 08/14/18 08/14/18 History lidocaine [Lidoderm] 1 patch TOPICAL DAILY 08/14/18 08/14/18 History Allergies Allergy/AdvReac Type Severity Reaction Status Date / Time oxybutynin Allergy Severe Difficulty Verified 08/14/18 13:40 Breathing acetaminophen [From [facility]] Allergy Unknown Verified 08/14/18 13:40 hydrocodone [From [place]] Allergy Unknown Verified 08/14/18 13:40 hydromorphone Allergy Difficulty Verified 08/14/18 13:41 Breathing meloxicam AdvReac Intermediate Nausea Verified 08/14/18 13:40 tramadol AdvReac Intermediate Vomiting Verified 08/14/18 13:40 fentanyl [From Duragesic] AdvReac Mild Rash Verified 08/14/18 13:40 ciprofloxacin [From Cipro] AdvReac Unknown Verified 08/14/18 13:40 morphine AdvReac Fainting Verified 08/14/18 13:40 Review of Systems Constitutional Constitutional: Reports as per HPI Exam Vital Signs (past 8 hours): - 08/15/18 00:00 08/15/18 00:01 08/15/18 01:12 Temperature Pulse Rate 81 76 Respiratory Rate 12 12 Blood Pressure 87/49 L 84/51 L Pulse Oximetry 94 94 94 08/15/18 02:06 08/15/18 03:08 08/15/18 03:57 Temperature Pulse Rate 79 87 Respiratory Rate 14 22 Blood Pressure 104/59 L 100/58 L Pulse Oximetry 94 94 94 08/15/18 04:01 08/15/18 05:14 08/15/18 06:04 Temperature 97.9 F Pulse Rate 79 83 83 Respiratory Rate 16 18 15 Blood Pressure 100/56 L 109/67 96/48 L Pulse Oximetry 94 92 93 08/15/18 07:00 Temperature 97.9 F Pulse Rate 79 Respiratory Rate 14 Blood Pressure 95/57 L Pulse Oximetry 92 Oxygen Delivery Method Nasal Cannula Oxygen Flow Rate 4 Narrative Exam Narrative: AAO but confused on recent details, NAD, female of healthy weight EOMI, dry lips, no scleral icterus, no pallor of tongue unlabored RA soft, nt/nd MAEW visible skin dry and intact Objective Labs Result Diagrams: 08/15/18 07:44 08/15/18 07:44 Labs: Laboratory Results - last 24 hr 08/14/18 08/14/18 08/14/18 11:39 11:39 11:39 WBC 10.8 RBC 1.87 L Hgb 6.7 L* Hct 21.8 L MCV 116.4 H MCH 35.5 H MCHC 30.5 RDW 20.4 H Plt Count 232 Neut % (Auto) 78.2 H Lymph % (Auto) 13.8 L [place] % (Auto) 5.7 Eos % (Auto) 1.4 L Baso % (Auto) 0.9 Neut # (Auto) 8400 H Lymph # (Auto) 1500 [place] # (Auto) 600 Eos # (Auto) 200 Baso # (Auto) 100 RBC Morphology See below Polychromasia 2+ H Hypochromasia 1+ H Anisocytosis 2+ H Macrocytosis PT INR ABG pH ABG pCO2 ABG pO2 ABG HCO3 ABG Total CO2 ABG O2 Saturation ABG Base Excess FiO2 Sodium 139 Potassium 5.2 H Chloride 109 H Carbon Dioxide 20 L BUN 44 H Creatinine 2.00 H Estimated GFR 24.6 L BUN/Creatinine Ratio 22.0 Glucose 133 H Lactate Calcium 8.8 Magnesium Total Bilirubin 1.7 H Conjugated Bilirubin Unconjugated Bilirubin AST 34 ALT 13 Alkaline Phosphatase 47 Ammonia Total Creatine Kinase CK-MB (CK-2) CK-MB (CK-2) Rel Index Troponin I B-Natriuretic Peptide Total Protein 7.4 Albumin 4.1 Globulin 3.3 Albumin/Globulin Ratio 1.2 Amylase 98 Lipase 93 Urine Color Urine Appearance Urine pH Ur Specific [place] Urine Protein Urine Glucose (UA) Urine Ketones Urine Occult Blood Urine Nitrate Urine Bilirubin Urine Ictotest Urine Urobilinogen Ur Leukocyte Esterase Urine RBC Urine WBC Ur Squamous Epith Cells Amorphous Sediment Urine Bacteria Ur Culture Indicated? Micro UA Comment Nasal Screen MRSA (PCR) Salicylates Urine Opiates Screen Ur Oxycodone Screen Urine Methadone Screen Acetaminophen Ur Barbiturates Screen U Tricyclic Antidepress Ur Phencyclidine Scrn Ur Amphetamines Screen U Methamphetamines Scrn Ur MDMA Scrn (Ecstasy) U Benzodiazepines Scrn Urine Cocaine Screen U Marijuana (THC) Screen Ethyl Alcohol Blood Type B Positive Antibody Screen Negative Crossmatch See Detail 08/14/18 08/14/18 08/14/18 11:39 11:39 11:39 WBC RBC Hgb Hct MCV MCH MCHC RDW Plt Count Neut % (Auto) Lymph % (Auto) [place] % (Auto) Eos % (Auto) Baso % (Auto) Neut # (Auto) Lymph # (Auto) [place] # (Auto) Eos # (Auto) Baso # (Auto) RBC Morphology Polychromasia Hypochromasia Anisocytosis Macrocytosis PT 12.4 INR 1.1 ABG pH ABG pCO2 ABG pO2 ABG HCO3 ABG Total CO2 ABG O2 Saturation ABG Base Excess FiO2 Sodium Potassium Chloride Carbon Dioxide BUN Creatinine Estimated GFR BUN/Creatinine Ratio Glucose Lactate Calcium Magnesium Total Bilirubin Conjugated Bilirubin Unconjugated Bilirubin AST ALT Alkaline Phosphatase Ammonia Total Creatine Kinase 53 CK-MB (CK-2) TNP CK-MB (CK-2) Rel Index TNP Troponin I < 0.012 B-Natriuretic Peptide 108 H Total Protein Albumin Globulin Albumin/Globulin Ratio Amylase Lipase Urine Color Urine Appearance Urine pH Ur Specific [place] Urine Protein Urine Glucose (UA) Urine Ketones Urine Occult Blood Urine Nitrate Urine Bilirubin Urine Ictotest Urine Urobilinogen Ur Leukocyte Esterase Urine RBC Urine WBC Ur Squamous Epith Cells Amorphous Sediment Urine Bacteria Ur Culture Indicated? Micro UA Comment Nasal Screen MRSA (PCR) Salicylates Urine Opiates Screen Ur Oxycodone Screen Urine Methadone Screen Acetaminophen Ur Barbiturates Screen U Tricyclic Antidepress Ur Phencyclidine Scrn Ur Amphetamines Screen U Methamphetamines Scrn Ur MDMA Scrn (Ecstasy) U Benzodiazepines Scrn Urine Cocaine Screen U Marijuana (THC) Screen Ethyl Alcohol Blood Type Antibody Screen Crossmatch 08/14/18 08/14/18 08/14/18 11:39 12:50 12:50 WBC RBC Hgb Hct MCV MCH MCHC RDW Plt Count Neut % (Auto) Lymph % (Auto) [place] % (Auto) Eos % (Auto) Baso % (Auto) Neut # (Auto) Lymph # (Auto) [place] # (Auto) Eos # (Auto) Baso # (Auto) RBC Morphology Polychromasia Hypochromasia Anisocytosis Macrocytosis PT INR ABG pH ABG pCO2 ABG pO2 ABG HCO3 ABG Total CO2 ABG O2 Saturation ABG Base Excess FiO2 Sodium Potassium Chloride Carbon Dioxide BUN Creatinine Estimated GFR BUN/Creatinine Ratio Glucose Lactate 0.9 Calcium Magnesium Total Bilirubin Conjugated Bilirubin Unconjugated Bilirubin AST ALT Alkaline Phosphatase Ammonia < 9.0 L Total Creatine Kinase CK-MB (CK-2) CK-MB (CK-2) Rel Index Troponin I B-Natriuretic Peptide Total Protein Albumin Globulin Albumin/Globulin Ratio Amylase Lipase Urine Color Urine Appearance Urine pH Ur Specific [place] Urine Protein Urine Glucose (UA) Urine Ketones Urine Occult Blood Urine Nitrate Urine Bilirubin Urine Ictotest Urine Urobilinogen Ur Leukocyte Esterase Urine RBC Urine WBC Ur Squamous Epith Cells Amorphous Sediment Urine Bacteria Ur Culture Indicated? Micro UA Comment Nasal Screen MRSA (PCR) Salicylates < 1.0 Urine Opiates Screen Ur Oxycodone Screen Urine Methadone Screen Acetaminophen < 10 L Ur Barbiturates Screen U Tricyclic Antidepress Ur Phencyclidine Scrn Ur Amphetamines Screen U Methamphetamines Scrn Ur MDMA Scrn (Ecstasy) U Benzodiazepines Scrn Urine Cocaine Screen U Marijuana (THC) Screen Ethyl Alcohol < 10 Blood Type Antibody Screen Crossmatch 08/14/18 08/14/18 08/14/18 13:10 14:41 15:36 WBC RBC Hgb Hct MCV MCH MCHC RDW Plt Count Neut % (Auto) Lymph % (Auto) [place] % (Auto) Eos % (Auto) Baso % (Auto) Neut # (Auto) Lymph # (Auto) [place] # (Auto) Eos # (Auto) Baso # (Auto) RBC Morphology Polychromasia Hypochromasia Anisocytosis Macrocytosis PT INR ABG pH 7.28 L* ABG pCO2 43.7 ABG pO2 121 H ABG HCO3 20 L ABG Total CO2 22 ABG O2 Saturation 98 ABG Base Excess -6.0 L FiO2 0.32 Sodium Potassium Chloride Carbon Dioxide BUN Creatinine Estimated GFR BUN/Creatinine Ratio Glucose Lactate Calcium Magnesium Total Bilirubin Conjugated Bilirubin Unconjugated Bilirubin AST ALT Alkaline Phosphatase Ammonia Total Creatine Kinase CK-MB (CK-2) CK-MB (CK-2) Rel Index Troponin I B-Natriuretic Peptide Total Protein Albumin Globulin Albumin/Globulin Ratio Amylase Lipase Urine Color [place] Urine Appearance Cloudy Urine pH Ur Specific [place] Not Reportable Urine Protein Not Reportable Urine Glucose (UA) Negative Urine Ketones Negative Urine Occult Blood Not Reportable Urine Nitrate Not Reportable Urine Bilirubin Not Reportable Urine Ictotest Urine Urobilinogen Not Reportable Ur Leukocyte Esterase Not Reportable Urine RBC None seen Urine WBC None seen Ur Squamous Epith Cells 1-5 /hpf Amorphous Sediment 3+ Urine Bacteria Few (2-10) H Ur Culture Indicated? Cult not indicated Micro UA Comment Nasal Screen MRSA (PCR) Salicylates Urine Opiates Screen Negative Ur Oxycodone Screen Negative Urine Methadone Screen Negative Acetaminophen Ur Barbiturates Screen Negative U Tricyclic Antidepress Negative Ur Phencyclidine Scrn Negative Ur Amphetamines Screen Negative U Methamphetamines Scrn Negative Ur MDMA Scrn (Ecstasy) Negative U Benzodiazepines Scrn Negative Urine Cocaine Screen Negative U Marijuana (THC) Screen TNP Ethyl Alcohol Blood Type Antibody Screen Crossmatch 08/14/18 08/14/18 08/14/18 18:17 18:17 20:05 WBC RBC Hgb 6.8 L* Hct 21.8 L MCV MCH MCHC RDW Plt Count Neut % (Auto) Lymph % (Auto) [place] % (Auto) Eos % (Auto) Baso % (Auto) Neut # (Auto) Lymph # (Auto) [place] # (Auto) Eos # (Auto) Baso # (Auto) RBC Morphology Polychromasia Hypochromasia Anisocytosis Macrocytosis PT INR ABG pH ABG pCO2 ABG pO2 ABG HCO3 ABG Total CO2 ABG O2 Saturation ABG Base Excess FiO2 Sodium 139 Potassium 5.1 Chloride 115 H Carbon Dioxide 20 L BUN 42 H Creatinine 2.00 H Estimated GFR 24.6 L BUN/Creatinine Ratio 21.0 Glucose 87 Lactate Calcium 7.2 L Magnesium Total Bilirubin Conjugated Bilirubin Unconjugated Bilirubin AST ALT Alkaline Phosphatase Ammonia Total Creatine Kinase CK-MB (CK-2) CK-MB (CK-2) Rel Index Troponin I < 0.012 B-Natriuretic Peptide Total Protein Albumin Globulin Albumin/Globulin Ratio Amylase Lipase Urine Color Urine Appearance Urine pH Ur Specific [place] Urine Protein Urine Glucose (UA) Urine Ketones Urine Occult Blood Urine Nitrate Urine Bilirubin Urine Ictotest Urine Urobilinogen Ur Leukocyte Esterase Urine RBC Urine WBC Ur Squamous Epith Cells Amorphous Sediment Urine Bacteria Ur Culture Indicated? Micro UA Comment Nasal Screen MRSA (PCR) Negative for mrsa Salicylates Urine Opiates Screen Ur Oxycodone Screen Urine Methadone Screen Acetaminophen Ur Barbiturates Screen U Tricyclic Antidepress Ur Phencyclidine Scrn Ur Amphetamines Screen U Methamphetamines Scrn Ur MDMA Scrn (Ecstasy) U Benzodiazepines Scrn Urine Cocaine Screen U Marijuana (THC) Screen Ethyl Alcohol Blood Type Antibody Screen Crossmatch 08/14/18 08/14/18 08/14/18 21:00 21:00 21:24 WBC RBC Hgb 8.0 L Hct MCV MCH MCHC RDW Plt Count Neut % (Auto) Lymph % (Auto) [place] % (Auto) Eos % (Auto) Baso % (Auto) Neut # (Auto) Lymph # (Auto) [place] # (Auto) Eos # (Auto) Baso # (Auto) RBC Morphology Polychromasia Hypochromasia Anisocytosis Macrocytosis PT INR ABG pH ABG pCO2 ABG pO2 ABG HCO3 ABG Total CO2 ABG O2 Saturation ABG Base Excess FiO2 Sodium Potassium Chloride Carbon Dioxide BUN Creatinine Estimated GFR BUN/Creatinine Ratio Glucose Lactate Calcium Magnesium Total Bilirubin Conjugated Bilirubin Unconjugated Bilirubin AST ALT Alkaline Phosphatase Ammonia Total Creatine Kinase CK-MB (CK-2) CK-MB (CK-2) Rel Index Troponin I B-Natriuretic Peptide Total Protein Albumin Globulin Albumin/Globulin Ratio Amylase Lipase Urine Color [place] Urine Appearance Sl cloudy Urine pH TNP Ur Specific [place] TNP Urine Protein TNP Urine Glucose (UA) TNP Urine Ketones TNP Urine Occult Blood TNP Urine Nitrate TNP Urine Bilirubin TNP Urine Ictotest Positive H Urine Urobilinogen TNP Ur Leukocyte Esterase TNP Urine RBC 0-1/hpf Urine WBC 5-10/hpf H Ur Squamous Epith Cells 0-1 /hpf Amorphous Sediment Urine Bacteria Occasional (0-1) Ur Culture Indicated? Specimen cultured Micro UA Comment Note: Nasal Screen MRSA (PCR) Salicylates Urine Opiates Screen Ur Oxycodone Screen Urine Methadone Screen Acetaminophen Ur Barbiturates Screen U Tricyclic Antidepress Ur Phencyclidine Scrn Ur Amphetamines Screen U Methamphetamines Scrn Ur MDMA Scrn (Ecstasy) U Benzodiazepines Scrn Urine Cocaine Screen U Marijuana (THC) Screen Ethyl Alcohol Blood Type Antibody Screen Crossmatch 08/14/18 08/14/18 08/15/18 21:24 21:24 02:52 WBC 8.4 RBC 2.36 L Hgb 7.5 L Hct 24.0 L MCV 101.9 H D MCH 31.8 MCHC 31.2 RDW 29.5 H Plt Count 164 Neut % (Auto) 73.4 Lymph % (Auto) 17.2 L [place] % (Auto) 6.6 Eos % (Auto) 1.8 L Baso % (Auto) 1.0 Neut # (Auto) 6200 Lymph # (Auto) 1400 [place] # (Auto) 600 Eos # (Auto) 200 Baso # (Auto) 100 RBC Morphology See below Polychromasia Hypochromasia Anisocytosis 3+ H Macrocytosis 2+ H PT INR ABG pH ABG pCO2 ABG pO2 ABG HCO3 ABG Total CO2 ABG O2 Saturation ABG Base Excess FiO2 Sodium 140 Potassium 5.1 Chloride 115 H Carbon Dioxide 17 L BUN 43 H Creatinine 2.20 H Estimated GFR 22.0 L BUN/Creatinine Ratio 19.5 Glucose 93 Lactate Calcium 7.7 L Magnesium 1.7 Total Bilirubin Conjugated Bilirubin Unconjugated Bilirubin AST ALT Alkaline Phosphatase Ammonia Total Creatine Kinase CK-MB (CK-2) CK-MB (CK-2) Rel Index Troponin I B-Natriuretic Peptide Total Protein Albumin Globulin Albumin/Globulin Ratio Amylase Lipase Urine Color Urine Appearance Urine pH Ur Specific [place] Urine Protein Urine Glucose (UA) Urine Ketones Urine Occult Blood Urine Nitrate Urine Bilirubin Urine Ictotest Urine Urobilinogen Ur Leukocyte Esterase Urine RBC Urine WBC Ur Squamous Epith Cells Amorphous Sediment Urine Bacteria Ur Culture Indicated? Micro UA Comment Nasal Screen MRSA (PCR) Salicylates Urine Opiates Screen Ur Oxycodone Screen Urine Methadone Screen Acetaminophen Ur Barbiturates Screen U Tricyclic Antidepress Ur Phencyclidine Scrn Ur Amphetamines Screen U Methamphetamines Scrn Ur MDMA Scrn (Ecstasy) U Benzodiazepines Scrn Urine Cocaine Screen U Marijuana (THC) Screen Ethyl Alcohol Blood Type Antibody Screen Crossmatch 08/15/18 08/15/18 08/15/18 02:52 02:52 04:39 WBC RBC Hgb Hct MCV MCH MCHC RDW Plt Count Neut % (Auto) Lymph % (Auto) [place] % (Auto) Eos % (Auto) Baso % (Auto) Neut # (Auto) Lymph # (Auto) [place] # (Auto) Eos # (Auto) Baso # (Auto) RBC Morphology Polychromasia Hypochromasia Anisocytosis Macrocytosis PT INR ABG pH 7.23 L* ABG pCO2 41.6 ABG pO2 155 H ABG HCO3 17 L ABG Total CO2 19 L ABG O2 Saturation 99 ABG Base Excess -10.0 L FiO2 36 Sodium 139 Potassium 5.5 H Chloride 117 H Carbon Dioxide 18 L BUN 45 H Creatinine 2.50 H Estimated GFR 19.0 L BUN/Creatinine Ratio 18.0 Glucose 88 Lactate Calcium 7.4 L Magnesium Total Bilirubin 1.1 Conjugated Bilirubin 0.1 Unconjugated Bilirubin 1.5 H AST 22 ALT 17 Alkaline Phosphatase 27 L Ammonia Total Creatine Kinase CK-MB (CK-2) CK-MB (CK-2) Rel Index Troponin I B-Natriuretic Peptide Total Protein 5.5 L Albumin 2.8 L Globulin 2.7 Albumin/Globulin Ratio 1.0 Amylase Lipase Urine Color Urine Appearance Urine pH Ur Specific [place] Urine Protein Urine Glucose (UA) Urine Ketones Urine Occult Blood Urine Nitrate Urine Bilirubin Urine Ictotest Urine Urobilinogen Ur Leukocyte Esterase Urine RBC Urine WBC Ur Squamous Epith Cells Amorphous Sediment Urine Bacteria Ur Culture Indicated? Micro UA Comment Nasal Screen MRSA (PCR) Salicylates Urine Opiates Screen Ur Oxycodone Screen Urine Methadone Screen Acetaminophen Ur Barbiturates Screen U Tricyclic Antidepress Ur Phencyclidine Scrn Ur Amphetamines Screen U Methamphetamines Scrn Ur MDMA Scrn (Ecstasy) U Benzodiazepines Scrn Urine Cocaine Screen U Marijuana (THC) Screen Ethyl Alcohol Blood Type Antibody Screen Crossmatch Assessment & Plan Assessment & Plan narrative: Anemia - unclear source, pt denies blood loss but is confused and unreliable - no vomiting blood or active GI losses - has had recent colonoscopy and flex sig, known diverticulosis is possible source but significant loss in 2 months and pt not anti-coagulated - planned to perform EGD today to eval for upper source but pt being transferred Confusion - metabolic encephalopathy, pt being transferred for worsening clinical picture
[2018-08-15 08:02] LABS: Add Manual Diff / Slide Review NO; Basophils Absolute Auto 100 /uL (0-100); Basophils Percent Auto 0.8 % (0-2); Eosinophils Absolute Auto 200 /uL (0-450); Eosinophils Percent Auto 2.1 % (2-4); Hematocrit 24.1 % (36-46); Hemoglobin 7.6 g/dL (12.0-16.0); Lymphocytes Absolute Auto 1600 /uL (1100-4500); Mean Corpuscular HGB Conc 31.4 % (30-36); Mean Corpuscular Hemoglobin 32.3 PG (26-34); Mean Corpuscular Volume 102.6 fL (80-100); Monocytes Absolute Auto 600 /uL (0-900); Monocytes Percent Auto 7.4 % (3-14); Neutrophils Absolute Auto 6000 /uL (1500-7000); Neutrophils Percent Auto 70.7 % (50-75); Platelet Count 163 X10^3/uL (150-400); Red Blood Cell Count 2.34 X10^6/uL (4.0-5.2); Red Cell Distribution Width 29.2 % (11.6-14.8); White Blood Cell Count 8.5 X10^3/uL (4.5-11.0)
[2018-08-15 08:21] LABS: Blood Urea Nitrogen 46 mg/dL (7-17); Calcium 8.1 mg/dL (8.4-10.2); Carbon Dioxide 17 mmol/L (22-32); Chloride 117 mmol/L (98-107); Estimated Glomerular Filt Rate 17.4 mL/min (>60); Glucose 128 mg/dL (80-110); HEMOLYSIS < 15 (0-50); Sodium 140 mmol/L (137-145)
[2018-08-15 08:33] LABS: Lactate Dehydrogenase 637 U/L (313-618); Macrocytosis 1+
[2018-08-15 08:34] LABS: Anisocytosis 3+; Polychromasia 1+
[2018-08-15 09:12] LABS: Sodium Urine Random 40 mmol/L (30-90)
--- NOTE | 2018-08-15 09:14 | P.DS_ITS ---
History of Present Illness Date Patient Seen: 08/15/18 Time Patient Seen: 09:13 Chief complaint: Difficulty breathing,not able to stand Narrative: 72-year-old female with past medical history of PE, recurrent rectal pain, low back pain with chronic fentanyl patch use for pain control, chronic oxygen use (reason unclear, per patient on 4 L) was brought in on a wheelchair by her [id number] with concerns of altered mental status and difficulty breathing. Patient lives on her own, and therefore initial history was difficult to obtain. On ED assessment, patient was found to be wearing 2 fentanyl patches. Discharge Providers Date of admission: 08/14/18 17:24 Discharge Date: 08/15/18 Primary care physician: Chucky Velazquez MD Consults: 08/14/18 20:53 Consult to Dietitian, Adult Routine Comment: Reason For Exam: assessed at high risk Consult to Pesticide Applicator Routine Comment: 08/14/18 22:28 Consult to Dietitian, Adult Routine Comment: Reason For Exam: assessed at high risk Consult to Pesticide Applicator Routine Comment: Discharge provider: Thu Schroeder MD Summary Discharge Diagnosis: Acute hemolysis Acute Renal failure Acute encephalopathy, resolving, fentanyl induced Hospital Course: In ED, patient's vitals revealed temperature 98.0? F, blood pressure 128/71, heart rate 125, respiratory rate 15, saturating 86% on room air. GCS was 15. Patient was given Narcan with improvement in mental status however patient continued to fall asleep when not stimulated. Patient at that time complained of dizziness and lightheadedness, as well as frequent falls. She has also been complaining of pelvic discomfort for 1 month duration associated with dysuria. Patient states that she has been diagnosed with UTI per her primary care provider and has been taking ciprofloxacin 500 mg b.i.d. since August 02. Patient also has been self medicating with Pyridium over the counter medication, 9 pills per day. Presenting lab work revealed: WBC 10.8 Hgb 6.7 (repeat 6.8) Plt 232 Lactate 0.9 Ammonia < 9.0 Na 139 K 5.2 Cl 109 Ca 8.8 Alb 4.1 Glu 133 CO2 20 BUN 44 Cr 2.0 GFR 24.6 BUN/Cr 22 T. Bili 1.7 AST 34 ALT 13 Alk Phos 47 CK 53 Amylase 93 Lipase 93 Trop < 0.012 BNP 108 AB.28/43/121/22 UDS: Tylenol, Salicylate, and Alcohol levels are NEGATIVE CXR: negative for acute cardiopulmonary disease CT Head: negative for acute findings Patient was given 2 units packed red blood cells in ED. Blood pressure was noted to drop to 85/50 in patient was started on IV fluids. She was admitted for further management of anemia, GORDON, and monitoring of mental status. Over the course of hospital stay, patient's hemoglobin has improved to a 8.0 after transfusion, however dropped to 7.6 on repeat checks. Unconjugated bilirubin was 1.5, and lactate dehydrogenase was 637, concerning for hemolysis. Patient's renal function continued to deteriorate: On admission BUN was 42 and creatinine was 2.0, which worsened to BUN of 46 and creatinine of 2.7 by the time of transfer. FeNa calculation revealed pre renal source, 0.8%. Patient received a total of 5351 mL IV fluids with [address] abdomen pelvis was conducted which revealed edematous and enlarged kidneys, but no hydronephrosis or renal stones. Gallbladder was also thickened and edematous. Patient's blood pressure was maintained with map above 65 on IV fluids 250 cc/hour, but UOP was minimal. BLadder scans revealed <20ml. I have spoken to Dr. Bain at [facility], who agreed to have patient transferred for further management of acute renal failure, with the possibility of near future dialysis. Status at Discharge Cognitive/behavioral status at discharge: oriented Functional status at discharge: bed bound Overall status at discharge: patient is not back to baseline Time Spent with Patient Greater than 30 minutes Exam Vital Signs (past 8 hours): - 08/15/18 02:06 08/15/18 03:08 08/15/18 03:57 Temperature Pulse Rate 79 87 Respiratory Rate 14 22 Blood Pressure 104/59 L 100/58 L Pulse Oximetry 94 94 94 08/15/18 04:01 08/15/18 05:14 08/15/18 06:04 Temperature 97.9 F Pulse Rate 79 83 83 Respiratory Rate 16 18 15 Blood Pressure 100/56 L 109/67 96/48 L Pulse Oximetry 94 92 93 08/15/18 07:00 08/15/18 08:00 08/15/18 08:51 Temperature 97.9 F Pulse Rate 79 82 Respiratory Rate 14 14 Blood Pressure 95/57 L 105/53 L Pulse Oximetry 92 93 92 Oxygen Delivery Method Nasal Cannula Oxygen Flow Rate 4 Narrative Exam Narrative: Constitutional: NAD Neurologic: Somnolent. Easily arousable. oriented to person, place, year. Slight stutter noted Head: NC, AT. Slight bruising noted on R cheek, 1x1cm Eyes: Pupils equal and reactive, EOMI, no scleral icterus Ears: external ears normal, no otorrhea Nose: external nose normal, no rhinorrhea or epistaxis Throat: DRY MM, oropharynx w/o exudate Neck: no masses, lymphadenopathy, or JVD Chest / Respiratory: equal chest rise, unlabored respiratory effort, no dyspnea or tachypnea. No wheezes or crackles Heart / CV: S1S2, no gallops or murmurs Abdomen / GI: round, NT, ND, + BS, no organomegaly : Suprapubic tenderness; Kee catheter present draining orange UOP Peripheral / Vascular: warm to touch, DP and PT pulses palpable, no edema Right foot with marked bruising and tenderness Musc: full ROM of upper and lower extremities, generalized weakness of upper and lower extremities Skin: Abrasions, and areas of ecchymoses over chest and right lower extremity, dry skin Objective Labs Result Diagrams: 08/15/18 07:44 08/15/18 07:44 Labs: Laboratory Results - last 24 hr 08/14/18 08/14/18 08/14/18 11:39 11:39 11:39 WBC 10.8 RBC 1.87 L Hgb 6.7 L* Hct 21.8 L MCV 116.4 H MCH 35.5 H MCHC 30.5 RDW 20.4 H Plt Count 232 Neut % (Auto) 78.2 H Lymph % (Auto) 13.8 L [place] % (Auto) 5.7 Eos % (Auto) 1.4 L Baso % (Auto) 0.9 Neut # (Auto) 8400 H Lymph # (Auto) 1500 [place] # (Auto) 600 Eos # (Auto) 200 Baso # (Auto) 100 RBC Morphology See below Polychromasia 2+ H Hypochromasia 1+ H Anisocytosis 2+ H Macrocytosis PT INR ABG pH ABG pCO2 ABG pO2 ABG HCO3 ABG Total CO2 ABG O2 Saturation ABG Base Excess FiO2 Sodium 139 Potassium 5.2 H Chloride 109 H Carbon Dioxide 20 L BUN 44 H Creatinine 2.00 H Estimated GFR 24.6 L BUN/Creatinine Ratio 22.0 Glucose 133 H Lactate Calcium 8.8 Magnesium Total Bilirubin 1.7 H Conjugated Bilirubin Unconjugated Bilirubin AST 34 ALT 13 Alkaline Phosphatase 47 Ammonia Lactate Dehydrogenase Total Creatine Kinase CK-MB (CK-2) CK-MB (CK-2) Rel Index Troponin I B-Natriuretic Peptide Total Protein 7.4 Albumin 4.1 Globulin 3.3 Albumin/Globulin Ratio 1.2 Amylase 98 Lipase 93 Urine Color Urine Appearance Urine pH Ur Specific [place] Urine Protein Urine Glucose (UA) Urine Ketones Urine Occult Blood Urine Nitrate Urine Bilirubin Urine Ictotest Urine Urobilinogen Ur Leukocyte Esterase Urine RBC Urine WBC Ur Squamous Epith Cells Amorphous Sediment Urine Bacteria Ur Culture Indicated? Micro UA Comment Nasal Screen MRSA (PCR) Salicylates Urine Opiates Screen Ur Oxycodone Screen Urine Methadone Screen Acetaminophen Ur Barbiturates Screen U Tricyclic Antidepress Ur Phencyclidine Scrn Ur Amphetamines Screen U Methamphetamines Scrn Ur MDMA Scrn (Ecstasy) U Benzodiazepines Scrn Urine Cocaine Screen U Marijuana (THC) Screen Ethyl Alcohol Blood Type B Positive Antibody Screen Negative Crossmatch See Detail 08/14/18 08/14/18 08/14/18 11:39 11:39 11:39 WBC RBC Hgb Hct MCV MCH MCHC RDW Plt Count Neut % (Auto) Lymph % (Auto) [place] % (Auto) Eos % (Auto) Baso % (Auto) Neut # (Auto) Lymph # (Auto) [place] # (Auto) Eos # (Auto) Baso # (Auto) RBC Morphology Polychromasia Hypochromasia Anisocytosis Macrocytosis PT 12.4 INR 1.1 ABG pH ABG pCO2 ABG pO2 ABG HCO3 ABG Total CO2 ABG O2 Saturation ABG Base Excess FiO2 Sodium Potassium Chloride Carbon Dioxide BUN Creatinine Estimated GFR BUN/Creatinine Ratio Glucose Lactate Calcium Magnesium Total Bilirubin Conjugated Bilirubin Unconjugated Bilirubin AST ALT Alkaline Phosphatase Ammonia Lactate Dehydrogenase Total Creatine Kinase 53 CK-MB (CK-2) TNP CK-MB (CK-2) Rel Index TNP Troponin I < 0.012 B-Natriuretic Peptide 108 H Total Protein Albumin Globulin Albumin/Globulin Ratio Amylase Lipase Urine Color Urine Appearance Urine pH Ur Specific [place] Urine Protein Urine Glucose (UA) Urine Ketones Urine Occult Blood Urine Nitrate Urine Bilirubin Urine Ictotest Urine Urobilinogen Ur Leukocyte Esterase Urine RBC Urine WBC Ur Squamous Epith Cells Amorphous Sediment Urine Bacteria Ur Culture Indicated? Micro UA Comment Nasal Screen MRSA (PCR) Salicylates Urine Opiates Screen Ur Oxycodone Screen Urine Methadone Screen Acetaminophen Ur Barbiturates Screen U Tricyclic Antidepress Ur Phencyclidine Scrn Ur Amphetamines Screen U Methamphetamines Scrn Ur MDMA Scrn (Ecstasy) U Benzodiazepines Scrn Urine Cocaine Screen U Marijuana (THC) Screen Ethyl Alcohol Blood Type Antibody Screen Crossmatch 08/14/18 08/14/18 08/14/18 11:39 12:50 12:50 WBC RBC Hgb Hct MCV MCH MCHC RDW Plt Count Neut % (Auto) Lymph % (Auto) [place] % (Auto) Eos % (Auto) Baso % (Auto) Neut # (Auto) Lymph # (Auto) [place] # (Auto) Eos # (Auto) Baso # (Auto) RBC Morphology Polychromasia Hypochromasia Anisocytosis Macrocytosis PT INR ABG pH ABG pCO2 ABG pO2 ABG HCO3 ABG Total CO2 ABG O2 Saturation ABG Base Excess FiO2 Sodium Potassium Chloride Carbon Dioxide BUN Creatinine Estimated GFR BUN/Creatinine Ratio Glucose Lactate 0.9 Calcium Magnesium Total Bilirubin Conjugated Bilirubin Unconjugated Bilirubin AST ALT Alkaline Phosphatase Ammonia < 9.0 L Lactate Dehydrogenase Total Creatine Kinase CK-MB (CK-2) CK-MB (CK-2) Rel Index Troponin I B-Natriuretic Peptide Total Protein Albumin Globulin Albumin/Globulin Ratio Amylase Lipase Urine Color Urine Appearance Urine pH Ur Specific [place] Urine Protein Urine Glucose (UA) Urine Ketones Urine Occult Blood Urine Nitrate Urine Bilirubin Urine Ictotest Urine Urobilinogen Ur Leukocyte Esterase Urine RBC Urine WBC Ur Squamous Epith Cells Amorphous Sediment Urine Bacteria Ur Culture Indicated? Micro UA Comment Nasal Screen MRSA (PCR) Salicylates < 1.0 Urine Opiates Screen Ur Oxycodone Screen Urine Methadone Screen Acetaminophen < 10 L Ur Barbiturates Screen U Tricyclic Antidepress Ur Phencyclidine Scrn Ur Amphetamines Screen U Methamphetamines Scrn Ur MDMA Scrn (Ecstasy) U Benzodiazepines Scrn Urine Cocaine Screen U Marijuana (THC) Screen Ethyl Alcohol < 10 Blood Type Antibody Screen Crossmatch 08/14/18 08/14/18 08/14/18 13:10 14:41 15:36 WBC RBC Hgb Hct MCV MCH MCHC RDW Plt Count Neut % (Auto) Lymph % (Auto) [place] % (Auto) Eos % (Auto) Baso % (Auto) Neut # (Auto) Lymph # (Auto) [place] # (Auto) Eos # (Auto) Baso # (Auto) RBC Morphology Polychromasia Hypochromasia Anisocytosis Macrocytosis PT INR ABG pH 7.28 L* ABG pCO2 43.7 ABG pO2 121 H ABG HCO3 20 L ABG Total CO2 22 ABG O2 Saturation 98 ABG Base Excess -6.0 L FiO2 0.32 Sodium Potassium Chloride Carbon Dioxide BUN Creatinine Estimated GFR BUN/Creatinine Ratio Glucose Lactate Calcium Magnesium Total Bilirubin Conjugated Bilirubin Unconjugated Bilirubin AST ALT Alkaline Phosphatase Ammonia Lactate Dehydrogenase Total Creatine Kinase CK-MB (CK-2) CK-MB (CK-2) Rel Index Troponin I B-Natriuretic Peptide Total Protein Albumin Globulin Albumin/Globulin Ratio Amylase Lipase Urine Color [place] Urine Appearance Cloudy Urine pH Ur Specific [place] Not Reportable Urine Protein Not Reportable Urine Glucose (UA) Negative Urine Ketones Negative Urine Occult Blood Not Reportable Urine Nitrate Not Reportable Urine Bilirubin Not Reportable Urine Ictotest Urine Urobilinogen Not Reportable Ur Leukocyte Esterase Not Reportable Urine RBC None seen Urine WBC None seen Ur Squamous Epith Cells 1-5 /hpf Amorphous Sediment 3+ Urine Bacteria Few (2-10) H Ur Culture Indicated? Cult not indicated Micro UA Comment Nasal Screen MRSA (PCR) Salicylates Urine Opiates Screen Negative Ur Oxycodone Screen Negative Urine Methadone Screen Negative Acetaminophen Ur Barbiturates Screen Negative U Tricyclic Antidepress Negative Ur Phencyclidine Scrn Negative Ur Amphetamines Screen Negative U Methamphetamines Scrn Negative Ur MDMA Scrn (Ecstasy) Negative U Benzodiazepines Scrn Negative Urine Cocaine Screen Negative U Marijuana (THC) Screen TNP Ethyl Alcohol Blood Type Antibody Screen Crossmatch 08/14/18 08/14/18 08/14/18 18:17 18:17 20:05 WBC RBC Hgb 6.8 L* Hct 21.8 L MCV MCH MCHC RDW Plt Count Neut % (Auto) Lymph % (Auto) [place] % (Auto) Eos % (Auto) Baso % (Auto) Neut # (Auto) Lymph # (Auto) [place] # (Auto) Eos # (Auto) Baso # (Auto) RBC Morphology Polychromasia Hypochromasia Anisocytosis Macrocytosis PT INR ABG pH ABG pCO2 ABG pO2 ABG HCO3 ABG Total CO2 ABG O2 Saturation ABG Base Excess FiO2 Sodium 139 Potassium 5.1 Chloride 115 H Carbon Dioxide 20 L BUN 42 H Creatinine 2.00 H Estimated GFR 24.6 L BUN/Creatinine Ratio 21.0 Glucose 87 Lactate Calcium 7.2 L Magnesium Total Bilirubin Conjugated Bilirubin Unconjugated Bilirubin AST ALT Alkaline Phosphatase Ammonia Lactate Dehydrogenase Total Creatine Kinase CK-MB (CK-2) CK-MB (CK-2) Rel Index Troponin I < 0.012 B-Natriuretic Peptide Total Protein Albumin Globulin Albumin/Globulin Ratio Amylase Lipase Urine Color Urine Appearance Urine pH Ur Specific [place] Urine Protein Urine Glucose (UA) Urine Ketones Urine Occult Blood Urine Nitrate Urine Bilirubin Urine Ictotest Urine Urobilinogen Ur Leukocyte Esterase Urine RBC Urine WBC Ur Squamous Epith Cells Amorphous Sediment Urine Bacteria Ur Culture Indicated? Micro UA Comment Nasal Screen MRSA (PCR) Negative for mrsa Salicylates Urine Opiates Screen Ur Oxycodone Screen Urine Methadone Screen Acetaminophen Ur Barbiturates Screen U Tricyclic Antidepress Ur Phencyclidine Scrn Ur Amphetamines Screen U Methamphetamines Scrn Ur MDMA Scrn (Ecstasy) U Benzodiazepines Scrn Urine Cocaine Screen U Marijuana (THC) Screen Ethyl Alcohol Blood Type Antibody Screen Crossmatch 08/14/18 08/14/18 08/14/18 21:00 21:00 21:24 WBC RBC Hgb 8.0 L Hct MCV MCH MCHC RDW Plt Count Neut % (Auto) Lymph % (Auto) [place] % (Auto) Eos % (Auto) Baso % (Auto) Neut # (Auto) Lymph # (Auto) [place] # (Auto) Eos # (Auto) Baso # (Auto) RBC Morphology Polychromasia Hypochromasia Anisocytosis Macrocytosis PT INR ABG pH ABG pCO2 ABG pO2 ABG HCO3 ABG Total CO2 ABG O2 Saturation ABG Base Excess FiO2 Sodium Potassium Chloride Carbon Dioxide BUN Creatinine Estimated GFR BUN/Creatinine Ratio Glucose Lactate Calcium Magnesium Total Bilirubin Conjugated Bilirubin Unconjugated Bilirubin AST ALT Alkaline Phosphatase Ammonia Lactate Dehydrogenase Total Creatine Kinase CK-MB (CK-2) CK-MB (CK-2) Rel Index Troponin I B-Natriuretic Peptide Total Protein Albumin Globulin Albumin/Globulin Ratio Amylase Lipase Urine Color [place] Urine Appearance Sl cloudy Urine pH TNP Ur Specific [place] TNP Urine Protein TNP Urine Glucose (UA) TNP Urine Ketones TNP Urine Occult Blood TNP Urine Nitrate TNP Urine Bilirubin TNP Urine Ictotest Positive H Urine Urobilinogen TNP Ur Leukocyte Esterase TNP Urine RBC 0-1/hpf Urine WBC 5-10/hpf H Ur Squamous Epith Cells 0-1 /hpf Amorphous Sediment Urine Bacteria Occasional (0-1) Ur Culture Indicated? Specimen cultured Micro UA Comment Note: Nasal Screen MRSA (PCR) Salicylates Urine Opiates Screen Ur Oxycodone Screen Urine Methadone Screen Acetaminophen Ur Barbiturates Screen U Tricyclic Antidepress Ur Phencyclidine Scrn Ur Amphetamines Screen U Methamphetamines Scrn Ur MDMA Scrn (Ecstasy) U Benzodiazepines Scrn Urine Cocaine Screen U Marijuana (THC) Screen Ethyl Alcohol Blood Type Antibody Screen Crossmatch 08/14/18 08/14/18 08/15/18 21:24 21:24 02:52 WBC 8.4 RBC 2.36 L Hgb 7.5 L Hct 24.0 L MCV 101.9 H D MCH 31.8 MCHC 31.2 RDW 29.5 H Plt Count 164 Neut % (Auto) 73.4 Lymph % (Auto) 17.2 L [place] % (Auto) 6.6 Eos % (Auto) 1.8 L Baso % (Auto) 1.0 Neut # (Auto) 6200 Lymph # (Auto) 1400 [place] # (Auto) 600 Eos # (Auto) 200 Baso # (Auto) 100 RBC Morphology See below Polychromasia Hypochromasia Anisocytosis 3+ H Macrocytosis 2+ H PT INR ABG pH ABG pCO2 ABG pO2 ABG HCO3 ABG Total CO2 ABG O2 Saturation ABG Base Excess FiO2 Sodium 140 Potassium 5.1 Chloride 115 H Carbon Dioxide 17 L BUN 43 H Creatinine 2.20 H Estimated GFR 22.0 L BUN/Creatinine Ratio 19.5 Glucose 93 Lactate Calcium 7.7 L Magnesium 1.7 Total Bilirubin Conjugated Bilirubin Unconjugated Bilirubin AST ALT Alkaline Phosphatase Ammonia Lactate Dehydrogenase Total Creatine Kinase CK-MB (CK-2) CK-MB (CK-2) Rel Index Troponin I B-Natriuretic Peptide Total Protein Albumin Globulin Albumin/Globulin Ratio Amylase Lipase Urine Color Urine Appearance Urine pH Ur Specific [place] Urine Protein Urine Glucose (UA) Urine Ketones Urine Occult Blood Urine Nitrate Urine Bilirubin Urine Ictotest Urine Urobilinogen Ur Leukocyte Esterase Urine RBC Urine WBC Ur Squamous Epith Cells Amorphous Sediment Urine Bacteria Ur Culture Indicated? Micro UA Comment Nasal Screen MRSA (PCR) Salicylates Urine Opiates Screen Ur Oxycodone Screen Urine Methadone Screen Acetaminophen Ur Barbiturates Screen U Tricyclic Antidepress Ur Phencyclidine Scrn Ur Amphetamines Screen U Methamphetamines Scrn Ur MDMA Scrn (Ecstasy) U Benzodiazepines Scrn Urine Cocaine Screen U Marijuana (THC) Screen Ethyl Alcohol Blood Type Antibody Screen Crossmatch 08/15/18 08/15/18 08/15/18 02:52 02:52 04:39 WBC RBC Hgb Hct MCV MCH MCHC RDW Plt Count Neut % (Auto) Lymph % (Auto) [place] % (Auto) Eos % (Auto) Baso % (Auto) Neut # (Auto) Lymph # (Auto) [place] # (Auto) Eos # (Auto) Baso # (Auto) RBC Morphology Polychromasia Hypochromasia Anisocytosis Macrocytosis PT INR ABG pH 7.23 L* ABG pCO2 41.6 ABG pO2 155 H ABG HCO3 17 L ABG Total CO2 19 L ABG O2 Saturation 99 ABG Base Excess -10.0 L FiO2 36 Sodium 139 Potassium 5.5 H Chloride 117 H Carbon Dioxide 18 L BUN 45 H Creatinine 2.50 H Estimated GFR 19.0 L BUN/Creatinine Ratio 18.0 Glucose 88 Lactate Calcium 7.4 L Magnesium Total Bilirubin 1.1 Conjugated Bilirubin 0.1 Unconjugated Bilirubin 1.5 H AST 22 ALT 17 Alkaline Phosphatase 27 L Ammonia Lactate Dehydrogenase Total Creatine Kinase CK-MB (CK-2) CK-MB (CK-2) Rel Index Troponin I B-Natriuretic Peptide Total Protein 5.5 L Albumin 2.8 L Globulin 2.7 Albumin/Globulin Ratio 1.0 Amylase Lipase Urine Color Urine Appearance Urine pH Ur Specific [place] Urine Protein Urine Glucose (UA) Urine Ketones Urine Occult Blood Urine Nitrate Urine Bilirubin Urine Ictotest Urine Urobilinogen Ur Leukocyte Esterase Urine RBC Urine WBC Ur Squamous Epith Cells Amorphous Sediment Urine Bacteria Ur Culture Indicated? Micro UA Comment Nasal Screen MRSA (PCR) Salicylates Urine Opiates Screen Ur Oxycodone Screen Urine Methadone Screen Acetaminophen Ur Barbiturates Screen U Tricyclic Antidepress Ur Phencyclidine Scrn Ur Amphetamines Screen U Methamphetamines Scrn Ur MDMA Scrn (Ecstasy) U Benzodiazepines Scrn Urine Cocaine Screen U Marijuana (THC) Screen Ethyl Alcohol Blood Type Antibody Screen Crossmatch 08/15/18 08/15/18 08/15/18 07:44 07:44 07:44 WBC 8.5 RBC 2.34 L Hgb 7.6 L Hct 24.1 L MCV 102.6 H MCH 32.3 MCHC 31.4 RDW 29.2 H Plt Count 163 Neut % (Auto) 70.7 Lymph % (Auto) 19.0 L [place] % (Auto) 7.4 Eos % (Auto) 2.1 Baso % (Auto) 0.8 Neut # (Auto) 6000 Lymph # (Auto) 1600 [place] # (Auto) 600 Eos # (Auto) 200 Baso # (Auto) 100 RBC Morphology See below Polychromasia 1+ H Hypochromasia Anisocytosis 3+ H Macrocytosis 1+ H PT INR ABG pH ABG pCO2 ABG pO2 ABG HCO3 ABG Total CO2 ABG O2 Saturation ABG Base Excess FiO2 Sodium 140 Potassium 5.0 Chloride 117 H Carbon Dioxide 17 L BUN 46 H Creatinine 2.70 H Estimated GFR 17.4 L BUN/Creatinine Ratio 17.0 Glucose 128 H Lactate Calcium 8.1 L Magnesium Total Bilirubin Conjugated Bilirubin Unconjugated Bilirubin AST ALT Alkaline Phosphatase Ammonia Lactate Dehydrogenase 637 H Total Creatine Kinase CK-MB (CK-2) CK-MB (CK-2) Rel Index Troponin I B-Natriuretic Peptide Total Protein Albumin Globulin Albumin/Globulin Ratio Amylase Lipase Urine Color Urine Appearance Urine pH Ur Specific [place] Urine Protein Urine Glucose (UA) Urine Ketones Urine Occult Blood Urine Nitrate Urine Bilirubin Urine Ictotest Urine Urobilinogen Ur Leukocyte Esterase Urine RBC Urine WBC Ur Squamous Epith Cells Amorphous Sediment Urine Bacteria Ur Culture Indicated? Micro UA Comment Nasal Screen MRSA (PCR) Salicylates Urine Opiates Screen Ur Oxycodone Screen Urine Methadone Screen Acetaminophen Ur Barbiturates Screen U Tricyclic Antidepress Ur Phencyclidine Scrn Ur Amphetamines Screen U Methamphetamines Scrn Ur MDMA Scrn (Ecstasy) U Benzodiazepines Scrn Urine Cocaine Screen U Marijuana (THC) Screen Ethyl Alcohol Blood Type Antibody Screen Crossmatch Discharge Plan Discharge Plan Patient Disposition: Xf Acute Care Hospital Transfer to: [facility] Discharge Med Rec/Prescriptions Prescriptions: Continued gabapentin [Neurontin] 600 MG tablet 600 mg PO TID Qty: 0 RF: 0 lidocaine [Lidoderm] 5 % Adhesive Patch,Medicated 1 patch topical DAILY RF: 0 hyoscyamine sulfate 0.125 mg Tablet, Sublingual 0.125 mg PO Q6H PRN (Reason: Spasms) RF: 0 sennosides [senna] 8.6 mg Tablet 17.2 mg PO DAILY PRN (Reason: Constipation) Qty: 30 RF: 0 polyethylene glycol 3350 17 gram Powder In Packet 17 gm PO DAILY Qty: 30 RF: 0 bisacodyl 10 mg Suppository 10 mg IN DAILY PRN (Reason: Constipation) Qty: 30 RF: 0 nicotine 21 mg/24 hr Patch 24 Hour 21 mg topical DAILY Qty: 30 RF: 0 docusate sodium 100 mg Capsule 100 mg PO BID Qty: 60 RF: 0 fentanyl 100 MCG/HR patch 72 hour 1 patch Topical Q3D Qty: 0 RF: 0 Discontinued ciprofloxacin HCl [Cipro] 500 mg Tablet 500 mg PO BID RF: 0 Follow up/Referrals: Chucky Velazquez MD [Primary Care Provider] - Provider Discharge Instructions Diet: Diet as Tolerated Liquid consistency: Normal/Thin Food texture: Regular Oxygen: 4L NC O2 Discharge Data Primary Care Provider: Chucky Velazquez Attending Provider: Jael Peña Admit Date/Time: 08/14/18 17:24
[2018-08-15 09:15] LABS: Creatinine Urine Random 102.2 mg/dL
[2018-08-15 09:16] LABS: Calcium Urine Random 1.3
[2018-08-15 09:30] LABS: Potassium Urine Random 35.3 mmol/L
--- NOTE | 2018-08-15 09:43 | PC.NURSE ---
Addendum entered by Jana Jessica R.N. 08/15/18 11:11: transferred at this time Addendum entered by Jana Jessica R.N. 08/15/18 10:45: pt report given to RN- amy at [facility]- awaiting transport Original Note: PT LETHARGIC BUT RESPONDING MOSTLY APPROPRIATE UPOON QUESTIONING- REPEAT LABS THIS AM REVEAL WORSENING KIDNEY FUNCTION AND THE THOUGHT IS THAT SHE MAY NEED ACUTE DIALYSIS - MEASURES TAKENTO TRANSFER TO [facility] IN [place] WITH ACCEPTING MD: DR. NIXON- CONTACTED FAMILY FOR UPDATE- SISTER IN LAW, MARY ELLEN WALDRON HERE AT HOSPITAL AND UPDATE GIVEN TO PTS SON BY HER- ALSO ASKED MD TO CALL SON WITH MEDICAL UPDATE
[2018-08-15] MEDS: SODIUM CHLORIDE 0.9% 1,000 ML 150 ML IV (10:26)
--- NOTE | 2018-08-15 10:46 | CM.DANOTE ---
DCP/Assessment: Reviewed chart. Patient is a 72yr old female admitted to [facility] with SOB. PCP listed is Dr. Velazquez. Primary payor is 1)Medicare. Received notification in AM rounds from Dr. Schroeder that patient transferring to [facility] for higher level of care. It is anticipated that patient will need dialysis. P: Transfer to higher level this AM. JUDITH Ling Discharge Planning/Care Management CM Discharge Assessment Start: 08/15/18 10:42 Freq: Status: Active Protocol: Document 08/15/18 10:42 KJS (Rec: 08/15/18 10:46 [id number]) Discharge Planning Assessment Assigned Communication Skills Instructor JUDITH Ling Contact Information Valentin Henry (son) [phone] Advance Directives? No History Provided By Family Member Medical Record Household Members none Independent with ADL's No Comment Unsure of DME owned Discharge Plan Transfer to Higher Level of Care Review Status In Process Next Review Type Continued Stay Review
[2018-08-18 15:20] LABS: Haptoglobin < 8 mg/dL (43-212)
== END 2018-08-15 11:08 | disposition short-term general hospital (02) | DRG 808 ==
LOC: ED 11:35 → AC 17:24 → ICU 19:46
PROVIDERS: Internal Medicine; Nurse Practitioner Gerontology; Admitting Provider Internal Medicine; Emergency Provider Emergency Medicine; PCP Family Medicine; Visit Provider Internal Medicine
DX: D59.9 Acquired hemolytic anemia, unspecified (principal); J96.21 Acute and chronic respiratory failure with hypoxia; G92 Toxic encephalopathy; N17.8 Other acute kidney failure; Z99.81 Dependence on supplemental oxygen; M54.9 Dorsalgia, unspecified; G89.29 Other chronic pain; T40.4X1A Poisoning by other synthetic narcotics, accidental (unintentional), initial encounter; F17.210 Nicotine dependence, cigarettes, uncomplicated
CPT/HCPCS: 36415; 36430; 36600; 51701; 70450; 71045; 74176; 80048; 80053; 80076; 80305; 80320; 80329; 81001; 82140; 82150; 82272; 82340; 82550; 82570; 82805; 83010; 83605; 83615; 83690; 83735; 83880; 84133; 84300; 84484; 85014; 85018; 85025; 85610; 86850; 86900; 86901; 87040; 87086; 87797; 93005; 93010; 96361; 99285; 99291; 99292; P9016; G0480; J0610; J2310

== ENCOUNTER 2018-09-26 19:22 | Observation (INO) | payer MEDICARE, SELFPAY ==
[2018-08-14 20:36] VITALS: BMI 19.8
[2018-09-26 19:50] VITALS: BP 134/82; PULSE 86; RESP 18; TEMP 36.6; O2SAT 98; BMI 17.9
--- NOTE | 2018-09-26 23:40 | ED.WOUNDLAC ---
HPI - Wound/Laceration General Chief Complaint: Wound/Laceration Stated Complaint: LOTS OF PAIN Time Seen by Provider: 09/26/18 21:42 Source: patient Mode of arrival: ambulatory Limitations: no limitations History of Present Illness HPI narrative: 73F daily smoker with history of chronic pain and prior back surgery presents with ongoing and worsening pain of tailbone area in the absence of any injury. She denies any pain with bowel movements. She denies any systemic findings such as fever, chills nor nausea or vomiting. She is not dizzy nor weak or lightheaded. She has a rather complicated medical history and a recent hospitalization for metabolic encephalopathy thought related to opioid overdose from overuse of her fentanyl patches which resulted in significant renal failure, prolonged immobilization and sacral decubitus ulcers. These ulcers have healed very well. 1. Patient tetanus UTD: Yes Associated symptoms: pain Related Data Home Medications Medication Instructions Recorded Confirmed gabapentin [Neurontin] 600 mg PO TID #0 03/01/17 08/14/18 hyoscyamine sulfate 0.125 mg PO Q6H PRN 08/14/18 08/14/18 lidocaine [Lidoderm] 1 patch TOPICAL DAILY 08/14/18 08/14/18 Previous Rx's Medication Instructions Recorded bisacodyl 10 mg [place] DAILY PRN #30 ea 06/19/18 docusate sodium 100 mg PO BID #60 cap 06/19/18 fentanyl 1 patch TOPICAL Q3D #0 ea 06/19/18 nicotine 21 mg TOPICAL DAILY #30 ea 06/19/18 polyethylene glycol 3350 17 gm PO DAILY #30 ea 06/19/18 sennosides [senna] 17.2 mg PO DAILY PRN #30 tab 06/19/18 Allergies Allergy/AdvReac Type Severity Reaction Status Date / Time oxybutynin Allergy Severe Difficulty Verified 08/14/18 13:40 Breathing acetaminophen [From [place]] Allergy Unknown Verified 08/14/18 13:40 hydrocodone [From [place]] Allergy Unknown Verified 08/14/18 13:40 hydromorphone Allergy Difficulty Verified 08/14/18 13:41 Breathing meloxicam AdvReac Intermediate Nausea Verified 08/14/18 13:40 tramadol AdvReac Intermediate Vomiting Verified 08/14/18 13:40 fentanyl [From Duragesic] AdvReac Mild Rash Verified 08/14/18 13:40 ciprofloxacin [From Cipro] AdvReac Unknown Verified 08/14/18 13:40 morphine AdvReac Fainting Verified 08/14/18 13:40 Review of Systems Constitutional Denies chills, Denies fever(s), Denies lethargy and Denies weakness Eyes Denies change in vision, Denies eye discharge, Denies irritation and Denies loss of vision ENT Ears, Nose, Mouth, and Throat: Denies change in voice, Denies neck pain and Denies sore throat Cardiovascular Denies chest pain, Denies irregular heart rhythm, Denies lightheadedness, Denies palpitations, Denies dyspnea, Denies dyspnea on exertion and Denies orthopnea Respiratory Denies cough, Denies dyspnea, Denies dyspnea on exertion and Denies wheezing Gastrointestinal Gastrointestinal: Denies abdominal pain, Denies change in bowel habits, Denies diarrhea, Denies nausea and Denies vomiting Genitourinary Denies hematuria, Denies flank pain, Denies urinary incontinence and Denies urinary urgency Musculoskeletal Denies neck pain Integumentary/Breasts Denies pruritus, Denies erythema, Denies rash and Denies wounds Neurologic Denies confusion, Denies loss of vision and Denies weakness Psychiatric Denies anxiety, Denies confusion, Denies depression, Denies homicidal ideation and Denies suicidal ideation Endocrine Denies palpitations Hematologic/Lymphatic Denies easy bruising Allergic/Immunologic Denies wheezing PFSH Medical History History of hysterectomy (Acute) Pulmonary embolism (Acute) Right shoulder injury (Acute) Surgical History History of lumbar laminectomy (Acute) Social History household members: none Smoking Status: Current every day smoker alcohol intake: never Social History household members: none Smoking Status: Current every day smoker alcohol intake: never Exam Narrative Exam Narrative: GENERAL: [73] year old patient appears stated age. Thin well-developed patient, in moderate distress, complaining of pain HEAD: Atraumatic. Normocephalic. Temporal wasting EYES: Pupils equal round and reactive. Extraocular motions intact. No scleral icterus. No injection or drainage. ENT: Nose without bleeding, purulent drainage. Throat without erythema, tonsillar hypertrophy or exudate. Airway patent. NECK: Trachea midline. Non tender CARDIOVASCULAR: Regular rate and rhythm without murmurs, gallops, or rubs. RESPIRATORY: Clear to auscultation. Breath sounds equal bilaterally. No wheezes, rales, or rhonchi. GASTROINTESTINAL: Abdomen soft, non-tender, nondistended. EXTREMITIES: No edema or joint tenderness. BACK: Nontender without deformity or crepitance. No flank tenderness. RECTAL: no rectal pain, tender to palp over coccyx, no external manifestation NEURO: AOx3. SKIN: No rash or erythema of visible areas. Healed sacral decubs Initial Vital Signs Initial Vital Signs: Vital Signs Temperature 97.8 F 09/26/18 19:50 Pulse Rate 86 09/26/18 19:50 Respiratory Rate 18 09/26/18 19:50 Blood Pressure 134/82 09/26/18 19:50 Pulse Oximetry 98 09/26/18 19:50 Course Orders Ordered: ED Orders 09/27/18 00:37 CT pelvis wo con Stat 09/27/18 02:38 Basic Metabolic Panel Stat C-Reactive Protein Quant Stat Complete Blood Count AUTO DIFF Stat Erythrocyte Sedimentation Rate Stat 09/27/18 04:44 Blood Culture Stat Reevaluation(s) Reevaluation #1: Discussed with Orthopedics, there is no abscess, therefore this is not surgical, consult Medicine Consultations Consultation #2: call to ID at /[facility] [place]. Strong recommendation to await confirmation of osteo, as lack of significant inflammatory markers makes this less likely. Recommend hospitalization until blood cultures and MRI. If confirmation of osteomyelitis then recommend antibiotics, re-consult. Consultation #3: hospitalist paged Vital Signs - 8 hr 09/27/18 04:00 Temperature 98.7 F Pulse Rate 50 L Respiratory Rate 16 Blood Pressure [Left Arm] 112/75 Pulse Oximetry 96 MDM - Wound/Laceration Lab Data Result diagrams: 09/27/18 02:38 09/27/18 02:38 Lab Results 09/27/18 09/27/18 09/27/18 Range/Units 02:38 02:38 02:38 WBC 9.4 (4.5-11.0) X10^3/uL RBC 3.72 L (4.0-5.2) X10^6/uL Hgb 12.0 (12.0-16.0) g/dL Hct 35.9 L (36-46) % MCV 96.6 (80-100) fL MCH 32.2 (26-34) PG MCHC 33.3 (30-36) % RDW 16.8 H (11.6-14.8) % Plt Count 185 (150-400) X10^3/uL Neut % (Auto) 58.8 (50-75) % Lymph % (Auto) 31.5 (25-40) % [place] % (Auto) 5.4 (3-14) % Eos % (Auto) 2.9 (2-4) % Baso % (Auto) 1.4 (0-2) % Neut # (Auto) 5500 (2679-3113) /uL Lymph # (Auto) 2900 (6868-9712) /uL [place] # (Auto) 500 (0-900) /uL Eos # (Auto) 300 (0-450) /uL Baso # (Auto) 100 (0-100) /uL ESR 29 H (0-20) MM/HR Sodium 139 (137-145) mmol/L Potassium 4.7 (3.4-5.1) mmol/L Chloride 102 (98-107) mmol/L Carbon Dioxide 28 (22-32) mmol/L BUN 38 H (7-17) mg/dL Creatinine 1.20 H (0.52-1.04) mg/dL Estimated GFR 44.2 L (>60) mL/min BUN/Creatinine Ratio 31.7 H (6-22) Glucose 72 L (80-110) mg/dL Calcium 9.0 (8.4-10.2) mg/dL C-Reactive Protein (<1.0) mg/dL 09/27/18 Range/Units 02:38 WBC (4.5-11.0) X10^3/uL RBC (4.0-5.2) X10^6/uL Hgb (12.0-16.0) g/dL Hct (36-46) % MCV (80-100) fL MCH (26-34) PG MCHC (30-36) % RDW (11.6-14.8) % Plt Count (150-400) X10^3/uL Neut % (Auto) (50-75) % Lymph % (Auto) (25-40) % [place] % (Auto) (3-14) % Eos % (Auto) (2-4) % Baso % (Auto) (0-2) % Neut # (Auto) (6905-6000) /uL Lymph # (Auto) (5422-7632) /uL [place] # (Auto) (0-900) /uL Eos # (Auto) (0-450) /uL Baso # (Auto) (0-100) /uL ESR (0-20) MM/HR Sodium (137-145) mmol/L Potassium (3.4-5.1) mmol/L Chloride (98-107) mmol/L Carbon Dioxide (22-32) mmol/L BUN (7-17) mg/dL Creatinine (0.52-1.04) mg/dL Estimated GFR (>60) mL/min BUN/Creatinine Ratio (6-22) Glucose (80-110) mg/dL Calcium (8.4-10.2) mg/dL C-Reactive Protein < 0.5 (<1.0) mg/dL Imaging Data CT Pelvis: Radiologist's impression: Moderate soft tissue swelling posterior to the 1st coccygeal segment with possible osteomyelitis, no abscess Discharge Plan Departure Patient Disposition: Admitted As Inpatient Clinical Impression: Acute osteomyelitis of coccyx Referrals: Chucky Velazquez MD [Primary Care Provider] - Admit Date/Time: 09/27/18 05:00 Admit Provider: Asia Brennan
--- NOTE | 2018-09-26 23:47 | ED_ITS ---
HPI - Wound/Laceration General Chief Complaint: Wound/Laceration Stated Complaint: LOTS OF PAIN Time Seen by Provider: 09/26/18 21:42 Source: patient Mode of arrival: ambulatory Limitations: no limitations History of Present Illness HPI narrative: 73F daily smoker with history of chronic pain and prior back surgery presents with ongoing and worsening pain of tailbone area in the absence of any injury. She denies any pain with bowel movements. She denies any systemic findings such as fever, chills nor nausea or vomiting. She is not dizzy nor weak or lightheaded. She has a rather complicated medical history and a recent hospitalization for metabolic encephalopathy thought related to opioid overdose from overuse of her fentanyl patches which resulted in significant renal failure, prolonged immobilization and sacral decubitus ulcers. These ulcers have healed very well. 1. Patient tetanus UTD: Yes Associated symptoms: pain Related Data Home Medications Medication Instructions Recorded Confirmed gabapentin [Neurontin] 600 mg PO TID #0 03/01/17 08/14/18 hyoscyamine sulfate 0.125 mg PO Q6H PRN 08/14/18 08/14/18 lidocaine [Lidoderm] 1 patch TOPICAL DAILY 08/14/18 08/14/18 Previous Rx's Medication Instructions Recorded bisacodyl 10 mg [place] DAILY PRN #30 ea 06/19/18 docusate sodium 100 mg PO BID #60 cap 06/19/18 fentanyl 1 patch TOPICAL Q3D #0 ea 06/19/18 nicotine 21 mg TOPICAL DAILY #30 ea 06/19/18 polyethylene glycol 3350 17 gm PO DAILY #30 ea 06/19/18 sennosides [senna] 17.2 mg PO DAILY PRN #30 tab 06/19/18 Allergies Allergy/AdvReac Type Severity Reaction Status Date / Time oxybutynin Allergy Severe Difficulty Verified 08/14/18 13:40 Breathing acetaminophen [From [place]] Allergy Unknown Verified 08/14/18 13:40 hydrocodone [From [place]] Allergy Unknown Verified 08/14/18 13:40 hydromorphone Allergy Difficulty Verified 08/14/18 13:41 Breathing meloxicam AdvReac Intermediate Nausea Verified 08/14/18 13:40 tramadol AdvReac Intermediate Vomiting Verified 08/14/18 13:40 fentanyl [From Duragesic] AdvReac Mild Rash Verified 08/14/18 13:40 ciprofloxacin [From Cipro] AdvReac Unknown Verified 08/14/18 13:40 morphine AdvReac Fainting Verified 08/14/18 13:40 Review of Systems Constitutional Denies chills, Denies fever(s), Denies lethargy and Denies weakness Eyes Denies change in vision, Denies eye discharge, Denies irritation and Denies loss of vision ENT Ears, Nose, Mouth, and Throat: Denies change in voice, Denies neck pain and Denies sore throat Cardiovascular Denies chest pain, Denies irregular heart rhythm, Denies lightheadedness, Denies palpitations, Denies dyspnea, Denies dyspnea on exertion and Denies orthopnea Respiratory Denies cough, Denies dyspnea, Denies dyspnea on exertion and Denies wheezing Gastrointestinal Gastrointestinal: Denies abdominal pain, Denies change in bowel habits, Denies diarrhea, Denies nausea and Denies vomiting Genitourinary Denies hematuria, Denies flank pain, Denies urinary incontinence and Denies urinary urgency Musculoskeletal Denies neck pain Integumentary/Breasts Denies pruritus, Denies erythema, Denies rash and Denies wounds Neurologic Denies confusion, Denies loss of vision and Denies weakness Psychiatric Denies anxiety, Denies confusion, Denies depression, Denies homicidal ideation and Denies suicidal ideation Endocrine Denies palpitations Hematologic/Lymphatic Denies easy bruising Allergic/Immunologic Denies wheezing PFSH Medical History History of hysterectomy (Acute) Pulmonary embolism (Acute) Right shoulder injury (Acute) Surgical History History of lumbar laminectomy (Acute) Social History household members: none Smoking Status: Current every day smoker alcohol intake: never Social History household members: none Smoking Status: Current every day smoker alcohol intake: never Exam Narrative Exam Narrative: GENERAL: [73] year old patient appears stated age. Thin well- developed patient, in moderate distress, complaining of pain HEAD: Atraumatic. Normocephalic. Temporal wasting EYES: Pupils equal round and reactive. Extraocular motions intact. No scleral icterus. No injection or drainage. ENT: Nose without bleeding, purulent drainage. Throat without erythema, tonsillar hypertrophy or exudate. Airway patent. NECK: Trachea midline. Non tender CARDIOVASCULAR: Regular rate and rhythm without murmurs, gallops, or rubs. RESPIRATORY: Clear to auscultation. Breath sounds equal bilaterally. No wheezes, rales, or rhonchi. GASTROINTESTINAL: Abdomen soft, non-tender, nondistended. EXTREMITIES: No edema or joint tenderness. BACK: Nontender without deformity or crepitance. No flank tenderness. RECTAL: no rectal pain, tender to palp over coccyx, no external manifestation NEURO: AOx3. SKIN: No rash or erythema of visible areas. Healed sacral decubs Initial Vital Signs Initial Vital Signs: Vital Signs Temperature 97.8 F 09/26/18 19:50 Pulse Rate 86 09/26/18 19:50 Respiratory Rate 18 09/26/18 19:50 Blood Pressure 134/82 09/26/18 19:50 Pulse Oximetry 98 09/26/18 19:50 Course Orders Ordered: ED Orders 09/27/18 00:37 CT pelvis wo con Stat 09/27/18 02:38 Basic Metabolic Panel Stat C-Reactive Protein Quant Stat Complete Blood Count AUTO DIFF Stat Erythrocyte Sedimentation Rate Stat 09/27/18 04:44 Blood Culture Stat Reevaluation(s) Reevaluation #1: Discussed with Orthopedics, there is no abscess, therefore this is not surgical, consult Medicine Consultations Consultation #2: call to ID at /[facility] [place]. Strong recommendation to await confirmation of osteo, as lack of significant inflammatory markers makes this less likely. Recommend hospitalization until blood cultures and MRI. If confirmation of osteomyelitis then recommend antibiotics, re-consult. Consultation #3: hospitalist paged Vital Signs - 8 hr 09/27/18 04:00 Temperature 98.7 F Pulse Rate 50 L Respiratory Rate 16 Blood Pressure [Left Arm] 112/75 Pulse Oximetry 96 MDM - Wound/Laceration Lab Data Result diagrams: 09/27/18 02:38 09/27/18 02:38 Lab Results 09/27/18 09/27/18 09/27/18 Range/Units 02:38 02:38 02:38 WBC 9.4 (4.5-11.0) X10^3/uL RBC 3.72 L (4.0-5.2) X10^6/uL Hgb 12.0 (12.0-16.0) g/dL Hct 35.9 L (36-46) % MCV 96.6 (80-100) fL MCH 32.2 (26-34) PG MCHC 33.3 (30-36) % RDW 16.8 H (11.6-14.8) % Plt Count 185 (150-400) X10^3/uL Neut % (Auto) 58.8 (50-75) % Lymph % (Auto) 31.5 (25-40) % [place] % (Auto) 5.4 (3-14) % Eos % (Auto) 2.9 (2-4) % Baso % (Auto) 1.4 (0-2) % Neut # (Auto) 5500 (0241-1462) /uL Lymph # (Auto) 2900 (2914-2071) /uL [place] # (Auto) 500 (0-900) /uL Eos # (Auto) 300 (0-450) /uL Baso # (Auto) 100 (0-100) /uL ESR 29 H (0-20) MM/HR Sodium 139 (137-145) mmol/L Potassium 4.7 (3.4-5.1) mmol/L Chloride 102 (98-107) mmol/L Carbon Dioxide 28 (22-32) mmol/L BUN 38 H (7-17) mg/dL Creatinine 1.20 H (0.52-1.04) mg/dL Estimated GFR 44.2 L (>60) mL/min BUN/Creatinine Ratio 31.7 H (6-22) Glucose 72 L (80-110) mg/dL Calcium 9.0 (8.4-10.2) mg/dL C-Reactive Protein (<1.0) mg/dL 09/27/18 Range/Units 02:38 WBC (4.5-11.0) X10^3/uL RBC (4.0-5.2) X10^6/uL Hgb (12.0-16.0) g/dL Hct (36-46) % MCV (80-100) fL MCH (26-34) PG MCHC (30-36) % RDW (11.6-14.8) % Plt Count (150-400) X10^3/uL Neut % (Auto) (50-75) % Lymph % (Auto) (25-40) % [place] % (Auto) (3-14) % Eos % (Auto) (2-4) % Baso % (Auto) (0-2) % Neut # (Auto) (5459-8632) /uL Lymph # (Auto) (9904-9562) /uL [place] # (Auto) (0-900) /uL Eos # (Auto) (0-450) /uL Baso # (Auto) (0-100) /uL ESR (0-20) MM/HR Sodium (137-145) mmol/L Potassium (3.4-5.1) mmol/L Chloride (98-107) mmol/L Carbon Dioxide (22-32) mmol/L BUN (7-17) mg/dL Creatinine (0.52-1.04) mg/dL Estimated GFR (>60) mL/min BUN/Creatinine Ratio (6-22) Glucose (80-110) mg/dL Calcium (8.4-10.2) mg/dL C-Reactive Protein < 0.5 (<1.0) mg/dL Imaging Data CT Pelvis: Radiologist's impression: Moderate soft tissue swelling posterior to the 1st coccygeal segment with possible osteomyelitis, no abscess Discharge Plan Departure Patient Disposition: Admitted As Inpatient Clinical Impression: Acute osteomyelitis of coccyx Referrals: Chucky Velazquez MD [Primary Care Provider] - Admit Date/Time: 09/27/18 05:00 Admit Provider: Asia Brennan
[2018-09-27] VITALS (7 sets, daily range): BP systolic 110–137; BP diastolic 65–80; PULSE 50–64; RESP 15–18; TEMP 36.4–37.1; O2SAT 96–99; BMI 17.9
--- NOTE | 2018-09-27 00:37 | DI.CT.S_ITS ---
PROCEDURE: CT PEL WO CON INDICATIONS: severe coccyx pain TECHNIQUE: Noncontrast 3 mm axial sections acquired through the bony pelvis, with coronal and sagittal reformatting. COMPARISON: [facility], CT, CT ABDOMEN PELVIS WO CON, 08/15/2018, 7:14. FINDINGS: Image quality: Excellent. Bones: No displaced fractures. There is posterior fusion at L4-L5 and L5-S1. Severe degenerative disc disease is present at L3-L4. There is a lucency in the left side of the coccyx with associated soft tissue edema to the skin surface. There is a defect in the left iliac bone, probably related to prior bone marrow harvest. Soft tissues: Two low density masses in the liver measure 1.9 cm and 1.5 cm, most likely hepatic cysts. There is mild atherosclerosis. Moderate to large amount of stool in colon. IMPRESSION: 1. No displaced fracture. 2. Postsurgical changes in the lower lumbar spine. No findings to suggest surgical hardware failure. 3. A lucency in the left side of the coccyx with associated soft tissue edema to the skin surface, concerning for infection including osteomyelitis. If there is clinically indicated, MRI with and without contrast or a triple phase bone scan may be considered. 4. Severe degenerative disc disease at L3-L4. 5. Moderate to large amount of stool in colon. No significant discrepancy with the shift coordinator radiology preliminary report. Dictated by: Rene Mattson M.D. on 09/27/2018 at 7:41 Approved by: Rene Mattson M.D. on 09/27/2018 at 7:57
[2018-09-27 02:43] LABS: Add Manual Diff / Slide Review NO; Basophils Absolute Auto 100 /uL (0-100); Basophils Percent Auto 1.4 % (0-2); Eosinophils Absolute Auto 300 /uL (0-450); Eosinophils Percent Auto 2.9 % (2-4); Hematocrit 35.9 % (36-46); Lymphocytes Absolute Auto 2900 /uL (1100-4500); Lymphocytes Percent Auto 31.5 % (25-40); Mean Corpuscular HGB Conc 33.3 % (30-36); Mean Corpuscular Hemoglobin 32.2 PG (26-34); Mean Corpuscular Volume 96.6 fL (80-100); Monocytes Absolute Auto 500 /uL (0-900); Monocytes Percent Auto 5.4 % (3-14); Neutrophils Absolute Auto 5500 /uL (1500-7000); Neutrophils Percent Auto 58.8 % (50-75); Platelet Count 185 X10^3/uL (150-400); Red Blood Cell Count 3.72 X10^6/uL (4.0-5.2); Red Cell Distribution Width 16.8 % (11.6-14.8); White Blood Cell Count 9.4 X10^3/uL (4.5-11.0)
[2018-09-27 02:50] LABS: BUN Creatinine Ratio 31.7 (6-22); Blood Urea Nitrogen 38 mg/dL (7-17); Carbon Dioxide 28 mmol/L (22-32); Chloride 102 mmol/L (98-107); Estimated Glomerular Filt Rate 44.2 mL/min (>60); Glucose 72 mg/dL (80-110); HEMOLYSIS < 15 (0-50); Potassium 4.7 mmol/L (3.4-5.1); Sodium 139 mmol/L (137-145)
[2018-09-27 02:54] LABS: C-Reactive Protein Quant < 0.5 mg/dL (<1.0)
[2018-09-27 03:03] LABS: Erythrocyte Sedimentation Rate 29 MM/HR (0-20)
--- NOTE | 2018-09-27 05:17 | PM.HP.1 ---
History of Present Illness Date Patient Seen: 09/27/18 Time Patient Seen: 05:00 Chief complaint: LOTS OF PAIN Narrative: Zeny Artis is a 73-year-old female current like taking primarily pain medications and 100 mcg fentanyl patch for chronic back pain. She states that she has had chronic pain in her coccyx area for several years however it has worsened to the point that it is waking her up at night and that she has been in so much pain that it causes her to cry. She denies fever or chills, denies shortness of breath, chest pain, difficulties walking, states that her wounds that she developed several months ago have now healed, she states she is chronically constipated due to her medications. She states that since the pain has worsened she is experiencing more urinary frequency but no pain on urination or hematuria. Assessment in the emergency department and a CT that was reported to me indicated this suspected osteomyelitis of the coccyx. She was recently admitted and then transferred to [facility] due to a overdose of her fentanyl patches. They apparently found to of them on her and she was at that time altered and appeared to not respond to doses of Narcan. She was subsequently transferred to their ICU. She does not recall anything except for that she had renal failure associated with that hospitalization. Patient History Medical History (Updated 09/27/18 @ 05:25 by DAHIANA Arias) Coccyx pain (Acute) History of hysterectomy (Resolved) Pulmonary embolism (Resolved) Right shoulder injury (Resolved) Surgical History (Updated 09/27/18 @ 05:25 by DAHIANA Arias) History of lumbar laminectomy (Resolved) Family History (Updated 09/27/18 @ 05:26 by DAHIANA Arias) Mother Diverticulitis Social History household members: none Smoking Status: Current every day smoker alcohol intake: never Family & Social History Social History: household members none Tobacco & Substance use: Tobacco type 3 cigarettes per day Smoking Status Current every day smoker alcohol intake never alcohol intake frequency other Substance Use Type does not use Meds Home Medications Medication Instructions Recorded Confirmed Type gabapentin [Neurontin] 600 mg PO TID #0 03/01/17 08/14/18 History bisacodyl 10 mg [place] DAILY PRN #30 ea 06/19/18 08/14/18 Rx docusate sodium 100 mg PO BID #60 cap 06/19/18 08/14/18 Rx fentanyl 1 patch TOPICAL Q3D #0 ea 06/19/18 08/14/18 Rx nicotine 21 mg TOPICAL DAILY #30 ea 06/19/18 08/14/18 Rx polyethylene glycol 3350 17 gm PO DAILY #30 ea 06/19/18 08/14/18 Rx sennosides [senna] 17.2 mg PO DAILY PRN #30 tab 06/19/18 08/14/18 Rx hyoscyamine sulfate 0.125 mg PO Q6H PRN 08/14/18 08/14/18 History lidocaine [Lidoderm] 1 patch TOPICAL DAILY 08/14/18 08/14/18 History Allergies Allergy/AdvReac Type Severity Reaction Status Date / Time oxybutynin Allergy Severe Difficulty Verified 08/14/18 13:40 Breathing acetaminophen [From [place]] Allergy Unknown Verified 08/14/18 13:40 hydrocodone [From [place]] Allergy Unknown Verified 08/14/18 13:40 hydromorphone Allergy Difficulty Verified 08/14/18 13:41 Breathing meloxicam AdvReac Intermediate Nausea Verified 08/14/18 13:40 tramadol AdvReac Intermediate Vomiting Verified 08/14/18 13:40 fentanyl [From Duragesic] AdvReac Mild Rash Verified 08/14/18 13:40 ciprofloxacin [From Cipro] AdvReac Unknown Verified 08/14/18 13:40 morphine AdvReac Fainting Verified 08/14/18 13:40 Review of Systems Review of Systems All systems reviewed & are unremarkable except as noted in HPI and below Exam Vital Signs (past 8 hours): - 09/27/18 04:00 Temperature 98.7 F Pulse Rate 50 L Respiratory Rate 16 Blood Pressure [Left Arm] 112/75 Pulse Oximetry 96 Oxygen Delivery Method Room Air Narrative Exam Narrative: Gen: Alert, oriented, well-developed 73 y.o. female, appears stated age HEENT: normocephalic, atraumatic, conjunctiva clear, sclera non-icteric, oral mucosa pink and moist Neck: supple, full ROM Resp: Lungs CTA, non-labored breathing CV: RRR, no murmur or rubs Abd: soft, non-tender, normoactive BTs Skin: no external lesions or rashes, dry and intact. Area around her anal cleft is tender and darkened Neuro: Alert and oriented X 4 w/no focal deficits Extremities: moves all 4 extremities, is ambulatory, negative Jasen?s sign Psyche: normal mood and affect. Objective Labs Result Diagrams: 09/27/18 02:38 09/27/18 02:38 Labs: Laboratory Results - last 24 hr 09/27/18 09/27/18 09/27/18 02:38 02:38 02:38 WBC 9.4 RBC 3.72 L Hgb 12.0 Hct 35.9 L MCV 96.6 MCH 32.2 MCHC 33.3 RDW 16.8 H Plt Count 185 Neut % (Auto) 58.8 Lymph % (Auto) 31.5 [place] % (Auto) 5.4 Eos % (Auto) 2.9 Baso % (Auto) 1.4 Neut # (Auto) 5500 Lymph # (Auto) 2900 [place] # (Auto) 500 Eos # (Auto) 300 Baso # (Auto) 100 ESR 29 H Sodium 139 Potassium 4.7 Chloride 102 Carbon Dioxide 28 BUN 38 H Creatinine 1.20 H Estimated GFR 44.2 L BUN/Creatinine Ratio 31.7 H Glucose 72 L Calcium 9.0 C-Reactive Protein 09/27/18 02:38 WBC RBC Hgb Hct MCV MCH MCHC RDW Plt Count Neut % (Auto) Lymph % (Auto) [place] % (Auto) Eos % (Auto) Baso % (Auto) Neut # (Auto) Lymph # (Auto) [place] # (Auto) Eos # (Auto) Baso # (Auto) ESR Sodium Potassium Chloride Carbon Dioxide BUN Creatinine Estimated GFR BUN/Creatinine Ratio Glucose Calcium C-Reactive Protein < 0.5 Assessment & Plan Assessment & Plan narrative: Zeny Artis is a 73-year-old female who will be placed in observation for further assessment of a suspected osteomyelitis of her coccyx. 1. Suspected osteomyelitis of the coccyx Patient is scheduled for an MRI with and without contrast of the lumbar spine to determine whether not she has osteomyelitis Lactate, procalcitonin, and an MRSA PCR has been ordered and are pending. ED discussed the case with Infectious Disease and they do not recommend starting her on antibiotics until infection is confirmed by MRI and/or biopsy ED has consulted with Orthopedic surgery in the case there is an abscess 2. Chronic continuous opioid dependence Patient has a fentanyl patch which is due to be changed on August 28 in the evening Patient takes gabapentin however the dose she states she takes differs from the does in her chart, this will need to be confirmed in the morning when the pharmacy opens 3. Chronic constipation associated with opioid use Patient will continue home doses of Colace 100 mg b.i.d., MiraLax 17 g once daily, and sennasides 8.7 mg b.i.d. Patient is admitted to observation until it is determined whether not she has sacral osteomyelitis. If this is confirmed her stay will be converted to inpatient. FEN: NPO until MRI study is done, normal saline at 100 mL/hour, chemistries on 08/28 morning. VTE Prophylaxis: Heparin 5000 units b.i.d. Disposition: Unknown at this time Code status: Full code Admission time: 60 minutes Meds reconciled: Partial based on current med list Time Spent With Patient Time with patient: 15-24 minutes Quality VTE Deep Vein Thrombosis/Pulmonary Embolism Present on Admission: No
--- NOTE | 2018-09-27 05:21 | P.HP_ITS ---
History of Present Illness Date Patient Seen: 09/27/18 Time Patient Seen: 05:00 Chief complaint: LOTS OF PAIN Narrative: Zeny Artis is a 73-year-old female current like taking primarily pain medications and 100 mcg fentanyl patch for chronic back pain. She states that she has had chronic pain in her coccyx area for several years however it has worsened to the point that it is waking her up at night and that she has been in so much pain that it causes her to cry. She denies fever or chills, denies shortness of breath, chest pain, difficulties walking, states that her wounds th at she developed several months ago have now healed, she states she is chronically constipated due to her medications. She states that since the pain has worsened she is experiencing more urinary frequency but no pain on urination or hematuria. Assessment in the emergency department and a CT that was reported to me indicated this suspected osteomyelitis of the coccyx. She was recently admitted and then transferred to [facility] due to a overdose of her fentanyl patches. They apparently found to of them on her and she was at that time altered and appeared to not respond to doses of Narcan. She was subsequently transferred to their ICU. She does not recall anything except for that she had renal failure associated with that hospitalization. Patient History Medical History (Updated 09/27/18 @ 05:25 by DAHIANA Arias) Coccyx pain (Acute) History of hysterectomy (Resolved) Pulmonary embolism (Resolved) Right shoulder injury (Resolved) Surgical History (Updated 09/27/18 @ 05:25 by DAHIANA Arias) History of lumbar laminectomy (Resolved) Family History (Updated 09/27/18 @ 05:26 by DAHIANA Arias) Mother Diverticulitis Social History household members: none Smoking Status: Current every day smoker alcohol intake: never Family & Social History Social History: household members none Tobacco & Substance use: Tobacco type 3 cigarettes per day Smoking Status Current every day smoker alcohol intake never alcohol intake frequency other Substance Use Type does not use Meds Home Medications Medication Instructions Recorded Confirmed Type gabapentin [Neurontin] 600 mg PO TID #0 03/01/17 08/14/18 History bisacodyl 10 mg [place] DAILY PRN #30 ea 06/19/18 08/14/18 Rx docusate sodium 100 mg PO BID #60 cap 06/19/18 08/14/18 Rx fentanyl 1 patch TOPICAL Q3D #0 ea 06/19/18 08/14/18 Rx nicotine 21 mg TOPICAL DAILY #30 ea 06/19/18 08/14/18 Rx polyethylene glycol 3350 17 gm PO DAILY #30 ea 06/19/18 08/14/18 Rx sennosides [senna] 17.2 mg PO DAILY PRN #30 tab 06/19/18 08/14/18 Rx hyoscyamine sulfate 0.125 mg PO Q6H PRN 08/14/18 08/14/18 History lidocaine [Lidoderm] 1 patch TOPICAL DAILY 08/14/18 08/14/18 History Allergies Allergy/AdvReac Type Severity Reaction Status Date / Time oxybutynin Allergy Severe Difficulty Verified 08/14/18 13:40 Breathing acetaminophen [From [place]] Allergy Unknown Verified 08/14/18 13:40 hydrocodone [From [place]] Allergy Unknown Verified 08/14/18 13:40 hydromorphone Allergy Difficulty Verified 08/14/18 13:41 Breathing meloxicam AdvReac Intermediate Nausea Verified 08/14/18 13:40 tramadol AdvReac Intermediate Vomiting Verified 08/14/18 13:40 fentanyl [From Duragesic] AdvReac Mild Rash Verified 08/14/18 13:40 ciprofloxacin [From Cipro] AdvReac Unknown Verified 08/14/18 13:40 morphine AdvReac Fainting Verified 08/14/18 13:40 Review of Systems Review of Systems All systems reviewed & are unremarkable except as noted in HPI and below Exam Vital Signs (past 8 hours): - 09/27/18 04:00 Temperature 98.7 F Pulse Rate 50 L Respiratory Rate 16 Blood Pressure [Left Arm] 112/75 Pulse Oximetry 96 Oxygen Delivery Method Room Air Narrative Exam Narrative: Gen: Alert, oriented, well-developed 73 y.o. female, appears stated age HEENT: normocephalic, atraumatic, conjunctiva clear, sclera non-icteric, oral mucosa pink and moist Neck: supple, full ROM Resp: Lungs CTA, non-labored breathing CV: RRR, no murmur or rubs Abd: soft, non-tender, normoactive BTs Skin: no external lesions or rashes, dry and intact. Area around her anal cleft is tender and darkened Neuro: Alert and oriented X 4 w/no focal deficits Extremities: moves all 4 extremities, is ambulatory, negative Jasen?s sign Psyche: normal mood and affect. Objective Labs Result Diagrams: 09/27/18 02:38 09/27/18 02:38 Labs: Laboratory Results - last 24 hr 09/27/18 09/27/18 09/27/18 02:38 02:38 02:38 WBC 9.4 RBC 3.72 L Hgb 12.0 Hct 35.9 L MCV 96.6 MCH 32.2 MCHC 33.3 RDW 16.8 H Plt Count 185 Neut % (Auto) 58.8 Lymph % (Auto) 31.5 [place] % (Auto) 5.4 Eos % (Auto) 2.9 Baso % (Auto) 1.4 Neut # (Auto) 5500 Lymph # (Auto) 2900 [place] # (Auto) 500 Eos # (Auto) 300 Baso # (Auto) 100 ESR 29 H Sodium 139 Potassium 4.7 Chloride 102 Carbon Dioxide 28 BUN 38 H Creatinine 1.20 H Estimated GFR 44.2 L BUN/Creatinine Ratio 31.7 H Glucose 72 L Calcium 9.0 C-Reactive Protein 09/27/18 02:38 WBC RBC Hgb Hct MCV MCH MCHC RDW Plt Count Neut % (Auto) Lymph % (Auto) [place] % (Auto) Eos % (Auto) Baso % (Auto) Neut # (Auto) Lymph # (Auto) [place] # (Auto) Eos # (Auto) Baso # (Auto) ESR Sodium Potassium Chloride Carbon Dioxide BUN Creatinine Estimated GFR BUN/Creatinine Ratio Glucose Calcium C-Reactive Protein < 0.5 Assessment & Plan Assessment & Plan narrative: Zeny Artis is a 73-year-old female who will be placed in observation for further assessment of a suspected osteomyelitis of her coccyx. 1. Suspected osteomyelitis of the coccyx * Patient is scheduled for an MRI with and without contrast of the lumbar spine to determine whether not she has osteomyelitis * Lactate, procalcitonin, and an MRSA PCR has been ordered and are pending. * ED discussed the case with Infectious Disease and they do not recommend starting her on antibiotics until infection is confirmed by MRI and/or biopsy * ED has consulted with Orthopedic surgery in the case there is an abscess 2. Chronic continuous opioid dependence * Patient has a fentanyl patch which is due to be changed on August 28 in the evening * Patient takes gabapentin however the dose she states she takes differs from the does in her chart, this will need to be confirmed in the morning when the pharmacy opens 3. Chronic constipation associated with opioid use * Patient will continue home doses of Colace 100 mg b.i.d., MiraLax 17 g once daily, and sennasides 8.7 mg b.i.d. Patient is admitted to observation until it is determined whether not she has sacral osteomyelitis. If this is confirmed her stay will be converted to inpatient. FEN: NPO until MRI study is done, normal saline at 100 mL/hour, chemistries on 08/28 morning. VTE Prophylaxis: Heparin 5000 units b.i.d. Disposition: Unknown at this time Code status: Full code Admission time: 60 minutes Meds reconciled: Partial based on current med list Time Spent With Patient Time with patient: 15-24 minutes Quality VTE Deep Vein Thrombosis/Pulmonary Embolism Present on Admission: No
[2018-09-27] MEDS: SODIUM CHLORIDE 0.9% 1,000 ML 100 ML IV (06:30)
[2018-09-27 06:33] LABS: Procalcitonin < 0.05 ng/mL (<0.5)
[2018-09-27 06:43] LABS: Lactate (Lactic Acid) 0.5 mmol/L (0.7-2.1)
--- NOTE | 2018-09-27 08:00 | DI.MRI.S_ITS ---
PROCEDURE: MR PELIS WO/W CON INDICATIONS: Pain, concern for osteomylitis of the coxxyx TECHNIQUE: Noncontrast coronal T1 spin echo and STIR, sagittal T1 spin echo with fat saturation and STIR, axial T1 spin echo and T2 fast spin echo with fat saturation. After the administration of contrast, axial/sagittal/coronal T1 spin echo with fat saturation through the pelvis. COMPARISON: [facility], CT, CT PEL WO CON, 09/27/2018, 0:38. FINDINGS: Image quality: Excellent. Bones: No abnormal marrow signal changes to suggest osteomyelitis. There is limited evaluation due to hardware artifact from lumbar posterior spinal fixation. Presumed left posterior medial iliac bone graft harvest site incidentally noted. Soft tissues: The intrapelvic contents are grossly unremarkable. No rim-enhancing abscess is seen. There is focal inflammation involving the posterior/dependent subcutaneous soft tissues at the left lower sacral spine. There is also bilateral flank edema. IMPRESSION: No focal signal changes to suggest sacral/coccyx osteomyelitis identified at this time. No rim-enhancing abscess seen. Left subcutaneous edema the level of the sacrum. Bilateral flank subcutaneous edema. Dictated by: Silas Brennan M.D. on 09/27/2018 at 9:12 Approved by: Silas Brennan M.D. on 09/27/2018 at 9:21
[2018-09-27] MEDS: POLYETHYLENE GLYCOL 3350 17 GM POWD.PACK PO (10:31)
[2018-09-27] MEDS: DOCUSATE 100 MG CAPSULE PO (10:32)
[2018-09-27] MEDS: HEPARIN 5,000 UNIT/ML VIAL 5000 UNIT SUBCUT (10:32)
--- NOTE | 2018-09-27 11:17 | CM.DANOTE ---
CBC 09/27/18 Range/Units 02:38 WBC 9.4 (4.5-11.0) X10^3/uL RBC 3.72 L (4.0-5.2) X10^6/uL Hgb 12.0 (12.0-16.0) g/dL Hct 35.9 L (36-46) % Plt Count 185 (150-400) X10^3/uL Neut # (Auto) 5500 (8403-4212) /uL Lymph # (Auto) 2900 (3453-4138) /uL [place] # (Auto) 500 (0-900) /uL Eos # (Auto) 300 (0-450) /uL Baso # (Auto) 100 (0-100) /uL Comprehensive Metabolic Panel 09/27/18 Range/Units 02:38 Sodium 139 (137-145) mmol/L Potassium 4.7 (3.4-5.1) mmol/L Chloride 102 (98-107) mmol/L Carbon Dioxide 28 (22-32) mmol/L BUN 38 H (7-17) mg/dL Creatinine 1.20 H (0.52-1.04) mg/dL Glucose 72 L (80-110) mg/dL Calcium 9.0 (8.4-10.2) mg/dL Intake and Output 09/26/18 09/27/18 09/27/18 23:59 07:59 15:59 Output Total 250 / 250 Balance -250 / -250 Output: Urine 250 / 250 Other: Weight 56.699 kg 56.699 kg Patient Weight 09/27/18 23:59 Weight 56.699 kg Discharge Planning/Care Management CM Discharge Assessment Start: 09/27/18 11:14 Freq: Status: Active Protocol: Document 09/27/18 11:14 ITV (Rec: 09/27/18 11:17 ITV [id number]) Discharge Planning Assessment Advance Directives? No Advance Directives on File No History Provided By Patient Family Member Medical Record Prior Living Arrangements House Household Members none Independent with ADL's Yes Is patient alert and oriented? Yes Comment has DME but currently does not use anything Whiteboard Updated in Patient Room with Yes name and ext. # of Sports Director Review Status In Process
--- NOTE | 2018-09-27 11:18 | CM.DANOTE ---
Addendum entered by Kristi Hartley LPN 09/27/18 14:29: Spoke with Dr. Betts who was working on the dc and wondered about results of PT eval as no notes yet available. Checked in with pt and ZAMZAM Pace. Both report pt did very well with PT Josephine and is ok'd for return to her prior home setting. Introduced Josephine to Dr. Betts and she is giving him an update now. Pt and her brother are eager to get going so as to now miss the ferry. Home as soon as all dc paperwork is completed. Original Note: Discharge Planning/Care Management DCP: assessment: case received, EMR reviewed and discussed now with Dr. Berger. He reports that pt's MRI is - and he expects pt is ok for home later today. He will first contact her PCP: Dr. Velazquez to discuss pain management as she will not be able to see him in clinic until next week. Met then with pt and her brother Rivera. Introduced self and role. Pt is a 73 year old female who admitted early this mornin to care of hospitalist team. PCP: Chucky Velazquez Payer: Medicare. 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 She reports she is much better than she used to be and now gets about in her home independently without need for any assistive device. She does have a walker if needed. Pt has never had OUTPT PT and Dr. Berger says he will likely give her a script for same. He is also ordering a PT eval for today. Pt will be catching a ferry to [place] today; [place]. Priority board will be need and [facility] can provide this. P: follow prn. Pt says she is relieved that the MRI is - and is planning for her d/c home today. CM Discharge Assessment Start: 09/27/18 11:14 Freq: Status: Active Protocol: Document 09/27/18 11:14 ITV (Rec: 09/27/18 11:17 ITV [id number]) Discharge Planning Assessment Advance Directives? No Advance Directives on File No History Provided By Patient Family Member Medical Record Prior Living Arrangements House Household Members none Independent with ADL's Yes Is patient alert and oriented? Yes Comment has DME but currently does not use anything Whiteboard Updated in Patient Room with Yes name and ext. # of Jig Fitter Review Status In Process
[2018-09-27] MEDS: GABAPENTIN 300 MG CAPSULE PO (11:53)
--- NOTE | 2018-09-27 12:11 | DIET.PN ---
Dietary Progress Note Assessment: 73y F reporting >20# wt loss in past 6w related to uncontrolled chronic px. Pt reported chronic px less well managed starting 6 w ago, increased px associated c decreased PO intake, started losing wt (14% loss in 6w). Pt POs currently 1/3 of what they were. Per pt, fentanyl patch dependent for 15y. Kidney labs approximate CKD 3a/3d c associated sx of bone px. 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 HT: 177.8cm WT: 56.7kg (65.3kg on 03/13/18 [facility] records), 14% loss in 6w (severe) BMI: 17.9 (severe for age) Labs: GFR 44.2 (L) Nutrition Diagnosis: Acute on Chronic Severe PCM r/t uncontrolled px reducing PO intake aeb <50% EER for >1mo, 14% wt loss in <2 mo (severe), BMI 17.9 (severe for age), severe losses in subcutaneous fat overall, saggy skin, and moderate muscle loss overall c pt reporting reduced strength. Interventions: Recc ONS Ensure Enlive 2x/d between meals as not to interfere c PO meals, gave coupons. Provides 40% kcal and 69% Pro in addition to regular PO intake. EERs: 1700kcal (30kcal/kg), 58g PRO (1g/kg elder/malnutrition/CKD 3a-3b) Monitoring/Evaluations: Pt will call provider if wt drops further.
--- NOTE | 2018-09-27 13:25 | PT.IIE ---
Surgical History (Last Updated 09/27/18 @ 05:25 by DAHIANA Arias) History of lumbar laminectomy (Resolved) Medical History (Last Updated 09/27/18 @ 05:25 by DAHIANA Arias) Coccyx pain (Acute) History of hysterectomy (Resolved) Pulmonary embolism (Resolved) Right shoulder injury (Resolved) Physical Therapy Inpatient Evaluation/Re-Eval M1 PT/OT-IP Prior Functional Status Start: 09/27/18 17:19 Freq: NEEDED Status: Active Protocol: Document 09/27/18 13:25 AB (Rec: 09/27/18 17:28 AB [id number]) Medical Review Prior Functional Status Medical History Reviewed Yes Communication able to make needs known Mobility and Gait pt stated that she is independent with all mobilities and ambulation without AD Social History Household Members none Living Arrangements House Number of Floors (Floors) One Floor Number of Stairs To Enter/Railing? no steps to enter Home Environment Standard Height Toilet Tub/Shower Home Equipment Front Wheel Walker Shower Seat with Backrest Hand Held Shower Grab Bars In Shower Additional Social History Comment pt stated that her family and friends assists her when needed M2 PT-IP Current Condition Start: 09/27/18 17:19 Freq: NEEDED Status: Active Protocol: Document 09/27/18 13:25 AB (Rec: 09/27/18 17:28 AB [id number]) Physical Therapy Current Condition Current Condition Evaluation Date 09/27/18 Treatment Diagnosis coccyx pain; difficulty in walking Onset Date 09/27/18 M3 PT-IP Subjective Start: 09/27/18 17:19 Freq: NEEDED Status: Active Protocol: Document 09/27/18 13:25 AB (Rec: 09/27/18 17:28 AB [id number]) Subjective Physical Therapy Visit Type Type Initial Evaluation Visit Start Time 13:25 Visit Stop Time 13:40 Total Visit Minutes 15 Number of LADIES SUIT OPERATOR Visits 0 Physical Therapy Visit Comments Patient Comments pt agreeable to do PT Patient Goals to go home Therapy Pain Assessment Pain When Pain Assessed At Rest Pain Present Pain Present Pain Reported Location Sacrum Intensity 7 Scale Used Numeric (1 - 10) Pain Management Techniques Timing of Activity with Medications M4 PT-IP Mobility and Gait Start: 09/27/18 17:19 Freq: NEEDED Status: Active Protocol: Document 09/27/18 13:25 AB (Rec: 09/27/18 17:28 AB [id number]) PT-Bed Mobility Assessment Supine to Sit Supine to Sit Independent Sit to Supine Sit to Supine Independent PT-Transfer Assessment Sit to and From Stand Sit to and from Stand Standby Assistance Equipment Transfer Assistive Device None Gait Assessment Gait Gait Assistance Required: Standby Assistance Distance (Feet) 250 Able to Maintain Weight Bearing Status Yes During Gait Assistive Devices Assistive Device None Gait Belt Factors Limiting Gait Function Factors Limiting Gait Function Pain PT-Balance Assessment Sitting Balance and Reactions Static Sitting Balance Ability Normal Dynamic Sitting Balance Ability Normal Standing Balance and Reactions Static Standing Balance Ability Good Dynamic Standing Balance Ability Good Device Used without AD M5 PT-IP Objective Assessments Start: 09/27/18 17:19 Freq: NEEDED Status: Active Protocol: Document 09/27/18 13:25 AB (Rec: 09/27/18 17:28 AB [id number]) Orientation Orientation/Cognition Level of Alertness Alert Orientation Name Age Place Situation Language Function Ability No Deficits Noted Safety Awareness Understands Safety Issues Memory Description No Deficits Noted Gross Range of Motion Lower Extremity ROM Assessment Within Functional Limits Strength Lower Extremity Strength Assessment Within Functional Limits Coordination Assessment Gross Coordination Gross Coordination WNL Sensation Assessment Sensation Gross Sensation WNL Muscle Tone Muscle Tone WNL Yes M6 PT-IP Treatment Start: 09/27/18 17:19 Freq: NEEDED Status: Active Protocol: Document 09/27/18 13:25 AB (Rec: 09/27/18 17:28 AB [id number]) Physical Therapy Treatment Education Education Provided Safety M7 PT-IP Assessment and Plan Start: 09/27/18 17:19 Freq: NEEDED Status: Active Protocol: Document 09/27/18 13:25 AB (Rec: 09/27/18 17:28 [id number]) PT Summary Assessment and Plan Potential Rehabilitation Potential Good Status of Condition at Evaluation Stable Summary Impairments Pain Assessment Summary pt requiring SBA with ambulation without AD. pt plans to go home today. stated that she has friends and family who can assist her if needed. pt c/o coccyx pain but able to move safely with SBA and ambulates without AD without LOB. Goals Transfer Goal Independent Gait Goal Independent Gait Distance 300 Days to Meet Goals 3 Frequency of Treatment Frequency Of Treatment Once a Day Treatment Plan Physical Therapy Treatment Plan Transfer Training Gait Training Recommendations To Nursing Amount of Assist Needed Standby Assistance Discharge Recommendations PT Discharge Recommendations Home
[2018-09-27] MEDS: OXYCODONE/ACETAMINOPHEN 5/325 TABLET 1 TAB PO (14:44)
--- NOTE | 2018-09-27 14:58 | PC.NURSE ---
Addendum entered by Katelynn Hassan R.N. 09/27/18 15:32: Late Entry- Fentanyl 100mcg patch removed from pt's left inner forearm prior to MRI exam. Waste in narcotic waste container witnessed with Shonna MaradiagaRN Coordinator. New patch of Fentanyl 100mcg placed to left inner forearm confirmed with Dr. Betts. Original Note: Day Shift- Briefly reviewed discharge summary packet with pt, pressed for time due to [place] to [employer] and currently having Percocet prescription filled at [facility]. Reviewed needing to call PCP to make follow up appointment, Offloading pressure to coccyx area with waffle cushion that was given to pt earlier this shift. Pain management. Percocet given at 1445 prior to discharge for comfort of travel and 8/10 pain to coccyx area. Pt was teary during discharge paperwork due to coccyx having coccyx pain. Support and encouragement provided. Pt left unit via wheelchair at 1455 with all belongings with SALES ADMINISTRATOR escort to meet her brother Rivera edward at [facility] who will be driving pt home.
--- NOTE | 2018-09-27 18:52 | PM.DS.1 ---
History of Present Illness Date Patient Seen: 09/27/18 Time Patient Seen: 08:00 Chief complaint: LOTS OF PAIN Narrative: As per Dr. Brennan, Zeny Artis is a 73-year-old female current like taking primarily pain medications and 100 mcg fentanyl patch for chronic back pain. She states that she has had chronic pain in her coccyx area for several years however it has worsened to the point that it is waking her up at night and that she has been in so much pain that it causes her to cry. She denies fever or chills, denies shortness of breath, chest pain, difficulties walking, states that her wounds that she developed several months ago have now healed, she states she is chronically constipated due to her medications. She states that since the pain has worsened she is experiencing more urinary frequency but no pain on urination or hematuria. Assessment in the emergency department and a CT that was reported to me indicated this suspected osteomyelitis of the coccyx. She was recently admitted and then transferred to [facility] due to a overdose of her fentanyl patches. They apparently found to of them on her and she was at that time altered and appeared to not respond to doses of Narcan. She was subsequently transferred to their ICU. She does not recall anything except for that she had renal failure associated with that hospitalization. Discharge Providers Date of admission: 09/27/18 05:00 Discharge Date: 09/27/18 Primary care physician: Chucky Velazquez MD Consults: 09/27/18 06:59 Consult to Dietitian, Adult Routine Comment: Reason For Exam: dramatic weight loss in 6 weeks 09/27/18 11:03 Consult to Physical Therapy Evaluate & Treat Comment: Physician Instructions: Evaluate and Treat Discharge provider: Ronald Betts DO Summary Discharge Diagnosis: 1. 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 Chronic continuous opioid dependence 3. Chronic constipation associated with opioid use. Hospital Course: 1. Low back pain - osteomyeltitis ruled out with MRI. Did show some edematous changes around the coccyx likely related to prolonged immobolity recently. This could also be worsening in the setting of possible opioid tolerance and also possible constipation. Her pain did improve while inpatient and she was seen by PT whom did not recommend any home services. - prescribed acute management with opiates until patient can be seen next week on [facility] for further pain management. - advised continuation of extensive bowel regimen. - can continue fentanyl as prescribed - advised / encouraged home moblility 2. Chronic continuous opioid dependence - possibly developing tolerance. Acute pain likely related to prolonged immobility at home as mentioned above. 3. Chronic constipation associated with opioid use Patient will continue home doses of Colace 100 mg b.i.d., MiraLax 17 g once daily, and sennasides 8.7 mg b.i.d. Exam Vital Signs (past 8 hours): - 09/27/18 12:00 Temperature 97.6 F Pulse Rate 64 Respiratory Rate 16 Blood Pressure 110/65 Pulse Oximetry 96 Oxygen Delivery Method Room Air Oxygen Flow Rate 0 Narrative Exam Narrative: GENERAL APPEARANCE: chronically malnourised, but pleasant and interactive. SKIN: Inspection of the skin reveals no rashes, ulcerations or petechiae. HEENT: The sclerae were anicteric and conjunctivae were pink and moist. Extraocular movements were intact and pupils were equal, round, and reactive to light with normal accommodation. External inspection of the ears and nose showed no scars, lesions, or masses. Lips, teeth, and gums showed normal mucosa. The oral mucosa, hard and soft palate, tongue and posterior pharynx were normal. NECK: Supple and symmetric. There was no thyroid enlargement, and no tenderness, or masses were felt. CHEST: Normal AP diameter and normal contour without any kyphoscoliosis. LUNGS: Auscultation of the lungs revealed no wheezes, rhonchi, or rales. CARDIOVASCULAR: There was a regular rate and rhythm without any murmurs, gallops, rubs. The carotid pulses were normal and 2+ bilaterally without bruits. Peripheral pulses were 2+ and symmetric. ABDOMEN: Soft and nontender. Decreased bowel sounds. MUSCULOSKELETAL: Gait was normal. There was no effusions noted. Muscle strength and tone were normal. EXTREMITIES: No cyanosis, clubbing or edema. NEUROLOGIC: Alert and oriented x 3. Normal affect. Gait was normal. Sensation to touch was normal. Objective Labs Result Diagrams: 09/27/18 02:38 09/27/18 02:38 Labs: Laboratory Results - last 24 hr 09/27/18 09/27/18 09/27/18 02:38 02:38 02:38 WBC 9.4 RBC 3.72 L Hgb 12.0 Hct 35.9 L MCV 96.6 MCH 32.2 MCHC 33.3 RDW 16.8 H Plt Count 185 Neut % (Auto) 58.8 Lymph % (Auto) 31.5 [place] % (Auto) 5.4 Eos % (Auto) 2.9 Baso % (Auto) 1.4 Neut # (Auto) 5500 Lymph # (Auto) 2900 [place] # (Auto) 500 Eos # (Auto) 300 Baso # (Auto) 100 ESR 29 H Sodium 139 Potassium 4.7 Chloride 102 Carbon Dioxide 28 BUN 38 H Creatinine 1.20 H Estimated GFR 44.2 L BUN/Creatinine Ratio 31.7 H Glucose 72 L Lactate Calcium 9.0 C-Reactive Protein Procalcitonin Nasal Screen MRSA (PCR) 09/27/18 09/27/18 09/27/18 02:38 02:38 06:26 WBC RBC Hgb Hct MCV MCH MCHC RDW Plt Count Neut % (Auto) Lymph % (Auto) [place] % (Auto) Eos % (Auto) Baso % (Auto) Neut # (Auto) Lymph # (Auto) [place] # (Auto) Eos # (Auto) Baso # (Auto) ESR Sodium Potassium Chloride Carbon Dioxide BUN Creatinine Estimated GFR BUN/Creatinine Ratio Glucose Lactate 0.5 L Calcium C-Reactive Protein < 0.5 Procalcitonin < 0.05 Nasal Screen MRSA (PCR) 09/27/18 10:45 WBC RBC Hgb Hct MCV MCH MCHC RDW Plt Count Neut % (Auto) Lymph % (Auto) [place] % (Auto) Eos % (Auto) Baso % (Auto) Neut # (Auto) Lymph # (Auto) [place] # (Auto) Eos # (Auto) Baso # (Auto) ESR Sodium Potassium Chloride Carbon Dioxide BUN Creatinine Estimated GFR BUN/Creatinine Ratio Glucose Lactate Calcium C-Reactive Protein Procalcitonin Nasal Screen MRSA (PCR) Negative for mrsa Discharge Plan Discharge Plan Patient Disposition: Home Discharge comment: You are being discharged home. You were admitted over concern for possible osteomyelitis which was not seen on your MRI. You should take your bowel regimen as described at home and work to increase your activity. I have provided you with a prescription for a few days of pain medication to help until you are able to be seen by the physicians on [facility]. You should follow up with them next week to evaluate your pain regimen. Discharge Med Rec/Prescriptions Prescriptions: New oxycodone-acetaminophen 5-325 mg Tablet 1 tab PO Q6HR MDD 4 PRN (Reason: Pain, Moderate (4-6)) Qty: 10 RF: 0 Continued gabapentin [Neurontin] 600 MG tablet 300 mg PO DAILY Qty: 0 RF: 0 lidocaine [Lidoderm] 5 % Adhesive Patch,Medicated 1 patch topical DAILY RF: 0 hyoscyamine sulfate 0.125 mg Tablet, Sublingual 0.125 mg PO Q6H PRN (Reason: Spasms) RF: 0 sennosides [senna] 8.6 mg Tablet 17.2 mg PO DAILY PRN (Reason: Constipation) Qty: 30 RF: 0 polyethylene glycol 3350 17 gram Powder In Packet 17 gm PO DAILY Qty: 30 RF: 0 bisacodyl 10 mg Suppository 10 mg [place] DAILY PRN (Reason: Constipation) Qty: 30 RF: 0 nicotine 21 mg/24 hr Patch 24 Hour 21 mg topical DAILY Qty: 30 RF: 0 docusate sodium 100 mg Capsule 100 mg PO BID Qty: 60 RF: 0 fentanyl 100 MCG/HR patch 72 hour 1 patch Topical Q3D Qty: 0 RF: 0 Follow up/Referrals: Chucky Velazquez MD [Primary Care Provider] - Provider Discharge Instructions Diet: Diet as Tolerated Activity: Ambulate as tolerate Visit Report/Discharge Packet Instructions: How to Prevent Pressure Ulcers, Magnetic Resonance Imaging, How to Prevent Falls, Oxycodone/Acetaminophen (By mouth) Visit Report Forms: Stroke Signs & Symptoms Discharge Data Primary Care Provider: Chucky Velazquez Attending Provider: Asia Brennan Admit Date/Time: 09/27/18 05:00 Discharges patient from system. Discharge Date/Time: 09/27/18 14:55 Quality VTE Deep Vein Thrombosis/Pulmonary Embolism Present on Admission: No
== END 2018-09-27 14:55 | disposition home or self-care (01) ==
LOC: ED 09-27 04:36 → AC 09-27 05:36
PROVIDERS: Admitting Provider Nurse Practitioner Family; Emergency Provider Emergency Medicine; PCP Family Medicine; Visit Provider Nurse Practitioner Family
DX: M53.3 Sacrococcygeal disorders, not elsewhere classified (principal); G89.29 Other chronic pain; K59.03 Drug induced constipation; T40.605A Adverse effect of unspecified narcotics, initial encounter; F17.200 Nicotine dependence, unspecified, uncomplicated; Z79.891 Long term (current) use of opiate analgesic
CPT/HCPCS: 36415; 36591; 72192; 72197; 80048; 83605; 84145; 85025; 85651; 86140; 87040; 87797; 97161; 99283; G0378; A9579; J1644

== ENCOUNTER 2018-10-21 22:20 | Emergency (ER) | payer MEDICARE, SELFPAY ==
[2018-09-27 06:37] VITALS: BMI 17.9
[2018-10-21 22:27] VITALS: BP 151/92; PULSE 95; RESP 15; TEMP 36.7; O2SAT 96; BMI 17.9
--- NOTE | 2018-10-21 22:27 | ED_ITS ---
HPI - Skin/Abscess/Foreign Bdy General Chief complaint: Skin/Abscess/Foreign Body Stated complaint: something wrong with butt/pain Time Seen by Provider: 10/21/18 22:22 Source: patient and family Mode of arrival: ambulatory Limitations: no limitations History of Present Illness HPI narrative: 73-year-old female nonsmoker presents with ongoing anal pain. She denies fever chills nor nausea or vomiting. She denies any pain with bowel movements. She has had this for quite some time and has had extensive workup. The working diagnosis is herpes genitalis. She was seen and evaluated earlier this year and had CT scan and MRI demonstrating no deep infection or osteomyelitis. She only has a few more doses fell psych live year left and is concerned that her fentanyl patch does not treat her pain well enough. MD complaint: other Onset (ago): month(s) Location: buttocks Severity: moderate Quality: burning and stabbing Relieving factors: none Exacerbating factors: none Associated symptoms: denies other symptoms Related Data Home Medications Medication Instructions Recorded Confirmed gabapentin [Neurontin] 300 mg PO DAILY #0 03/01/17 09/27/18 hyoscyamine sulfate 0.125 mg PO Q6H PRN 08/14/18 08/14/18 lidocaine [Lidoderm] 1 patch TOPICAL DAILY 08/14/18 08/14/18 Previous Rx's Medication Instructions Recorded bisacodyl 10 mg ID DAILY PRN #30 ea 06/19/18 docusate sodium 100 mg PO BID #60 cap 06/19/18 fentanyl 1 patch TOPICAL Q3D #0 ea 06/19/18 nicotine 21 mg TOPICAL DAILY #30 ea 06/19/18 polyethylene glycol 3350 17 gm PO DAILY #30 ea 06/19/18 sennosides [senna] 17.2 mg PO DAILY PRN #30 tab 06/19/18 valacyclovir 500 mg tablet 1,000 mg PO Q12H 10 Days #40 tab 10/11/18 valacyclovir 1,000 mg PO BID 10 Days #40 tab 10/22/18 Allergies Allergy/AdvReac Type Severity Reaction Status Date / Time oxybutynin Allergy Severe Difficulty Verified 10/21/18 22:27 Breathing acetaminophen [From [place]] Allergy Unknown Verified 10/21/18 22:27 hydrocodone [From [place]] Allergy Unknown Verified 10/21/18 22:27 meloxicam AdvReac Intermediate Nausea Verified 10/21/18 22:27 tramadol AdvReac Intermediate Vomiting Verified 10/21/18 22:27 fentanyl [From [place]agesic] AdvReac Mild Rash Verified 10/21/18 22:27 ciprofloxacin [From Cipro] AdvReac Unknown Verified 10/21/18 22:27 morphine AdvReac Fainting Verified 10/21/18 22:27 Review of Systems Constitutional Constitutional: Denies chills, Denies fatigue, Denies fever(s), Denies frequent falls, Denies lethargy and Denies weakness Eyes Eyes: Denies change in vision, Denies eye discharge, Denies irritation and Denies loss of vision ENT Ears, Nose, Mouth, and Throat: Denies change in voice, Denies dizziness, Denies neck pain, Denies sore throat and Denies throat swelling Cardiovascular Cardiovascular: Denies chest pain, Denies irregular heart rhythm, Denies lightheadedness, Denies palpitations, Denies dyspnea, Denies dyspnea on exertion and Denies orthopnea Respiratory Respiratory: Denies cough, Denies dyspnea, Denies dyspnea on exertion and Denies wheezing Gastrointestinal Gastrointestinal: Denies abdominal pain, Denies change in bowel habits, Denies diarrhea, Denies nausea and Denies vomiting Genitourinary Genitourinary: Denies hematuria, Denies flank pain, Denies urinary incontinence and Denies urinary urgency Musculoskeletal Musculoskeletal: Denies back pain, Denies muscle weakness, Denies neck pain, Denies numbness and Denies tingling Integumentary/Breasts Skin/Breast: Denies pruritus, Reports erythema, Reports rash, Reports skin pain and Denies wounds Neurologic Neurologic: Denies behavioral changes, Denies confusion, Denies dizziness, Denies frequent falls, Denies loss of vision, Denies numbness, Denies tingling and Denies weakness Psychiatric Psychiatric: Denies anxiety, Denies behavioral changes, Denies confusion, Denies depression, Denies homicidal ideation and Denies suicidal ideation Endocrine Endocrine: Denies fatigue, Denies flushing and Denies palpitations Hematologic/Lymphatic Hematologic/Lymphatic: Denies easy bruising Allergic/Immunologic Allergic/Immunologic: Denies urticaria, Denies throat swelling and Denies wheezing [facility] Medical History Coccyx pain (Acute) History of hysterectomy (Resolved) Pulmonary embolism (Resolved) Right shoulder injury (Resolved) Surgical History History of lumbar laminectomy (Resolved) Family History Mother Diverticulitis Social History household members: none Smoking Status: Current every day smoker alcohol intake: never Family History Mother Diverticulitis Social History household members: none Smoking Status: Current every day smoker alcohol intake: never Exam Narrative Exam Narrative: GENERAL: [73] year old patient appears stated age. Thin, alert. AOx3. GCS15. Complaining of pain. HEAD: Atraumatic. Normocephalic. EYES: Pupils equal round and reactive. Extraocular motions intact. No scleral icterus. No injection or drainage. ENT: Nose without bleeding, purulent drainage. Throat without erythema, tons illar hypertrophy or exudate. Airway patent. NECK: Trachea midline. Non tender CARDIOVASCULAR: Regular rate and rhythm without murmurs, gallops, or rubs. RESPIRATORY: Clear to auscultation. Breath sounds equal bilaterally. No wheezes, rales, or rhonchi. GASTROINTESTINAL: Abdomen soft, non-tender, nondistended. RECTAL: Examined with the patient's permission and female nursing cashier wrapper at the bedside. There are skin lesions consisting of clear fluid-filled blisters on an erythematous base on bilateral buttocks. There are external, nonthrombosed hemorrhoids. Patient has some tenderness with rectal exam but no fissures noted and no internal hemorrhoids palpated EXTREMITIES: No edema or joint tenderness. BACK: Nontender without deformity or crepitance. No flank tenderness. NEURO: AOx3. SKIN: No rash or erythema of visible areas other than that which is noted above Initial Vital Signs Initial Vital Signs: Vital Signs Temperature 98.0 F 10/21/18 22:27 Pulse Rate 95 H 10/21/18 22:27 Respiratory Rate 15 10/21/18 22:27 Blood Pressure 151/92 H 10/21/18 22:27 Pulse Oximetry 96 09/07/19 22:27 Course Course Course Narrative: [place] prescription monitoring program consulted and very recently a 1 month supply fentanyl patches was filled and patient has been receiving 30 Dilaudid pills once a week from her primary Orders Ordered: ED Orders 10/21/18 23:05 Basic Metabolic Panel Stat C-Reactive Protein Quant Stat Complete Blood Count AUTO DIFF Stat Erythrocyte Sedimentation Rate Stat 10/21/18 23:40 CT pelvis wo con Stat Discontinued Medications Hydromorphone HCl (Dilaudid) 1 mg IM NOW ONE Stop: 10/22/18 03:15 Last Admin: 10/22/18 03:30 Dose: 1 mg Documented by: TERI Vital Signs Vital signs: Vital Signs - 8 hr 10/21/18 22:27 Temperature 98.0 F Pulse Rate 95 H Respiratory Rate 15 Blood Pressure 151/92 H Pulse Oximetry 96 MDM - Skin/Abscess/Foreign Bdy Lab Data Result diagrams: 10/21/18 23:05 10/21/18 23:05 Labs: Lab Results 10/21/18 10/21/18 Range/Units 23:05 23:05 WBC 6.3 (4.5-11.0) X10^3/uL RBC 4.29 (4.0-5.2) X10^6/uL Hgb 14.2 (12.0-16.0) g/dL Hct 42.1 (36-46) % MCV 98.3 (80-100) fL MCH 33.1 (26-34) PG MCHC 33.7 (30-36) % RDW 18.8 H (11.6-14.8) % Plt Count 188 (150-400) X10^3/uL Neut % (Auto) 61.5 (50-75) % Lymph % (Auto) 28.9 (25-40) % [place] % (Auto) 7.1 (3-14) % Eos % (Auto) 1.0 L (2-4) % Baso % (Auto) 1.5 (0-2) % Neut # (Auto) 3800 (6130-2379) /uL Lymph # (Auto) 1800 (9600-4320) /uL [place] # (Auto) 400 (0-900) /uL Eos # (Auto) 100 (0-450) /uL Baso # (Auto) 100 (0-100) /uL ESR 9 (0-20) MM/HR Sodium 140 (137-145) mmol/L Potassium 3.8 (3.4-5.1) mmol/L Chloride 102 (98-107) mmol/L Carbon Dioxide 25 (22-32) mmol/L BUN 26 H (7-17) mg/dL Creatinine 0.70 (0.52-1.04) mg/dL Estimated GFR > 60.0 (>60) mL/min BUN/Creatinine Ratio 37.1 H (6-22) Glucose 82 (80-110) mg/dL Calcium 9.4 (8.4-10.2) mg/dL C-Reactive Protein 0.8 (<1.0) mg/dL MDM Narrative Medical decision making narrative: Patient with chronic anal pain re-evaluated. Labs are unremarkable, exam would suggest no perirectal abscess or change. In fact her clinical picture, labs and imaging are improved over last time. There is no evidence of a reversible cause or need for immediate intervention. Her condition is stable, if not improved. Return precautions given and questions answered to her apparent satisfaction Discharge Plan Departure Patient Disposition: Home Clinical Impression: Herpes genitalis Qualifiers: Herpes simplex infection site: perianal skin Qualified Code(s): A60.1 - Herpesviral infection of perianal skin and rectum Discharge Date/Time: 10/22/18 04:00 Instructions: Herpes (Alternative Therapy) Activity Restrictions/Additional Instructions: *You have been diagnosed with [chronic perianal pain] *What to do: *Take medications as directed *Follow up with your primary care provider in 2-3 days, call for an appointment. Let them know you were seen in the Emergency Department and that we ask that you be seen in follow up *Return to ER if you should have any new, worsening or concerning symptoms Prescriptions: New valacyclovir 500 mg tablet 1,000 mg PO BID 10 Days Qty: 40 RF: 0 No Action gabapentin [Neurontin] 600 MG tablet 300 mg PO DAILY Qty: 0 RF: 0 valacyclovir 500 mg tablet 1,000 mg PO Q12H 10 Days Qty: 40 RF: 0 lidocaine [Lidoderm] 5 % Adhesive Patch,Medicated 1 patch topical DAILY RF: 0 hyoscyamine sulfate 0.125 mg Tablet, Sublingual 0.125 mg PO Q6H PRN (Reason: Spasms) RF: 0 sennosides [senna] 8.6 mg Tablet 17.2 mg PO DAILY PRN (Reason: Constipation) Qty: 30 RF: 0 polyethylene glycol 3350 17 gram Powder In Packet 17 gm PO DAILY Qty: 30 RF: 0 bisacodyl 10 mg Suppository 10 mg ID DAILY PRN (Reason: Constipation) Qty: 30 RF: 0 nicotine 21 mg/24 hr Patch 24 Hour 21 mg topical DAILY Qty: 30 RF: 0 docusate sodium 100 mg Capsule 100 mg PO BID Qty: 60 RF: 0 fentanyl 100 MCG/HR patch 72 hour 1 patch Topical Q3D Qty: 0 RF: 0 Referrals: Chucky Velazquez MD [Primary Care Provider] -
--- NOTE | 2018-10-21 23:40 | DI.CT.S_ITS ---
PROCEDURE: CT PEL WO CON INDICATIONS: pain in anus, severe, cannot use contrast TECHNIQUE: Noncontrast 3 mm axial sections acquired through the bony pelvis, with coronal and sagittal reformatting. COMPARISON: [facility], MR, MR PELVIS WO/W CON, 09/27/2018, 8:37. [facility], CT, CT PEL WO CON, 09/27/2018, 0:38. [facility], CT, CT ABDOMEN PELVIS WO CON, 08/15/2018, 7:14. [facility], CT, CT ABDOMEN PELVIS W CON, 09/17/2017, 2:22. FINDINGS: Image quality: Diagnostic. Bones: There is no acute fracture or dislocation involving the osseous structures of the pelvis. Pelvic bony alignment is within normal limits. No widening of the sacroiliac joints or pubic symphysis is evident. No suspicious osseous lesions or osseous erosions are evident. Postoperative changes of the lower lumbar spine are compatible with a lumbosacral fusion. Irregularity of the posterior left iliac bone likely represents an autologous bone graft harvest site. Mild to moderate degenerative changes of the pelvic joints are present. Previously noted subtle lucency involving the left coccyx (image 66, series 6) is unchanged since the previous exam the degree of adjacent soft tissue swelling is less prominent. Soft tissues: The anus is not well delineated on this examination without IV or rectal contrast. However, there is mild perianal edema without an associated definitive perianal fluid collection. A moderate amount of residual stool within the colon is identified, which may be less prominent than on previous exams. The small bowel loops are nondilated. The included portions of the kidneys and liver are grossly unremarkable and unchanged. Hepatic and renal cysts appear to be present. There is aortic and iliac artery atherosclerosis. No definite pelvic or retroperitoneal lymphadenopathy is evident. No free fluid or lack of a fluid collection is seen within the pelvis. There is no free air evident. Subcutaneous edema overlying the bilateral gluteal regions is similar to the previous exam. There is no drainable or loculated fluid collection. IMPRESSION: 1. Limited evaluation of the anus. There is mild perianal edema without a definitive abscess. 2. Subcutaneous edema overlying the bilateral gluteal regions is similar to the previous MRI. There is no abscess or loculated fluid collection within these regions. 3. Lucency involving the left coccyx is unchanged. Note: The preliminary report provided by [facility]. is concordant with the final report. Dictated by: Toy Gracia M.D. on 10/22/2018 at 7:16 Approved by: Toy Gracia M.D. on 10/22/2018 at 7:24
[2018-10-21 23:59] LABS: Add Manual Diff / Slide Review NO; Basophils Absolute Auto 100 /uL (0-100); Basophils Percent Auto 1.5 % (0-2); Eosinophils Absolute Auto 100 /uL (0-450); Hematocrit 42.1 % (36-46); Hemoglobin 14.2 g/dL (12.0-16.0); Lymphocytes Absolute Auto 1800 /uL (1100-4500); Lymphocytes Percent Auto 28.9 % (25-40); Mean Corpuscular HGB Conc 33.7 % (30-36); Mean Corpuscular Hemoglobin 33.1 PG (26-34); Mean Corpuscular Volume 98.3 fL (80-100); Monocytes Absolute Auto 400 /uL (0-900); Monocytes Percent Auto 7.1 % (3-14); Neutrophils Absolute Auto 3800 /uL (1500-7000); Neutrophils Percent Auto 61.5 % (50-75); Platelet Count 188 X10^3/uL (150-400); Red Blood Cell Count 4.29 X10^6/uL (4.0-5.2); Red Cell Distribution Width 18.8 % (11.6-14.8); White Blood Cell Count 6.3 X10^3/uL (4.5-11.0)
[2018-10-22 00:10] LABS: Chloride 102 mmol/L (98-107); HEMOLYSIS < 15 (0-50)
[2018-10-22 00:15] LABS: BUN Creatinine Ratio 37.1 (6-22); Blood Urea Nitrogen 26 mg/dL (7-17); C-Reactive Protein Quant 0.8 mg/dL (<1.0); Calcium 9.4 mg/dL (8.4-10.2); Carbon Dioxide 25 mmol/L (22-32); Estimated Glomerular Filt Rate > 60.0 mL/min (>60); Glucose 82 mg/dL (80-110); Potassium 3.8 mmol/L (3.4-5.1); Sodium 140 mmol/L (137-145)
[2018-10-22 00:23] LABS: Erythrocyte Sedimentation Rate 9 MM/HR (0-20)
[2018-10-22] MEDS: HYDROMORPHONE 1 MG INJ IM (03:30)
[2018-10-22 04:00] VITALS: BP 153/82; PULSE 66; RESP 14; O2SAT 96
== END 2018-10-22 04:00 | disposition home or self-care (01) ==
PROVIDERS: Emergency Provider Emergency Medicine; PCP Family Medicine
DX: A60.1 Herpesviral infection of perianal skin and rectum (principal)
CPT/HCPCS: 36415; 72192; 80048; 85025; 85651; 86140; 96372; 99282; 99284; J1170

== ENCOUNTER 2019-01-10 14:05 | Inpatient (IN) | payer MEDICARE, SELFPAY ==
[2018-09-27 06:37] VITALS: BMI 17.9
[2019-01-10] VITALS (22 sets, daily range): BP systolic 98–149; BP diastolic 44–71; PULSE 70–124; RESP 12–24; TEMP 36.8–37.2; O2SAT 87–97; BMI 20.2
--- NOTE | 2019-01-10 14:13 | DI.RAD.S_ITS ---
PROCEDURE: XR SHOULDER RT MIN 2V INDICATIONS: found down bruising TECHNIQUE: 2 views of the shoulder were acquired. COMPARISON: [facility], CR, XR SHOULDER RT MIN 2V, 03/13/2018, 20:04. FINDINGS: Bones: Mildly displaced appearance of the humeral head. In correlation to prior x-ray of 03/13/18, this appears to be reflective of a healed previous comminuted right humeral head/neck fracture. Soft tissues: No suspicious soft tissue calcifications. IMPRESSION: Old right humeral head fracture when compared to prior exam. No visualized acute fracture. Dictated by: Laura Valle M.D. on 01/10/2019 at 15:05 Approved by: Laura Valle M.D. on 01/10/2019 at 15:06
--- NOTE | 2019-01-10 14:13 | DI.CT.S_ITS ---
PROCEDURE: CT HEAD/BRAIN WO CON INDICATIONS: found down TECHNIQUE: Noncontrast 4.5 mm thick angled axial sections acquired from the foramen magnum to the vertex, with coronal and sagittal reformats. For radiation dose reduction, the following was used: automated exposure control, adjustment of mA and/or kV according to patient size. COMPARISON: [facility], CT, CT HEAD/BRAIN WO CON, 08/14/2018, 12:32. FINDINGS: Image quality: Excellent. CSF spaces: Basal cisterns are patent. No extra-axial fluid collections. The ventricles are symmetric in size and shape. Brain: No intracranial bleeds or masses. There is cerebral volume loss for age, with resultant ventricular and sulcal prominence. There are periventricular and deep white matter chronic small vessel ischemic changes. There is intracranial internal carotid artery atherosclerosis. Skull and face: Calvarium and visualized facial bones appear intact, without suspicious lesions. Sinuses: Visualized sinuses and mastoids are clear. IMPRESSION: No acute intracranial disease process. Dictated by: Yessy Hinkle MD, PhD on 01/10/2019 at 14:57 Approved by: Yessy Hinkle MD, PhD on 01/10/2019 at 14:59
--- NOTE | 2019-01-10 14:13 | DI.RAD.S_ITS ---
PROCEDURE: XR CHEST 1V INDICATIONS: found down TECHNIQUE: One view of the chest was acquired. COMPARISON: [facility], CR, XR CHEST 1V, 08/14/2018, 15:13. FINDINGS: Surgical changes and devices: None. Lungs and pleura: Lungs are clear. No pleural effusions or pneumothorax. Mediastinum: Mediastinal contours appear normal. Heart size is normal. Bones and chest wall: Partially visualized what appears to be right humeral head fracture. Overlying soft tissues appear unremarkable. IMPRESSION: No acute pulmonary process. Partially visualized what appears to be right humeral head fracture. Dictated by: Laura Valle M.D. on 01/10/2019 at 15:03 Approved by: Laura Valle M.D. on 01/10/2019 at 15:04
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
[2019-01-10 14:47] LABS: Add Manual Diff / Slide Review NO; Basophils Absolute Auto 100 /uL (0-100); Basophils Percent Auto 0.6 % (0-2); Eosinophils Absolute Auto 0 /uL (0-450); Eosinophils Percent Auto 0.4 % (2-4); Hematocrit 40.1 % (36-46); Hemoglobin 13.4 g/dL (12.0-16.0); Lymphocytes Absolute Auto 1600 /uL (1100-4500); Lymphocytes Percent Auto 14.5 % (25-40); Mean Corpuscular HGB Conc 33.5 % (30-36); Mean Corpuscular Hemoglobin 34.8 PG (26-34); Mean Corpuscular Volume 104.1 fL (80-100); Monocytes Absolute Auto 700 /uL (0-900); Monocytes Percent Auto 6.5 % (3-14); Neutrophils Absolute Auto 8300 /uL (1500-7000); Platelet Count 165 X10^3/uL (150-400); Red Blood Cell Count 3.85 X10^6/uL (4.0-5.2); Red Cell Distribution Width 16.5 % (11.6-14.8); White Blood Cell Count 10.7 X10^3/uL (4.5-11.0)
[2019-01-10 14:53] LABS: PTT Partial Thromboplastin Tim 28 SECONDS (26.4-36.2)
[2019-01-10 14:56] LABS: Acetaminophen < 10 ug/mL (10-30); Alanine Aminotransferase 37 IU/L (<35); Albumin 3.9 g/dL (3.5-5.0); Albumin Globulin Ratio 1.2 (1.0-2.8); Alkaline Phosphatase 65 U/L (38-126); Aspartate Aminotransferase 110 IU/L (14-36); BUN Creatinine Ratio 27.3 (6-22); Bilirubin Total 0.5 mg/dL (0.2-1.3); Blood Urea Nitrogen 41 mg/dL (7-17); Calcium 8.8 mg/dL (8.4-10.2); Carbon Dioxide 24 mmol/L (22-32); Chloride 103 mmol/L (98-107); Estimated Glomerular Filt Rate 34.1 mL/min (>60); Ethanol (ETOH) < 10 mg/dL; Globulin 3.3 g/dL (1.7-4.1); Glucose 65 mg/dL (80-110); HEMOLYSIS < 15 (0-50); Potassium 3.9 mmol/L (3.4-5.1); Salicylate 23.8 mg/dL (<20); Sodium 138 mmol/L (137-145); Total Protein 7.2 g/dL (6.3-8.2)
[2019-01-10 15:07] LABS: Troponin I < 0.012 ng/mL (0.01-0.034)
[2019-01-10 15:12] LABS: Creatine Kinase 7442 U/L (30-135)
[2019-01-10] MEDS: DEXTROSE 50 % IN WATER 25 GM/50 ML SYRINGE IV (15:15)
[2019-01-10] MEDS: SODIUM CHLORIDE 0.9% 1,000 ML 150 ML IV (15:15)
[2019-01-10 15:27] LABS: CKMB % Relative Index 0.4 % (1.5-5.0)
[2019-01-10 15:45] LABS: Thyroid Stimulating Hormone 0.38 uIU/mL (0.47-4.68)
[2019-01-10] MEDS: NALOXONE 0.4 MG/ML VIAL IV (16:15)
[2019-01-10 17:09] LABS: Ur Creatinine Normal (Normal); Ur Specific Gravity Normal (Normal); Urine pH Normal (Normal)
[2019-01-10 17:10] LABS: UR Morphine/Opiate cutoff 300 Negative (Negative); Urine Amphetamines Negative (Negative); Urine Barbiturates Negative (Negative); Urine Benzodiazepines Negative (Negative); Urine Cocaine Negative (Negative); Urine MDMA Negative (Negative); Urine Methadone Negative (Negative); Urine Methamphetamines Negative (Negative); Urine Oxycodone Negative (Negative); Urine Phencyclidine Negative (Negative); Urine Tetrahydrocannabinol Negative (Negative); Urine Tricyclic Antidepressant Negative (Negative)
[2019-01-10] MEDS: NALOXONE 1 MG/ML SYRINGE 0.2 MG IV (17:39)
[2019-01-10] MEDS: NALOXONE 2 MG in SODIUM CHLORIDE 0.9% 500 ML 62.5 ML IV (17:41)
--- NOTE | 2019-01-10 18:05 | PC.NURSE ---
1424 Patient sitting up and mostly alert: GCS 12. EMS reports they gave her Narcan 10 minutes prior.Paitnet coughing secretions and phlegm, cough is wet.RT called to come and suction patient.
--- NOTE | 2019-01-10 18:06 | PC.NURSE ---
1430 Patient being suctioned by RT at this time. 10-15ML of brown and white phlegm suctioned out.
--- NOTE | 2019-01-10 18:07 | PC.NURSE ---
1554 Patient Desatting to 87% on RA. Much less alert with a GCS of 8 and CO2 reading of 17. Dr. Solorzano aware and Narcan dose to be ordered. At this time we found a Fentanyl Patch on the patient's left arm and it was removed.
--- NOTE | 2019-01-10 18:08 | PC.NURSE ---
1616 After Narcan, patient awakened and recognized [id number] at bedside. She began coughing on phlegm and secretions. RT and I both suctioned the patient. She was able to cough up 20mL of Brown and white phlegm. O2 Saturation is now 96% on RA, able to be taken off of O2.
--- NOTE | 2019-01-10 18:09 | PC.NURSE ---
1724 Patient much more sedated at this time again with GCS of 8 and O2 desatting to 87% on Room Air. Placed on 2L NC O2 at this time. Dr. Solorzano aware and Marta Hwang ordered.
--- NOTE | 2019-01-10 18:10 | PC.NURSE ---
1745 Verbal order given for 0.2mg Narcan Bolus at this time prior to starting Narcan Drip.
--- NOTE | 2019-01-10 18:11 | PC.NURSE ---
1750 Patient awake after Narcan bolus. Narcan drip infusing. GCS: 12. Patient coughing and clearing secretions and phlegm at this time.
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
--- NOTE | 2019-01-10 18:42 | PC.NURSE ---
1425 EMS reports she had a fall a few days ago. Has bruising to right eye and right shoulder.
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
[2019-01-10] MEDS: DEXTROSE 5%-0.45% NS 1,000 ML 150 ML IV (19:25)
[2019-01-10 19:31] LABS: PCO2 ABG 39.4 mmHg (35-45); PO2 ABG 73 mmHg (80-100); pH ABG 7.36 (7.35-7.45)
[2019-01-10 19:32] LABS: Fractionated Inspired Oxygen 28; HCO3 ABG 22 mmol/L (22-26); Oxygen Saturation ABG 94 % (95-100); TCO2 ABG 23 mmol/L (21-31)
--- NOTE | 2019-01-10 19:36 | PC.NURSE ---
Addendum entered by Marcy Coleman R.N. 01/10/19 21:41: 2140 - Pt repositioned to left side lying. Kept eyes closed. However able to nod head no when asked if she was warm enough. Reoriented to place and situation. Warm blanket provided. Call light in reach. Bed alarm on. Narcan gtt continues at 0.25mg/hr. BG 94. Original Note: 1840 -Pt to room from ER. Transfer to bed via slider board. Pt opens eyes with mildly painful stimuli. Pupils equal and reactive. RR 16, sats 90% on RA. Placed on 2L NC. BG 65. MD aware. IVF order obtained. Skin assessment with 2nd RN complete. No family present to assist with admission assessment. No verbal responses. Bed alarm on. Monitor.
[2019-01-10 20:28] LABS: Bacteria Urine None Seen; RBC Urine None Seen (0-5/HPF); WBC Urine None Seen (0-5/HPF)
[2019-01-10 20:29] LABS: Appearance Urine UA CLEAR; Bilirubin Urine UA NEGATIVE (NEGATIVE); Color Urine UA YELLOW; Glucose Urine UA NEGATIVE (Negative); Ketones Urine UA NEGATIVE (NEGATIVE); Leukocyte Esterase Urine UA NEGATIVE (NEGATIVE); Nitrite Urine UA NEGATIVE (Negative); Occult Blood Urine UA 3+ (Negative); Protein Urine UA NEGATIVE (Negative); Specific Gravity Urine UA <=1.005 (1.000-1.035); Urobilinogen Urine UA 0.2 E.U./dL (0.2)
[2019-01-10 20:39] LABS: pH Urine UA 5.5 (4.5-8.0)
[2019-01-10 20:41] LABS: Culture Indicated Urine Cult Not Indicated; Squamous Epithelial Cell Urine 0-1 /HPF (0-5/HPF)
[2019-01-11] VITALS (15 sets, daily range): BP systolic 120–150; BP diastolic 62–76; PULSE 68–83; RESP 12–31; TEMP 36.5–37.4; O2SAT 92–97
[2019-01-11] MEDS: NALOXONE 2 MG in SODIUM CHLORIDE 0.9% 500 ML 62.5 ML IV (01:20)
[2019-01-11] MEDS: DEXTROSE 5%-0.45% NS 1,000 ML 150 ML IV ×4 (01:20→20:21)
[2019-01-11 04:56] LABS: Prothrombin Time 11.9 SECONDS (10.1-12.7)
--- NOTE | 2019-01-11 04:57 | PC.NURSE ---
Addendum entered by Мария Tadeo R.N. 01/11/19 06:06: [employer] informed about patient becoming more alert with clear speech and c/o increasing pain with restlessness. Order to titrate Narcan gtt down and give prn Tylenol if patient wishes to take. Original Note: Flat Sorter Processor Notes-Upon initial assessment at midnight, patient was verbally unresponsive, briefly opened eyes but did not make contact or follow directions. Narcan gtt continues at 0.25mg/hr along with D5 1/2NS @ 150ml/hr. CBG checks hourly. 0500-Patient is alert with clear speech and able to follow simple directions during am lab draw. Says she remember hitting my foot on the sofa and falling Denies hitting her head, I only woke up once, but don't remember after that Now she is mildly restless and c/o pain all over Says she puts puts one Fentanyl patch on every three days
[2019-01-11 04:58] LABS: PTT Partial Thromboplastin Tim 27 SECONDS (26.4-36.2)
[2019-01-11 05:02] LABS: HEMOLYSIS < 15 (0-50); Potassium 3.6 mmol/L (3.4-5.1)
[2019-01-11 05:03] LABS: Alanine Aminotransferase 39 IU/L (<35); Albumin 2.9 g/dL (3.5-5.0); Albumin Globulin Ratio 1.1 (1.0-2.8); Alkaline Phosphatase 41 U/L (38-126); Aspartate Aminotransferase 149 IU/L (14-36); BUN Creatinine Ratio 31.3 (6-22); Bilirubin Total 0.5 mg/dL (0.2-1.3); Bilirubin Unconjugated 0.3 mg/dL (0.0-1.1); Blood Urea Nitrogen 25 mg/dL (7-17); Calcium 7.9 mg/dL (8.4-10.2); Carbon Dioxide 29 mmol/L (22-32); Chloride 109 mmol/L (98-107); Estimated Glomerular Filt Rate > 60.0 mL/min (>60); Globulin 2.6 g/dL (1.7-4.1); Glucose 89 mg/dL (80-110); Magnesium 2.1 mg/dL (1.6-2.3); Phosphorous 2.8 mg/dL (2.8-4.1); Sodium 138 mmol/L (137-145); Total Protein 5.5 g/dL (6.3-8.2)
[2019-01-11 05:05] LABS: Add Manual Diff / Slide Review NO; Basophils Absolute Auto 100 /uL (0-100); Basophils Percent Auto 0.9 % (0-2); Eosinophils Absolute Auto 100 /uL (0-450); Eosinophils Percent Auto 1.2 % (2-4); Hematocrit 36.4 % (36-46); Hemoglobin 12.1 g/dL (12.0-16.0); Lymphocytes Absolute Auto 1600 /uL (1100-4500); Lymphocytes Percent Auto 21.1 % (25-40); Mean Corpuscular HGB Conc 33.1 % (30-36); Mean Corpuscular Hemoglobin 34.6 PG (26-34); Mean Corpuscular Volume 104.5 fL (80-100); Monocytes Absolute Auto 600 /uL (0-900); Monocytes Percent Auto 8.4 % (3-14); Neutrophils Absolute Auto 5200 /uL (1500-7000); Neutrophils Percent Auto 68.4 % (50-75); Platelet Count 147 X10^3/uL (150-400); Red Blood Cell Count 3.49 X10^6/uL (4.0-5.2); Red Cell Distribution Width 16.2 % (11.6-14.8); White Blood Cell Count 7.6 X10^3/uL (4.5-11.0)
[2019-01-11 05:18] LABS: Procalcitonin 1.06 ng/mL (<0.5)
[2019-01-11 05:49] LABS: TSH w/ Reflex to FT4 0.09 uIU/mL (0.47-4.68)
[2019-01-11 06:18] LABS: Free T4, Direct Thyroxine 1.16 ng/dL (0.78-2.19)
[2019-01-11] MEDS: ENOXAPARIN 40 MG/0.4 ML SYRINGE SUBCUT (08:51)
[2019-01-11 08:56] LABS: Creatine Kinase 5561 U/L (30-135)
[2019-01-11 10:23] LABS: Acinetobacter baumannii Not Detected (Not Detect); Candida albicans Not Detected (Not Detect); Candida glabrata Not Detected (Not Detect); Candida krusei Not Detected (Not Detect); Candida parapsilosis Not Detected (Not Detect); Candida tropicalis Not Detected (Not Detect); E. coli Not Detected (Not Detect); Enterobacter cloacae complex Not Detected (Not Detect); Enterobacteriaceae species Not Detected (Not Detect); Enterococcus species Not Detected (Not Detect); Haemophilus influenzae Not Detected (Not Detect); Listeria monocytogenes Not Detected (Not Detect); Neisseria meningitidis Not Detected (Not Detect); Proteus species Not Detected (Not Detect); Pseudomonas aeruginosa Not Detected (Not Detect); Serratia marcescens Not Detected (Not Detect); Streptococcus agalactiae (Gr B Not Detected (Not Detect); Streptococcus pneumonia Not Detected (Not Detect); Streptococcus pyogenes (Gr A) Not Detected (Not Detect); Streptococcus species Not Detected (Not Detect)
[2019-01-11 10:24] LABS: Methicillin-resistant gene Detected (Not Detect); Staphylococcus species Detected (Not Detect)
--- NOTE | 2019-01-11 12:15 | PM.PN.1 ---
Subjective Subjective Date Patient Seen: 01/11/19 Time Patient Seen: 08:00 Interval history: Zeny Artis is a 72-year-old female with a past medical history significant for PE status post treatment completion, lumbar laminectomy currently on fentanyl patches for 20 years, and recurrent abdominal pain previously who was found down in her home and brought to the emergency room, she is admitted with a toxic metabolic encephalopathy possibly secondary to opiate overuse, acute kidney injury, and rhabdomyolysis. Her GORDON has improved today and her CK is down slightly but still greater than 5000. She remains on IV fluids. Repeat procalcitonin was 1.06 but she has no other evidence of infection at this time. She was more alert this morning and able to recall that she thinks that she tripped and fell in her home near her sofa. She blacked out and remembers waking up a couple of times and again on the way here. She denies any previous shortness of breath or chest pain, she denied dizziness prior to the event as well. She complains of chronic back pain. She remains on a Narcan infusion. Exam Vital Signs (past 8 hours): - 01/11/19 05:00 01/11/19 06:00 01/11/19 07:00 Temperature 97.8 F Pulse Rate 78 74 72 Respiratory Rate 19 18 19 Blood Pressure 137/71 145/75 H 133/68 Pulse Oximetry 95 93 96 01/11/19 09:00 01/11/19 10:00 Temperature Pulse Rate 70 71 Respiratory Rate 18 18 Blood Pressure 139/69 133/70 Pulse Oximetry 93 93 Oxygen Delivery Method Room Air Oxygen Flow Rate 0 Narrative Exam Narrative: GENERAL APPEARANCE: A chronically ill-appearing female, slightly disheveled, more alert but still groggy. Grimaces in pain when she tries to adjust herself in her hospital bed. SKIN: Ecchymosis over the right eye and right shoulder area. HEENT: Pupils equally round and reactive. oral mucosa unremarkable, no evidence of tongue bites or lacerations. NECK: Supple and symmetric. There was no thyroid enlargement, and no tenderness, or masses were felt. CHEST: Normal AP diameter and normal contour without any kyphoscoliosis. LUNGS: Auscultation of the lungs revealed no wheezes, rhonchi, or rales. Normal work of breathing. CARDIOVASCULAR: There was a regular rate and rhythm without any murmurs, gallops, rubs. Peripheral pulses were 2+ and symmetric. ABDOMEN: Soft and with normal bowel sounds. No ascites was noted. MUSCULOSKELETAL: Diffuse lumbar tenderness, no joint effusions are present. EXTREMITIES: No cyanosis, clubbing or edema. NEUROLOGIC: Alert but groggy, oriented to name and time. Improved since yesterday. Moves all extremities equally and grimaces in pain. Follows basic commands. Objective Labs Result Diagrams: 01/11/19 04:30 01/11/19 04:30 Labs: Laboratory Results - last 24 hr 01/10/19 01/10/19 01/10/19 14:28 14:28 14:28 WBC 10.7 RBC 3.85 L Hgb 13.4 Hct 40.1 MCV 104.1 H MCH 34.8 H MCHC 33.5 RDW 16.5 H Plt Count 165 Neut % (Auto) 78.0 H Lymph % (Auto) 14.5 L [place] % (Auto) 6.5 Eos % (Auto) 0.4 L Baso % (Auto) 0.6 Neut # (Auto) 8300 H Lymph # (Auto) 1600 [place] # (Auto) 700 Eos # (Auto) 0 Baso # (Auto) 100 PT 11.0 INR 1.0 APTT 28 ABG pH ABG pCO2 ABG pO2 ABG HCO3 ABG Total CO2 ABG O2 Saturation ABG Base Excess FiO2 Sodium Potassium Chloride Carbon Dioxide BUN Creatinine Estimated GFR BUN/Creatinine Ratio Glucose Lactate Calcium Phosphorus Magnesium Total Bilirubin Conjugated Bilirubin Unconjugated Bilirubin AST ALT Alkaline Phosphatase Total Creatine Kinase 7442 H CK-MB (CK-2) 30.40 H CK-MB (CK-2) Rel Index 0.4 L Troponin I < 0.012 Total Protein Albumin Globulin Albumin/Globulin Ratio Procalcitonin TSH Free T4 Urine Color Urine Appearance Urine pH Ur Specific [place] Urine Protein Urine Glucose (UA) Urine Ketones Urine Occult Blood Urine Nitrate Urine Bilirubin Urine Urobilinogen Ur Leukocyte Esterase Urine RBC Urine WBC Ur Squamous Epith Cells Urine Bacteria Ur Culture Indicated? Nasal Screen MRSA (PCR) Salicylates U Morph 300 ng/mL cutoff Ur Oxycodone Screen Urine Methadone Screen Acetaminophen Ur Barbiturates Screen U Tricyclic Antidepress Ur Phencyclidine Scrn Ur Amphetamines Screen U Methamphetamines Scrn Ur MDMA Scrn (Ecstasy) U Benzodiazepines Scrn Urine Cocaine Screen U Marijuana (THC) Screen Ethyl Alcohol A. baumannii (PCR) Fernanda albicans (PCR) C. glabrata (PCR) C. krusei (PCR) C. parapsilosis (PCR) C. tropicalis (PCR) Enterobacteriac sp PCR E. cloacae complex PCR Enterococcus sp PCR E. coli (PCR) H. influenzae (PCR) Klebsiella oxytoca PCR Klebsiella pneumoniae List. monocytogenes PCR N. meningitidis (PCR) Proteus species (PCR) Serratia marcescens PCR Staphylococcus sp PCR Staph aureus (PCR) mecA-Methicil Res Gene Streptococcus sp PCR Group A Strep (PCR) Strep agalactiae (PCR) Strep pneumoniae (PCR) P. aeruginosa (PCR) Guilherme/B-Vanco Res Genes KPC-Carbap Res Gene PCR 01/10/19 01/10/19 01/10/19 14:28 14:28 14:28 WBC RBC Hgb Hct MCV MCH MCHC RDW Plt Count Neut % (Auto) Lymph % (Auto) [place] % (Auto) Eos % (Auto) Baso % (Auto) Neut # (Auto) Lymph # (Auto) [place] # (Auto) Eos # (Auto) Baso # (Auto) PT INR APTT ABG pH ABG pCO2 ABG pO2 ABG HCO3 ABG Total CO2 ABG O2 Saturation ABG Base Excess FiO2 Sodium 138 Potassium 3.9 Chloride 103 Carbon Dioxide 24 BUN 41 H Creatinine 1.50 H Estimated GFR 34.1 L BUN/Creatinine Ratio 27.3 H Glucose 65 L Lactate 1.0 Calcium 8.8 Phosphorus Magnesium Total Bilirubin 0.5 Conjugated Bilirubin Unconjugated Bilirubin AST 110 H ALT 37 H Alkaline Phosphatase 65 Total Creatine Kinase CK-MB (CK-2) CK-MB (CK-2) Rel Index Troponin I Total Protein 7.2 Albumin 3.9 Globulin 3.3 Albumin/Globulin Ratio 1.2 Procalcitonin TSH 0.38 L Free T4 Urine Color Urine Appearance Urine pH Ur Specific [place] Urine Protein Urine Glucose (UA) Urine Ketones Urine Occult Blood Urine Nitrate Urine Bilirubin Urine Urobilinogen Ur Leukocyte Esterase Urine RBC Urine WBC Ur Squamous Epith Cells Urine Bacteria Ur Culture Indicated? Nasal Screen MRSA (PCR) Salicylates 23.8 H U Morph 300 ng/mL cutoff Ur Oxycodone Screen Urine Methadone Screen Acetaminophen < 10 L Ur Barbiturates Screen U Tricyclic Antidepress Ur Phencyclidine Scrn Ur Amphetamines Screen U Methamphetamines Scrn Ur MDMA Scrn (Ecstasy) U Benzodiazepines Scrn Urine Cocaine Screen U Marijuana (THC) Screen Ethyl Alcohol < 10 A. baumannii (PCR) Fernanda albicans (PCR) C. glabrata (PCR) C. krusei (PCR) C. parapsilosis (PCR) C. tropicalis (PCR) Enterobacteriac sp PCR E. cloacae complex PCR Enterococcus sp PCR E. coli (PCR) H. influenzae (PCR) Klebsiella oxytoca PCR Klebsiella pneumoniae List. monocytogenes PCR N. meningitidis (PCR) Proteus species (PCR) Serratia marcescens PCR Staphylococcus sp PCR Staph aureus (PCR) mecA-Methicil Res Gene Streptococcus sp PCR Group A Strep (PCR) Strep agalactiae (PCR) Strep pneumoniae (PCR) P. aeruginosa (PCR) Guilherme/B-Vanco Res Genes KPC-Carbap Res Gene PCR 01/10/19 01/10/19 01/10/19 15:15 16:20 18:40 WBC RBC Hgb Hct MCV MCH MCHC RDW Plt Count Neut % (Auto) Lymph % (Auto) [place] % (Auto) Eos % (Auto) Baso % (Auto) Neut # (Auto) Lymph # (Auto) [place] # (Auto) Eos # (Auto) Baso # (Auto) PT INR APTT ABG pH ABG pCO2 ABG pO2 ABG HCO3 ABG Total CO2 ABG O2 Saturation ABG Base Excess FiO2 Sodium Potassium Chloride Carbon Dioxide BUN Creatinine Estimated GFR BUN/Creatinine Ratio Glucose Lactate Calcium Phosphorus Magnesium Total Bilirubin Conjugated Bilirubin Unconjugated Bilirubin AST ALT Alkaline Phosphatase Total Creatine Kinase CK-MB (CK-2) CK-MB (CK-2) Rel Index Troponin I Total Protein Albumin Globulin Albumin/Globulin Ratio Procalcitonin TSH Free T4 Urine Color Urine Appearance Urine pH Ur Specific [place] Urine Protein Urine Glucose (UA) Urine Ketones Urine Occult Blood Urine Nitrate Urine Bilirubin Urine Urobilinogen Ur Leukocyte Esterase Urine RBC Urine WBC Ur Squamous Epith Cells Urine Bacteria Ur Culture Indicated? Nasal Screen MRSA (PCR) Negative for mrsa Salicylates U Morph 300 ng/mL cutoff Negative Ur Oxycodone Screen Negative Urine Methadone Screen Negative Acetaminophen Ur Barbiturates Screen Negative U Tricyclic Antidepress Negative Ur Phencyclidine Scrn Negative Ur Amphetamines Screen Negative U Methamphetamines Scrn Negative Ur MDMA Scrn (Ecstasy) Negative U Benzodiazepines Scrn Negative Urine Cocaine Screen Negative U Marijuana (THC) Screen Negative Ethyl Alcohol A. baumannii (PCR) Not detected Fernanda albicans (PCR) Not detected C. glabrata (PCR) Not detected C. krusei (PCR) Not detected C. parapsilosis (PCR) Not detected C. tropicalis (PCR) Not detected Enterobacteriac sp PCR Not detected E. cloacae complex PCR Not detected Enterococcus sp PCR Not detected E. coli (PCR) Not detected H. influenzae (PCR) Not detected Klebsiella oxytoca PCR Not detected Klebsiella pneumoniae Not detected List. monocytogenes PCR Not detected N. meningitidis (PCR) Not detected Proteus species (PCR) Not detected Serratia marcescens PCR Not detected Staphylococcus sp PCR Detected H Staph aureus (PCR) Not detected mecA-Methicil Res Gene Detected H Streptococcus sp PCR Not detected Group A Strep (PCR) Not detected Strep agalactiae (PCR) Not detected Strep pneumoniae (PCR) Not detected P. aeruginosa (PCR) Not detected Guilherme/B-Vanco Res Genes Not Reportable KPC-Carbap Res Gene PCR Not Reportable 01/10/19 01/10/19 01/11/19 19:15 20:15 04:30 WBC 7.6 RBC 3.49 L Hgb 12.1 Hct 36.4 MCV 104.5 H MCH 34.6 H MCHC 33.1 RDW 16.2 H Plt Count 147 L Neut % (Auto) 68.4 Lymph % (Auto) 21.1 L [place] % (Auto) 8.4 Eos % (Auto) 1.2 L Baso % (Auto) 0.9 Neut # (Auto) 5200 Lymph # (Auto) 1600 [place] # (Auto) 600 Eos # (Auto) 100 Baso # (Auto) 100 PT INR APTT ABG pH 7.36 ABG pCO2 39.4 ABG pO2 73 L ABG HCO3 22 ABG Total CO2 23 ABG O2 Saturation 94 L ABG Base Excess -3.0 L FiO2 28 Sodium Potassium Chloride Carbon Dioxide BUN Creatinine Estimated GFR BUN/Creatinine Ratio Glucose Lactate Calcium Phosphorus Magnesium Total Bilirubin Conjugated Bilirubin Unconjugated Bilirubin AST ALT Alkaline Phosphatase Total Creatine Kinase CK-MB (CK-2) CK-MB (CK-2) Rel Index Troponin I Total Protein Albumin Globulin Albumin/Globulin Ratio Procalcitonin TSH Free T4 Urine Color Yellow Urine Appearance Clear Urine pH 5.5 Ur Specific [place] <=1.005 Urine Protein Negative Urine Glucose (UA) Negative Urine Ketones Negative Urine Occult Blood 3+ H Urine Nitrate Negative Urine Bilirubin Negative Urine Urobilinogen 0.2 Ur Leukocyte Esterase Negative Urine RBC None seen Urine WBC None seen Ur Squamous Epith Cells 0-1 /hpf Urine Bacteria None seen Ur Culture Indicated? Cult not indicated Nasal Screen MRSA (PCR) Salicylates U Morph 300 ng/mL cutoff Ur Oxycodone Screen Urine Methadone Screen Acetaminophen Ur Barbiturates Screen U Tricyclic Antidepress Ur Phencyclidine Scrn Ur Amphetamines Screen U Methamphetamines Scrn Ur MDMA Scrn (Ecstasy) U Benzodiazepines Scrn Urine Cocaine Screen U Marijuana (THC) Screen Ethyl Alcohol A. baumannii (PCR) Fernanda albicans (PCR) C. glabrata (PCR) C. krusei (PCR) C. parapsilosis (PCR) C. tropicalis (PCR) Enterobacteriac sp PCR E. cloacae complex PCR Enterococcus sp PCR E. coli (PCR) H. influenzae (PCR) Klebsiella oxytoca PCR Klebsiella pneumoniae List. monocytogenes PCR N. meningitidis (PCR) Proteus species (PCR) Serratia marcescens PCR Staphylococcus sp PCR Staph aureus (PCR) mecA-Methicil Res Gene Streptococcus sp PCR Group A Strep (PCR) Strep agalactiae (PCR) Strep pneumoniae (PCR) P. aeruginosa (PCR) Guilherme/B-Vanco Res Genes KPC-Carbap Res Gene PCR 01/11/19 01/11/19 01/11/19 04:30 04:30 04:30 WBC RBC Hgb Hct MCV MCH MCHC RDW Plt Count Neut % (Auto) Lymph % (Auto) [place] % (Auto) Eos % (Auto) Baso % (Auto) Neut # (Auto) Lymph # (Auto) [place] # (Auto) Eos # (Auto) Baso # (Auto) PT 11.9 INR 1.0 APTT 27 ABG pH ABG pCO2 ABG pO2 ABG HCO3 ABG Total CO2 ABG O2 Saturation ABG Base Excess FiO2 Sodium 138 Potassium 3.6 Chloride 109 H Carbon Dioxide 29 BUN 25 H Creatinine 0.80 Estimated GFR > 60.0 BUN/Creatinine Ratio 31.3 H Glucose 89 Lactate Calcium 7.9 L Phosphorus 2.8 Magnesium 2.1 Total Bilirubin 0.5 Conjugated Bilirubin 0.0 Unconjugated Bilirubin 0.3 AST 149 H ALT 39 H Alkaline Phosphatase 41 Total Creatine Kinase CK-MB (CK-2) CK-MB (CK-2) Rel Index Troponin I Total Protein 5.5 L Albumin 2.9 L Globulin 2.6 Albumin/Globulin Ratio 1.1 Procalcitonin 1.06 H TSH Free T4 Urine Color Urine Appearance Urine pH Ur Specific [place] Urine Protein Urine Glucose (UA) Urine Ketones Urine Occult Blood Urine Nitrate Urine Bilirubin Urine Urobilinogen Ur Leukocyte Esterase Urine RBC Urine WBC Ur Squamous Epith Cells Urine Bacteria Ur Culture Indicated? Nasal Screen MRSA (PCR) Salicylates U Morph 300 ng/mL cutoff Ur Oxycodone Screen Urine Methadone Screen Acetaminophen Ur Barbiturates Screen U Tricyclic Antidepress Ur Phencyclidine Scrn Ur Amphetamines Screen U Methamphetamines Scrn Ur MDMA Scrn (Ecstasy) U Benzodiazepines Scrn Urine Cocaine Screen U Marijuana (THC) Screen Ethyl Alcohol A. baumannii (PCR) Fernanda albicans (PCR) C. glabrata (PCR) C. krusei (PCR) C. parapsilosis (PCR) C. tropicalis (PCR) Enterobacteriac sp PCR E. cloacae complex PCR Enterococcus sp PCR E. coli (PCR) H. influenzae (PCR) Klebsiella oxytoca PCR Klebsiella pneumoniae List. monocytogenes PCR N. meningitidis (PCR) Proteus species (PCR) Serratia marcescens PCR Staphylococcus sp PCR Staph aureus (PCR) mecA-Methicil Res Gene Streptococcus sp PCR Group A Strep (PCR) Strep agalactiae (PCR) Strep pneumoniae (PCR) P. aeruginosa (PCR) Guilherme/B-Vanco Res Genes KPC-Carbap Res Gene PCR 01/11/19 01/11/19 04:30 04:30 WBC RBC Hgb Hct MCV MCH MCHC RDW Plt Count Neut % (Auto) Lymph % (Auto) [place] % (Auto) Eos % (Auto) Baso % (Auto) Neut # (Auto) Lymph # (Auto) [place] # (Auto) Eos # (Auto) Baso # (Auto) PT INR APTT ABG pH ABG pCO2 ABG pO2 ABG HCO3 ABG Total CO2 ABG O2 Saturation ABG Base Excess FiO2 Sodium Potassium Chloride Carbon Dioxide BUN Creatinine Estimated GFR BUN/Creatinine Ratio Glucose Lactate Calcium Phosphorus Magnesium Total Bilirubin Conjugated Bilirubin Unconjugated Bilirubin AST ALT Alkaline Phosphatase Total Creatine Kinase 5561 H CK-MB (CK-2) CK-MB (CK-2) Rel Index Troponin I Total Protein Albumin Globulin Albumin/Globulin Ratio Procalcitonin TSH 0.09 L Free T4 1.16 Urine Color Urine Appearance Urine pH Ur Specific [place] Urine Protein Urine Glucose (UA) Urine Ketones Urine Occult Blood Urine Nitrate Urine Bilirubin Urine Urobilinogen Ur Leukocyte Esterase Urine RBC Urine WBC Ur Squamous Epith Cells Urine Bacteria Ur Culture Indicated? Nasal Screen MRSA (PCR) Salicylates U Morph 300 ng/mL cutoff Ur Oxycodone Screen Urine Methadone Screen Acetaminophen Ur Barbiturates Screen U Tricyclic Antidepress Ur Phencyclidine Scrn Ur Amphetamines Screen U Methamphetamines Scrn Ur MDMA Scrn (Ecstasy) U Benzodiazepines Scrn Urine Cocaine Screen U Marijuana (THC) Screen Ethyl Alcohol A. baumannii (PCR) Fernanda albicans (PCR) C. glabrata (PCR) C. krusei (PCR) C. parapsilosis (PCR) C. tropicalis (PCR) Enterobacteriac sp PCR E. cloacae complex PCR Enterococcus sp PCR E. coli (PCR) H. influenzae (PCR) Klebsiella oxytoca PCR Klebsiella pneumoniae List. monocytogenes PCR N. meningitidis (PCR) Proteus species (PCR) Serratia marcescens PCR Staphylococcus sp PCR Staph aureus (PCR) mecA-Methicil Res Gene Streptococcus sp PCR Group A Strep (PCR) Strep agalactiae (PCR) Strep pneumoniae (PCR) P. aeruginosa (PCR) Guilherme/B-Vanco Res Genes KPC-Carbap Res Gene PCR Assessment & Plan Assessment & Plan narrative: Zeny Artis is a 72-year-old female with a past medical history significant for PE status post treatment completion, lumbar laminectomy currently on fentanyl patches for 20 years, and recurrent abdominal pain previously who was found down in her home and brought to the emergency room, she is admitted with a toxic metabolic encephalopathy possibly secondary to opiate overuse, acute kidney injury, and rhabdomyolysis. 1. Toxic metabolic encephalopathy, acute, present on admission-likely secondary to opiate overuse. Patient has history of overdoses secondary to multiple fentanyl patches. Patient was found to have only 1 patch on after extensive evaluation in the emergency room. Her tox screen was largely negative. However she has likely been down since yesterday given her rhabdomyolysis. She has improved with Narcan and continues on a Narcan infusion. On arrival GCS of 8, now 15. -continue Narcan infusion, continue to titrate off today as able -ABG without evidence of hypercarbia -troponin negative and EKG without evidence of ischemia -UA unremarkable for infection -procalcitonin mildly elevated, respiratory panel 2. Rhabdomyolysis, likely non-traumatic but unable to determine given patient reports mechanical fall, present on admission -patient was found down for unknown period of time. CK of 7400 improved today. -continue IV fluids, patient is dehydrated as well and hypoglycemic. Have changed fluids to D5 half NS. 3. Acute kidney injury, present on admission -creatinine of 1.5 from baseline of approximately 0.7. Likely secondary to dehydration and rhabdomyolysis as noted above. -continue IV fluids as noted above 4. Hypoglycemia, acute, present on admission -likely secondary to depleted stores as patient was found down, she has probably been down for a while and it is unknown what her nutritional status at baseline is. -continue D5 half NS -replete as needed with d50 5. Transaminitis, acute, present on admission -likely secondary to rhabdo with predominant AST elevation. -consider ultrasound abdomen for further evaluation although INR and T bili are normal. -continue to follow hepatic function Code: Full Dispo: Admitted is ICU as patient is on Narcan infusion for encephalopathy DVT: Lovenox I spent 35 minutes providing critical care management this patient. This excludes time spent in performing separately billed procedures.
--- NOTE | 2019-01-11 12:53 | PC.NURSE ---
Addendum entered by Mary Beth Montgomery R.N. 01/11/19 14:32: Pt awake, eyes open and tracking. Moaning and crying, reports pain to back is a lot worse, medicated with Tylenol. NSR in the 70s, SpO2 95% and RR 16-18 bpm. Narcan gtt turned off at this time and Dr. Betts updated. Fentanyl patch 25 mcg ordered. Original Note: Day Shift Note Pt drowsy and sleeping this shift. Awakens easily to voice and answers questions, speech is clear. Reports pain all over but that pain has not gotten worse, quickly drifts off to sleep after assessment. SpO2 92-94% on RA, RR in the 13-16 bpm range. BP stable. Narcan gtt decreased from 0.1 mg/hr to 0.05 mg/hr this AM (see MAR). Pt NSR in the low 70s (occ. 67 bpm). Pt had 8 beat run of V tach at 1244 - pt denied chest pain/SOB - reported to Dr. Betts, no new orders at this time. Call light within reach.
--- NOTE | 2019-01-11 13:23 | CM.IDA ---
Initial DCP Assessment Note: Pt is a 73 yo female, resident of [facility]. Pt here w/decreased mental status, h/o usp fentanyl patch use, H+P: she is admitted with a toxic metabolic encephalopathy possibly secondary to opiate overuse, acute kidney injury, and rhabdomyolysis. PCP: Chucky Velazquez Payer: Medicare Reviewed chart, pt discussed in AM rounds; Dr Mi waiting on PT until pt is medically stable to do so. Met w/pt, explained role. Pt very groggy, does not open eyes but is able to answer all of this PATIENT CARE PROVIDER's questions. ZAMZAM Mckeon states pt has been visited by sister in law Heather. Pt lives alone in her home on [address], she has lived there for 13 years. Both of her brothers, Rivera and Anson live on [place] and pt says she sees them all the time. Pt reports she is indp at baseline. Pt does not have a DPOA, her one son, Valentin, lives in [place] w/his and three kids. DC needs unknown at this time. Pt is an inpt and may benefit from SNF vs HH upon DC ? therapy evals will be helpful to determine DC needs, as will further assessment w/pt once more awake. Following closely. JUDITH Charles Discharge Planning/Care Management CM Discharge Assessment Start: 01/11/19 13:18 Freq: Status: Active Protocol: Document 01/11/19 13:18 MADISYN (Rec: 01/11/19 13:23 MADISYN [id number]) Discharge Planning Assessment Assigned Marketing Communications Manager JUDITH Lane DPOA/Assigned Designee Name Valentin Toribio, son ([place]) Contact Information [phone] Advance Directives? No Advance Directives on File No History Provided By Patient,Medical Record Prior Living Arrangements House Household Members none Type of transporation used prior to Drives own vehicle admit Independent with ADL's Yes: Per pt report Is patient alert and oriented? Yes Comment has DME but currently does not use anything Whiteboard Updated in Patient Room with Yes name and ext. # of Marketing Communications Manager Review Status In Process
[2019-01-11] MEDS: ACETAMINOPHEN 325 MG TABLET 650 MG PO ×2 (13:43→20:02)
[2019-01-11] MEDS: fentaNYL 25 MCG/PATCH TOP (14:53)
--- NOTE | 2019-01-11 15:58 | PC.NURSE ---
Addendum entered by Inga Bautista R.N. 01/11/19 17:17: 1715- Incident report filed. Addendum entered by Inga Bautista R.N. 01/11/19 17:09: 1700- Patient is refusing to eat. She is very distressed that her denture cannot be located. A call was placed to the friend who was with her in the Emergency room Heather. She did not see where the denture was placed and does not recall if there was a denture in when she was being treated. Patient made aware of the efforts made to find the denture and verbalizes her thanks but is still very emotional about the loss. Original Note: 1530- Patient is awake and crying because she cannot find her upper denture. She states the denture was removed in Emergency when they were fixing her breathing. Patient states only the upper denture was removed. No denture found in patient belongings and Emergency states they do not have the denture. Will continue to try and find out where the denture may be.
[2019-01-12] MEDS: DEXTROSE 5%-0.45% NS 1,000 ML 150 ML IV (02:34)
[2019-01-12] MEDS: ACETAMINOPHEN 325 MG TABLET 650 MG PO ×2 (03:07→13:31)
[2019-01-12 03:45] VITALS: BP 146/85; PULSE 77; RESP 16; TEMP 37.2; O2SAT 96
[2019-01-12 05:00] LABS: Add Manual Diff / Slide Review NO; Basophils Absolute Auto 100 /uL (0-100); Basophils Percent Auto 1.2 % (0-2); Eosinophils Absolute Auto 100 /uL (0-450); Eosinophils Percent Auto 2.2 % (2-4); Hematocrit 35.2 % (36-46); Hemoglobin 11.7 g/dL (12.0-16.0); Lymphocytes Absolute Auto 1600 /uL (1100-4500); Lymphocytes Percent Auto 29.1 % (25-40); Mean Corpuscular HGB Conc 33.2 % (30-36); Mean Corpuscular Hemoglobin 34.6 PG (26-34); Mean Corpuscular Volume 104.2 fL (80-100); Monocytes Absolute Auto 500 /uL (0-900); Monocytes Percent Auto 9.8 % (3-14); Neutrophils Absolute Auto 3200 /uL (1500-7000); Neutrophils Percent Auto 57.7 % (50-75); Platelet Count 127 X10^3/uL (150-400); Red Blood Cell Count 3.38 X10^6/uL (4.0-5.2); Red Cell Distribution Width 15.7 % (11.6-14.8); White Blood Cell Count 5.6 X10^3/uL (4.5-11.0)
[2019-01-12 05:03] LABS: INR 1.1 (0.9-1.3); Prothrombin Time 12.3 SECONDS (10.1-12.7)
[2019-01-12 05:06] LABS: PTT Partial Thromboplastin Tim 27 SECONDS (26.4-36.2)
[2019-01-12 05:07] LABS: Alanine Aminotransferase 34 IU/L (<35); Albumin 2.7 g/dL (3.5-5.0); Albumin Globulin Ratio 1.1 (1.0-2.8); Alkaline Phosphatase 40 U/L (38-126); Aspartate Aminotransferase 121 IU/L (14-36); BUN Creatinine Ratio 23.3 (6-22); Bilirubin Total 0.5 mg/dL (0.2-1.3); Bilirubin Unconjugated 0.3 mg/dL (0.0-1.1); Blood Urea Nitrogen 14 mg/dL (7-17); Calcium 7.9 mg/dL (8.4-10.2); Carbon Dioxide 28 mmol/L (22-32); Chloride 111 mmol/L (98-107); Estimated Glomerular Filt Rate > 60.0 mL/min (>60); Globulin 2.5 g/dL (1.7-4.1); Glucose 96 mg/dL (80-110); HEMOLYSIS < 15 (0-50); Magnesium 1.9 mg/dL (1.6-2.3); Phosphorous 2.2 mg/dL (2.8-4.1); Potassium 3.7 mmol/L (3.4-5.1); Sodium 139 mmol/L (137-145); Total Protein 5.2 g/dL (6.3-8.2)
[2019-01-12 05:46] LABS: Procalcitonin 0.53 ng/mL (<0.5)
--- NOTE | 2019-01-12 05:59 | PC.NURSE ---
Pt alert and oriented overnight x4. Reports mild headache on top of head. Reports chronic back pain worsening overnight. Administered tylenol x1, with good effect per pt. Pt has fentanyl patch 25mcg/hr to front right shoulder. Narcan drip paused yesterday afternoon. Pt easily aroused to voice. Pt has healing pressure ulcer to coccyx, pt states this wound is evaluated regularly by providers on [facility]. Pt has two bright red areas on left upper leg, blanchable. Pt is post fall at home. On tele in NSR. Rare mild cough, sats 95% on room air, pt is current smoker. Pt blood cx positive for staphylococcus. Kee patent, renal labs improving post rhabdomylosis. Monitor for change in mentation, maintain skin integrity, effective pain control, s/s infection. Pt ordered to start general diet with breakfast.
[2019-01-12 07:55] VITALS: BP 161/88; PULSE 79; RESP 18; TEMP 36.9; O2SAT 100
[2019-01-12 11:16] VITALS: BP 155/88; PULSE 80; RESP 18; TEMP 37.3; O2SAT 96
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
--- NOTE | 2019-01-12 12:48 | PT.IIE ---
Current Diagnoses Poisoning by other synthetic narcotics, accidental (unintentional), initial encounter (01/10/19) Surgical History (Last Reviewed 01/10/19 @ 14:24 by Sho Solorzano DO) History of hysterectomy (Resolved) History of lumbar laminectomy (Resolved) Medical History (Last Reviewed 01/10/19 @ 14:24 by Sho Solorzano DO) Coccyx pain (Acute) Pulmonary embolism (Resolved) Right shoulder injury (Resolved) Physical Therapy Inpatient Evaluation/Re-Eval M1 PT/OT-IP Prior Functional Status Start: 01/12/19 12:02 Freq: NEEDED Status: Active Protocol: Document 01/12/19 12:06 AMB (Rec: 01/12/19 12:47 AMB [id number]) Medical Review Prior Functional Status Medical History Reviewed Yes Mobility and Gait Zeny reports that she has had two falls in the last 6 months. Her sister in law is in the room and thinks it has probably been more. She was not previously ambulating with an AD. Activities of Daily Living and IADL's Pt no longer drives. She reports family would take her grocery shopping and she would go grocery shopping and do her own cooking. Social History Household Members none Living Arrangements House Number of Floors (Floors) One Floor Home Environment Standard Height Toilet,Tub/ Shower Home Equipment Front Wheel Walker Additional Social History Comment Pt has siblings who check on her regularly. She reports that she has a walker, but this was not confirmed with family. M2 PT-IP Current Condition Start: 01/12/19 12:02 Freq: NEEDED Status: Active Protocol: Document 01/12/19 12:06 AMB (Rec: 01/12/19 12:47 AMB [id number]) Physical Therapy Current Condition Current Condition Evaluation Date 01/12/19 Treatment Diagnosis decreased mental status s/p GLF; chronic pain; difficulty ambulating Onset Date 01/10/19 M3 PT-IP Subjective Start: 01/12/19 12:02 Freq: NEEDED Status: Active Protocol: Document 01/12/19 12:06 AMB (Rec: 01/12/19 12:47 AMB [id number]) Subjective Physical Therapy Visit Type Type Initial Evaluation Visit Start Time 11:30 Visit Stop Time 11:55 Total Visit Minutes 25 Number of AEROTRIANGULATION SPECIALIST Visits 0 Physical Therapy Visit Comments Patient Comments Pt wants to go home Patient Goals Go home Therapy Pain Assessment Pain When Pain Assessed During Mobility Pain Present Pain Present Pain Reported Location Sacrum Pain Behaviors Restlessness,[place] Pain Management Techniques Re-positioning,Timing of Activity with Medications M4 PT-IP Mobility and Gait Start: 01/12/19 12:02 Freq: NEEDED Status: Active Protocol: Document 01/12/19 12:06 AMB (Rec: 01/12/19 12:47 AMB [id number]) PT-Bed Mobility Assessment Rolling Type of Rolling Roll to Left Level of Assist Independent Supine to Sit Supine to Sit Standby Assistance Sit to Supine Sit to Supine Standby Assistance Scooting Scooting to Edge of Bed Independent PT-Transfer Assessment Sit to and From Stand Sit to and from Stand Contact Guard Assistance Equipment Transfer Assistive Device Bed Rail,Gait Belt,Front Wheeled Walker Transfers Transfer Destination Chair Transfer Technique Stand Step Pivot Transfer Ability Level of Assist Standby Assistance Comments Mobility Comments Pt was able to perform all bed mobility with either independence or stand by assist. She did report increased pain on her buttocks , and states that it hurts all the time, worse with movement . Gait Assessment Gait Gait Assistance Required: Standby Assistance Distance (Feet) 100 Assistive Devices Assistive Device Front Wheeled Walker Gait Deviations General Gait Pattern Decreased Stride Length, Decreased Feet Clearance Comments Gait Comments Pt ambulated 100 feet with FWW and SBA, then after a seated rest ambulated 20 feet without assistive device with CGA- pt fatigued very quickly during second walk. PT-Balance Assessment Sitting Balance and Reactions Static Sitting Balance Ability Normal Dynamic Sitting Balance Ability Good Standing Balance and Reactions Static Standing Balance Ability Good Dynamic Standing Balance Ability Fair Balance Tests Single Limb Standing 3 seconds Romberg 2 seconds- unsteady M5 PT-IP Objective Assessments Start: 01/12/19 12:02 Freq: NEEDED Status: Active Protocol: Document 01/12/19 12:06 AMB (Rec: 01/12/19 12:47 AMB [id number]) Gross Range of Motion Lower Extremity ROM Assessment Within Functional Limits Strength Lower Extremity Strength Knee 5/5 bilat Ankle L 4/5, R 5/5 Comments Strength Comments Pt with ankle dorsiflexion weakness on the left M6 PT-IP Treatment Start: 01/12/19 12:02 Freq: NEEDED Status: Active Protocol: Document 01/12/19 12:06 AMB (Rec: 01/12/19 12:47 AMB [id number]) Physical Therapy Treatment Education Education Provided Safety M7 PT-IP Assessment and Plan Start: 01/12/19 12:02 Freq: NEEDED Status: Active Protocol: Document 01/12/19 12:06 AMB (Rec: 01/12/19 12:47 AMB [id number]) PT Summary Assessment and Plan Potential Rehabilitation Potential Fair Status of Condition at Evaluation Stable Summary Impairments Pain,Strength,Balance,Gait, Activity Tolerance Assessment Summary Zeny was admitted due to being found on the floor in her home by family and needing Narcan administration. She is now doing much better than when she was admitted, but there is some concern over her discharging home alone. Zeny has a long chronic pain history. In her evaluation today, her pain was her major limiting factor. She was able to perform all bed mobility, but was only able to walk short distances and was much safer with a FWW. Zeny's family is concerned about her safety with returning home, and while she has not returned quite to her baseline function, it sounds as if her baseline function was not very safe to begin with. Zeny was able to walk 100 feet with a walker safey. She states that she has a walker at home. I am concerned about whether or not eZny will make safe choices when she is at home alone (like whether or not she will use her walker) but she was able to walk safely with it here for short distances. Zeny would benefit from further rehab to improve her safety and get her to the point where she can safely ambulate without AD and for farther distances, but she is very resistant to this idea. She is more amenable to home health. At this time, her safety is still a concern, more related to the choices she makes than related to her physical function. Goals Bed Mobility Goal Independent Transfer Goal Independent Gait Goal Standby Assistance Gait Distance 200' Days to Meet Goals 3 Frequency of Treatment Frequency Of Treatment Twice a Day Treatment Plan Physical Therapy Treatment Plan Transfer Training,Gait Training,Therapeutic Exercise, Balance Retraining,Discharge Planning,Neuromuscular Re-ed Recommendations To Nursing Amount of Assist Needed 1 Person Assist Discharge Recommendations PT Discharge Recommendations Home Health,SNF Rehab
--- NOTE | 2019-01-12 13:52 | PC.NURSE ---
Addendum entered by Jana Jessica R.N. 01/12/19 14:30: discharged to home at this time Original Note: pt prepared for discharge - iv access has been discontinued and she has taken small amount of her meals- she continues to c/o rectal pain but nothing abnormal is visualized and barrier cream applied- she adamantly refuses to go to rehab to regain some strength prior to return home - home health to follow and family to transport- preferred loading pass faxed for them to catch to [phone] [place]- tylenol given for pain and [address] m[address] patch in place on right anterior shoulder- instructed to contact DR. HAILE for further instructions r/t fentanyl
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
== END 2019-01-12 14:31 | disposition home health service (06) | DRG 917 ==
LOC: ED 17:07 → AC 17:09 → ICU 17:33
PROVIDERS: Admitting Provider Internal Medicine; Emergency Provider Emergency Medicine; PCP Family Medicine; Visit Provider Internal Medicine
DX: T40.4X1A Poisoning by other synthetic narcotics, accidental (unintentional), initial encounter (principal); G92 Toxic encephalopathy; R40.2122 Coma scale, eyes open, to pain, at arrival to emergency department; N17.9 Acute kidney failure, unspecified; M62.82 Rhabdomyolysis; E16.2 Hypoglycemia, unspecified; S40.011A Contusion of right shoulder, initial encounter; R40.2362 Coma scale, best motor response, obeys commands, at arrival to emergency department; R40.2242 Coma scale, best verbal response, confused conversation, at arrival to emergency department; W19.XXXA Unspecified fall, initial encounter
CPT/HCPCS: 36415; 36600; 51701; 70450; 71045; 73030; 80048; 80053; 80076; 80305; 80320; 80329; 81001; 82550; 82553; 82805; 82962; 83605; 83735; 84100; 84145; 84439; 84443; 84484; 85025; 85610; 85730; 87040; 87086; 87150; 87205; 87797; 93005; 96365; 96375; 96376; 97161; 99284; 99285; 99291; 99292; G0480; J1650; J2310

== ENCOUNTER 2019-10-03 23:45 | Emergency (ER) | payer MEDICARE, MEDICAID, SELFPAY ==
[2019-01-10 19:41] VITALS: BMI 20.2
[2019-10-03 23:56] VITALS: BP 183/94; PULSE 87; RESP 18; TEMP 36.6; O2SAT 96; BMI 18.3
--- NOTE | 2019-10-04 | DI.CT.S_ITS ---
PROCEDURE: CT ABDOMEN PELVIS W CON INDICATIONS: Lower abdominal/rectal pain TECHNIQUE: After the administration of intravenous contrast, 5 mm thick sections acquired from the diaphragm to the symphysis. 5 mm coronal and sagittal reformats were acquired. For radiation dose reduction, the following was used: automated exposure control, adjustment of mA and/or kV according to patient size. COMPARISON: [facility], CT, CT ABDOMEN PELVIS WO CON, 08/15/2018, 7:14. [facility], CT, CT PEL WO CON, 10/21/2018, 23:44. [facility], MR, MR PELVIS WITH/WITHOUT CONTRAST, 03/02/2019, 15:32. [facility], CT, CT ABDOMEN PELVIS W CON, 07/09/2018, 20:07. [facility], CT, CT ABDOMEN PELVIS W CON, 06/15/2018, 18:21. FINDINGS: Image quality: Excellent. ABDOMEN: Lung bases: Lung bases are clear except for mild posterior lung base linear atelectasis or scarring. No pneumonia suspected. No mass lesion found.. Heart size is normal. Solid organs: Liver is normal in size and enhancement except for a perfusion anomaly at the lateral right hepatic lobe, mid liver level, previously present and comprised of a wedge-shaped area of mild increased enhancement that has not changed over the prior year. Gallbladder shows no evidence of internal calcified gallstone or gallbladder wall inflammation. The common duct is again seen to be prominent in size measuring up to 1.3 cm, and intrahepatic bile ducts also are mildly enlarged, to a slightly greater degree of prominence than was seen on the comparison study from 07/09/18. Etiology is uncertain. Pancreas enhances normally but portions of the pancreatic head are poorly seen due to metal artifact from lumbosacral spine fusion devices.. Spleen is normal in size and enhancement. No adrenal nodules. Kidneys demonstrate normal size and enhancement, without hydronephrosis. Peritoneum and bowel: Bowel loops demonstrate normal wall thickness and caliber. No free fluid or air. Nodes and vessels: No retroperitoneal or mesenteric adenopathy by size criteria. Aorta and inferior vena cava are normal in size. Miscellaneous: No ventral hernias. No sign of appendicitis or diverticulitis. PELVIS: Genitourinary: Bladder wall thickness is normal. Miscellaneous: No inguinal hernias or adenopathy. Bones: No suspicious bony lesions. No vertebral body compression fractures. IMPRESSION: 1. Source of lower abdominal pain is not found. 2. Intrahepatic and extrahepatic biliary distension has been present in this patient who has not undergone prior cholecystectomy. Etiology of this appearance which appears to have slightly worsened within the liver over the prior year is uncertain. Please correlate with liver function tests. Depending on the clinical status follow-up by MR cholangiogram may be warranted. 3. Focal perfusion anomaly at the prior lateral border of the right hepatic lobe, middle 3rd, has been previously present and does not require specific follow-up. Dictated by: Donal Ventura M.D. on 10/04/2019 at 8:23 Approved by: Donal Ventura M.D. on 10/04/2019 at 9:26
--- NOTE | 2019-10-04 | ED.GENADULT ---
HPI - General Adult General Chief complaint: Urogenital-Female Stated complaint: Rectal pain Time Seen by Provider: 10/03/19 23:49 Source: patient Mode of arrival: EMS Limitations: no limitations History of Present Illness HPI narrative: 74-year-old female who arrived from [facility] for evaluation of rectal pain. Review the patient's record shows that she has had a longstanding history of abdominal/rectal pain another abdominal issues. She has also had multiple visits for potential overdose of her pain medication. She states that for the past several weeks and especially over the past couple days she has had an increase in her chronic rectal pain. She states she has talked with her primary doctor. She was told by her primary doctor that they do not know what is causing her discomfort. Review of the note shows that she has seen General surgery. Had a exam under anesthesia and also a flex sig which did not show any acute pathology. According to the general surgeon or to the end of last year there was recommendations the patient go see Colorectal surgery at [facility]. Patient states she has not followed up with the specialist. She has been taking her medications. She states that the pain got so bad over the past couple nights that she wanted to be evaluated. Related Data Home Medications Medication Instructions Recorded Confirmed gabapentin [Neurontin] 300 mg PO DAILY #0 03/01/17 01/11/19 hyoscyamine sulfate 0.125 mg PO Q6H PRN 08/14/18 01/11/19 lidocaine [Lidoderm] 1 patch TOPICAL DAILY 08/14/18 01/11/19 tramadol 50 mg tablet 50 mg PO Q6H PRN 01/02/19 01/11/19 Previous Rx's Medication Instructions Recorded bisacodyl 10 mg IA DAILY PRN #30 ea 06/19/18 docusate sodium 100 mg PO BID #60 cap 06/19/18 nicotine 21 mg TOPICAL DAILY #30 ea 06/19/18 polyethylene glycol 3350 17 gm PO DAILY #30 ea 06/19/18 sennosides [senna] 17.2 mg PO DAILY PRN #30 tab 06/19/18 lidocaine 5 % topical cream 1 applictn TOP QID PRN #30 gram 01/02/19 nifedipine See Rx Instructions .ROUTE 01/02/19 .COMPLEX #30 gram Allergies Allergy/AdvReac Type Severity Reaction Status Date / Time No Known Drug Allergies Allergy Verified 10/04/19 00:27 Review of Systems Constitutional Constitutional: Denies fever(s) Cardiovascular Cardiovascular: Denies chest pain and Denies dyspnea Respiratory Respiratory: Denies dyspnea Gastrointestinal Gastrointestinal: Denies abdominal pain, Denies hematochezia, Denies change in bowel habits, Denies change in stool character, Denies cramping and Denies nausea Comments: Rectal pain Genitourinary Genitourinary: Denies dysuria Genitourinary: Denies dysuria and Denies vaginal discharge Musculoskeletal Musculoskeletal: Reports back pain Integumentary/Breasts Skin/Breast: Denies rash Neurologic Neurologic: Denies behavioral changes Psychiatric Psychiatric: Denies behavioral changes and Denies depression Patient History Medical History Coccyx pain (Acute) Pulmonary embolism (Resolved) Right shoulder injury (Resolved) Surgical History History of hysterectomy (Resolved) History of lumbar laminectomy (Resolved) Family History Mother Diverticulitis Social History household members: none Smoking Status: Current every day smoker alcohol intake: never Smoking Status: Current every day smoker alcohol intake frequency: other Substance Use Type: does not use Exam Initial Vital Signs Initial Vital Signs: Vital Signs Temperature 97.8 F 10/03/19 23:56 Pulse Rate 87 10/03/19 23:56 Respiratory Rate 18 10/03/19 23:56 Blood Pressure 183/94 H 10/03/19 23:56 Pulse Oximetry 96 10/03/19 23:56 Const General: cooperative Limitations: mental status not altered [facility] Head: normal to inspection and normocephalic Resp Effort & Inspection: normal respiratory effort Cardio Rate: regular rate GI Inspection: non-distended Palpation: soft, No firm and No tender Rectal Exam: normal sphincter tone, No hemorrhoids, No laceration, No lesions, No mass and tenderness Skin Lesions: no lesions Rashes: no rashes Neuro General: patient alert and patient awake Extrem General: normal to inspection and capillary refill normal Psych Appearance: grossly normal and well kempt Course Orders Ordered: ED Orders 10/04/19 00:00 CT abdomen pelvis w con Stat 10/04/19 00:21 Complete Blood Count AUTO DIFF Stat Comprehensive Metabolic Panel Stat Lipase Stat Discontinued Medications Acetaminophen (Tylenol) 650 mg PO NOW ONE Stop: 10/04/19 00:25 Last Admin: 10/04/19 00:33 Dose: 650 mg Documented by: KULDIP Sodium Chloride (Normal Saline 0.9%) 1,000 mls @ 1,000 mls/hr IV BOLUS ONE Stop: 10/04/19 00:59 Last Infusion: 10/04/19 01:34 Dose: 1,000 mls/hr Documented by: Admin: 10/04/19 00:30 Dose: 1,000 mls/hr Documented by: KULDIP Vital Signs Vital signs: Vital Signs - 8 hr 10/03/19 23:56 10/04/19 00:34 Temperature 97.8 F Pulse Rate 87 85 Respiratory Rate 18 Blood Pressure 183/94 H Pulse Oximetry 96 96 Medical Decision Making Medical Records Medical records reviewed: Yes I reviewed the patient's medical records. Lab Data Lab results reviewed: Yes I reviewed the patient's lab results. Result diagrams: 10/04/19 00:21 10/04/19 00:21 Labs: Lab Results 10/04/19 10/04/19 Range/Units 00:21 00:21 WBC 7.0 (4.5-11.0) X10^3/uL RBC 4.66 (4.0-5.2) X10^6/uL Hgb 15.6 (12.0-16.0) g/dL Hct 48.0 H (36-46) % MCV 102.9 H (80-100) fL MCH 33.4 (26-34) PG MCHC 32.5 (30-36) % RDW 17.0 H (11.6-14.8) % Plt Count 206 (150-400) X10^3/uL Neut % (Auto) 71.4 (50-75) % Lymph % (Auto) 21.1 L (25-40) % [place] % (Auto) 4.4 (3-14) % Eos % (Auto) 0.4 L (2-4) % Baso % (Auto) 2.7 H (0-2) % Neut # (Auto) 5000 (0169-8513) /uL Lymph # (Auto) 1500 (7988-8437) /uL [place] # (Auto) 300 (0-900) /uL Eos # (Auto) 0 (0-450) /uL Baso # (Auto) 200 H (0-100) /uL Sodium 136 L (137-145) mmol/L Potassium 3.9 (3.4-5.1) mmol/L Chloride 104 (98-107) mmol/L Carbon Dioxide 20 L (22-32) mmol/L BUN 23 H (7-17) mg/dL Creatinine 0.74 (0.52-1.04) mg/dL Estimated GFR > 60.0 (>60) mL/min BUN/Creatinine Ratio 31.1 H (6-22) Glucose 82 (80-110) mg/dL Calcium 9.3 (8.4-10.2) mg/dL Total Bilirubin 0.8 (0.2-1.3) mg/dL AST 26 (14-36) IU/L ALT 11 (<35) IU/L Alkaline Phosphatase 50 (38-126) U/L Total Protein 8.0 (6.3-8.2) g/dL Albumin 4.5 (3.5-5.0) g/dL Globulin 3.5 (1.7-4.1) g/dL Albumin/Globulin Ratio 1.3 (1.0-2.8) Lipase 36 (23-300) U/L Imaging Data CT scan - abdomen/pelvis: Radiologist's Impression: Numerous ground findings without acute changes from prior studies MDM Narrative Medical decision making narrative: Labs exam and CT scan unremarkable. Unsure the exact etiology of her rectal pain. I did discuss this with her. I did inform her that she needed to talk with her primary care provider for further pain management issues. Given her history of potential overdose on her opioids (intentional or not) I feel changing any of her medications on the emergency department is not appropriate. No indication for surgical consultation. No indication for antibiotics. No indication for admission the hospital. Will discharge patient home. She was given return precautions. She expressed understanding and agreement. Discharge Plan Departure Patient Disposition: Home Clinical Impression: Chronic rectal pain Discharge Date/Time: 10/04/19 01:40 Instructions: DI for Chronic Pain -- Adult Activity Restrictions/Additional Instructions: There were no new findings found on the CT scan or your lab work or your exam this evening. Recommend that later today you contact your primary doctor's office. According to the general surgery note from the end of last year there was a recommendation that you get in to see a colorectal surgeon. This is something that your primary doctor will have to facilitate. Continue all of your medications as directed Prescriptions: No Action gabapentin [Neurontin] 600 MG tablet 300 mg PO DAILY Qty: 0 RF: 0 tramadol 50 mg tablet 50 mg PO Q6H PRN (Reason: Pain (Scale Score 4-6)) RF: 0 lidocaine 5 % cream 1 applictn TOP QID PRN (Reason: pain rectal) Qty: 30 RF: 0 nifedipine 0.2 % cream See Rx Instructions .ROUTE .COMPLEX Qty: 30 RF: 1 lidocaine [Lidoderm] 5 % Adhesive Patch,Medicated 1 patch topical DAILY RF: 0 hyoscyamine sulfate 0.125 mg Tablet, Sublingual 0.125 mg PO Q6H PRN (Reason: Spasms) RF: 0 sennosides [senna] 8.6 mg Tablet 17.2 mg PO DAILY PRN (Reason: Constipation) Qty: 30 RF: 0 polyethylene glycol 3350 17 gram Powder In Packet 17 gm PO DAILY Qty: 30 RF: 0 bisacodyl 10 mg Suppository 10 mg IA DAILY PRN (Reason: Constipation) Qty: 30 RF: 0 nicotine 21 mg/24 hr Patch 24 Hour 21 mg topical DAILY Qty: 30 RF: 0 docusate sodium 100 mg Capsule 100 mg PO BID Qty: 60 RF: 0 Referrals: Chucky Velazquez MD [Primary Care Provider] -
[2019-10-04] MEDS: SODIUM CHLORIDE 0.9% 1,000 ML 1000 ML IV (00:30)
[2019-10-04 00:31] LABS: Add Manual Diff / Slide Review NO; Basophils Absolute Auto 200 /uL (0-100); Basophils Percent Auto 2.7 % (0-2); Eosinophils Absolute Auto 0 /uL (0-450); Eosinophils Percent Auto 0.4 % (2-4); Hemoglobin 15.6 g/dL (12.0-16.0); Lymphocytes Absolute Auto 1500 /uL (1100-4500); Lymphocytes Percent Auto 21.1 % (25-40); Mean Corpuscular HGB Conc 32.5 % (30-36); Mean Corpuscular Hemoglobin 33.4 PG (26-34); Mean Corpuscular Volume 102.9 fL (80-100); Monocytes Absolute Auto 300 /uL (0-900); Monocytes Percent Auto 4.4 % (3-14); Neutrophils Absolute Auto 5000 /uL (1500-7000); Neutrophils Percent Auto 71.4 % (50-75); Platelet Count 206 X10^3/uL (150-400); Red Blood Cell Count 4.66 X10^6/uL (4.0-5.2)
[2019-10-04] MEDS: ACETAMINOPHEN 325 MG TABLET 650 MG PO (00:33)
[2019-10-04 00:34] VITALS: PULSE 85; O2SAT 96
--- NOTE | 2019-10-04 00:36 | PC.NURSE ---
Patient brought in by EMS. Complains of rectal pain that has been occurring for one week. States she has seen her PCP for this pain and will have appt with Nereida Prajapati in the future via referral of PCP. States pain is 8/10 upon arrival and describes pain as burning and stabbing. States she has had hemorrhoids in the past about 1-2 years ago. States bowel movements have been normal, last one was this afternoon. Denies any urinary symptoms. Denies any abdominal pain. States she was vomiting some this afternoon. When asked if she vomited any during transport from [facility] patient states no because I was able to hold it back. Patient has chronic back pain for which she has worn Fentanyl patches for 16 years. Denies any back pain at this time. States this is day two of current Fentanyl patch. Also has been taking tramadol 50mg for rectal pain prescribed by PCP. Takes gabapentin 900mg daily also for back pain. Per EMS, patient complained of 9/10 pain from around 1950 upon their arrival at her residence until they got to our ER at approximately 2345. While starting patient's IV, patient states that tramadol helped with pain all during transport, but now pain was coming back very severely. Patient begins to weep and asks for aspirin or tylenol. MD informed. Patient given tylenol. Patient weeping entire time nurse is in room. Denies needing anything further at this time.
[2019-10-04 00:52] LABS: Alanine Aminotransferase 11 IU/L (<35); Albumin 4.5 g/dL (3.5-5.0); Albumin Globulin Ratio 1.3 (1.0-2.8); Alkaline Phosphatase 50 U/L (38-126); Aspartate Aminotransferase 26 IU/L (14-36); BUN Creatinine Ratio 31.1 (6-22); Bilirubin Total 0.8 mg/dL (0.2-1.3); Blood Urea Nitrogen 23 mg/dL (7-17); Calcium 9.3 mg/dL (8.4-10.2); Carbon Dioxide 20 mmol/L (22-32); Chloride 104 mmol/L (98-107); Estimated Glomerular Filt Rate > 60.0 mL/min (>60); Globulin 3.5 g/dL (1.7-4.1); Glucose 82 mg/dL (80-110); HEMOLYSIS 28 (0-50); Lipase 36 U/L (23-300); Potassium 3.9 mmol/L (3.4-5.1); Sodium 136 mmol/L (137-145)
[2019-10-04 01:07] VITALS: PULSE 80; O2SAT 97
[2019-10-04 01:23] VITALS: BP 191/91; PULSE 79; O2SAT 98
[2019-10-04 01:30] VITALS: BP 184/86; PULSE 75; TEMP 36.8; O2SAT 98
== END 2019-10-04 01:40 | disposition home or self-care (01) ==
PROVIDERS: Emergency Provider Emergency Medicine; PCP Family Medicine
DX: K62.89 Other specified diseases of anus and rectum (principal); G89.29 Other chronic pain
CPT/HCPCS: 36415; 74177; 80053; 83690; 85025; 96360; 99284; Q9967